=== PATIENT | male | born 1935 | race Caucasian/White ===

== ENCOUNTER 2016-08-15 12:46 | Emergency (ER) | payer OTHER ==
[~2016-08-15] VITALS: Ht 182.9 cm; Wt 85.0 kg
[~2016-08-15 12:46] MED LIST: ASCA500 PO; ASPI-435 PO; ATEN25TA PO; CHOL100010 PO; CLOP1TAB54 PO; DIGO0.2518 PO; DIGO0.2576 PO; DILT240C56 PO; FENO134C2 PO; FERR1TAB62 PO; FINA5TAB PO; GLC/500 PO; LEVO75TA PO; MAGN400T5 PO; MCRK20 PO; MULT-506 PO; OMEGCAP2 PO; OMEP40CA PO; ONDA4TAB65 PO; SIMV20TA5 PO; ZINC1TAB PO
[2016-08-15 12:52] VITALS: Ht 182.9 cm; Wt 85.0 kg
[2016-08-15] MEDS ORDERED: SODIUM CHLORIDE 0.9% 1000ML 1,000 ML IV STA (13:05)
[2016-08-15] MEDS ORDERED: ONDANSETRON INJ 2 MG/ML 2 ML VIAL IV STA (13:05)
--- NOTE | 2016-08-15 13:07 | EMERGENCY ROOM VISIT NOTE ---
History Report prepared by Marcelo: Julisa Brooks Under the Supervision of: Dr. Sabina Lopez M.D. First contact with patient: 12:54 Chief Complaint: OTHER COMPLAINT Stated Complaint: DISCHARGING FROM RECTUM (HAS COLOSTOMY BAG) History of Present Illness The patient is a 80 year old male who presents to the Emergency Room with complaints of constant discharge from rectum beginning last night. Per the patient and his , the discharge is a watery brown color. The patient for the past 2 years has had a colostomy bag. He denies every having this discharge from his rectum before. The patient has also been experiencing a pressure sensation before he has a bowel movement which results in the discharge from his rectum. The patient denies urinary symptoms. He has a history of a stroke. Source of History: patient, spouse/significant other Onset: last night Position: other (rectum) Quality: other (discharge) Timing: constant Associated Symptoms: No urinary symptoms Note: The patient describes his discharge as watery brown color. He experiences a pressure sensation before bowel movement. Review of Systems See HPI for pertinent positives & negatives. A total of 10 systems reviewed and were otherwise negative. Past Medical & Surgical Medical Problems: (1) EBONY inhibitor intolerance (2) BPH (benign prostatic hyperplasia) (3) CAD (coronary artery disease) (4) Carotid stenosis, bilateral (5) CKD (chronic kidney disease), stage III (6) DM type 2 (diabetes mellitus, type 2) (7) Dyslipidemia (8) Elevated PSA (9) GERD (gastroesophageal reflux disease) (10) History of atrial fibrillation (11) History of CVA (cerebrovascular accident) (12) History of lower GI bleeding (13) History of renal calculi (14) Hx of hematuria (15) Hypertension (16) Hypothyroidism (17) Iron deficiency anemia (18) Osteoarthritis (19) SBO (small bowel obstruction) Surgical Problems: (1) H/O colectomy (2) History of lumbar surgery (3) History of prostate surgery (4) S/P CABG x 5 (5) S/P cataract surgery (6) S/P coronary artery stent placement (7) S/P exploratory laparotomy (8) S/P hernia repair Family History Diabetes mellitus FH: cancer FH: heart disease Social History Smoking Status: Never Smoker Smokeless Tobacco Use: No Alcohol Use: none Drug Use: none Marital Status: Housing Status: lives with family Occupation Status: retired Current/Historical Medications Scheduled Ascorbic Acid (Vitamin C), 500 MG PO DAILY Aspirin (Aspirin 81), 81 MG PO BID Atenolol (Tenormin), 25 MG PO DAILY Clopidogrel Bisulfate (Plavix), 75 MG PO DAILY Diltiazem Hcl Coated Beads (Diltiazem Cd), 240 MG PO DAILY Fenofibrate (Tricor ), 134 MG PO DAILY Ferrous Sulfate (Ferrous Sulfate), 1 TAB PO DAILY Finasteride (Proscar), 5 MG PO DAILY Levothyroxine Sodium (Synthroid), 75 MCG PO DAILY Magnesium Oxide (Mag-Ox), 400 MG PO DAILY Metformin Hcl (Glucophage), 500 MG PO BID Multivitamin (Multivitamin), 1 TAB PO DAILY [place]-3 Fatty Acids (Fish Oil), 1 CAP PO DAILY Potassium Chloride (Klor-Con M20), 1 TAB PO DAILY Simvastatin (Zocor), 20 MG PO QPM Zinc Gluconate (Zinc), 1 TAB PO DAILY Scheduled PRN Ondansetron Hcl (Zofran), 1 TAB PO Q6H PRN for Nausea Allergies Coded Allergies: Codeine (Verified Allergy, Intermediate, ITCHING, 08/15/16) Hydrocodone (Verified Allergy, Intermediate, NAUSEA, 08/15/16) Tramadol (Verified Allergy, Intermediate, ITCHING, 08/15/16) Acetaminophen (Unverified Allergy, Unknown, NAUSEA, 08/15/16) Physical Exam Vital Signs Date Time Temp Pulse Resp B/P Pulse Ox O2 Delivery O2 Flow Rate FiO2 08/15/16 18:31 61 16 136/74 97 Room Air 08/15/16 18:31 36.5 61 16 136/74 97 08/15/16 17:11 61 16 132/71 97 Room Air 08/15/16 15:14 64 16 136/71 97 Room Air 08/15/16 14:24 59 16 158/83 97 Room Air 08/15/16 12:52 36.5 60 18 128/63 97 Room Air Physical Exam Vital signs reviewed. General: Well-appearing elderly male, in no significant distress. HEENT: No scleral icterus, PERRLA, neck supple. Atraumatic. Cardiovascular: Regular rate and rhythm, no extra sounds. Pulmonary: Clear to auscultation bilaterally, normal work of breathing. Abdomen: Colostomy to mid abdomen location with liquid dark green stool. Soft, nontender, nondistended. Musculoskeletal: Atraumatic, no peripheral edema. Neurologic: Patient awake alert and oriented x 3 Skin: Warm, dry, no rash Medical Decision & Procedures ER Provider Diagnostic Interpretation: CT results as stated below per my review and radiologist interpretation: CT SCAN OF THE ABDOMEN AND PELVIS WITHOUT CONTRAST CLINICAL HISTORY: Rectal discharge. History of colostomy. Possible fistula. COMPARISON STUDY: 05/26/2015 TECHNIQUE: CT scan of the abdomen and pelvis was performed from the lung bases to the proximal femurs. Images are reviewed in the axial, sagittal, and coronal planes. IV contrast was not administered for this examination. CT DOSE: 708.65 mGycm FINDINGS: Lower chest: There are coronary artery calcifications. There are minimal dependent atelectatic changes. Liver: There is a stable 8 mm anteriorly the junction of the left lobe medial lateral segments. There is no ductal dilatation. Gallbladder: Unremarkable. Spleen: Normal in size and attenuation. Pancreas: Unremarkable. Adrenal glands: There is a 15 mm right adrenal nodule with attenuation value of 30 Hounsfield units. Kidneys: No renal, ureteral, or bladder calculi are visualized. Bowel: The patient appears to be status post a subtotal colectomy. There is a right lower quadrant ostomy. There is a Martina pouch. There are no transition zones to indicate bowel obstruction. There is gas present within the rectosigmoid. Peritoneum: There is no intraperitoneal free air or abdominal ascites. There is a tiny fat-containing umbilical hernia. Vasculature: The abdominal aorta is normal in course and caliber. Adenopathy: None. Pelvic viscera: The prostate is enlarged measuring 5.9 cm. Skeletal structures: There are advanced degenerative changes. There are postsurgical changes are prior lumbar laminectomy. IMPRESSION: 1. Postsurgical changes of a subtotal colectomy. Right lower quadrant ileostomy. 2. No evidence of bowel obstruction. No evidence of free air. 3. Enlarged prostate 4. No evidence of pathologic adenopathy 5. Stable 2 cm right adrenal nodule 6. No acute inflammatory changes identified Electronically signed by: Darrel Ewing M.D. 08/15/2016 4:12 PM Dictated Date/Time: 08/15/2016 4:05 PM Laboratory Results 08/15/16 13:10 Red Blood Count 3.75, Mean Corpuscular Volume 87.5, Mean Corpuscular Hemoglobin 28.5, Mean Corpuscular Hemoglobin Concent 32.6, Mean Platelet Volume 10.2, Neutrophils (%) (Auto) 79.9, Lymphocytes (%) (Auto) 10.3, Monocytes (%) (Auto) 8.3, Eosinophils (%) (Auto) 1.1, Basophils (%) (Auto) 0.2, Neutrophils # (Auto) 8.81, Lymphocytes # (Auto) 1.13, Monocytes # (Auto) 0.92, Eosinophils # (Auto) 0.12, Basophils # (Auto) 0.02 08/15/16 13:10 Test 08/15/16 13:10 White Blood Count 11.02 K/uL (4.8-10.8) Red Blood Count 3.75 M/uL (4.7-6.1) Hemoglobin 10.7 g/dL (14.0-18.0) Hematocrit 32.8 % (42-52) Mean Corpuscular Volume 87.5 fL (80-100) Mean Corpuscular Hemoglobin 28.5 pg (25-34) Mean Corpuscular Hemoglobin Concent 32.6 g/dl (32-36) Platelet Count 319 K/uL (130-400) Mean Platelet Volume 10.2 fL (7.4-10.4) Neutrophils (%) (Auto) 79.9 % Lymphocytes (%) (Auto) 10.3 % Monocytes (%) (Auto) 8.3 % Eosinophils (%) (Auto) 1.1 % Basophils (%) (Auto) 0.2 % Neutrophils # (Auto) 8.81 K/uL (1.4-6.5) Lymphocytes # (Auto) 1.13 K/uL (1.2-3.4) Monocytes # (Auto) 0.92 K/uL (0.11-0.59) Eosinophils # (Auto) 0.12 K/uL (0-0.5) Basophils # (Auto) 0.02 K/uL (0-0.2) RDW Standard Deviation 49.4 fL (36.4-46.3) RDW Coefficient of Variation 15.2 % (11.5-14.5) Immature Granulocyte % (Auto) 0.2 % Immature Granulocyte # (Auto) 0.02 K/uL (0.00-0.02) Prothrombin Time 12.9 SECONDS (9.0-12.0) Prothromb Time International Ratio 1.2 (0.9-1.1) Activated Partial Thromboplast Time 30.3 SECONDS (21.0-31.0) Partial Thromboplastin Ratio 1.2 Anion Gap 7.0 mmol/L (3-11) Est Creatinine Clear Calc Drug Dose 32.9 ml/min Estimated GFR () 35.7 Estimated GFR (Non- 30.8 BUN/Creatinine Ratio 15.4 (10-20) Calcium Level 9.0 mg/dl (8.5-10.1) Magnesium Level 2.0 mg/dl (1.8-2.4) Total Bilirubin 0.8 mg/dl (0.2-1) Direct Bilirubin 0.3 mg/dl (0-0.2) Aspartate Amino Transf (AST/SGOT) 10 U/L (15-37) Alanine Aminotransferase (ALT/SGPT) 17 U/L (12-78) Alkaline Phosphatase 44 U/L (45-117) Total Protein 7.3 gm/dl (6.4-8.2) Albumin 3.8 gm/dl (3.4-5.0) Lipase 127 U/L (73-393) Laboratory results per my review. Medications Administered Medications (Trade) Dose Ordered Sig/Shonda Route Start Time Stop Time Status Last Admin Dose Admin Sodium Chloride (Nss 1000ml) 1,000 ml @ 125 mls/hr Q8H STAT IV 08/15/16 13:05 08/15/16 21:04 08/15/16 13:37 125 MLS/HR Ondansetron HCl (Zofran Inj) 4 mg NOW STAT IV 08/15/16 13:05 08/15/16 13:08 DC 08/15/16 13:37 4 MG ED Course 1301: Past medical records reviewed. The patient was evaluated in room B9. A complete history and physical examination was performed. 1305: Zofran Inj 4 mg IV, Sodium Chloride 1,000 ml @ 125 mls/hr IV. 1748: I reevaluated the patient. 1754: I spoke with Dr. Vitaliy BENJAMIN about the possible etiologies due to the sudden onset of the patient's symptoms. 1810: I discussed the plan with the patient and his for discharge. 1814: Upon reevaluation, the patient appeared to have improvement of his symptoms. I discussed findings with him. He verbalized agreement of the treatment plan. He was discharged home. Medical Decision The patient is a 80 year old male who presents to the ED with complaints of rectal discharge. Differentials include intra abdominal fistula, C Diff, colitis, diverticulitis, proctitis, rectal mucus production. This patient was evaluated and appeared to be in no significant distress. Rectal exam was performed and reveals a rectal stricture, a liquid brown stools like substance was appreciated. Patient's abdomen is nontender and nondistended. CT scan of the abdomen and pelvis was performed to rule out the possibility of an enteric fistula. This study is negative. I discussed the case with gastroenterology, Dr. Burks who agrees that the patient can be managed on an outpatient basis. The patient and his were reassured. The rest follow-up with her primary care physician as well as nephrology this week. The patient will return to the ER for worsening of symptoms or any medical concerns. Consults Time Called: 1751 Consulting Physician: Dr. Vitaliy BENJAMIN Returned Call: [address] Vitaliy BENJAMIN about the possible etiologies due to the sudden onset of the patient's symptoms. Impression Primary Impression: Acute on chronic renal insufficiency Additional Impressions: H/O colectomy Rectal discharge Scribe Attestation The scribe's documentation has been prepared under my direction and personally reviewed by me in its entirety. I confirm that the note above accurately reflects all work, treatment, procedures, and medical decision making performed by me. Departure Information Dispostion Home / Self-Care Referrals Everett Marrufo M.D. (PCP) Forms HOME CARE DOCUMENTATION FORM, IMPORTANT VISIT INFORMATION, WORK / SCHOOL INSTRUCTIONS Patient Instructions My [facility] [place] [employer] Additional Instructions Diagnosis: Rectal discharge, history of colectomy, acute on chronic renal insufficiency. Please contact of nephrology tomorrow for recommendations regarding your creatinine of 2.0, worsening from previous of 1.4. Please contact your primary care physician's office tomorrow for referral to gastroenterology. Drink plenty of clear fluids. Return to the emergency department for worsening of symptoms or any medical concerns. Problem Qualifiers
[2016-08-15 13:48] LABS: BASO % 0.2 %; BASO ABS # 0.02 K/uL (0-0.2); COMPLETE YES; EOS % 1.1 %; HEMATOCRIT 32.8 % (42-52); IG% 0.2 %; LYMPH % 10.3 %; LYMPH ABS # 1.13 K/uL (1.2-3.4); MEAN CELL VOLUME 87.5 fL (80-100); MEAN CORPUSCULAR HEMOGLOBIN 28.5 pg (25-34); MEAN CORPUSCULAR HGB CONC 32.6 g/dl (32-36); MEAN PLATELET VOLUME 10.2 fL (7.4-10.4); MONO % 8.3 %; NEUT % 79.9 %; PLATELET COUNT 319 K/uL (130-400); RED BLOOD COUNT 3.75 M/uL (4.7-6.1); WHITE BLOOD COUNT 11.02 K/uL (4.8-10.8)
[2016-08-15 13:55] LABS: INR 1.2 (0.9-1.1); PARTIAL THROMBOPLASTIN RATIO 1.2; PROTHROMBIN TIME (PATIENT) 12.9 SECONDS (9.0-12.0)
[2016-08-15 14:10] LABS: BUN/CREATININE RATIO 15.4 (10-20); POTASSIUM 4.4 mmol/L (3.5-5.1)
--- NOTE | 2016-08-15 16:13 | DIAGNOSTIC IMAGING REPORT ---
CT SCAN OF THE ABDOMEN AND PELVIS WITHOUT CONTRAST CLINICAL HISTORY: Rectal discharge. History of colostomy. Possible fistula. COMPARISON STUDY: 05/26/2015 TECHNIQUE: CT scan of the abdomen and pelvis was performed from the lung bases to the proximal femurs. Images are reviewed in the axial, sagittal, and coronal planes. IV contrast was not administered for this examination. CT DOSE: 708.65 mGycm FINDINGS: Lower chest: There are coronary artery calcifications. There are minimal dependent atelectatic changes. Liver: There is a stable 8 mm anteriorly the junction of the left lobe medial lateral segments. There is no ductal dilatation. Gallbladder: Unremarkable. Spleen: Normal in size and attenuation. Pancreas: Unremarkable. Adrenal glands: There is a 15 mm right adrenal nodule with attenuation value of 30 Hounsfield units. Kidneys: No renal, ureteral, or bladder calculi are visualized. Bowel: The patient appears to be status post a subtotal colectomy. There is a right lower quadrant ostomy. There is a Martina pouch. There are no transition zones to indicate bowel obstruction. There is gas present within the rectosigmoid. Peritoneum: There is no intraperitoneal free air or abdominal ascites. There is a tiny fat-containing umbilical hernia. Vasculature: The abdominal aorta is normal in course and caliber. Adenopathy: None. Pelvic viscera: The prostate is enlarged measuring 5.9 cm. Skeletal structures: There are advanced degenerative changes. There are postsurgical changes are prior lumbar laminectomy. IMPRESSION: 1. Postsurgical changes of a subtotal colectomy. Right lower quadrant ileostomy. 2. No evidence of bowel obstruction. No evidence of free air. 3. Enlarged prostate 4. No evidence of pathologic adenopathy 5. Stable 2 cm right adrenal nodule 6. No acute inflammatory changes identified Electronically signed by: Darrel Ewing M.D. 08/15/2016 4:12 PM Dictated Date/Time: 08/15/2016 4:05 PM
[2016-08-15 18:31] VITALS: BP 136/74; PULSE 61; TEMP 36.5; O2SAT 97
[2016-09-08] MEDS ORDERED: FLX10 PO (18:34)
[2016-09-08] MEDS ORDERED: AMX500 PO (18:34)
[2016-09-08] MEDS ORDERED: CRD200 PO (18:34)
== END 2016-08-15 18:32 | disposition home or self-care (01) ==
LOC: C.EDB 12:48
DX: K62.89 Other specified diseases of anus and rectum (principal); Z93.3 Colostomy status; Z90.49 Acquired absence of other specified parts of digestive tract; N18.3 Chronic kidney disease, stage 3 (moderate); I12.9 Hypertensive chronic kidney disease with stage 1 through stage 4 chronic kidney disease, or unspecified chronic kidney disease; Z86.73 Personal history of transient ischemic attack (TIA), and cerebral infarction without residual deficits; N40.0 Benign prostatic hyperplasia without lower urinary tract symptoms; I25.10 Atherosclerotic heart disease of native coronary artery without angina pectoris; E78.5 Hyperlipidemia, unspecified; K21.9 Gastro-esophageal reflux disease without esophagitis; I48.91 Unspecified atrial fibrillation; E03.9 Hypothyroidism, unspecified; M19.90 Unspecified osteoarthritis, unspecified site; Z95.1 Presence of aortocoronary bypass graft; Z98.49 Cataract extraction status, unspecified eye; Z95.5 Presence of coronary angioplasty implant and graft; Z83.3 Family history of diabetes mellitus; Z80.9 Family history of malignant neoplasm, unspecified; Z79.82 Long term (current) use of aspirin; Z79.899 Other long term (current) drug therapy

== ENCOUNTER 2016-09-03 10:59 | Inpatient (IN) | payer OTHER ==
[~2016-09-03] VITALS: Ht 182.9 cm; Wt 84.5 kg
[~2016-09-03 10:59] MED LIST changes: -CHOL100010 PO; -DIGO0.2518 PO; -DIGO0.2576 PO; -OMEP40CA PO
--- NOTE | 2016-09-03 11:24 | EMERGENCY ROOM VISIT NOTE ---
History Report prepared by Tonyibailyn: Rogelio Mclaughlin Under the Supervision of: Dr. Denice Wang D.O. First contact with patient: 11:06 Chief Complaint: DIZZY Stated Complaint: NECK PAIN,DIZZINESS History of Present Illness The patient is a 80 year old male who presents to the Emergency Room with recurrent dizziness for the past three days. The patient's notes that they heard a crash, and found the patient fallen into a flower bed. The patient cannot remember the fall but he does remember feeling dizzy prior to the fall. states pt had +LOC. The patient has been experiencing neck pain that is described as a burning sensation. The neck pain is worse on the right side. The patient's blood pressure was 107/51 around the time of the fall, and his family notes that he normally runs in the 120s systolically. The patient saw his doctor two days ago and had blood work. The patient has had a colostomy bag for two years. The patient has a history of stroke and carotid stenosis. His right side is weak at baseline secondary to past stroke. The patient was just taken off of Digoxin, Atenolol, and Metformin. The patient denies chest pain, shortness of breath, palpitations, nausea, abdominal pain, or urinary symptoms. Son states pt has had prior episodes of prince/neck pain and syncope and no cause was ever found. Source of History: patient, family Onset: three days ago Position: other (global) Quality: other (dizziness) Timing: other (recurrent) Associated Symptoms: + neck pain, No chest pain, No SOB, No nausea, No abdominal pain, No urinary symptoms Review of Systems See HPI for pertinent positives & negatives. A total of 10 systems reviewed and were otherwise negative. Past Medical & Surgical Medical Problems: (1) EBONY inhibitor intolerance (2) BPH (benign prostatic hyperplasia) (3) CAD (coronary artery disease) (4) Carotid stenosis, bilateral (5) CKD (chronic kidney disease), stage III (6) DM type 2 (diabetes mellitus, type 2) (7) Dyslipidemia (8) Elevated PSA (9) GERD (gastroesophageal reflux disease) (10) History of atrial fibrillation (11) History of CVA (cerebrovascular accident) (12) History of lower GI bleeding (13) History of renal calculi (14) Hx of hematuria (15) Hypertension (16) Hypothyroidism (17) Iron deficiency anemia (18) Osteoarthritis (19) SBO (small bowel obstruction) Surgical Problems: (1) H/O colectomy (2) History of lumbar surgery (3) History of prostate surgery (4) S/P CABG x 5 (5) S/P cataract surgery (6) S/P coronary artery stent placement (7) S/P exploratory laparotomy (8) S/P hernia repair Family History Diabetes mellitus FH: cancer FH: heart disease Social History Smoking Status: Never Smoker Alcohol Use: none Drug Use: none Marital Status: Housing Status: lives with family Occupation Status: retired Current/Historical Medications Scheduled Aspirin (Aspirin 81), 81 MG PO BID Cholecalciferol (Vitamin D3), 1,000 UNITS PO HS Clopidogrel Bisulfate (Plavix), 75 MG PO DAILY Diltiazem Hcl Coated Beads (Diltiazem Cd), 240 MG PO DAILY Fenofibrate (Tricor ), 134 MG PO DAILY Finasteride (Proscar), 5 MG PO DAILY Levothyroxine Sodium (Synthroid), 75 MCG PO DAILY Magnesium Oxide (Mag-Ox), 400 MG PO DAILY Multivitamin (Multivitamin), 1 TAB PO DAILY Omeprazole (Prilosec), 40 MG PO BID Simvastatin (Zocor), 20 MG PO QPM Allergies Coded Allergies: Codeine (Verified Allergy, Intermediate, ITCHING, 09/03/16) Tramadol (Verified Allergy, Intermediate, ITCHING, 09/03/16) Hydrocodone (Verified Adverse Reaction, Intermediate, NAUSEA, 09/06/16) Physical Exam Vital Signs Date Time Temp Pulse Resp B/P (MAP) Pulse Ox O2 Delivery O2 Flow Rate FiO2 09/03/16 15:12 67 09/03/16 15:11 80 18 124/70 97 Room Air 09/03/16 15:10 71 126/71 67 142/76 80 124/70 09/03/16 12:50 67 18 127/71 97 Room Air 09/03/16 11:03 36.4 91 18 142/77 98 Room Air Physical Exam GENERAL: alert, well appearing, well nourished, no distress, non-toxic EYE EXAM: normal conjunctiva, PERRL and EOM's grossly intact OROPHARYNX: no exudate, no erythema, lips, buccal mucosa, and tongue normal and mucous membranes are moist NECK: Right paraspinal cervical spine tenderness, no midline tenderness or stepoff. LUNGS: Clear to auscultation. Normal chest wall mechanics HEART: no murmurs, S1 normal and S2 normal ABDOMEN: abdomen soft, non-tender, normo-active bowel sounds, no masses, no rebound or guarding. BACK: Back is symmetrical on inspection and there is no deformity, no midline tenderness, no CVA tenderness. SKIN: no rashes and no bruising UPPER EXTREMITIES: Weakness and mild atrophy of the right upper extremity with decreased range of motion, secondary to prior stroke. LOWER EXTREMITIES: Right lower extremity in a brace, weak compared to left side due to prior stroke, sensation remains intact. NEURO EXAM: Normal sensorium, cranial nerves II-XII grossly intact, normal speech, no gross weakness of arms, no gross weakness of legs. Gross sensation intact. No facial droop, no speech slur. Medical Decision & Procedures ER Provider Diagnostic Interpretation: Radiology results have been interpreted by the radiologist and reviewed by me. SINGLE VIEW CHEST CLINICAL HISTORY: Fall. FINDINGS: An AP, portable, upright chest radiograph is compared to study dated 05/25/2015. The patient is status post midline sternotomy. The heart is enlarged and there is atherosclerotic calcification of the thoracic aorta. The pulmonary vasculature is noncongested. Chronic residual thickening is similar to previous. No airspace consolidation, large pleural effusion, or pneumothorax is seen. The skeletal structures are osteopenic. The bony thorax is grossly intact. IMPRESSION: Cardiomegaly with no acute cardiopulmonary abnormality. Electronically signed by: Lexx Sun M.D. 09/03/2016 11:58 AM Dictated Date/Time: 09/03/2016 11:[address] SCAN OF THE CERVICAL SPINE CLINICAL HISTORY: Fall. Neck pain. COMPARISON STUDY: CT scan of cervical spine dated 08/19/2014. TECHNIQUE: CT scan of the cervical spine is performed from the skull base to the upper thoracic spine. Images are reviewed in the axial, sagittal, and coronal planes. IV contrast was not administered for this examination. CT DOSE: Reported separately under the concurrently performed CT scan of the brain. FINDINGS: Skeletal structures: The skeletal structures are osteopenic. There is no evidence of fracture or subluxation involving the cervical spine. Vertebral body height is maintained. There is minimal anterolisthesis at C4-C5. Alignment is otherwise preserved. There is straightening of cervical lordosis. Anterior osteophytes are seen from C4 through T1. The odontoid process and lateral masses are intact. The atlantoaxial articulation is preserved noting productive degenerative change. The spinous processes appear intact. There is moderate to advanced multilevel cervical spondylosis. Uncovertebral and facet arthropathy contribute to neural foraminal narrowing at most levels. Intervertebral discs: There is moderate to advanced degenerative disc space narrowing seen at C5-C6, C6-C7, and C7-T1. Central canal: Posterior disc osteophyte complexes at C5-C6, C6-C7, and C7-T1 likely contribute to acquired compromise of the central canal. Soft tissues: The prevertebral and paraspinous soft tissues are within normal limits. There is atherosclerotic calcification of the carotid bulbs. Small calcified tonsilliths are incidentally noted. Calvarium: The visualized calvarium at the skull base appears intact. Brain parenchyma: Partially visualized brain parenchyma the skull base is within normal limits noting age-related involutional change. Sinuses and mastoids: The visualized paranasal sinuses are clear. The mastoid air cells are well pneumatized. Lung apices: Clear as visualized. IMPRESSION: 1. There is no evidence of fracture or subluxation involving the cervical spine. 2. Osteopenia and spondylotic change as above. Electronically signed by: Lexx Sun M.D. 09/03/2016 12:49 PM Dictated Date/Time: 09/03/2016 12:[address] SCAN OF THE BRAIN WITHOUT IV CONTRAST CLINICAL HISTORY: Fall. Syncope. Dizziness. COMPARISON STUDY: CT of the brain dated 08/17/2014. TECHNIQUE: Unenhanced axial CT scan of the brain is performed from the vertex to the skull base. CT DOSE: 1060.79 mGy.cm FINDINGS: Brain parenchyma: There are age-related involutional changes noting [id number] patchy subcortical and periventricular microangiopathic change. There is no hemorrhage, mass effect, or evidence of acute territorial ischemia by CT criteria. A chronic lacunar infarct is noted in the right caudate head. Payne-white matter is preserved. No extra-axial fluid collection is seen. Ventricles, sulci, cisterns: Prominent secondary to involutional change. Intracranial vasculature: There is atherosclerotic calcification of the cavernous carotid and vertebral arteries. Calvarium: The skeletal structures are osteopenic. There is no depressed calvarial fracture. Sinuses and mastoids: There is a retention cyst in the left maxillary antrum. The remaining paranasal sinuses are clear. The mastoid air cells are well pneumatized. Orbits: The bony orbits are grossly intact. There are bilateral ocular lens implants. There has been banding of the right ocular globe. IMPRESSION: There is no hemorrhage, mass effect, or evidence of acute territorial ischemia by CT criteria. Electronically signed by: Lexx Sun M.D. 09/03/2016 12:45 PM Dictated Date/Time: 09/03/2016 12:41 PM Laboratory Results Test 09/03/16 11:40 09/03/16 11:44 09/03/16 13:40 Prothrombin Time 12.1 SECONDS (9.0-12.0) Prothromb Time International Ratio 1.1 (0.9-1.1) Immature Granulocyte % (Auto) 0.3 % White Blood Count 7.09 K/uL (4.8-10.8) Red Blood Count 4.06 M/uL (4.7-6.1) Hemoglobin 11.2 g/dL (14.0-18.0) Hematocrit 35.2 % (42-52) Mean Corpuscular Volume 86.7 fL (80-100) Mean Corpuscular Hemoglobin 27.6 pg (25-34) Mean Corpuscular Hemoglobin Concent 31.8 g/dl (32-36) Platelet Count 291 K/uL (130-400) Mean Platelet Volume 9.6 fL (7.4-10.4) Neutrophils (%) (Auto) 74.4 % Lymphocytes (%) (Auto) 13.4 % Monocytes (%) (Auto) 9.6 % Eosinophils (%) (Auto) 2.0 % Basophils (%) (Auto) 0.3 % Neutrophils # (Auto) 5.28 K/uL (1.4-6.5) Lymphocytes # (Auto) 0.95 K/uL (1.2-3.4) Monocytes # (Auto) 0.68 K/uL (0.11-0.59) Eosinophils # (Auto) 0.14 K/uL (0-0.5) Basophils # (Auto) 0.02 K/uL (0-0.2) Immature Granulocyte # (Auto) 0.02 K/uL (0.00-0.02) Lactic Acid Level 1.2 mmol/L (0.4-2.0) Globulin 3.6 gm/dl (2.5-4.0) Albumin/Globulin Ratio 1.0 (0.9-2) Thyroid Stimulating Hormone (TSH) 1.850 uIu/ml (0.300-4.500) Urine Color YELLOW Urine Appearance CLEAR (CLEAR) Urine pH 5.0 (4.5-7.5) Urine Specific [place] 1.015 (1.000-1.030) Urine Protein NEG (NEG) Urine Glucose (UA) NEG (NEG) Urine Ketones NEG (NEG) Urine Occult Blood NEG (NEG) Urine Nitrite NEG (NEG) Urine Bilirubin NEG (NEG) Urine Urobilinogen NEG (NEG) Urine Leukocyte Esterase NEG (NEG) Laboratory results per my review. Medications Administered Medications (Trade) Dose Ordered Sig/Shonda Route Start Time Stop Time Status Last Admin Dose Admin Sodium Chloride 1,000 ml @ 125 mls/hr Q8H IV 09/03/16 11:45 09/03/16 19:59 DC 09/03/16 19:57 125 MLS/HR ECG Indication: other (dizzy) Rate (beats per minute): 84 Rhythm: normal sinus Findings: RBBB, no acute ischemic change, no ectopy ED Course 1108: The patient was evaluated in room C4. A complete history and physical exam was performed. 1145: NSS 1000 ml @ 125 mls/hr. 1442: Reassessed the patient. 1610: [facility] the [facility] The patient will be evaluated. 1615: Updated the patient and his family. Medical Decision Differential diagnosis: Etiologies such as benign positional vertigo, dehydration, hypovolemia, anemia, tumor, infection, hypoglycemia, electrolyte abnormalities, cardiac sources, intracerebral event, toxicologic, neurologic, as well as others were entertained. Blood pressure screening: Patient was found to have an elevated blood pressure and was referred to their primary doctor for recheck and further treatment. Medication Reconciliation: I attest that I have personally reviewed the patient' s current medication list. Pt with concerning story and risk factors. Pt with preceding symptoms leading to syncope, and worsening sx since fall. Pt unsteady with current cane. CKD at baseline. No evidence of dysrhythmia, acs, doubt new cva, no evidence of bacteremia/sepsis. Unclear etiology of events, no evidence of trauma. Pt admitted for additional evaluation/monitoring. Consults Time Called: 1600 Consulting Physician: Cecilia Johnson Hospitalist. Returned Call: 1610 The patient will be evaluated. Impression Primary Impression: Syncope Additional Impressions: Dizziness Closed head injury CKD (chronic kidney disease) Scribe Attestation The scribe's documentation has been prepared under my direction and personally reviewed by me in its entirety. I confirm that the note above accurately reflects all work, treatment, procedures, and medical decision making performed by me. Departure Information Dispostion Being Evaluated By Hospitalist Referrals Everett Marrufo M.D. (PCP) Patient Instructions [facility] Problem Qualifiers Primary Impression: Syncope Syncope type: unspecified Qualified Codes: R55 - Syncope and collapse Additional Impressions: Closed head injury Encounter type: initial encounter Qualified Codes: S09.90XA - Unspecified injury of head, initial encounter CKD (chronic kidney disease) Chronic kidney disease stage: unspecified stage Qualified Codes: N18.9 - Chronic kidney disease, unspecified
[2016-09-03] MEDS ORDERED: CHOL1CAP57 PO (11:41)
[2016-09-03] MEDS ORDERED: OMEP40CA41 PO (11:41)
[2016-09-03] MEDS: SODIUM CHLORIDE 0.9% 1000ML 1,000 ML IV SCH ×2 (11:45→19:57)
[2016-09-03 11:55] LABS: BASO % 0.3 %; BASO ABS # 0.02 K/uL (0-0.2); COMPLETE YES; HEMATOCRIT 35.2 % (42-52); IG% 0.3 %; LYMPH % 13.4 %; LYMPH ABS # 0.95 K/uL (1.2-3.4); MEAN CELL VOLUME 86.7 fL (80-100); MEAN CORPUSCULAR HEMOGLOBIN 27.6 pg (25-34); MEAN CORPUSCULAR HGB CONC 31.8 g/dl (32-36); MEAN PLATELET VOLUME 9.6 fL (7.4-10.4); MONO % 9.6 %; NEUT % 74.4 %; PLATELET COUNT 291 K/uL (130-400); RED BLOOD COUNT 4.06 M/uL (4.7-6.1); WHITE BLOOD COUNT 7.09 K/uL (4.8-10.8)
--- NOTE | 2016-09-03 12:00 | DIAGNOSTIC IMAGING REPORT ---
SINGLE VIEW CHEST CLINICAL HISTORY: Fall. FINDINGS: An AP, portable, upright chest radiograph is compared to study dated 05/25/2015. The patient is status post midline sternotomy. The heart is enlarged and there is atherosclerotic calcification of the thoracic aorta. The pulmonary vasculature is noncongested. Chronic residual thickening is similar to previous. No airspace consolidation, large pleural effusion, or pneumothorax is seen. The skeletal structures are osteopenic. The bony thorax is grossly intact. IMPRESSION: Cardiomegaly with no acute cardiopulmonary abnormality. Electronically signed by: Lexx Sun M.D. 09/03/2016 11:58 AM Dictated Date/Time: 09/03/2016 11:57 AM
[2016-09-03 12:16] LABS: ALT/SGPT 18 U/L (12-78); AST/SGOT 13 U/L (15-37); BLOOD UREA NITROGEN 31 mg/dl (7-18); BUN/CREATININE RATIO 14.9 (10-20); CALCIUM 8.8 mg/dl (8.5-10.1); CARBON DIOXIDE 22 mmol/L (21-32); CHLORIDE 109 mmol/L (98-107); GLUCOSE 109 mg/dl (70-99); POTASSIUM 4.4 mmol/L (3.5-5.1); SODIUM 140 mmol/L (136-145)
[2016-09-03 12:20] LABS: ALKALINE PHOSPHATASE 48 U/L (45-117)
--- NOTE | 2016-09-03 12:47 | DIAGNOSTIC IMAGING REPORT ---
CT SCAN OF THE BRAIN WITHOUT IV CONTRAST CLINICAL HISTORY: Fall. Syncope. Dizziness. COMPARISON STUDY: CT of the brain dated 08/17/2014. TECHNIQUE: Unenhanced axial CT scan of the brain is performed from the vertex to the skull base. CT DOSE: 1060.79 mGy.cm FINDINGS: Brain parenchyma: There are age-related involutional changes noting [id number] patchy subcortical and periventricular microangiopathic change. There is no hemorrhage, mass effect, or evidence of acute territorial ischemia by CT criteria. A chronic lacunar infarct is noted in the right caudate head. Payne-white matter is preserved. No extra-axial fluid collection is seen. Ventricles, sulci, cisterns: Prominent secondary to involutional change. Intracranial vasculature: There is atherosclerotic calcification of the cavernous carotid and vertebral arteries. Calvarium: The skeletal structures are osteopenic. There is no depressed calvarial fracture. Sinuses and mastoids: There is a retention cyst in the left maxillary antrum. The remaining paranasal sinuses are clear. The mastoid air cells are well pneumatized. Orbits: The bony orbits are grossly intact. There are bilateral ocular lens implants. There has been banding of the right ocular globe. IMPRESSION: There is no hemorrhage, mass effect, or evidence of acute territorial ischemia by CT criteria. Electronically signed by: Lexx Sun M.D. 09/03/2016 12:45 PM Dictated Date/Time: 09/03/2016 12:41 PM
--- NOTE | 2016-09-03 12:50 | DIAGNOSTIC IMAGING REPORT ---
CT SCAN OF THE CERVICAL SPINE CLINICAL HISTORY: Fall. Neck pain. COMPARISON STUDY: CT scan of cervical spine dated 08/19/2014. TECHNIQUE: CT scan of the cervical spine is performed from the skull base to the upper thoracic spine. Images are reviewed in the axial, sagittal, and coronal planes. IV contrast was not administered for this examination. CT DOSE: Reported separately under the concurrently performed CT scan of the brain. FINDINGS: Skeletal structures: The skeletal structures are osteopenic. There is no evidence of fracture or subluxation involving the cervical spine. Vertebral body height is maintained. There is minimal anterolisthesis at C4-C5. Alignment is otherwise preserved. There is straightening of cervical lordosis. Anterior osteophytes are seen from C4 through T1. The odontoid process and lateral masses are intact. The atlantoaxial articulation is preserved noting productive degenerative change. The spinous processes appear intact. There is moderate to advanced multilevel cervical spondylosis. Uncovertebral and facet arthropathy contribute to neural foraminal narrowing at most levels. Intervertebral discs: There is moderate to advanced degenerative disc space narrowing seen at C5-C6, C6-C7, and C7-T1. Central canal: Posterior disc osteophyte complexes at C5-C6, C6-C7, and C7-T1 likely contribute to acquired compromise of the central canal. Soft tissues: The prevertebral and paraspinous soft tissues are within normal limits. There is atherosclerotic calcification of the carotid bulbs. Small calcified tonsilliths are incidentally noted. Calvarium: The visualized calvarium at the skull base appears intact. Brain parenchyma: Partially visualized brain parenchyma the skull base is within normal limits noting age-related involutional change. Sinuses and mastoids: The visualized paranasal sinuses are clear. The mastoid air cells are well pneumatized. Lung apices: Clear as visualized. IMPRESSION: 1. There is no evidence of fracture or subluxation involving the cervical spine. 2. Osteopenia and spondylotic change as above. Electronically signed by: Lexx Sun M.D. 09/03/2016 12:49 PM Dictated Date/Time: 09/03/2016 12:40 PM
[2016-09-03 13:50] LABS: URINE APPEARANCE CLEAR (CLEAR); URINE BILIRUBIN NEG (NEG); URINE COLOR YELLOW; URINE NITRITE NEG (NEG); URINE SPECIFIC GRAVITY 1.015 (1.000-1.030); UROBILINOGEN NEG (NEG); ZZUR CULT IF INDIC CLEAN CATCH NO
[2016-09-03 13:53] LABS: MANUAL MICROSCOPIC REQUIRED? NO; REVIEW REQ? NO
[2016-09-03 17:40] VITALS: BP 124/70; PULSE 71; TEMP 36.4; O2SAT 97; Ht 182.9 cm; Wt 84.5 kg
[2016-09-03] MEDS ORDERED: GLUCOSE 10 TABS/TUBE PO PRN (18:00)
[2016-09-03] MEDS ORDERED: DEXTROSE 50% 50 ML SYR IV PRN (18:00)
[2016-09-03] MEDS ORDERED: GLUCOSE 40% GEL 15 GM TUBE PO PRN (18:00)
[2016-09-03] MEDS ORDERED: GLUCAGON FOR INJ 1 MG VIAL SQ PRN (18:00)
[2016-09-03] MEDS ORDERED: POLYETHYLENE (MIRALAX) 17 GM PACK PO PRN (18:00)
[2016-09-03 18:26] LABS: INR 1.1 (0.9-1.1); PROTHROMBIN TIME (PATIENT) 12.1 SECONDS (9.0-12.0)
--- NOTE | 2016-09-03 18:29 | History and Physical ---
History & Physical Date & Time of Service: Sep 03, 2016 at 18:18 Chief Complaint: Neck Pain,Dizziness Primary Care Physician: Everett Marrufo M.D. History of Present Illness Source: patient, family, clinic records, hospital records 80 yo M with h/o CABG and stroke in the past presents to the ER with 2-3 days of persistent dizziness. He has had symptoms of dizziness in the past but states he started feeling hot on his neck this morning while eating his cereal and, in conjunction with some new neck discomfort, this was concerning. He reports being dizzy only when he moves around-even gets dizzy when sitting and moving his head. He denies any symptoms of garbled speech, trouble swallowing ( he ate a full meal here in the ER without issue), difficulty moving his arms or legs from his baseline, loss of bladder control, loss of consciousness. He reports a posterior headache and some blurry vision only when he is dizzy. He reports a h/o glaucoma and some eye pain a few weeks ago for which he was evaluated by the eye doctor as an outpatient and since the dizziness began he denies any eye pain. He has some R arm weakness and numbness and R leg weakness with R foot drop and plantar numbness at baseline as a residual from his prior stroke several years ago. He denies any worsening of that at this time. He denies any urinary burning or incontinence. He has a colostomy in place and reports that his stools are always liquid with no blood or other concerning changes recently. He denies any URI symptoms, fevers, chills, cough , sore throat, ear pain or ear fullness. He said that when his neck got hot, he felt a little confused this morning but this only lasted a few seconds and then he called his son who brought him into the ER. He takes ASA 162mg daily and Plavix for h/o stroke in setting of afib. He states he has never taken coumadin and follows regularly with a Immigration Specialist. 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 Status: Chronic (2) BPH (benign prostatic hyperplasia) Status: Chronic (3) CAD (coronary artery disease) Permanent Comment: s/p CABG x5 and stent x 1 Status: Chronic (4) Carotid stenosis, bilateral Permanent Comment: 60-69% bilateral Status: Chronic (5) CKD (chronic kidney disease), stage III Status: Chronic (6) DM type 2 (diabetes mellitus, type 2) Status: Chronic (7) Dyslipidemia Status: Chronic (8) Elevated PSA Status: Chronic (9) GERD (gastroesophageal reflux disease) Status: Chronic (10) History of atrial fibrillation Permanent Comment: Status: Chronic (11) History of CVA (cerebrovascular accident) Permanent Comment: 03/11/13-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 Status: Chronic (12) History of lower GI bleeding Status: Resolved (13) History of renal calculi Status: Chronic (14) Hx of hematuria Status: Chronic (15) Hypertension Status: Chronic (16) Hypothyroidism Status: Chronic (17) Iron deficiency anemia Status: Chronic (18) Osteoarthritis Status: Chronic Surgical Problems: (1) H/O colectomy Permanent Comment: 08/12/13-total abdominal prostatectomy ileoanal anastamosis creation, ileal reservoir including loop ileostomy Status: Resolved (2) History of lumbar surgery Status: Resolved (3) History of prostate surgery Status: Resolved (4) S/P CABG x 5 Permanent Comment: 1997 Status: Resolved (5) S/P cataract surgery Status: Resolved (6) S/P coronary artery stent placement Permanent Comment: 2008 Status: Resolved (7) S/P exploratory laparotomy Permanent Comment: 08/12/[address] Amie Thompson Status: Resolved (8) S/P hernia repair Status: Resolved Family History Diabetes mellitus FH: cancer FH: heart disease Social History Smoking Status: Former Smoker Smokeless Tobacco Use: No Alcohol Use: none Drug Use: none Marital Status: Housing status: lives with significant other Occupational Status: retired Immunizations History of Influenza Vaccine: No History of Tetanus Vaccine?: No History of Pneumococcal: Yes Pneumococcal Date: Jun 09, 2014 History of Hepatitis B Vaccine: No Multi-Drug Resistant Organisms History of MDRO: No Allergies Coded Allergies: Codeine (Verified Allergy, Intermediate, ITCHING, 09/03/16) Hydrocodone (Verified Allergy, Intermediate, NAUSEA, 09/03/16) Tramadol (Verified Allergy, Intermediate, ITCHING, 09/03/16) Acetaminophen (Unverified Allergy, Unknown, NAUSEA, 09/03/16) Home Medications Scheduled Aspirin (Aspirin 81), 81 MG PO BID Cholecalciferol (Vitamin D3), 1,000 UNITS PO HS Clopidogrel Bisulfate (Plavix), 75 MG PO DAILY Diltiazem Hcl Coated Beads (Diltiazem Cd), 240 MG PO DAILY Fenofibrate (Tricor ), 134 MG PO DAILY Finasteride (Proscar), 5 MG PO DAILY Levothyroxine Sodium (Synthroid), 75 MCG PO DAILY Magnesium Oxide (Mag-Ox), 400 MG PO DAILY Multivitamin (Multivitamin), 1 TAB PO DAILY Omeprazole (Prilosec), 40 MG PO BID Simvastatin (Zocor), 20 MG PO QPM Review of Systems Ten systems were reviewed and negative except as indicated in HPI. Physical Exam Vital Signs Date Time Temp Pulse Resp B/P (MAP) Pulse Ox O2 Delivery O2 Flow Rate FiO2 09/03/16 17:59 68 22 134/71 98 Room Air 09/03/16 17:40 36.4 71 18 124/70 97 Room Air 09/03/16 15:12 67 09/03/16 15:11 80 18 124/70 97 Room Air 09/03/16 15:10 71 126/71 67 142/76 80 124/70 09/03/16 12:50 67 18 127/71 97 Room Air 09/03/16 11:03 36.4 91 18 142/77 98 Room Air GEN: WNWD, in no acute distress, alert and appropriate HEENT: NC/AT, PERRL, normal sclerae/conjunctivae, MMM, pharynx non-acute, TM with effusion in R ear, cannot evaluate on the L because of cerumen. No LAD, EOMI CARDIO: reg rate, S1/2 heard without m/g/r LUNGS: CTA bilaterally, no crackles, rales or wheezes, good diaphragmatic excursion ABD: soft, non-tender, non-distended, no rebound or guarding, +BS, colostomy in place EXTREMITY: RP and DP palpable 2+ bilat, no LE swelling or edema, extremities are warm and well-perfused NEURO: CN 2-12 grossly intact, sensation intact throughout except in R arm and bottom of right foot, coordination intact knee reflex 2+ bilat, gait was not assessed 2/2 fall risk MUSC: 5/5 strength throughout, no focal deficits SKIN: warm and dry Diagnostics Laboratory Results Results Past 24 Hours Test 09/03/16 11:44 09/03/16 13:40 09/03/16 18:12 6/4/17 18:15 Range/Units White Blood Count 7.09 4.8-10.8 K/uL Red Blood Count 4.06 4.7-6.1 M/uL Hemoglobin 11.2 14.0-18.0 g/dL Hematocrit 35.2 42-52 % Mean Corpuscular Volume 86.7 80-100 fL Mean Corpuscular Hemoglobin 27.6 25-34 pg Mean Corpuscular Hemoglobin Concent 31.8 32-36 g/dl Platelet Count 291 130-400 K/uL Mean Platelet Volume 9.6 7.4-10.4 fL Neutrophils (%) (Auto) 74.4 % Lymphocytes (%) (Auto) 13.4 % Monocytes (%) (Auto) 9.6 % Eosinophils (%) (Auto) 2.0 % Basophils (%) (Auto) 0.3 % Neutrophils # (Auto) 5.28 1.4-6.5 K/uL Lymphocytes # (Auto) 0.95 1.2-3.4 K/uL Monocytes # (Auto) 0.68 0.11-0.59 K/uL Eosinophils # (Auto) 0.14 0-0.5 K/uL Basophils # (Auto) 0.02 0-0.2 K/uL RDW Standard Deviation 46.5 36.4-46.3 fL RDW Coefficient of Variation 14.8 11.5-14.5 % Immature Granulocyte % (Auto) 0.3 % Immature Granulocyte # (Auto) 0.02 0.00-0.02 K/uL Sodium Level 140 136-145 mmol/L Potassium Level 4.4 3.5-5.1 mmol/L Chloride Level 109 98-107 mmol/L Carbon Dioxide Level 22 21-32 mmol/L Anion Gap 9.0 3-11 mmol/L Blood Urea Nitrogen 31 7-18 mg/dl Creatinine 2.10 0.60-1.40 mg/dl Est Creatinine Clear Calc Drug Dose 31.3 ml/min Estimated GFR () 33.7 Estimated GFR (Non- 29.1 BUN/Creatinine Ratio 14.9 10-20 Random Glucose 109 70-99 mg/dl Lactic Acid Level 1.2 0.4-2.0 mmol/L Calcium Level 8.8 8.5-10.1 mg/dl Total Bilirubin 0.4 0.2-1 mg/dl Aspartate Amino Transf (AST/SGOT) 13 15-37 U/L Alanine Aminotransferase (ALT/SGPT) 18 12-78 U/L Alkaline Phosphatase 48 45-117 U/L Troponin I < 0.015 0-0.045 ng/ml Total Protein 7.2 6.4-8.2 gm/dl Albumin 3.6 3.4-5.0 gm/dl Globulin 3.6 2.5-4.0 gm/dl Albumin/Globulin Ratio 1.0 0.9-2 Urine Color YELLOW Urine Appearance CLEAR CLEAR Urine pH 5.0 4.5-7.5 Urine Specific [place] 1.015 1.000-1.030 Urine Protein NEG NEG Urine Glucose (UA) NEG NEG Urine Ketones NEG NEG Urine Occult Blood NEG NEG Urine Nitrite NEG NEG Urine Bilirubin NEG NEG Urine Urobilinogen NEG NEG Urine Leukocyte Esterase NEG NEG Diagnostic Radiology CT SCAN OF THE CERVICAL SPINE CLINICAL HISTORY: Fall. Neck pain. COMPARISON STUDY: CT scan of cervical spine dated 08/19/2014. TECHNIQUE: CT scan of the cervical spine is performed from the skull base to the upper thoracic spine. Images are reviewed in the axial, sagittal, and coronal planes. IV contrast was not administered for this examination. CT DOSE: Reported separately under the concurrently performed CT scan of the brain. FINDINGS: Skeletal structures: The skeletal structures are osteopenic. There is no evidence of fracture or subluxation involving the cervical spine. Vertebral body height is maintained. There is minimal anterolisthesis at C4-C5. Alignment is otherwise preserved. There is straightening of cervical lordosis. Anterior osteophytes are seen from C4 through T1. The odontoid process and lateral masses are intact. The atlantoaxial articulation is preserved noting productive degenerative change. The spinous processes appear intact. There is moderate to advanced multilevel cervical spondylosis. Uncovertebral and facet arthropathy contribute to neural foraminal narrowing at most levels. Intervertebral discs: There is moderate to advanced degenerative disc space narrowing seen at C5-C6, C6-C7, and C7-T1. Central canal: Posterior disc osteophyte complexes at C5-C6, C6-C7, and C7-T1 likely contribute to acquired compromise of the central canal. Soft tissues: The prevertebral and paraspinous soft tissues are within normal limits. There is atherosclerotic calcification of the carotid bulbs. Small calcified tonsilliths are incidentally noted. Calvarium: The visualized calvarium at the skull base appears intact. Brain parenchyma: Partially visualized brain parenchyma the skull base is within normal limits noting age-related involutional change. Sinuses and mastoids: The visualized paranasal sinuses are clear. The mastoid air cells are well pneumatized. Lung apices: Clear as visualized. IMPRESSION: 1. There is no evidence of fracture or subluxation involving the cervical spine. 2. Osteopenia and spondylotic change as above. -- SINGLE VIEW CHEST CLINICAL HISTORY: Fall. FINDINGS: An AP, portable, upright chest radiograph is compared to study dated 05/25/2015. The patient is status post midline sternotomy. The heart is enlarged and there is atherosclerotic calcification of the thoracic aorta. The pulmonary vasculature is noncongested. Chronic residual thickening is similar to previous. No airspace consolidation, large pleural effusion, or pneumothorax is seen. The skeletal structures are osteopenic. The bony thorax is grossly intact. IMPRESSION: Cardiomegaly with no acute cardiopulmonary abnormality. CT SCAN OF THE BRAIN WITHOUT IV CONTRAST CLINICAL HISTORY: Fall. Syncope. Dizziness. COMPARISON STUDY: CT of the brain dated 08/17/2014. TECHNIQUE: Unenhanced axial CT scan of the brain is performed from the vertex to the skull base. CT DOSE: 1060.79 mGy.cm FINDINGS: Brain parenchyma: There are age-related involutional changes noting [id number] patchy subcortical and periventricular microangiopathic change. There is no hemorrhage, mass effect, or evidence of acute territorial ischemia by CT criteria. A chronic lacunar infarct is noted in the right caudate head. Payne-white matter is preserved. No extra-axial fluid collection is seen. Ventricles, sulci, cisterns: Prominent secondary to involutional change. Intracranial vasculature: There is atherosclerotic calcification of the cavernous carotid and vertebral arteries. Calvarium: The skeletal structures are osteopenic. There is no depressed calvarial fracture. Sinuses and mastoids: There is a retention cyst in the left maxillary antrum. The remaining paranasal sinuses are clear. The mastoid air cells are well pneumatized. Orbits: The bony orbits are grossly intact. There are bilateral ocular lens implants. There has been banding of the right ocular globe. IMPRESSION: There is no hemorrhage, mass effect, or evidence of acute territorial ischemia by CT criteria. EKG SR 84, RBBB, lateral ST depressions that are unchanged from 2016 EKG Impression Assessment and Plan 80 yoM with dizziness 1. Dizziness-etiologies include but not limited to acute otitis media, vitamin D deficiency, hypovolemia causing orthostasis, or age-related autonomic neuropathy. Starting Amox treatment for middle ear effusion. Considered sudafed, however, I don't want to drive up the BP and pulse in setting of afib. If not improved may consider Neuro consult or further workup. Started vit D replacement in am. IVF overnight. Of note, TTE WNL July 2015. 2. Acute otitis media-Amoxicillin 3. Vit D deficiency-Ergocalciferol 4. Ambulatory dysfunction 2/2 #1 above. PT/OT consult. 5. CAD-stable, asymptomatic, cont medical management with ASA, Plavix, Zocor. 6. Paroxysmal atrial fibrillation-not on anticoagulation, rate control with Diltiazem 7. Hypothyroidism-TSH within normal limits, cont Synthroid at current dose 8. BPH-cont Proscar 9. Acute on chronic CKD-IVF and repeat PRP in am. 10. Anemia-around baseline. Minimize phlebotomy. DVT proph: Heparin SQ FULL CODE Dispo[facility] Telemetry Advanced Directives Existing Living Will: No Existing Power of Religion Teacher: No Resuscitation Status FULL RESUSCITATION VTE Prophylaxis VTE Risk Assessment Done? Y/N: Yes Risk Level: Moderate Given or contraindicated: Unfractionated heparin SQ
[2016-09-03 19:03] VITALS: BP 132/64; PULSE 69; TEMP 36.3; O2SAT 97
[2016-09-03] MEDS ORDERED: ENOXAPARIN 40 MG/0.4 ML SYR SQ SCH (20:00)
[2016-09-03] MEDS: LIDODERM (LIDOCAINE) PATCH 5% TD SCH (20:46)
[2016-09-03] MEDS: ASPIRIN 81 MG ECTAB PO SCH (20:48)
[2016-09-03] MEDS: AMOXICILLIN 500 MG CAP PO SCH (20:48)
[2016-09-03] MEDS: PANTOprazole SOD 40 MG TAB PO SCH (20:49)
[2016-09-03] MEDS: SIMVASTATIN 20 MG TAB PO SCH (20:50)
[2016-09-04] VITALS (7 sets, daily range): BP systolic 118–151; BP diastolic 64–82; PULSE 67–98; TEMP 36.3–37; O2SAT 84–98
[2016-09-04 00:30] LABS: CKMB/CK RATIO 1.8 (0-3.0)
[2016-09-04 05:40] LABS: HEMATOCRIT 32.4 % (42-52); MEAN CELL VOLUME 88.3 fL (80-100); MEAN CORPUSCULAR HEMOGLOBIN 28.1 pg (25-34); MEAN CORPUSCULAR HGB CONC 31.8 g/dl (32-36); MEAN PLATELET VOLUME 9.9 fL (7.4-10.4); PLATELET COUNT 270 K/uL (130-400); RED BLOOD COUNT 3.67 M/uL (4.7-6.1); WHITE BLOOD COUNT 6.33 K/uL (4.8-10.8)
[2016-09-04] MEDS ORDERED: HEPARIN SOD 5000 UNIT/0.5 ML CARP SQ SCH (06:00)
[2016-09-04] MEDS: LEVOTHYROXINE 75 MCG TAB PO SCH (06:12)
[2016-09-04] MEDS: AMOXICILLIN 500 MG CAP PO SCH ×2 (06:12→17:37)
[2016-09-04 06:13] LABS: BUN/CREATININE RATIO 14.5 (10-20); CALCIUM 8.3 mg/dl (8.5-10.1); CREATININE 1.9 mg/dl (0.60-1.40); MAGNESIUM 2.1 mg/dl (1.8-2.4); POTASSIUM 4.5 mmol/L (3.5-5.1)
[2016-09-04 07:06] LABS: ESTIMATED AVERAGE GLUCOSE 126 mg/dl; HA1C FLAG Normal (Normal)
[2016-09-04] MEDS ORDERED: MAGNESIUM OXIDE 400 MG TAB PO SCH (09:00)
[2016-09-04] MEDS ORDERED: FINASTERIDE 5 MG TAB PO SCH (09:00)
[2016-09-04] MEDS ORDERED: FENOFIBRATE 134 MG PO SCH (09:00)
[2016-09-04] MEDS ORDERED: CHOLECALCIFEROL 1000 INTER.UNIT TAB PO SCH (09:00)
[2016-09-04] MEDS ORDERED: ERGOCALCIFEROL 50,000 INTER.UNIT CAP PO SCH (09:00)
[2016-09-04] MEDS: DILTIAZEM HCL 240 MG CAPCR PO SCH (09:48)
[2016-09-04] MEDS: CLOPIDOGREL BISULFATE 75 MG TAB PO SCH (09:49)
[2016-09-04] MEDS: MULTIVITAMIN TAB PO SCH (09:49)
[2016-09-04] MEDS: PANTOprazole SOD 40 MG TAB PO SCH ×2 (09:50→20:39)
[2016-09-04] MEDS: LIDODERM (LIDOCAINE) PATCH 5% TD SCH (09:50)
[2016-09-04] MEDS: ASPIRIN 81 MG ECTAB PO SCH ×2 (09:51→20:39)
[2016-09-04] MEDS ORDERED: NURSING VERBAL MED ORDER ONE ×2 (10:00→18:00)
[2016-09-04] MEDS ORDERED: SODIUM CHLORIDE 0.9% 1000ML 1,000 ML IV SCH ×2 (14:30)
[2016-09-04] MEDS ORDERED: LORAZEPAM 0.5 MG TAB PO PRN (14:45)
--- NOTE | 2016-09-04 15:22 | Neurology Consultation ---
Neurology Consultation Date of Consultation: Sep 04, 2016. Attending Physician: Janeth Gomez M.D. Primary Care Physician: Everett Marrufo M.D. Reason for Consultation: dizziness in setting of prior stroke History of Present Illness Source: patient Omero is a 80 year old male who has a PMH CABG and stroke 4 years ago with residual right sided weakness, colostomy 2 years ago, HTN, DL, CAD, syncope, hypothyroid, BPH, DM2. He presents with 10 days persistent dizziness with neck feeling like he had something on his neck. He describes it as wooziness which he took a "dizzy pill" this am but he is unable to tell me what the pills was. He has had episodes like this in the past. He states when he fell he thinks the room was spinning. He reports a posterior headache and some blurry vision only when he is dizzy. He reports a h/o glaucoma and some eye pain a few weeks ago for which he was evaluated by the eye doctor as an outpatient and since the dizziness began he denies any eye pain or double vision. H states he is confused this am after taking the dizzy pill. He states the last time he had the wooziness and was in the ED they said his sodium was low. He takes ASA 162mg daily and Plavix for h/o stroke in setting of afib. denies CP, SOB, abdominal pain, weakness, numbness tingling, increased weakness in limbs, N, V, fever chills night sweats, bladder issues. He was at the doctors on Sunday and some of his medications were stopped but he doesn't know which ones. Past Medical/Surgical History Medical Problems: (1) Abdominal pain Status: Acute (2) Acute on chronic renal insufficiency Status: Acute (3) Chest pain Status: Acute (4) CKD (chronic kidney disease) Status: Acute (5) Closed head injury Status: Acute (6) Dehydration Status: Acute (7) Dizziness Status: Acute (8) Gastroesophageal reflux Status: Acute (9) Hypomagnesemia Status: Acute (10) Hyponatremia Status: Acute (11) Nausea Status: Acute (12) Nausea and vomiting Status: Acute (13) Rectal discharge Status: Acute (14) Small bowel obstruction Status: Acute (15) Syncope Status: Acute Family History Grandmother: gastrointestinal disorder Social History Smokeless Tobacco Use: No Alcohol Use: none Drug Use: none Marital Status: Housing Status: lives with family Occupation Status: retired Allergies Coded Allergies: Codeine (Verified Allergy, Intermediate, ITCHING, 09/03/16) Hydrocodone (Verified Allergy, Intermediate, NAUSEA, 09/03/16) Tramadol (Verified Allergy, Intermediate, ITCHING, 09/03/16) Acetaminophen (Unverified Allergy, Unknown, NAUSEA, 09/03/16) Current Inpatient Medications Current Inpatient Medications Medications (Trade) Dose Ordered Sig/Shonda Route Start Time Stop Time Status Last Admin Dose Admin Polyethylene (Miralax Powder Packet) 17 gm DAILY PRN PO 09/03/16 18:00 10/03/16 17:59 Glucose (Glucose 40% Gel) 15-30 GRAMS 15 GRAMS... UD PRN PO 09/03/16 18:00 10/03/16 17:59 Glucose (Glucose Chew Tab) 4-8 Tablets 4 Tabl... UD PRN PO 09/03/16 18:00 10/03/16 17:59 Dextrose (Dextrose 50% 50ML Syringe) 25-50ML OF 50% DW IV FOR... UD PRN IV 09/03/16 18:00 10/03/16 17:59 Glucagon (Glucagon Inj) 1 mg UD PRN SQ 09/03/16 18:00 10/03/16 17:59 Amoxicillin (Amoxil Cap) 500 mg Q12H PO 09/03/16 18:15 09/13/16 18:14 09/04/16 06:12 500 MG Lidocaine (Lidoderm Patch 5%) 1 patch QAM TD 09/03/16 18:15 10/03/16 18:14 09/04/16 09:50 1 PATCH Miscellaneous (Remove Lidoderm Patch) 1 ea DAILY@21 N/A 09/03/16 21:00 10/03/16 20:59 Aspirin (Ecotrin Tab) 81 mg BID PO 09/03/16 21:00 10/03/16 20:59 09/04/16 09:51 81 MG Clopidogrel Bisulfate (plAVix TAB) 75 mg DAILY PO 09/04/16 09:00 10/04/16 08:59 09/04/16 09:49 75 MG Diltiazem HCl (Cardizem Cd Cap) 240 mg DAILY PO 09/04/16 09:00 10/04/16 08:59 09/04/16 09:48 240 MG Levothyroxine Sodium (Synthroid Tab) 75 mcg DAILYBB PO 09/04/16 06:00 10/04/16 05:59 09/04/16 06:12 75 MCG Multivitamins (Multivitamin Tab) 1 tab DAILY PO 09/04/16 09:00 10/04/16 08:59 09/04/16 09:49 1 TAB Simvastatin (Zocor Tab) 20 mg QPM PO 09/03/16 21:00 10/03/16 20:59 09/03/16 20:50 20 MG Pantoprazole Sodium (Protonix Tab) 40 mg BID PO 09/03/16 21:00 10/03/16 20:59 09/04/16 09:50 40 MG Miscellaneous Information (Order Awaiting Action) 1 ea QS N/A 09/04/16 00:00 10/04/16 00:00 Finasteride (Proscar Tab) 5 mg DAILY@1700 PO 09/04/16 17:00 10/04/16 16:59 Magnesium Oxide (Mag-Ox Tab) 400 mg DAILY@1700 PO 09/04/16 17:00 10/04/16 16:59 Cholecalciferol (Vitamin D Tab) 1,000 inter.unit DAILY@1700 PO 09/04/16 17:00 10/04/16 16:59 Ergocalciferol (Vitamin D Cap) 50,000 interunit Q4D@1700 PO 09/04/16 17:00 10/04/16 16:59 Sodium Chloride 1,000 ml @ 80 mls/hr [id number] IV 09/04/16 14:30 09/05/16 02:59 Lorazepam (Ativan Tab) 0.5 mg Q4 PRN PO 09/04/16 14:45 10/04/16 14:44 Cyclobenzaprine HCl (Flexeril Tab) 10 mg TID PRN PO 09/04/16 14:45 10/04/16 14:44 Physical Exam Vital Signs (Past 24 Hrs): Date Time Temp Pulse Resp B/P (MAP) Pulse Ox O2 Delivery O2 Flow Rate FiO2 09/04/16 12:00 Room Air 09/04/16 10:50 37.0 86 20 122/72 (89) 98 09/04/16 10:30 98 84 09/04/16 07:30 Room Air 09/04/16 07:22 36.4 77 20 140/73 (95) 96 Room Air 09/04/16 04:14 36.5 70 17 118/71 (87) 97 Room Air 09/04/16 04:03 Room Air 09/04/16 00:10 Room Air 09/04/16 00:04 36.3 67 17 119/64 (82) 94 Room Air 09/03/16 20:21 Room Air 09/03/16 19:03 36.3 69 18 132/64 (86) 97 Room Air 09/03/16 18:37 68 22 128/70 97 09/03/16 17:59 68 22 134/71 98 Room Air 09/03/16 17:40 36.4 71 18 124/70 97 Room Air 09/03/16 15:12 67 09/03/16 15:11 80 18 124/70 97 Room Air 09/03/16 15:10 71 126/71 67 142/76 80 124/70 Physical Exam: Constitutional: appearance nourished, healthy and normal Ears, Nose, Mouth and Throat: mucous membranes moist, no injection and skin normal, eyes normal Cardiovascular: normal S-1 and S-2 and regular rate and rhythm Respiratory: clear to auscultation (CTA) and no rales, rhonchi or wheeze Musculoskeletal: no peripheral edema and good distal pulses Skin: no stigmata of neurocutaneous disease noted and normal and intact Eyes: extraocular muscles intact (EOMI) and pupils equal, round and reactive to light (PERRL) NEUROLOGIC EXAMINATION: Mental status: Alert and interactive Oriented to president, [facility], able to repeat no ifs ands or butts, able to close eyes, stick out tongue and point to the ceiling with his right hand Oriented to person Speech fluent with no evidence of aphasia Cranial Nerves smile eye brow raise symmetric, Reflexes: Deep tendon reflexes were symmetrical and graded 2/5. Plantar responses were flexor. Sensory: decreased sensation to vibration bilaterally, GT proprioception intact bi laterally right sided Shahriar maneuver with dizziness with sitting up, no nystagmus Coordination: finger to nose without bi pass Gait/Stance: lying in bed Motor: Negative for pronator drift of out stretched arms with eyes closed. Strength: biceps triceps hand building specialist right 4/5, LLE hip flex against gravity but no resistance, left biceps triceps hand building specialist 5/5, LE hip flex against gravity and resistance. Laboratory Results Past 24 Hours: 09/04/16 05:19 09/04/16 05:19 Test 09/03/16 19:28 09/03/16 23:59 09/04/16 05:19 09/04/16 11:30 25-Hydroxy Vitamin D Total 17.3 ng/ml (30-100) Total Creatine Kinase 28 U/L (39-308) Creatine Kinase MB 0.5 ng/ml (0.5-3.6) Creatine Kinase MB Ratio 1.8 (0-3.0) Troponin I < 0.015 ng/ml (0-0.045) Red Blood Count 3.67 M/uL (4.7-6.1) Mean Corpuscular Volume 88.3 fL (80-100) Mean Corpuscular Hemoglobin 28.1 pg (25-34) Mean Corpuscular Hemoglobin Concent 31.8 g/dl (32-36) RDW Standard Deviation 48.3 fL (36.4-46.3) RDW Coefficient of Variation 14.9 % (11.5-14.5) Mean Platelet Volume 9.9 fL (7.4-10.4) Anion Gap 8.0 mmol/L (3-11) Est Creatinine Clear Calc Drug Dose 34.6 ml/min Estimated GFR () 38.0 Estimated GFR (Non- 32.8 BUN/Creatinine Ratio 14.5 (10-20) Estimated Average Glucose 126 mg/dl Hemoglobin A1c 6.0 % (4.5-5.6) Calcium Level 8.3 mg/dl (8.5-10.1) Magnesium Level 2.1 mg/dl (1.8-2.4) Vitamin B12 Level 329 pg/mL (211-911) Folate > 24.00 ng/mL (>5.38) Bedside Glucose 100 mg/dl (70-99) Imaging CT head- : There is no hemorrhage, mass effect, or evidence of acute territorial ischemia by CT criteria. CT neck- There is no evidence of fracture or subluxation involving the cervical spine. Osteopenia and spondylotic change as above. Impression 80 year old male s/p fall with dizziness hx stroke 2 years ago on plavix and aspirin for afib Plan 1. physical therapy for Shahriar maneuver 2. evaluate home meds and what was stopped 3. orthostatic blood pressure checked not significant drop 4. PT/OT for discharge needs may need to switch to walker for stability 5. question what he is taking as "dizzy pills" input from would be helpful 6. MRI brain with and without contrast, MRA neck and head I have seen and discussed above patient with Dr Una De Oliveira, neurology Pt seen and examined. Hx is vague, using interchangeably head pressure and dizziness. Some of his symptoms are positional and suspicious for a peripheral labrynthopathy. Exam is nonlocalizing/Need MRI brain to help determine and then dictate further work-up A flutter, consider cardiology consult and their input re anticoagulation if this is proven not to be a TIA or stroke. ANDREA De Oliveira MD
[2016-09-04] MEDS: CYCLOBENZAPRINE HCL 10 MG TAB PO PRN (15:32)
--- NOTE | 2016-09-04 17:06 | Cardiology Consultation ---
Cardiology Consultation Date of Consultation: Sep 04, 2016 History of Present Illness Omero Tomlin is a 80 year old male seen in cardiology consultation per the request of Dr. Gomez for the evaluation of suspected atrial fibrillation. The patient's primary compliance testing analyst is Dr. Tavera of our practice with last outpatient visit on 07/12/16. Patient presented to to the emergency room yesterday 09/03/16 with complaints of dizziness. He notes that he has had dizziness for several weeks, but had a significant episode yesterday which was Sunday. He noted dizziness when he is sitting in his chair eating his breakfast meal. Later he went to his mother-in- law's house and was trying to walk with a walker but felt dizzy with the room spinning subsequently fell and injured his right flank there is a mild degree of ecchymosis below his right breast. At present he is without dizziness while sitting in 204. Cardiology was asked see the patient because today 09/04/16 at 1315 hrs. there was a 17 beat judy of narrow complex tachycardia with rate as high as 150 bpm. There is then spontaneous onset back to sinus rhythm with right bundle branch block. History Past Medical History: 1. Chronic coronary heart disease with past CABG 5 and percutaneous coronary intervention with Taxus drug-eluting stent implantation to a saphenous vein graft 2. Stage III chronic kidney disease 4. Stroke March 2013 with resultant residual right-sided weakness, left basal ganglia infarct 5. Dyslipidemia 6. Hypertension 7. Ileostomy in place as noted and surgical history below 8. Dyslipidemia 9. Gait instability 10. Bilateral moderate carotid disease per past duplex December 2014 with bilateral internal carotid stenosis in the range of 50-69%. 11. Most recent echocardiogram July 2015 revealing normal left ventricular chamber size and mild left ventricular hypertrophy, concentric. Normal LVEF 60-65%. Grade 1 diastolic dysfunction. Mild aortic valve sclerosis without stenosis. Moderate left atrial enlargement 12. Chart history of paroxysmal atrial fibrillation Past Surgical History: 1. Emergency intra-abdominal surgery performed at [facility] July 2014 with total abdominal proctectomy, ileoanal anastomosis, creation of ileal reservoir including loop ileostomy Social History: Family History: Review Of Systems See above for pertinent positives & negatives. A total of 10 systems reviewed and were otherwise negative. Allergies Coded Allergies: Codeine (Verified Allergy, Intermediate, ITCHING, 09/03/16) Hydrocodone (Verified Allergy, Intermediate, NAUSEA, 09/03/16) Tramadol (Verified Allergy, Intermediate, ITCHING, 09/03/16) Acetaminophen (Unverified Allergy, Unknown, NAUSEA, 09/03/16) Medications Reported Home Medications Medications Dose Route/Sig Max Daily Dose Days Date Category Vitamin D3 (Cholecalciferol) 1,000 Unit Cap 1,000 Units PO HS 09/03/16 Reported Prilosec (Omeprazole) 40 Mg Cap 40 Mg PO BID 09/03/16 Reported Tricor (Fenofibrate) 134 Mg Cap 134 Mg PO DAILY 05/25/15 Reported Proscar (Finasteride) 5 Mg Tab 5 Mg PO DAILY 09/30/14 Reported Synthroid (Levothyroxine Sodium) 75 Mcg Tab 75 Mcg PO DAILY 08/17/14 Reported Mag-Ox (Magnesium Oxide) 400 Mg Tab 400 Mg PO DAILY 08/17/14 Reported Zocor (Simvastatin) 20 Mg Tab 20 Mg PO QPM 08/17/14 Reported Aspirin 81 (Aspirin) 81 Mg Tab 81 Mg PO BID 08/17/14 Reported Plavix (Clopidogrel Bisulfate) 75 Mg Tab 75 Mg PO DAILY 08/17/14 Reported Diltiazem Cd (Diltiazem Hcl Coated Beads) 240 Mg Cap 240 Mg PO DAILY 08/17/14 Reported Multivitamin (Multivitamins) Tab 1 Tab PO DAILY 08/17/14 Reported Physical Exam Vital Signs (Last 8hrs): Last 8 Hrs Date Time Temp Pulse Resp B/P (MAP) Pulse Ox O2 Delivery O2 Flow Rate FiO2 09/04/16 15:30 Room Air 09/04/16 15:20 36.7 81 20 151/82 (105) 96 Room Air 09/04/16 12:00 Room Air 09/04/16 10:50 37.0 86 20 122/72 (89) 98 09/04/16 10:30 98 84 General Appearance: Alert and Oriented x3. NAD. Head: Normocephalic Atraumatic. Eyes: PERRLA, EOMI, conjunctiva and sclera clear Neck: Supple. No carotid bruits noted. No JVD. No HJD. Respiratory: Breath sounds clear to auscultation bilaterally. No w/r/r. Cardiovascular: Reg rate and rhythm. S1 and S2 noted. No murmurs, rubs, gallops. PMI non displace. Abdomen: Normal bowel sounds, soft nontender. no abdominal bruits. Extremities: No edema, no clubbing or cyanosis. distal pulses 2/4 bilaterally. Neuro: No focal deficits. Psychiatric: Normal affect. Data Last 24 Hours Test 09/03/16 19:28 09/03/16 23:59 09/04/16 05:19 09/04/16 07:06 25-Hydroxy Vitamin D Total 17.3 ng/ml Total Creatine Kinase 28 U/L Creatine Kinase MB 0.5 ng/ml Creatine Kinase MB Ratio 1.8 Troponin I < 0.015 ng/ml White Blood Count 6.33 K/uL Red Blood Count 3.67 M/uL Hemoglobin 10.3 g/dL Hematocrit 32.4 % Mean Corpuscular Volume 88.3 fL Mean Corpuscular Hemoglobin 28.1 pg Mean Corpuscular Hemoglobin Concent 31.8 g/dl RDW Standard Deviation 48.3 fL RDW Coefficient of Variation 14.9 % Platelet Count 270 K/uL Mean Platelet Volume 9.9 fL Sodium Level 144 mmol/L Potassium Level 4.5 mmol/L Chloride Level 113 mmol/L Carbon Dioxide Level 23 mmol/L Anion Gap 8.0 mmol/L Blood Urea Nitrogen 28 mg/dl Creatinine 1.90 mg/dl Est Creatinine Clear Calc Drug Dose 34.6 ml/min Estimated GFR () 38.0 Estimated GFR (Non- 32.8 BUN/Creatinine Ratio 14.5 Random Glucose 80 mg/dl Estimated Average Glucose 126 mg/dl Hemoglobin A1c 6.0 % Calcium Level 8.3 mg/dl Magnesium Level 2.1 mg/dl Vitamin B12 Level 329 pg/mL Folate > 24.00 ng/mL Bedside Glucose 114 mg/dl Test 09/04/16 11:30 Bedside Glucose 100 mg/dl EKG performed this hospital stay normal sinus rhythm at 84 bpm, with first degree AV block, right bundle branch block, age undetermined inferior infarction pattern Assessment & Plan Impression: 80-year-old male 1. Dizziness 2. 17 beat run of narrow complex tachycardia. Rate of 150 bpm 3. Atherosclerotic vascular disease including CABG, moderate carotid disease, history of stroke with residual right-sided weakness and gait instability Recommendations: I would suspect that part of the reason the patient is not on anticoagulation to begin with this because he sounds as though he had a life-threatening gastrointestinal bleeding problem that led to emergency surgery at [facility] in 2013 as outlined above and he still has an ileostomy from this. He is therefore been maintained on aspirin and clopidogrel due to risk of gastrointestinal bleeding as well as fall risk which is documented thoroughly in his chart. He had a fall this admission fortunately with no significant injury. He has mild ecchymosis over his right flank no serious injury. At present, I think the brief episode of tachycardia appears to be atrial flutter versus supraventricular tachycardia. The patient did not feel his heart racing during this particular episode has observed by his nurse. I'm going to continue his outpatient dose of diltiazem 240 mg daily and monitor for further arrhythmia. Agree with MRI as planned for the neurology service. I'm not convinced that his dizziness is due to arrhythmia at this point, I think it is reasonable to continue to monitor him on telemetry to see if we are able to capture an episode of dizziness and therefore we can correlate his heart rhythm with his symptoms. Agree with ongoing neurology/inner ear workup.
[2016-09-04] MEDS: FINASTERIDE 5 MG TAB PO SCH (17:34)
[2016-09-04] MEDS: ERGOCALCIFEROL 50,000 INTER.UNIT CAP PO SCH (17:34)
[2016-09-04] MEDS: MAGNESIUM OXIDE 400 MG TAB PO SCH (17:34)
[2016-09-04] MEDS: CHOLECALCIFEROL 1000 INTER.UNIT TAB PO SCH (17:35)
--- NOTE | 2016-09-04 18:35 | Progress Note ---
Internal Med Progress Note Date of Service: Sep 04, 2016. Provider Documentation: SUBJECTIVE: continued to have neck pain , mostly on his right side while turning head feels dizzy and lightheaded while sitting up no complain of chest pain or SOB /palpitation no fever or chills OBJECTIVE: Vital Signs-as noted below Exam: General-no sign of distress Eyes-sclera non icteric , Pupils bilat reactive to light, no nystagmus or diplopia noted on lateral gaze ENT-nad NECK : tenderness on palpation of back of neck , bruise noted, no neck rigidity Lungs-CTA Heart-regular S1/S2 Abdomen-soft, non tender ; colostomy present Extremities-ecchymosis /hematoma on rt upper quadrant -related to recent fall on Neuro--chronic rt sided weakness form prior CVA ,no other focal neurological deficit noted , no facial droop Lab data as noted below. ASSESSMENT & PLAN: DIZZY SPELL /HX OF PRIOR LEFT SIDED CVA : lead to fall last still having continued dizzy spell worse with sitting /standing up /turning of head CT head -no acute intracranial hge or CVA chronic Lacunar infarct in Rt Caudate head ordered for MRI/MRA of brain , MRA of cervical spine ( High risk for recurrent CVA given paroxysmal Afib, not on full anticoagulation ) appreciate input form Neurology possible BPPV -will benefit with Shahriar started on Amoxicillin for possible otitis media of rt ( CT finding of rt maxillary sinusitis ) ordered for Orthostatic vitals check observe fall precaution CHRONIC NECK PAIN : per pt has been chronic for past few weeks , mainly localized to post lower occipital region symptom worse after the fall on CT of cervical spine -no evidence of fracture or subluxation Moderate to advanced Degenerative disc space narrowing seen in C5-C6/C6-C7 and C7 -T1 XRAY OF Cervical spine at [facility] : extensive DJD of neck , more pronounced at C5-C7 level possible cervical spinal radiculopathy, pt is a very poor candidate for cervical spine surgery Pain management consulted cont symptomatic management with K -pad muscle relaxant PAROXYSMAL AFIB admission EKG shows sinus with chronic RBBB on Diltiazem not on Chronic anticoagulation with Coumadin for hx of life threatening GI bleeding requiring colectomy on Aspirin /Plavix had brief episode of tachyarrhythmia , pt remains asymptomatic Cardiology eval appreciated no change in medication indicated ECHO eval requested monitor in tele CAD : Chronic ischemic heart disease with prior coronary artery bypass grafting x 5 and percutaneous intervention with a taxus drug eluting stent implantation to saphenous vein graft. Followed up with repeat balloon angioplasty in 2005 without repeat stenting. - stable , No complain of angina or MATTHEW -pt is continued with Aspirin , Plavix , Statin , follows with Cardiology Dr Zelaya -last office visit on 07/12/16 Resting 2D echo report 07/2015: Normal LV chamber size with mild concentric LVH. Normal LV systolic function without regional wall motion abnormality, EF 60-65% . Grade I diastolic dysfunction. Mild aortic valve sclerosis without stenosis. Mild mitral annular calcifications. Moderate left atrial enlargement -repeat echo ordered -no evidence of ACS on presentation -Cardiology eval requested FALL WITH AMBULATORY DYSFUNCTION due to prior CVA /rt sided hemiparesis uses a cane at baseline with recent episodes for Dizzy spell , leading him to fall PT/OT eval requested script given for rolling walker CAROTID ARTERY DISEASE : carotid Doppler on 07/19/16 : Impression: Right carotid artery duplex examination indicates evidence of 50-69% stenosis of the internal carotid artery. Left carotid artery duplex examination indicates evidence of 50-69% stenosis of the internal carotid artery. Compared to a prior study of 01/13/2016 there has been no change in the right internal carotid artery and there has been a decrease in the systolic velocities in the left internal carotid artery Cont Aspirin , Plavix , stain Fasting lipid panel ordered in AM labs TYPE 2 DM : well controlled as per recent Hb A1c 6 ( on 08/01/16 ) insulin SSI monitor BSG AC and HS MIAH ON CKD STAGE 3 : due to dehydration Cr improved to approx baseline with IV cont to monitor PRP DVT PROPHYLAXIS moderate risk will hold Sub q heparin for abdominal hematoma SCD and teds will be utilized ambulate as tolerated DISPOSITION expected to return to home when medically stable PT /OT eval prior to return home script for Rolling walker -for chronic ambulatory dysfunction Medicine follow up with Dr Marrufo Cardiology follow up with Dr Juan Zelaya Nephrology follow up with Dr Perez Vital Signs: Date Time Temp Pulse Resp B/P (MAP) Pulse Ox O2 Delivery O2 Flow Rate FiO2 09/04/16 15:30 Room Air 09/04/16 15:20 36.7 81 20 151/82 (105) 96 Room Air 09/04/16 12:00 Room Air 09/04/16 10:50 37.0 86 20 122/72 (89) 98 09/04/16 10:30 98 84 09/04/16 07:30 Room Air 09/04/16 07:22 36.4 77 20 140/73 (95) 96 Room Air 09/04/16 04:14 36.5 70 17 118/71 (87) 97 Room Air 09/04/16 04:03 Room Air 09/04/16 00:10 Room Air 09/04/16 00:04 36.3 67 17 119/64 (82) 94 Room Air 09/03/16 20:21 Room Air Lab Results: Results Past 24 Hours Test 09/03/16 23:59 09/04/16 05:19 09/04/16 07:06 09/04/16 11:30 Range/Units Total Creatine Kinase 28 39-308 U/L Creatine Kinase MB 0.5 0.5-3.6 ng/ml Creatine Kinase MB Ratio 1.8 0-3.0 Troponin I < 0.015 0-0.045 ng/ml White Blood Count 6.33 4.8-10.8 K/uL Red Blood Count 3.67 4.7-6.1 M/uL Hemoglobin 10.3 14.0-18.0 g/dL Hematocrit 32.4 42-52 % Mean Corpuscular Volume 88.3 80-100 fL Mean Corpuscular Hemoglobin 28.1 25-34 pg Mean Corpuscular Hemoglobin Concent 31.8 32-36 g/dl RDW Standard Deviation 48.3 36.4-46.3 fL RDW Coefficient of Variation 14.9 11.5-14.5 % Platelet Count 270 130-400 K/uL Mean Platelet Volume 9.9 7.4-10.4 fL Sodium Level 144 136-145 mmol/L Potassium Level 4.5 3.5-5.1 mmol/L Chloride Level 113 98-107 mmol/L Carbon Dioxide Level 23 21-32 mmol/L Anion Gap 8.0 3-11 mmol/L Blood Urea Nitrogen 28 7-18 mg/dl Creatinine 1.90 0.60-1.40 mg/dl Est Creatinine Clear Calc Drug Dose 34.6 ml/min Estimated GFR () 38.0 Estimated GFR (Non- 32.8 BUN/Creatinine Ratio 14.5 10-20 Random Glucose 80 70-99 mg/dl Estimated Average Glucose 126 mg/dl Hemoglobin A1c 6.0 4.5-5.6 % Calcium Level 8.3 8.5-10.1 mg/dl Magnesium Level 2.1 1.8-2.4 mg/dl Vitamin B12 Level 329 211-911 pg/mL Folate > 24.00 >5.38 ng/mL Bedside Glucose 114 100 70-99 mg/dl Test 09/04/16 16:13 Range/Units Bedside Glucose 91 70-99 mg/dl
[2016-09-04] MEDS: FENOFIBRATE 134 MG TAB PO SCH (20:39)
[2016-09-04] MEDS: SIMVASTATIN 20 MG TAB PO SCH (20:40)
--- NOTE | 2016-09-04 21:43 | DIAGNOSTIC IMAGING REPORT ---
ORBIT RADIOGRAPHS 3 VIEWS HISTORY: Pre-MRI pre-MRI screening. COMPARISON: None. FINDINGS: There are no radiopaque foreign bodies identified within the orbits. IMPRESSION: No radiopaque foreign bodies identified within the orbits. Electronically signed by: Earnest Nolan M.D. 09/04/2016 9:42 PM Dictated Date/Time: 09/04/2016 9:41 PM
--- NOTE | 2016-09-04 22:20 | DIAGNOSTIC IMAGING REPORT ---
Brain MRA HISTORY: Mental status change dizziness hx stroke TECHNIQUE: 3-D [id number] MRA of the brain was performed without contrast. COMPARISON STUDY: None. FINDINGS: Visualized intracranial internal carotid arteries, distal vertebral arteries, and basilar artery are widely patent. There is no significant stenosis, occlusion, or aneurysm seen within the bilateral ACAs, MCAs, or forest ranger technician. The anterior cerebrals are. Exclusively via the right carotid system. This can be an anatomic variation. IMPRESSION: No significant stenosis, occlusion, or aneurysm within the [place]. Electronically signed by: Earnest Nolan M.D. 09/04/2016 10:19 PM Dictated Date/Time: 09/04/2016 10:17 PM
[2016-09-04] MEDS ORDERED: GADAVIST IV PRN (22:45)
--- NOTE | 2016-09-04 23:00 | DIAGNOSTIC IMAGING REPORT ---
MRI OF THE BRAIN WITHOUT AND WITH IV CONTRAST CLINICAL HISTORY: dizziness hx stroke mental status change COMPARISON STUDY: No previous studies for comparison. TECHNIQUE: Utilizing a 1.5 Julia magnet and dedicated coil, multiplanar, multiecho imaging of the brain was performed pre and postcontrast administration. IV administration of 8.5 mL of Gadavist contrast was uneventful. FINDINGS: Diffusion-weighted images show no evidence for an acute ischemic process. No findings of generalized cerebellar as well as cerebral atrophy. Considerable components of chronic small vessel change are noted throughout both cerebral hemispheres. Postcontrast images are considered negative for an enhancing lesion. IMPRESSION: 1. No evidence for an acute ischemic insult. 2. Atrophy. 3. Considerable chronic small vessel change. Electronically signed by: Earnest Nolan M.D. 09/04/2016 10:59 PM Dictated Date/Time: 09/04/2016 10:57 PM
--- NOTE | 2016-09-04 23:06 | DIAGNOSTIC IMAGING REPORT ---
NECK MRA HISTORY: Mental status change dizziness hx stroke TECHNIQUE: [id number] and gadolinium-enhanced MRA of the neck was performed both before and after the intravenous administration of contrast. All measurements were calculated based on NASCET criteria. COMPARISON STUDY: None. FINDINGS: The aortic arch and proximal great vessels are widely patent. Moderate 50 present narrowing the distal left vertebral artery. Vertebral basilar system otherwise is unremarkable. 60-70% narrowing origin right internal carotid artery. 60-70% narrowing distal left common carotid artery at the bifurcation IMPRESSION: 1. 60-70% narrowing distal left common carotid artery at the bifurcation. 2. 60-70% narrowing origin right internal carotid artery. 3. 50% stenosis distal left vertebral artery. Electronically signed by: Earnest Nolan M.D. 09/04/2016 11:04 PM Dictated Date/Time: 09/04/2016 10:59 PM
[2016-09-05] VITALS (9 sets, daily range): BP systolic 121–164; BP diastolic 63–81; PULSE 73–100; TEMP 36.3–36.8; O2SAT 95–99
[2016-09-05] MEDS: AMOXICILLIN 500 MG CAP PO SCH ×2 (06:07→17:20)
[2016-09-05] MEDS: LEVOTHYROXINE 75 MCG TAB PO SCH (06:08)
[2016-09-05 07:14] LABS: MAGNESIUM 2.1 mg/dl (1.8-2.4)
[2016-09-05] MEDS: CLOPIDOGREL BISULFATE 75 MG TAB PO SCH (07:23)
[2016-09-05] MEDS: LIDODERM (LIDOCAINE) PATCH 5% TD SCH (07:23)
[2016-09-05] MEDS: CYCLOBENZAPRINE HCL 10 MG TAB PO PRN (07:23)
[2016-09-05] MEDS: PANTOprazole SOD 40 MG TAB PO SCH ×2 (07:23→20:55)
[2016-09-05] MEDS: ASPIRIN 81 MG ECTAB PO SCH ×2 (07:24→20:55)
[2016-09-05] MEDS: MULTIVITAMIN TAB PO SCH (07:24)
[2016-09-05] MEDS: DILTIAZEM HCL 240 MG CAPCR PO SCH (07:24)
--- NOTE | 2016-09-05 09:59 | Cardiology Follow-Up ---
Subjective General Date of Service: Sep 05, 2016. Pt evaluation today including: conversation w/ patient, physical exam, chart review, lab review, review of studies, review of inpatient medication list History of Present Illness The patient is a 80 year old male seen in follow-up. Orthostatic dizziness noted this morning. Blood pressure 142/90 standing. Heart rate increased to approximately 100 bpm. Remains in sinus rhythm overnight. Denies chest pain or unusual shortness of breath. Reports a fall approximately one week ago with right flank ecchymosis. Continues to be unsteady with use of a cane. Denies syncope. No correlation of paroxysmal supraventricular tachycardia with symptoms. Allergies Coded Allergies: Codeine (Verified Allergy, Intermediate, ITCHING, 09/03/16) Hydrocodone (Verified Allergy, Intermediate, NAUSEA, 09/03/16) Tramadol (Verified Allergy, Intermediate, ITCHING, 09/03/16) Acetaminophen (Unverified Allergy, Unknown, NAUSEA, 09/03/16) Social History Smoking Status: Former Smoker Hx Tobacco Use In Past Year?: No Hx Alcohol Use - Type And Amou: No Hx Substance Use - Type And Am: No Problem List Medical Problems: (1) Abdominal pain Status: Acute (2) Acute on chronic renal insufficiency Status: Acute (3) Chest pain Status: Acute (4) CKD (chronic kidney disease) Status: Acute (5) Closed head injury Status: Acute (6) Dehydration Status: Acute (7) Dizziness Status: Acute (8) Gastroesophageal reflux Status: Acute (9) Hypomagnesemia Status: Acute (10) Hyponatremia Status: Acute (11) Nausea Status: Acute (12) Nausea and vomiting Status: Acute (13) Rectal discharge Status: Acute (14) Small bowel obstruction Status: Acute (15) Syncope Status: Acute Review of Systems Respiratory: No cough, No sputum, No wheezing, No shortness of breath, No dyspnea at rest, No hemoptysis Cardiac: No chest pain, No orthopnea, No PND, No edema, No palpitations Physical Exam Vital Signs Last Vital Signs Documentation Date Time Temp Pulse Resp B/P (MAP) Pulse Ox O2 Delivery O2 Flow Rate FiO2 09/05/16 08:18 36.4 96 20 151/81 (104) 99 Room Air Physical Exam Constitutional: General Apperance: well-nourished Level of Distress: NAD Ambulation: ambulating normally Head: normocephalic ENMT: normal ENT inspection, hearing grossly normal Neck: supple, trachea midline Lungs: Auscultation: breath sounds normal, no wheezing, no rales/crackles, no rhonchi Cardiovascular: Heart Auscultation: RRR, normal S1, normal S2, no murmurs, no rubs Peripheral Pulses: Radial Pulse: normal on the left, normal on the right Abdomen: Inspection & Palpation: soft, non-distended, no tenderness, guarding & rebound, no masses Liver: non-tender Musculoskeletal: normal, normal strength (5/5 throughout) Extremities: no cyanosis, no edema, no clubbing, no ulcers Neurologic: Gait & Station: pertinent finding (no focal motor deficit.) Cranial Nerves: grossly intact Assessment and Plan Assessment and Plan Imp: 1. 80-year-old male admitted with dizziness and episode of vertigo. No evidence of cerebrovascular accident per MRI. Neurology input appreciated. Brief episode of paroxysmal supraventricular tachycardia versus paroxysmal atrial flutter recorded without associated symptoms. Orthostatic dizziness noted this a.m. with mild orthostatic blood pressure changes. 2. Relative contraindications to chronic anticoagulation secondary to gait instability with significant fall risk, recent fall with right flank injury, as well as history of gastrointestinal bleeding. 3. 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 Followed up with repeat balloon angioplasty in 2005 without repeat stenting. - stable without angina. 3. History of cerebral vascular accident with moderate B/L carotid vascular disease - stable per MRA 4. Chart history of paroxysmal atrial fibrillation -no recurrence on telemetry 5. Hypertension - controlled. 6. Acute kidney injury superimposed on chronic kidney disease 7. H/o GI hemorrhage and hematuria - H/H stable. Plan/recommendations: Agree with continued gentle IV hydration given mild orthostatic blood pressure changes. Further treatment/evaluation of vertigo as per neurology/IM. As noted above, patient is not a long-term anticoagulation candidate. His hemoglobin remains stable. I would recommend continuing dual antiplatelet therapy at this time. Continue to monitor telemetry. No correlation of paroxysmal tachydysrhythmia with symptoms thus far. May consider restarting low -dose digoxin during hospitalization. (Digoxin discontinued in July due to renal dysfunction). Otherwise, continue current cardiovascular medications as listed above. I will continue to follow patient during hospitalization. Laboratory Results Last 24 Hours Test 09/04/16 11:30 09/04/16 16:13 09/04/16 20:10 09/05/16 05:30 Bedside Glucose 100 mg/dl 91 mg/dl 118 mg/dl Magnesium Level 2.1 mg/dl Total Bilirubin 0.3 mg/dl Direct Bilirubin 0.2 mg/dl Aspartate Amino Transf (AST/SGOT) 10 U/L Alanine Aminotransferase (ALT/SGPT) 16 U/L Alkaline Phosphatase 44 U/L Total Protein 6.5 gm/dl Albumin 3.3 gm/dl Test 09/05/16 06:35 Bedside Glucose 95 mg/dl
--- NOTE | 2016-09-05 11:06 | ECHOCARDIOGRAM REPORT ---
*NOTICE TO RECEIVING CONSTITUTION PARTY AGENCY This information is strictly Confidential and protected under [place] law. [place] law prohibits you from making any further disclosure of this information unless further disclosure is expressly permitted by the written consent of the person to whom it pertains or is authorized by law. A general authorization for the release of medical or other information is not sufficient for this purpose. Hospital accepts no responsibility if the information is made available to any other person, INCLUDING THE PATIENT. Interpretation Summary * Name: LEE LIND Study Date: 09/05/2016 06:42 AM BP: 140/79 mmHg * Patient Location: C.2E\S\E204\S\1 HR: 83 * : 1935 (M/d/yyyy) Gender: Male Height: 72 in * Age: 80 yrs Ethnicity: [place] Weight: 187 lb * Ordering Physician: Janeth Gomez * Referring Physician: MARLA * Performed By: Elvira Gilmore RDCS * * Reason For Study: SYNCOPE * BSA: 2.1 m2 * The study was technically adequate. * Compared to prior study, changes are noted. * -- Conclusions -- * Ejection Fraction = 60-65%. * There is mild concentric left ventricular hypertrophy. * Grade I diastolic dysfunction, (abnormal relaxation pattern). * The left atrium is moderately dilated. * The aortic valve is trileaflet. * The aortic valve is moderately calcified. * Aortic valve sclerosis moderate, without significant aortic valvular stenosis. * There is mild tricuspid regurgitation. * Doppler findings do not suggest pulmonary hypertension. Procedure Details * A contrast injection of Definity was performed to improve assessment of LV function. * Contrast was injected into an intravenous site in the right arm. * One vial of Definity ultrasound contrast was diluted in normal saline to a total volume of 10 ml. A total of '2' ml of solution was administered during imaging. * Lot # [id number] of Definity utilized for procedure. * Expiration date SEP 17. * The attending nurse who injected the contrast agent was SAMSON STEPHENS RN. * A complete two-dimensional transthoracic echocardiogram was performed (2D, M-mode, Doppler and color flow Doppler). Left Ventricle * The left ventricle is normal in size. * There is mild concentric left ventricular hypertrophy. * Ejection Fraction = 60-65%. * Left ventricular systolic function is normal. * The left ventricular wall motion is normal. Right Ventricle * The right ventricle is normal in size and function. Atria * The left atrium is moderately dilated. * The right atrium is mildly dilated. * No ASD detected; PFO is not assessed. Mitral Valve * The mitral valve is normal. * There is no mitral valve stenosis. * There is trace mitral regurgitation. Tricuspid Valve * The tricuspid valve is normal. * There is no tricuspid stenosis. * There is mild tricuspid regurgitation. * Doppler findings do not suggest pulmonary hypertension. Aortic Valve * The aortic valve is moderately calcified. * The aortic valve is trileaflet. * Aortic valve sclerosis moderate, without significant aortic valvular stenosis. * No hemodynamically significant valvular aortic stenosis. * No aortic regurgitation is present. Pulmonic Valve * The pulmonic valve is not well visualized. Great Vessels * Mild aortic root dilatation. * The aortic root is normal size. Pericardium/Pleural * There is no pericardial effusion. Great Vessels * Normal inferior vena cava diameter and respiratory variation suggests normal central venous pressure. Left Ventricular Diastolic Function * Grade I diastolic dysfunction, (abnormal relaxation pattern). MMode 2D Measurements and Calculations IVSd 1.1 cm IVSs 1.7 cm LVIDd 4.3 cm LVIDs 2.9 cm LVPWd 1.5 cm LVPWs 1.8 cm IVS/LVPW 0.78 FS 32.5 % EDV(Teich) 82.6 ml ESV(Teich) 32.1 ml EF(Teich) 61.2 % EDV(cubed) 78.9 ml ESV(cubed) 24.3 ml EF(cubed) 69.3 % % IVS thick 50.9 % % LVPW thick 25.0 % LV mass(C)d 209.3 grams LV mass(C)dI 101.1 grams/m\S\2 LV mass(C)s 205.4 grams LV mass(C)sI 99.2 grams/m\S\2 SV(Teich) 50.5 ml SI(Teich) 24.4 ml/m\S\2 SV(cubed) 54.7 ml SI(cubed) 26.4 ml/m\S\2 Ao root diam 4.3 cm Ao root area 14.3 cm\S\2 LA dimension 4.4 cm LA/Ao 1.0 LVAd ap4 36.2 cm\S\2 LVLd ap4 9.4 cm EDV(MOD-sp4) 115.0 ml LVAs ap4 19.5 cm\S\2 LVLs ap4 7.4 cm ESV(MOD-sp4) 42.2 ml EF(MOD-sp4) 63.3 % LVAd ap2 34.3 cm\S\2 LVLd ap2 9.4 cm EDV(MOD-sp2) 109.0 ml LVAs ap2 17.7 cm\S\2 LVLs ap2 8.4 cm ESV(MOD-sp2) 33.2 ml EF(MOD-sp2) 69.5 % SV(MOD-sp4) 72.8 ml SI(MOD-sp4) 35.2 ml/m\S\2 SV(MOD-sp2) 75.8 ml SI(MOD-sp2) 36.6 ml/m\S\2 Doppler Measurements and Calculations MV E max madalyn 66.9 cm/sec MV A max madalyn 96.0 cm/sec MV E/A 0.70 MV dec time 0.29 sec Ao V2 max 117.4 cm/sec Ao max PG 5.5 mmHg Ao max PG (full) 2.2 mmHg LV V1 max PG 3.4 mmHg LV V1 max 91.7 cm/sec TR max madalyn 195.5 cm/sec
--- NOTE | 2016-09-05 11:33 | Pain Management Consultation ---
Pain Management Consultation Date of Consultation Sep 05, 2016. Reason for Consultation neck pain History Mr. Tomlin is a 80 year old white male that has been admitted to the [facility] for dizziness and falls. He does have a previous history of a CVA. He does experience dizziness episodes frequently. He does complain of upper neck pain that has been ongoing for several months. He describes a deep aching pain with intermittent clicking. The pain is mildly aggravated with twisting. Sitting does decrease the pain. Patient currently has a Lidocaine patch and Flexeril 10mg TID ordered which is providing mild relief. Patient has not sought any previous treatment regarding this pain before. Pain is rated 1/10 currently. Patient denies any headaches, radicular symptoms into the arms, dropping of objects. Case discussed with Dr. 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 (16) History of atrial fibrillation (17) S/P CABG x 5 (18) S/P cataract surgery (19) History of prostate surgery (20) History of lumbar surgery (21) S/P coronary artery stent placement (22) S/P exploratory laparotomy (23) H/O colectomy (24) S/P hernia repair Family History Diabetes mellitus FH: cancer FH: heart disease Social / Work History Smokeless Tobacco Use: No Alcohol Use: none Marital Status: Housing Status: lives with significant other Occupation: retired Allergies Coded Allergies: Codeine (Verified Allergy, Intermediate, ITCHING, 09/03/16) Hydrocodone (Verified Allergy, Intermediate, NAUSEA, 09/03/16) Tramadol (Verified Allergy, Intermediate, ITCHING, 09/03/16) Acetaminophen (Unverified Allergy, Unknown, NAUSEA, 09/03/16) Medications Current Inpatient Medications Medications (Trade) Dose Ordered Sig/Shonda Route Start Time Stop Time Status Last Admin Dose Admin Polyethylene (Miralax Powder Packet) 17 gm DAILY PRN PO 09/03/16 18:00 10/03/16 17:59 Glucose (Glucose 40% Gel) 15-30 GRAMS 15 GRAMS... UD PRN PO 09/03/16 18:00 10/03/16 17:59 Glucose (Glucose Chew Tab) 4-8 Tablets 4 Tabl... UD PRN PO 09/03/16 18:00 10/03/16 17:59 Dextrose (Dextrose 50% 50ML Syringe) 25-50ML OF 50% DW IV FOR... UD PRN IV 09/03/16 18:00 10/03/16 17:59 Glucagon (Glucagon Inj) 1 mg UD PRN SQ 09/03/16 18:00 10/03/16 17:59 Amoxicillin (Amoxil Cap) 500 mg Q12H PO 09/03/16 18:15 09/13/16 18:14 09/05/16 06:07 500 MG Lidocaine (Lidoderm Patch 5%) 1 patch QAM TD 09/03/16 18:15 10/03/16 18:14 09/05/16 07:23 1 PATCH Miscellaneous (Remove Lidoderm Patch) 1 ea DAILY@21 N/A 09/03/16 21:00 10/03/16 20:59 09/04/16 20:39 1 EA Aspirin (Ecotrin Tab) 81 mg BID PO 09/03/16 21:00 10/03/16 20:59 09/05/16 07:24 81 MG Clopidogrel Bisulfate (plAVix TAB) 75 mg DAILY PO 09/04/16 09:00 10/04/16 08:59 09/05/16 07:23 75 MG Diltiazem HCl (Cardizem Cd Cap) 240 mg DAILY PO 09/04/16 09:00 10/04/16 08:59 09/05/16 07:24 240 MG Levothyroxine Sodium (Synthroid Tab) 75 mcg DAILYBB PO 09/04/16 06:00 10/04/16 05:59 09/05/16 06:08 75 MCG Multivitamins (Multivitamin Tab) 1 tab DAILY PO 09/04/16 09:00 10/04/16 08:59 09/05/16 07:24 1 TAB Simvastatin (Zocor Tab) 20 mg QPM PO 09/03/16 21:00 10/03/16 20:59 09/04/16 20:40 20 MG Pantoprazole Sodium (Protonix Tab) 40 mg BID PO 09/03/16 21:00 10/03/16 20:59 09/05/16 07:23 40 MG Finasteride (Proscar Tab) 5 mg DAILY@1700 PO 09/04/16 17:00 10/04/16 16:59 09/04/16 17:34 5 MG Magnesium Oxide (Mag-Ox Tab) 400 mg DAILY@1700 PO 09/04/16 17:00 10/04/16 16:59 09/04/16 17:34 400 MG Cholecalciferol (Vitamin D Tab) 1,000 inter.unit DAILY@1700 PO 09/04/16 17:00 10/04/16 16:59 Ergocalciferol (Vitamin D Cap) 50,000 interunit Q4D@1700 PO 09/04/16 17:00 10/04/16 16:59 09/04/16 17:34 50,000 INTERUNIT Lorazepam (Ativan Tab) 0.5 mg Q4 PRN PO 09/04/16 14:45 10/04/16 14:44 Cyclobenzaprine HCl (Flexeril Tab) 10 mg TID PRN PO 09/04/16 14:45 10/04/16 14:44 09/05/16 07:23 10 MG Fenofibrate (Tricor Tab) 134 mg DAILY@1700 PO 09/04/16 17:00 10/04/16 16:59 09/04/16 20:39 134 MG Gadobutrol (Gadavist) 8 mmol UD PRN IV 09/04/16 22:45 09/08/16 22:44 Review of Systems Denies any constitutional, cardiac, pulmonary, neurological, GI, , extremity, endocrine, neuro, ENT, dermatological, or musculoskeletal complaints other than stated in HPI + right rib bruising from previous fall Physical Exam Height & Weight: Height 6 feet, 0.00 inches. Weight 84.500 (Kilograms) 186 (Pounds) Last Vital Signs Documentation Date Time Temp Pulse Resp B/P (MAP) Pulse Ox O2 Delivery O2 Flow Rate FiO2 09/05/16 08:18 36.4 96 20 151/81 (104) 99 Room Air Exam: GENERAL: Mr. Tomlin is a 80 y/o white male that appears his stated age. Speech and cognition is intact. Mood and affect is appropriate. He is sitting quietly in the exam room, in no acute distress. HEAD: Normocephalic; atraumatic. No tenderness of the bilateral greater occipital, lesser occipital, auriculotemporal, supraorbital, or supratrochlear nerves. EYES: Pupils are round, equal, and reactive to light; EOM intact. ENT: No external ear discharge or lesions. No rhinorrhea or epistaxis. No mucosal lesions. NECK: There is 30 degrees of lateral rotation to both sides. There is no midline tenderness. There is focal tenderness along the bilateral C2-C5 facet joints. No paracervical or trapezius muscle spasm. No myoneural trigger points noted. CHEST: Regular chest respiration and excursion. EXTREMITIES: There is 4/5 strength of the right upper extremity; 5/5 strength of the left. NEURO: AAO x 3 SKIN: No lesions, erythema, or rashes noted. Laboratory Laboratory Results (Last CBC): 09/04/16 05:[address] Findings Cervical 09/03/16 Skeletal structures: The skeletal structures are osteopenic. There is no evidence of fracture or subluxation involving the cervical spine. Vertebral body height is maintained. There is minimal anterolisthesis at C4-C5. Alignment is otherwise preserved. There is straightening of cervical lordosis. Anterior osteophytes are seen from C4 through T1. The odontoid process and lateral masses are intact. The atlantoaxial articulation is preserved noting productive degenerative change. The spinous processes appear intact. There is moderate to advanced multilevel cervical spondylosis. Uncovertebral and facet arthropathy contribute to neural foraminal narrowing at most levels. Assessment 1. Multilevel cervical spondylosis 2. Cervical facet syndome 3. Dizziness secondary to prior CVA 4. Frequent falls d/t dizziness 5. CAD with X4 CABG 6. Chronically anticoagulated on Plavix and Aspirin Recommendations 1. Continue Flexeril and Lidocaine patch 2. I would not recommend narcotic medication as it may worsen the patient's dizziness and make him more prone to falls. Patient is in agreement. 3. I would recommend physical therapy aimed towards cervicalgia. 4. Patient is not a candidate for cervical medial branches as Plavix and aspirin would need to be held and with the patient's significant history of CABG and CVA he is high risk for complications. [employer] Voice Recognition This chart was completed in part utilizing [employer] Voice Recognition Software. Random word insertions, pronoun errors, and incomplete sentences are an occasional consequence of this system due to software limitations and ambient noise. Any questions or concerns about the content, text or information contained within the body of this dictation should be directly addressed to the provider for clarification.
--- NOTE | 2016-09-05 15:25 | Neurology Progress Notes ---
Neurology Progress Note Date of Service Sep 05, 2016. Jessica Jamil is a 80 year old male who has a PMH CABG and stroke 4 years ago with residual right sided weakness, colostomy 2 years ago, HTN, DL, CAD, syncope, hypothyroid, BPH, DM2. He presents with 10 days persistent dizziness with neck feeling like he had something on his neck. He describes it as wooziness which he took a "dizzy pill" this am but he is unable to tell me what the pills was. He has had episodes like this in the past. He states when he fell he thinks the room was spinning. He reports a posterior headache and some blurry vision only when he is dizzy. He reports a h/o glaucoma and some eye pain a few weeks ago for which he was evaluated by the eye doctor as an outpatient and since the dizziness began he denies any eye pain or double vision. H states he is confused this am after taking the dizzy pill. He states the last time he had the wooziness and was in the ED they said his sodium was low. He takes ASA 162mg daily and Plavix for h/o stroke in setting of afib. denies CP, SOB, abdominal pain, weakness, numbness tingling, increased weakness in limbs, N, V, fever chills night sweats, bladder issues. He was at the doctors on Sunday and some of his medications were stopped but he doesn't know which ones. Today he states the pain in his neck is still bothering him. He states he was up walking the PT. At first he was off balance but once he sat for a few minutes he was better. denies CP, SOB, abdominal pain, additional weakness, numbness, tingling, N, V, headache. Objective Date Time Temp Pulse Resp B/P (MAP) Pulse Ox O2 Delivery O2 Flow Rate FiO2 09/05/16 12:15 36.3 76 20 128/63 (84) 97 Room Air 09/05/16 12:00 Room Air 09/05/16 09:23 85 96 09/05/16 08:18 36.4 96 20 151/81 (104) 99 Room Air 09/05/16 08:00 Room Air 09/05/16 04:15 Room Air 09/05/16 03:54 36.8 100 18 140/79 (99) 98 Room Air 09/05/16 00:10 36.6 81 18 137/72 (93) 96 Room Air 09/05/16 00:00 Room Air 09/04/16 20:27 Room Air 09/04/16 19:05 36.4 75 20 145/67 (93) 97 Nasal Cannula 09/04/16 15:30 Room Air 09/04/16 15:20 36.7 81 20 151/82 (105) 96 Room Air Last 24 Hours Test 09/04/16 16:13 09/04/16 20:10 09/05/16 05:30 09/05/16 06:35 Bedside Glucose 91 mg/dl 118 mg/dl 95 mg/dl Magnesium Level 2.1 mg/dl Total Bilirubin 0.3 mg/dl Direct Bilirubin 0.2 mg/dl Aspartate Amino Transf (AST/SGOT) 10 U/L Alanine Aminotransferase (ALT/SGPT) 16 U/L Alkaline Phosphatase 44 U/L Total Protein 6.5 gm/dl Albumin 3.3 gm/dl Test 09/05/16 11:29 Bedside Glucose 101 mg/dl Imaging: MRI brain with and without- No evidence for an acute ischemic insult. Atrophy. Considerable chronic small vessel change. MRA brain - No significant stenosis, occlusion, or aneurysm within the [place]. MRA neck- 60-70% narrowing distal left common carotid artery at the bifurcation. 60-70% narrowing origin right internal carotid artery. 50% stenosis distal left vertebral artery. Exam: Physical Exam: Constitutional: appearance nourished, normal Ears, Nose, Mouth and Throat: mucous membranes moist, no injection and skin normal, eyes normal Cardiovascular: normal S-1 and S-2 and regular rate and rhythm Respiratory: clear to auscultation (CTA) and no rales, rhonchi or wheeze Musculoskeletal: no peripheral edema and good distal pulses Skin: no stigmata of neurocutaneous disease noted and normal and intact Eyes: extraocular muscles intact (EOMI) and pupils equal, round and reactive to light (PERRL), miotic NEUROLOGIC EXAMINATION: Mental status: Alert and interactive Oriented to full date and location Oriented to person Speech fluent with no evidence of aphasia Cranial Nerves smile slight nasolabial fold flattening on the right Reflexes: Deep tendon reflexes were symmetrical and graded 2/5. Sensory: vibration absent on right from alicea down, GT proprioception absent Coordination: finger to nose without bi pass Gait/Stance: Posture sitting up in bed Motor: Negative for pronator drift of out stretched arms with eyes closed. 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 UD PRN PO 09/03/16 18:00 10/03/16 17:59 Glucose (Glucose Chew Tab) 4-8 Tablets 4 Tabl... UD PRN PO 09/03/16 18:00 10/03/16 17:59 Dextrose (Dextrose 50% 50ML Syringe) 25-50ML OF 50% DW IV FOR... UD PRN IV 09/03/16 18:00 10/03/16 17:59 Glucagon (Glucagon Inj) 1 mg UD PRN SQ 09/03/16 18:00 10/03/16 17:59 Amoxicillin (Amoxil Cap) 500 mg Q12H PO 09/03/16 18:15 09/13/16 18:14 09/05/16 06:07 500 MG Lidocaine (Lidoderm Patch 5%) 1 patch QAM TD 09/03/16 18:15 10/03/16 18:14 09/05/16 07:23 1 PATCH Miscellaneous (Remove Lidoderm Patch) 1 ea DAILY@21 N/A 09/03/16 21:00 10/03/16 20:59 09/04/16 20:39 1 EA Aspirin (Ecotrin Tab) 81 mg BID PO 09/03/16 21:00 10/03/16 20:59 09/05/16 07:24 81 MG Clopidogrel Bisulfate (plAVix TAB) 75 mg DAILY PO 09/04/16 09:00 10/04/16 08:59 09/05/16 07:23 75 MG Diltiazem HCl (Cardizem Cd Cap) 240 mg DAILY PO 09/04/16 09:00 10/04/16 08:59 09/05/16 07:24 240 MG Levothyroxine Sodium (Synthroid Tab) 75 mcg DAILYBB PO 09/04/16 06:00 10/04/16 05:59 09/05/16 06:08 75 MCG Multivitamins (Multivitamin Tab) 1 tab DAILY PO 09/04/16 09:00 10/04/16 08:59 09/05/16 07:24 1 TAB Simvastatin (Zocor Tab) 20 mg QPM PO 09/03/16 21:00 10/03/16 20:59 09/04/16 20:40 20 MG Pantoprazole Sodium (Protonix Tab) 40 mg BID PO 09/03/16 21:00 10/03/16 20:59 09/05/16 07:23 40 MG Finasteride (Proscar Tab) 5 mg DAILY@1700 PO 09/04/16 17:00 10/04/16 16:59 09/04/16 17:34 5 MG Magnesium Oxide (Mag-Ox Tab) 400 mg DAILY@1700 PO 09/04/16 17:00 10/04/16 16:59 09/04/16 17:34 400 MG Cholecalciferol (Vitamin D Tab) 1,000 inter.unit DAILY@1700 PO 09/04/16 17:00 10/04/16 16:59 Ergocalciferol (Vitamin D Cap) 50,000 interunit Q4D@1700 PO 09/04/16 17:00 10/04/16 16:59 09/04/16 17:34 50,000 INTERUNIT Lorazepam (Ativan Tab) 0.5 mg Q4 PRN PO 09/04/16 14:45 10/04/16 14:44 Cyclobenzaprine HCl (Flexeril Tab) 10 mg TID PRN PO 09/04/16 14:45 10/04/16 14:44 09/05/16 07:23 10 MG Fenofibrate (Tricor Tab) 134 mg DAILY@1700 PO 09/04/16 17:00 10/04/16 16:59 09/04/16 20:39 134 MG Gadobutrol (Gadavist) 8 mmol UD PRN IV 09/04/16 22:45 09/08/16 22:44 Impression 80 year old male s/p fall with dizziness hx stroke 2 years ago on plavix and aspirin Plan 1. agree may need physical therapy 2. evaluate home meds and what was stopped 3. orthostatic blood pressure checked not significant drop 4. PT/OT for discharge needs may need to switch to walker for stability agree may need in patient rehab 5. question what he is taking as "dizzy pills" input from would be helpful 6. MRI brain with and without no acute findings 7. MRA neck with carotid stenosis- further evaluate with carotid doppler (not source of balance issues but will need to be followed) 8. if patient in afib consideration for anticoagulation. past GI bleed would need to be considered. 9. optimize DM cholestrol HTN 10. sed rate ordered for completeness 11. it is not clear if he has a headache with the off balance if he does have a headache could use gabapentin at a low dose which may help his neck pain. I have seen and discussed above patient with Dr Una De Oliveira, neurology Pt seen and examined. I do not think pt dizziness is central in nature. Because history is vague difficult to say if labrinthine or orthostasis. It is not clear that there is headache.Imaging shows no etiology for such. If pt continues to complain of headache and esr is unremarkable consider gabapentin for prophylaxis. MRA shows moderate bl ICA stenosis. REc carotid US to establish percent stenosis and give baseline to follow. It would be reasonable to repeat carotid US in 1 year. Have discussed a fib/flutter with Dr Pérez. He has spoken to Dr Tavera who knows pt well and has not thought him to be a AC candidate because of fall risk. Will sign off. ANDREA De Oliveira MD
[2016-09-05] MEDS: FENOFIBRATE 134 MG TAB PO SCH (17:18)
[2016-09-05] MEDS: CHOLECALCIFEROL 1000 INTER.UNIT TAB PO SCH (17:18)
[2016-09-05] MEDS: MAGNESIUM OXIDE 400 MG TAB PO SCH (17:19)
[2016-09-05] MEDS: FINASTERIDE 5 MG TAB PO SCH (17:19)
[2016-09-05] MEDS: SIMVASTATIN 20 MG TAB PO SCH (20:55)
--- NOTE | 2016-09-05 21:57 | Progress Note ---
Internal Med Progress Note Date of Service: Sep 05, 2016. Provider Documentation: SUBJECTIVE: still have dizzy spell on minimum activity orthostatic hypotension noted OBJECTIVE: Vital Signs-as noted below Exam: General-no sign of distress Eyes-sclera non icteric , Pupils bilat reactive to light, no nystagmus or diplopia noted on lateral gaze ENT-nad NECK : tenderness on palpation of back of neck , bruise noted, no neck rigidity Lungs-CTA Heart-regular S1/S2 Abdomen-soft, non tender ; colostomy present Extremities-ecchymosis /hematoma on rt upper quadrant -related to recent fall on Neuro--chronic rt sided weakness form prior CVA ,no other focal neurological deficit noted , no facial droop Lab data as noted below. ASSESSMENT & PLAN: DIZZY SPELL /HX OF PRIOR LEFT SIDED CVA : still having continued dizzy spell worse with sitting /standing up /turning of head CT head -no acute intracranial hge or CVA chronic Lacunar infarct in Rt Caudate head MRI/MRA of brain -no evidence of acute CVA appreciate input form Neurology possible BPPV -will benefit with Shahriar started on Amoxicillin for possible otitis media of rt ( CT finding of rt maxillary sinusitis ) IVF ordered for Orthostatic drop of BP while standing observe fall precaution CHRONIC NECK PAIN : per pt has been chronic for past few weeks , mainly localized to post lower occipital region symptom worse after the fall on CT of cervical spine -no evidence of fracture or subluxation Moderate to advanced Degenerative disc space narrowing seen in C5-C6/C6-C7 and C7 -T1 XRAY OF Cervical spine at [facility] : extensive DJD of neck , more pronounced at C5-C7 level possible cervical spinal radiculopathy, pt is a very poor candidate for cervical spine surgery Pain management consulted -appreciate input recommend continue symptom control not a candidate for Cervical spinal steroid injection as will required to continue to take aspirin /Plavix cont symptomatic management with K -pad ordered PRN muscle relaxant PAROXYSMAL AFIB admission EKG shows sinus with chronic RBBB on Diltiazem not on Chronic anticoagulation with Coumadin for hx of life threatening GI bleeding requiring colectomy on Aspirin /Plavix had brief episode of tachyarrhythmia , pt remains asymptomatic Cardiology eval appreciated no change in medication indicated ECHO : Compared to prior study, changes are noted. * -- Conclusions -- * Ejection Fraction = 60-65%. * There is mild concentric left ventricular hypertrophy. * Grade I diastolic dysfunction, (abnormal relaxation pattern). * The left atrium is moderately dilated. * The aortic valve is trileaflet. * The aortic valve is moderately calcified. * Aortic valve sclerosis moderate, without significant aortic valvular stenosis. * There is mild tricuspid regurgitation. * Doppler findings do not suggest pulmonary hypertension. monitor in tele CAD : Chronic ischemic heart disease with prior coronary artery bypass grafting x 5 and percutaneous intervention with a taxus drug eluting stent implantation to saphenous vein graft. Followed up with repeat balloon angioplasty in 2005 without repeat stenting. - stable , No complain of angina or MATTHEW -pt is continued with Aspirin , Plavix , Statin , follows with Cardiology Dr Zelaya -last office visit on 07/12/16 -repeat echo as above -no evidence of ACS on presentation -Cardiology eval requested FALL WITH AMBULATORY DYSFUNCTION due to prior CVA /rt sided hemiparesis uses a cane at baseline with recent episodes for Dizzy spell , leading him to fall PT/OT eval appreciate input pt still very dizzy with sitting and change of position requires 1 person assist script given for rolling walker CAROTID ARTERY DISEASE : carotid Doppler 1. There is evidence of 50-69% stenosis at the origin of the right internal carotid artery by velocity criteria. 2. There is evidence of 50-69% stenosis within the proximal to midportion of the left internal carotid artery by velocity criteria. 3. Antegrade flow is shown in the vertebral arteries. Cont Aspirin , Plavix , stain Fasting lipid panel ordered in AM labs TYPE 2 DM : well controlled as per recent Hb A1c 6 ( on 08/01/16 ) insulin SSI monitor BSG AC and HS MIAH ON CKD STAGE 3 : due to dehydration Cr improved to approx baseline with IV cont to monitor PRP DVT PROPHYLAXIS moderate risk will hold Sub q heparin for abdominal hematoma SCD and teds will be utilized ambulate as tolerated DISPOSITION PT /OT eval -recommends rehab D/w and pt -wants to return home with home PT /Home health script for Rolling walker -for chronic ambulatory dysfunction Medicine follow up with Dr Marrufo Cardiology follow up with Dr Juan Zelaya Nephrology follow up with Dr Perez Vital Signs: Date Time Temp Pulse Resp B/P (MAP) Pulse Ox O2 Delivery O2 Flow Rate FiO2 09/05/16 20:00 Room Air 09/05/16 19:05 36.5 97 22 121/79 (93) 97 Room Air 09/05/16 15:44 36.4 73 20 133/64 (87) 95 Room Air 09/05/16 15:30 Room Air 09/05/16 12:15 36.3 76 20 128/63 (84) 97 Room Air 09/05/16 12:00 Room Air 09/05/16 09:23 85 96 09/05/16 08:18 36.4 96 20 151/81 (104) 99 Room Air 09/05/16 08:00 Room Air 09/05/16 04:15 Room Air 09/05/16 03:54 36.8 100 18 140/79 (99) 98 Room Air 09/05/16 00:10 36.6 81 18 137/72 (93) 96 Room Air 09/05/16 00:00 Room Air Lab Results: Results Past 24 Hours Test 09/05/16 05:30 09/05/16 06:35 09/05/16 11:29 09/05/16 16:02 Range/Units Magnesium Level 2.1 1.8-2.4 mg/dl Total Bilirubin 0.3 0.2-1 mg/dl Direct Bilirubin 0.2 0-0.2 mg/dl Aspartate Amino Transf (AST/SGOT) 10 15-37 U/L Alanine Aminotransferase (ALT/SGPT) 16 12-78 U/L Alkaline Phosphatase 44 45-117 U/L Total Protein 6.5 6.4-8.2 gm/dl Albumin 3.3 3.4-5.0 gm/dl Bedside Glucose 95 101 89 70-99 mg/dl Test 09/05/16 17:00 09/05/16 20:12 Range/Units Erythrocyte Sedimentation Rate 12 0-14 mm/hr Bedside Glucose 136 70-99 mg/dl
[2016-09-05] MEDS ORDERED: SODIUM CHLORIDE 0.9% 1000ML 1,000 ML IV SCH (22:00)
--- NOTE | 2016-09-05 22:12 | DIAGNOSTIC IMAGING REPORT ---
ULTRASOUND OF THE CAROTID ARTERIES CLINICAL HISTORY: Carotid stenosis. COMPARISON STUDY: MR angiogram of the neck dated 09/04/2016. TECHNIQUE: Real-time, grayscale, and color Doppler sonography of the carotid arteries is performed. Images are reviewed in the transverse and longitudinal planes. FINDINGS: Blood pressures were not assessed due to the presence of IV catheters. The carotid arteries are patent bilaterally and demonstrate antegrade flow. There is moderate echogenic shadowing atherosclerotic plaque seen in the carotid bulbs bilaterally. Normal doppler arterial waveforms are seen throughout. Velocity measurements are listed below. Common carotid peak systolic velocity (cm/sec): RIGHT: 53 LEFT: 62 ICA proximal peak systolic velocity (cm/sec): RIGHT: 158 LEFT: 129 ICA mid peak systolic velocity (cm/sec): RIGHT: 116 LEFT: 184 ICA distal peak systolic velocity (cm/sec): RIGHT: 70 LEFT: 79 ICA/CC peak systolic ratio: RIGHT: 3.0 LEFT: 3.0 Antegrade flow was shown in the vertebral arteries. The external carotid arteries are patent. Elevated velocities within the left external carotid artery measure up to 225 cm/s suggest some degree of stenosis. IMPRESSION: 1. There is evidence of 50-69% stenosis at the origin of the right internal carotid artery by velocity criteria. 2. There is evidence of 50-69% stenosis within the proximal to midportion of the left internal carotid artery by velocity criteria. 3. Antegrade flow is shown in the vertebral arteries. Electronically signed by: Lexx Sun M.D. 09/05/2016 10:11 PM Dictated Date/Time: 09/05/2016 10:07 PM
[2016-09-06] VITALS (8 sets, daily range): BP systolic 89–151; BP diastolic 48–83; PULSE 76–143; TEMP 36.2–37; O2SAT 94–97
[2016-09-06] MEDS: LEVOTHYROXINE 75 MCG TAB PO SCH (05:48)
[2016-09-06] MEDS: AMOXICILLIN 500 MG CAP PO SCH ×2 (05:49→19:20)
[2016-09-06 06:58] LABS: BUN/CREATININE RATIO 9.4 (10-20); CALCIUM 8.1 mg/dl (8.5-10.1); CREATININE 2.1 mg/dl (0.60-1.40); POTASSIUM 4.1 mmol/L (3.5-5.1)
[2016-09-06 07:01] LABS: CHOLESTEROL/HDL RATIO 2.4
[2016-09-06] MEDS: ASPIRIN 81 MG ECTAB PO SCH ×2 (07:38→20:32)
[2016-09-06] MEDS: LIDODERM (LIDOCAINE) PATCH 5% TD SCH (07:38)
[2016-09-06] MEDS: CLOPIDOGREL BISULFATE 75 MG TAB PO SCH (07:38)
[2016-09-06] MEDS: PANTOprazole SOD 40 MG TAB PO SCH ×2 (07:39→20:32)
[2016-09-06] MEDS: MULTIVITAMIN TAB PO SCH (07:39)
[2016-09-06] MEDS: DILTIAZEM HCL 240 MG CAPCR PO SCH (07:39)
[2016-09-06] MEDS: CYCLOBENZAPRINE HCL 10 MG TAB PO PRN ×2 (07:40→15:44)
[2016-09-06] MEDS ORDERED: DIGOXIN 0.25 MG TAB PO ONE (11:30)
--- NOTE | 2016-09-06 11:42 | Cardiology Follow-Up ---
Subjective General Date of Service: Sep 06, 2016. Pt evaluation today including: conversation w/ patient, physical exam, chart review, lab review, review of studies, review of inpatient medication list History of Present Illness The patient is a 80 year old male seen in follow-up. Orthostatic dizziness unchanged. Brief judy of PAT on telemetry. Reports intermittent palpitations. Allergies Coded Allergies: Codeine (Verified Allergy, Intermediate, ITCHING, 09/03/16) Hydrocodone (Verified Allergy, Intermediate, NAUSEA, 09/03/16) Tramadol (Verified Allergy, Intermediate, ITCHING, 09/03/16) Acetaminophen (Unverified Allergy, Unknown, NAUSEA, 09/03/16) Social History Smoking Status: Former Smoker Hx Tobacco Use In Past Year?: No Hx Alcohol Use - Type And Amou: No Hx Substance Use - Type And Am: No Problem List Medical Problems: (1) Abdominal pain Status: Acute (2) Acute on chronic renal insufficiency Status: Acute (3) Chest pain Status: Acute (4) CKD (chronic kidney disease) Status: Acute (5) Closed head injury Status: Acute (6) Dehydration Status: Acute (7) Dizziness Status: Acute (8) Gastroesophageal reflux Status: Acute (9) Hypomagnesemia Status: Acute (10) Hyponatremia Status: Acute (11) Nausea Status: Acute (12) Nausea and vomiting Status: Acute (13) Rectal discharge Status: Acute (14) Small bowel obstruction Status: Acute (15) Syncope Status: Acute Review of Systems Respiratory: No cough, No sputum, No wheezing, No shortness of breath, No dyspnea on exertion, No dyspnea at rest Cardiac: + palpitations, No chest pain, No orthopnea, No PND, No edema, No claudication Physical Exam Vital Signs Last Vital Signs Documentation Date Time Temp Pulse Resp B/P (MAP) Pulse Ox O2 Delivery O2 Flow Rate FiO2 09/06/16 07:04 36.5 86 20 151/83 (105) 96 Room Air Physical Exam Constitutional: General Apperance: well-nourished Level of Distress: NAD Ambulation: ambulating normally Head: normocephalic ENMT: normal ENT inspection, hearing grossly normal Neck: supple, trachea midline Lungs: Auscultation: breath sounds normal, no wheezing, no rales/crackles, no rhonchi Cardiovascular: Heart Auscultation: RRR, normal S1, normal S2, no murmurs, no rubs Peripheral Pulses: Radial Pulse: normal on the left, normal on the right Abdomen: Inspection & Palpation: soft, non-distended, no tenderness, guarding & rebound, no masses Liver: non-tender Musculoskeletal: normal, normal strength (5/5 throughout) Extremities: no cyanosis, no edema, no clubbing, no ulcers Neurologic: Gait & Station: pertinent finding (no focal motor deficit.) Cranial Nerves: grossly intact Assessment and Plan Assessment and Plan Imp: 1. 80-year-old male admitted with dizziness, orthostatic hypotension, and episode of vertigo. No evidence of cerebrovascular accident per MRI. Neurology input appreciated. 2. Paroxysmal supraventricular tachycardia versus paroxysmal atrial flutter with palpitations. 3. Relative contraindications to chronic anticoagulation secondary to gait instability with significant fall risk, recent fall with right flank injury, as well as history of gastrointestinal bleeding. 4. 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 Followed up with repeat balloon angioplasty in 2005 without repeat stenting. - stable without angina. 4. History of cerebral vascular accident with moderate B/L carotid vascular disease - stable per MRA 5. Chart history of paroxysmal atrial fibrillation -no recurrence on telemetry 6. Hypertension - controlled. 7. Acute kidney injury superimposed on chronic kidney disease 8. H/o GI hemorrhage and hematuria - H/H stable. Plan/recommendations: Add low dose digoxin. This medication was previously effective for controlling palpitations, however, discontinued secondary to renal dysfunction. Recommend 125mcg digoxin on Sunday and sunday. Continue gentle IV hydration. Further treatment/evaluation of vertigo as per neurology/IM. As noted above, patient is not a long-term anticoagulation candidate. His hemoglobin remains stable. Recommend continuing dual antiplatelet therapy at this time. Continue to monitor telemetry. I will continue to follow patient during hospitalization. Laboratory Results Last 24 Hours Test 09/05/16 16:02 09/05/16 17:00 09/05/16 20:12 09/06/16 05:40 Bedside Glucose 89 mg/dl 136 mg/dl Erythrocyte Sedimentation Rate 12 mm/hr Sodium Level 143 mmol/L Potassium Level 4.1 mmol/L Chloride Level 114 mmol/L Carbon Dioxide Level 21 mmol/L Anion Gap 8.0 mmol/L Blood Urea Nitrogen 20 mg/dl Creatinine 2.10 mg/dl Est Creatinine Clear Calc Drug Dose 31.3 ml/min Estimated GFR () 33.7 Estimated GFR (Non- 29.1 BUN/Creatinine Ratio 9.4 Random Glucose 89 mg/dl Calcium Level 8.1 mg/dl Triglycerides Level 121 mg/dl Cholesterol Level 96 mg/dl HDL Cholesterol 40 mg/dl LDL Cholesterol, Calculated 32 mg/dl VLDL Cholesterol, Calculated 24 mg/dl Cholesterol/HDL Ratio 2.4 Test 09/06/16 06:45 Bedside Glucose 90 mg/dl
--- NOTE | 2016-09-06 16:11 | Progress Note ---
Medicine Progress Note Date & Time of Visit: Sep 06, 2016 at 16:02. 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 denies chest pain, dyspnea, weakness, palpitations no other symptoms Objective Last 8 Hrs Date Time Temp Pulse Resp B/P (MAP) Pulse Ox O2 Delivery O2 Flow Rate FiO2 09/06/16 15:40 36.2 76 22 135/65 (88) 97 Room Air 09/06/16 12:00 Room Air 09/06/16 12:00 85 09/06/16 11:20 36.6 83 20 124/68 (86) 96 Physical Exam: General- oriented x 3, not in distress, speaks in sentences with no effort Head- atraumatic Eyes- EOMI, anicteric ENT- oropharynx clear Neck- supple, no JVD, no adenopathy Lungs- clear to auscultation b/l Heart- normal rate, regular rhythm; no murmurs Abdomen- normal bowel sounds, soft, nontender Extremities- no pretibial edema, no calf tenderness; peripheral pulses intact Neuro- alert, oriented x 3; no gross focal deficits Skin- warm & dry Laboratory Results: Last 24 Hours Test 09/05/16 17:00 09/05/16 20:12 09/06/16 05:40 09/06/16 06:45 Erythrocyte Sedimentation Rate 12 mm/hr Bedside Glucose 136 mg/dl 90 mg/dl Sodium Level 143 mmol/L Potassium Level 4.1 mmol/L Chloride Level 114 mmol/L Carbon Dioxide Level 21 mmol/L Anion Gap 8.0 mmol/L Blood Urea Nitrogen 20 mg/dl Creatinine 2.10 mg/dl Est Creatinine Clear Calc Drug Dose 31.3 ml/min Estimated GFR () 33.7 Estimated GFR (Non- 29.1 BUN/Creatinine Ratio 9.4 Random Glucose 89 mg/dl Calcium Level 8.1 mg/dl Triglycerides Level 121 mg/dl Cholesterol Level 96 mg/dl HDL Cholesterol 40 mg/dl LDL Cholesterol, Calculated 32 mg/dl VLDL Cholesterol, Calculated 24 mg/dl Cholesterol/HDL Ratio 2.4 Test 09/06/16 11:36 Bedside Glucose 112 mg/dl Assessment & Plan 80 year old male with history of CAD/CABG, A FIB, HISTORY OF CVA, CKD, other problems noted below presenting with "dizzy spell". DIZZY SPELL - HX OF PRIOR LEFT SIDED CVA : CT head -no acute intracranial hge or CVA chronic Lacunar infarct in Rt Caudate head MRI/MRA of brain -no evidence of acute CVA - from Orthostasis continue gentle IV fluids monitor Ortho VS - possible BPPV evaluated by Neurology possible BPPV -will benefit with Shahriar - possible Labyrinthitis started on Amoxicillin for possible otitis media of rt ( CT finding of rt maxillary sinusitis ) FALL WITH AMBULATORY DYSFUNCTION due to prior CVA /rt sided hemiparesis uses a cane at baseline with recent episodes for Dizzy spell , leading him to fall -- continue PT/OT CHRONIC NECK PAIN per pt has been chronic for past few weeks , mainly localized to post lower occipital region symptom worse after the fall on CT of cervical spine -no evidence of fracture or subluxation Moderate to advanced Degenerative disc space narrowing seen in C5-C6/C6-C7 and C7 -T1 XRAY OF Cervical spine at [facility] : extensive DJD of neck , more pronounced at C5-C7 level -- possible cervical spinal radiculopathy, pt is a very poor candidate for cervical spine surgery Pain management consulted recommend continue symptom control not a candidate for Cervical spinal steroid injection as will required to continue to take aspirin /Plavix -- cont PRN K pad, Flexeril PAROXYSMAL AFIB admission EKG shows sinus with chronic RBBB not on Chronic anticoagulation with Coumadin for hx of life threatening GI bleeding requiring colectomy on Aspirin /Plavix had brief episode of tachyarrhythmia ECHO : Compared to prior study, changes are noted. * -- Conclusions -- * Ejection Fraction = 60-65%. * There is mild concentric left ventricular hypertrophy. * Grade I diastolic dysfunction, (abnormal relaxation pattern). * The left atrium is moderately dilated. * The aortic valve is trileaflet. * The aortic valve is moderately calcified. * Aortic valve sclerosis moderate, without significant aortic valvular stenosis. * There is mild tricuspid regurgitation. * Doppler findings do not suggest pulmonary hypertension. monitor in [facility] - Digoxin started [facility] monitor response - on Diltiazem, Aspirin and Plavix CAD : Chronic ischemic heart disease with prior coronary artery bypass grafting x 5 and percutaneous intervention with a taxus drug eluting stent implantation to saphenous vein graft. Followed up with repeat balloon angioplasty in 2005 without repeat stenting. - no cardiac symptoms -pt is continued with Aspirin , Plavix , Statin , CAROTID ARTERY DISEASE : carotid Doppler 1. There is evidence of 50-69% stenosis at the origin of the right internal carotid artery by velocity criteria. 2. There is evidence of 50-69% stenosis within the proximal to midportion of the left internal carotid artery by velocity criteria. 3. Antegrade flow is shown in the vertebral arteries. - Cont Aspirin , Plavix , statin repeat US in 1 year TYPE 2 DM : well controlled as per recent Hb A1c 6 ( on 08/01/16 ) insulin SSI monitor BSG AC and HS MIAH ON CKD STAGE 3 : due to dehydration Cr improved to approx baseline with IV cont to monitor PRP DVT PROPHYLAXIS moderate risk will hold Sub q heparin for abdominal hematoma SCD and teds will be utilized ambulate as tolerated DISPOSITION PT /OT eval -recommends rehab D/w and pt -wants to return home with home PT /Home health script for Rolling walker -for chronic ambulatory dysfunction Medicine follow up with Dr Marrufo Cardiology follow up with Dr Juan Zelaya Nephrology follow up with Dr Perez Current Inpatient Medications: Current Inpatient Medications Medications (Trade) Dose Ordered Sig/Shonda Route Start Time Stop Time Status Last Admin Dose Admin Polyethylene (Miralax Powder Packet) 17 gm DAILY PRN PO 09/03/16 18:00 10/03/16 17:59 Glucose (Glucose 40% Gel) 15-30 GRAMS 15 GRAMS... UD PRN PO 09/03/16 18:00 10/03/16 17:59 Glucose (Glucose Chew Tab) 4-8 Tablets 4 Tabl... UD PRN PO 09/03/16 18:00 10/03/16 17:59 Dextrose (Dextrose 50% 50ML Syringe) 25-50ML OF 50% DW IV FOR... UD PRN IV 09/03/16 18:00 10/03/16 17:59 Glucagon (Glucagon Inj) 1 mg UD PRN SQ 09/03/16 18:00 10/03/16 17:59 Amoxicillin (Amoxil Cap) 500 mg Q12H PO 09/03/16 18:15 09/13/16 18:14 09/06/16 05:49 500 MG Lidocaine (Lidoderm Patch 5%) 1 patch QAM TD 09/03/16 18:15 10/03/16 18:14 09/06/16 07:38 1 PATCH Miscellaneous (Remove Lidoderm Patch) 1 ea DAILY@21 N/A 09/03/16 21:00 10/03/16 20:59 09/05/16 20:54 1 EA Aspirin (Ecotrin Tab) 81 mg BID PO 09/03/16 21:00 10/03/16 20:59 09/06/16 07:38 81 MG Clopidogrel Bisulfate (plAVix TAB) 75 mg DAILY PO 09/04/16 09:00 10/04/16 08:59 09/06/16 07:38 75 MG Diltiazem HCl (Cardizem Cd Cap) 240 mg DAILY PO 09/04/16 09:00 10/04/16 08:59 09/06/16 07:39 240 MG Levothyroxine Sodium (Synthroid Tab) 75 mcg DAILYBB PO 09/04/16 06:00 10/04/16 05:59 09/06/16 05:48 75 MCG Multivitamins (Multivitamin Tab) 1 tab DAILY PO 09/04/16 09:00 10/04/16 08:59 09/06/16 07:39 1 TAB Simvastatin (Zocor Tab) 20 mg QPM PO 09/03/16 21:00 10/03/16 20:59 09/05/16 20:55 20 MG Pantoprazole Sodium (Protonix Tab) 40 mg BID PO 09/03/16 21:00 10/03/16 20:59 09/06/16 07:39 40 MG Finasteride (Proscar Tab) 5 mg DAILY@1700 PO 09/04/16 17:00 10/04/16 16:59 09/05/16 17:19 5 MG Magnesium Oxide (Mag-Ox Tab) 400 mg DAILY@1700 PO 09/04/16 17:00 10/04/16 16:59 09/05/16 17:19 400 MG Cholecalciferol (Vitamin D Tab) 1,000 inter.unit DAILY@1700 PO 09/04/16 17:00 10/04/16 16:59 09/05/16 17:18 1,000 INTER.UNIT Ergocalciferol (Vitamin D Cap) 50,000 interunit Q4D@1700 PO 09/04/16 17:00 10/04/16 16:59 09/04/16 17:34 50,000 INTERUNIT Lorazepam (Ativan Tab) 0.5 mg Q4 PRN PO 09/04/16 14:45 10/04/16 14:44 Cyclobenzaprine HCl (Flexeril Tab) 10 mg TID PRN PO 09/04/16 14:45 10/04/16 14:44 09/06/16 15:44 10 MG Fenofibrate (Tricor Tab) 134 mg DAILY@1700 PO 09/04/16 17:00 10/04/16 16:59 09/05/16 17:18 134 MG Gadobutrol (Gadavist) 8 mmol UD PRN IV 09/04/16 22:45 09/08/16 22:44
[2016-09-06] MEDS: MAGNESIUM OXIDE 400 MG TAB PO SCH (16:40)
[2016-09-06] MEDS: SODIUM CHLORIDE 0.9% 1000ML 1,000 ML IV SCH (16:40)
[2016-09-06] MEDS: CHOLECALCIFEROL 1000 INTER.UNIT TAB PO SCH (16:40)
[2016-09-06] MEDS: FINASTERIDE 5 MG TAB PO SCH (16:41)
[2016-09-06] MEDS: FENOFIBRATE 134 MG TAB PO SCH (16:43)
[2016-09-06] MEDS: SIMVASTATIN 20 MG TAB PO SCH (20:32)
[2016-09-06] MEDS ORDERED: METOPROLOL TARTRATE 1 MG/ML VIAL IV STA (23:29)
[2016-09-07] MEDS ORDERED: SODIUM CHLORIDE 0.9% 250ML 250 ML IV SCH
[2016-09-07] MEDS: MAGNESIUM SULFATE 1GM / D5W 1 GM in PREMIXED IN D5W 100 ML IV SCH ×2 (00:20→01:28)
[2016-09-07 04:28] VITALS: BP 144/78; PULSE 98; TEMP 36.7; O2SAT 97
[2016-09-07] MEDS: LEVOTHYROXINE 75 MCG TAB PO SCH (06:00)
[2016-09-07] MEDS: AMOXICILLIN 500 MG CAP PO SCH ×2 (06:15→17:36)
[2016-09-07 07:49] VITALS: BP 108/63; PULSE 93; TEMP 36.6; O2SAT 96
[2016-09-07] MEDS: PANTOprazole SOD 40 MG TAB PO SCH ×2 (08:08→20:30)
[2016-09-07] MEDS: ASPIRIN 81 MG ECTAB PO SCH ×2 (08:09→20:29)
[2016-09-07] MEDS: CLOPIDOGREL BISULFATE 75 MG TAB PO SCH (08:09)
[2016-09-07] MEDS: MULTIVITAMIN TAB PO SCH (08:09)
[2016-09-07] MEDS: CYCLOBENZAPRINE HCL 10 MG TAB PO PRN (08:09)
[2016-09-07] MEDS: DILTIAZEM HCL 240 MG CAPCR PO SCH (08:09)
[2016-09-07] MEDS: LIDODERM (LIDOCAINE) PATCH 5% TD SCH (08:10)
[2016-09-07] MEDS: SODIUM CHLORIDE 0.9% 1000ML 1,000 ML IV SCH (08:10)
[2016-09-07] MEDS ORDERED: DIGOXIN 0.125 MG TAB PO ONE (09:30)
[2016-09-07] MEDS ORDERED: AMIODARONE 200 MG TAB PO ONE (09:35)
--- NOTE | 2016-09-07 09:43 | Cardiology Follow-Up ---
Subjective General Date of Service: Sep 07, 2016. Pt evaluation today including: conversation w/ patient, physical exam, chart review, lab review, review of studies, review of inpatient medication list History of Present Illness The patient is a 80 year old male seen in follow-up. Orthostatic dizziness improved. Atrial fibrillation with RVR overnight lasting 4 hours with a one hour judy of sustained atrial tachycardia vs. Atrial flutter with 2:1 conduction. Reports associated palpitations No CP or SOB. SR this AM Allergies Coded Allergies: Codeine (Verified Allergy, Intermediate, ITCHING, 09/03/16) Tramadol (Verified Allergy, Intermediate, ITCHING, 09/03/16) Hydrocodone (Verified Adverse Reaction, Intermediate, NAUSEA, 09/06/16) Social History Smoking Status: Former Smoker Hx Tobacco Use In Past Year?: No Hx Alcohol Use - Type And Amou: No Hx Substance Use - Type And Am: No Problem List Medical Problems: (1) Abdominal pain Status: Acute (2) Acute on chronic renal insufficiency Status: Acute (3) Chest pain Status: Acute (4) CKD (chronic kidney disease) Status: Acute (5) Closed head injury Status: Acute (6) Dehydration Status: Acute (7) Dizziness Status: Acute (8) Gastroesophageal reflux Status: Acute (9) Hypomagnesemia Status: Acute (10) Hyponatremia Status: Acute (11) Nausea Status: Acute (12) Nausea and vomiting Status: Acute (13) Rectal discharge Status: Acute (14) Small bowel obstruction Status: Acute (15) Syncope Status: Acute Review of Systems Respiratory: No cough, No sputum, No wheezing, No shortness of breath, No dyspnea on exertion, No dyspnea at rest, No hemoptysis Cardiac: No chest pain, No orthopnea, No PND, No edema, No palpitations Physical Exam Vital Signs Last Vital Signs Documentation Date Time Temp Pulse Resp B/P (MAP) Pulse Ox O2 Delivery O2 Flow Rate FiO2 09/07/16 07:49 36.6 93 20 108/63 (78) 96 Room Air Physical Exam Constitutional: General Apperance: well-nourished Level of Distress: NAD Ambulation: ambulating normally Head: normocephalic ENMT: normal ENT inspection, hearing grossly normal Neck: supple, trachea midline Lungs: Auscultation: breath sounds normal, no wheezing, no rales/crackles, no rhonchi Cardiovascular: Heart Auscultation: RRR, normal S1, normal S2, no murmurs, no rubs Peripheral Pulses: Radial Pulse: normal on the left, normal on the right Abdomen: Inspection & Palpation: soft, non-distended, no tenderness, guarding & rebound, no masses Liver: non-tender Musculoskeletal: normal, normal strength (5/5 throughout) Extremities: no cyanosis, no edema, no clubbing, no ulcers Neurologic: Gait & Station: pertinent finding (no focal motor deficit.) Cranial Nerves: grossly intact Assessment and Plan Assessment and Plan Imp: 1. 80-year-old male admitted with dizziness, orthostatic hypotension, and episode of vertigo. No evidence of cerebrovascular accident per MRI. Neurology input appreciated. 2. Paroxysmal atrial fibrillation with RVR as well as PAT vs. PA flutter. 3. Relative contraindications to chronic anticoagulation secondary to gait instability with significant fall risk, recent fall with right flank injury, as well as history of gastrointestinal bleeding. 4. 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 Followed up with repeat balloon angioplasty in 2005 without repeat stenting. - stable without angina. 4. History of cerebral vascular accident with moderate B/L carotid vascular disease - stable per MRA 5. Hypertension - controlled. 6. Acute kidney injury superimposed on chronic kidney disease 7. H/o GI hemorrhage and hematuria - H/H stable. Plan/recommendations: Will transition to rhythm control strategy with evidence of recurrent atrial fibrillation and relative contraindications to anticoagulation. Discontinue digoxin. Add amiodarone 400mg BID. Further treatment/evaluation of vertigo as per neurology/IM. Recommend continuing dual antiplatelet therapy at this time. Continue to monitor telemetry. I will continue to follow patient during hospitalization. Laboratory Results Last 24 Hours Test 09/06/16 11:36 09/06/16 16:15 09/06/16 20:16 09/07/16 07:12 Bedside Glucose 112 mg/dl 81 mg/dl 158 mg/dl 90 mg/dl
[2016-09-07 11:04] VITALS: BP 127/65; PULSE 84; TEMP 36.7; O2SAT 94
[2016-09-07 15:21] VITALS: BP 122/54; PULSE 71; TEMP 36.3; O2SAT 100
[2016-09-07 16:00] VITALS: O2SAT 98
--- NOTE | 2016-09-07 16:22 | Progress Note ---
Medicine Progress Note Date & Time of Visit: Sep 07, 2016 at 16:14. Subjective patient seen resting in bed, appears comfortable states dizziness, headache now resolved ambulates with no problems today denies chest pain, dyspnea, dizziness, palpitations started on Amiodarone this morning noticing increased swelling on the ostomy site no pain around the bag, no bleeding noted denies other symptoms Objective Last 8 Hrs Date Time Temp Pulse Resp B/P (MAP) Pulse Ox O2 Delivery O2 Flow Rate FiO2 09/07/16 15:21 36.3 71 18 122/54 (76) 100 Room Air 09/07/16 12:00 Room Air 09/07/16 11:04 36.7 84 20 127/65 (85) 94 Room Air Physical Exam: General- oriented x 3, not in distress, speaks in sentences with no effort Eyes- anicteric Neck- no JVD Lungs- clear breath sounds bilaterally, no rales/wheezes Heart- normal rate, regular rhythm; no murmurs Abdomen- normal bowel sounds, soft, nontender (+) colostomy bag in place with brown, liquid stools no blood noted, no tenderness on the stoma Extremities- no pretibial edema, no calf tenderness Neuro- alert, oriented x 3; no gross focal deficits Skin- warm & dry Laboratory Results: Last 24 Hours Test 09/06/16 16:15 09/06/16 20:16 09/07/16 07:12 09/07/16 11:03 Bedside Glucose 81 mg/dl 158 mg/dl 90 mg/dl 105 mg/dl Assessment & Plan 80 year old male with history of CAD/CABG, A FIB, HISTORY OF CVA, CKD, other problems noted below presenting with "dizzy spell". DIZZINESS, RESOLVING - HX OF PRIOR LEFT SIDED CVA : CT head -no acute intracranial hge or CVA chronic Lacunar infarct in Rt Caudate head MRI/MRA of brain -no evidence of acute CVA - from Orthostasis given gentle IV fluids resolved - possible Labyrinthitis started on Amoxicillin for possible otitis media of rt ( CT finding of rt maxillary sinusitis ) day 5 no ear symptoms - possible BPPV evaluated by Neurology possible BPPV -Kunal Hallpike done: negative FALL WITH AMBULATORY DYSFUNCTION due to prior CVA /rt sided hemiparesis uses a cane at baseline with recent episodes for Dizzy spell , leading him to fall -- continue PT/OT CHRONIC NECK PAIN per pt has been chronic for past few weeks , mainly localized to post lower occipital region symptom worse after the fall on CT of cervical spine -no evidence of fracture or subluxation Moderate to advanced Degenerative disc space narrowing seen in C5-C6/C6-C7 and C7 -T1 XRAY OF Cervical spine at [facility] : extensive DJD of neck , more pronounced at C5-C7 level -- possible cervical spinal radiculopathy, pt is a very poor candidate for cervical spine surgery Pain management consulted recommend continue symptom control not a candidate for Cervical spinal steroid injection as will required to continue to take aspirin /Plavix -- cont PRN K pad, Flexeril PAROXYSMAL AFIB admission EKG shows sinus with chronic RBBB not on Chronic anticoagulation with Coumadin for hx of life threatening GI bleeding requiring colectomy on Aspirin /Plavix had brief episode of tachyarrhythmia ECHO : Compared to prior study, changes are noted. * -- Conclusions -- * Ejection Fraction = 60-65%. * There is mild concentric left ventricular hypertrophy. * Grade I diastolic dysfunction, (abnormal relaxation pattern). * The left atrium is moderately dilated. * The aortic valve is trileaflet. * The aortic valve is moderately calcified. * Aortic valve sclerosis moderate, without significant aortic valvular stenosis. * There is mild tricuspid regurgitation. * Doppler findings do not suggest pulmonary hypertension. monitor in tele - Digoxin started MWF, (+) atrial flutter with RVR started on Amiodarone BID monitor response - on Diltiazem, Aspirin and Plavix CAD : Chronic ischemic heart disease with prior coronary artery bypass grafting x 5 and percutaneous intervention with a taxus drug eluting stent implantation to saphenous vein graft. Followed up with repeat balloon angioplasty in 2005 without repeat stenting. - no cardiac symptoms - pt is continued with Aspirin , Plavix , Statin , BILATERAL ICA STENOSIS 1. There is evidence of 50-69% stenosis at the origin of the right internal carotid artery by velocity criteria. 2. There is evidence of 50-69% stenosis within the proximal to midportion of the left internal carotid artery by velocity criteria. 3. Antegrade flow is shown in the vertebral arteries. - Cont Aspirin , Plavix , statin repeat US in 1 year TYPE 2 DM well controlled as per recent Hb A1c 6 ( on 08/01/16 ) monitor BSG AC and HS MIAH ON CKD STAGE 3 : due to dehydration baseline 1.8-1.9 crea now 2.1 cont to monitor PRP DVT PROPHYLAXIS moderate risk will hold Sub q heparin for abdominal hematoma SCD and teds will be utilized ambulate as tolerated DISPOSITION PT /OT eval -recommends rehab D/w and pt -wants to return home with home PT /Home health script for Rolling walker -for chronic ambulatory dysfunction Medicine follow up with Dr Marrufo Cardiology follow up with Dr Juan Zelaya Nephrology follow up with Dr Perez Current Inpatient Medications: Current Inpatient Medications Medications (Trade) Dose Ordered Sig/Shonda Route Start Time Stop Time Status Last Admin Dose Admin Polyethylene (Miralax Powder Packet) 17 gm DAILY PRN PO 09/03/16 18:00 10/03/16 17:59 Glucose (Glucose 40% Gel) 15-30 GRAMS 15 GRAMS... UD PRN PO 09/03/16 18:00 10/03/16 17:59 Glucose (Glucose Chew Tab) 4-8 Tablets 4 Tabl... UD PRN PO 09/03/16 18:00 10/03/16 17:59 Dextrose (Dextrose 50% 50ML Syringe) 25-50ML OF 50% DW IV FOR... UD PRN IV 09/03/16 18:00 10/03/16 17:59 Glucagon (Glucagon Inj) 1 mg UD PRN SQ 09/03/16 18:00 10/03/16 17:59 Amoxicillin (Amoxil Cap) 500 mg Q12H PO 09/03/16 18:15 09/13/16 18:14 09/07/16 06:15 500 MG Lidocaine (Lidoderm Patch 5%) 1 patch QAM TD 09/03/16 18:15 10/03/16 18:14 09/07/16 08:10 1 PATCH Miscellaneous (Remove Lidoderm Patch) 1 ea DAILY@21 N/A 09/03/16 21:00 10/03/16 20:59 09/06/16 20:31 1 EA Aspirin (Ecotrin Tab) 81 mg BID PO 09/03/16 21:00 10/03/16 20:59 09/07/16 08:09 81 MG Clopidogrel Bisulfate (plAVix TAB) 75 mg DAILY PO 09/04/16 09:00 10/04/16 08:59 09/07/16 08:09 75 MG Diltiazem HCl (Cardizem Cd Cap) 240 mg DAILY PO 09/04/16 09:00 10/04/16 08:59 09/07/16 08:09 240 MG Levothyroxine Sodium (Synthroid Tab) 75 mcg DAILYBB PO 09/04/16 06:00 10/04/16 05:59 09/07/16 06:00 75 MCG Multivitamins (Multivitamin Tab) 1 tab DAILY PO 09/04/16 09:00 10/04/16 08:59 09/07/16 08:09 1 TAB Simvastatin (Zocor Tab) 20 mg QPM PO 09/03/16 21:00 10/03/16 20:59 09/06/16 20:32 20 MG Pantoprazole Sodium (Protonix Tab) 40 mg BID PO 09/03/16 21:00 10/03/16 20:59 09/07/16 08:08 40 MG Finasteride (Proscar Tab) 5 mg DAILY@1700 PO 09/04/16 17:00 10/04/16 16:59 09/06/16 16:41 5 MG Magnesium Oxide (Mag-Ox Tab) 400 mg DAILY@1700 PO 09/04/16 17:00 10/04/16 16:59 09/06/16 16:40 400 MG Cholecalciferol (Vitamin D Tab) 1,000 inter.unit DAILY@1700 PO 09/04/16 17:00 10/04/16 16:59 09/06/16 16:40 1,000 INTER.UNIT Ergocalciferol (Vitamin D Cap) 50,000 interunit Q4D@1700 PO 09/04/16 17:00 10/04/16 16:59 09/04/16 17:34 50,000 INTERUNIT Lorazepam (Ativan Tab) 0.5 mg Q4 PRN PO 09/04/16 14:45 10/04/16 14:44 Cyclobenzaprine HCl (Flexeril Tab) 10 mg TID PRN PO 09/04/16 14:45 10/04/16 14:44 09/07/16 08:09 10 MG Fenofibrate (Tricor Tab) 134 mg DAILY@1700 PO 09/04/16 17:00 10/04/16 16:59 09/06/16 16:43 134 MG Gadobutrol (Gadavist) 8 mmol UD PRN IV 09/04/16 22:45 09/08/16 22:44 Sodium Chloride 1,000 ml @ 60 mls/hr [id number] IV 09/06/16 16:15 10/06/16 16:14 09/07/16 08:10 60 MLS/HR Amiodarone HCl (Cordarone Tab) 400 mg BID PO 09/07/16 21:00 10/07/16 20:59
[2016-09-07] MEDS: MAGNESIUM OXIDE 400 MG TAB PO SCH (16:34)
[2016-09-07] MEDS: CHOLECALCIFEROL 1000 INTER.UNIT TAB PO SCH (16:34)
[2016-09-07] MEDS: FINASTERIDE 5 MG TAB PO SCH (16:34)
[2016-09-07] MEDS: FENOFIBRATE 134 MG TAB PO SCH (16:35)
[2016-09-07 18:51] VITALS: BP 137/70; PULSE 78; TEMP 37; O2SAT 98
[2016-09-07] MEDS: AMIODARONE 200 MG TAB PO SCH (20:29)
[2016-09-07] MEDS: SIMVASTATIN 20 MG TAB PO SCH (20:30)
[2016-09-08] VITALS (10 sets, daily range): BP systolic 128–144; BP diastolic 69–84; PULSE 68–91; TEMP 36.3–36.5; O2SAT 96–98
[2016-09-08 06:02] LABS: BASO % 0.4 %; BASO ABS # 0.02 K/uL (0-0.2); COMPLETE YES; EOS % 4.5 %; HEMATOCRIT 31.1 % (42-52); IG% 0.2 %; LYMPH % 23.1 %; LYMPH ABS # 1.22 K/uL (1.2-3.4); MEAN CELL VOLUME 86.6 fL (80-100); MEAN CORPUSCULAR HEMOGLOBIN 27.6 pg (25-34); MEAN CORPUSCULAR HGB CONC 31.8 g/dl (32-36); MEAN PLATELET VOLUME 9.7 fL (7.4-10.4); MONO % 12.7 %; NEUT % 59.1 %; PLATELET COUNT 287 K/uL (130-400); RED BLOOD COUNT 3.59 M/uL (4.7-6.1); WHITE BLOOD COUNT 5.29 K/uL (4.8-10.8)
[2016-09-08] MEDS: LEVOTHYROXINE 75 MCG TAB PO SCH (06:20)
[2016-09-08] MEDS: AMOXICILLIN 500 MG CAP PO SCH ×2 (06:21→17:24)
[2016-09-08 06:41] LABS: BUN/CREATININE RATIO 8.2 (10-20); MAGNESIUM 2.2 mg/dl (1.8-2.4); POTASSIUM 4.1 mmol/L (3.5-5.1)
[2016-09-08] MEDS: DILTIAZEM HCL 240 MG CAPCR PO SCH (09:13)
[2016-09-08] MEDS: AMIODARONE 200 MG TAB PO SCH (09:13)
[2016-09-08] MEDS: PANTOprazole SOD 40 MG TAB PO SCH (09:13)
[2016-09-08] MEDS: MULTIVITAMIN TAB PO SCH (09:13)
[2016-09-08] MEDS: ASPIRIN 81 MG ECTAB PO SCH (09:13)
[2016-09-08] MEDS: CLOPIDOGREL BISULFATE 75 MG TAB PO SCH (09:14)
[2016-09-08] MEDS: CYCLOBENZAPRINE HCL 10 MG TAB PO PRN (09:14)
[2016-09-08] MEDS: LIDODERM (LIDOCAINE) PATCH 5% TD SCH (09:14)
--- NOTE | 2016-09-08 09:17 | Cardiology Follow-Up ---
Subjective General Date of Service: Sep 08, 2016. Pt evaluation today including: conversation w/ patient, physical exam, chart review, lab review, review of studies, review of inpatient medication list History of Present Illness The patient is a 80 year old male seen in follow-up. Orthostatic dizziness improved. IVF discontinued. No recurrent AF or PAT overnight. Tolerating amiodarone. No CP or SOB. SR this AM Allergies Coded Allergies: Codeine (Verified Allergy, Intermediate, ITCHING, 09/03/16) Tramadol (Verified Allergy, Intermediate, ITCHING, 09/03/16) Hydrocodone (Verified Adverse Reaction, Intermediate, NAUSEA, 09/06/16) Social History Smoking Status: Former Smoker Hx Tobacco Use In Past Year?: No Hx Alcohol Use - Type And Amou: No Hx Substance Use - Type And Am: No Problem List Medical Problems: (1) Abdominal pain Status: Acute (2) Acute on chronic renal insufficiency Status: Acute (3) Chest pain Status: Acute (4) CKD (chronic kidney disease) Status: Acute (5) Closed head injury Status: Acute (6) Dehydration Status: Acute (7) Dizziness Status: Acute (8) Gastroesophageal reflux Status: Acute (9) Hypomagnesemia Status: Acute (10) Hyponatremia Status: Acute (11) Nausea Status: Acute (12) Nausea and vomiting Status: Acute (13) Rectal discharge Status: Acute (14) Small bowel obstruction Status: Acute (15) Syncope Status: Acute Review of Systems Respiratory: No cough, No sputum, No wheezing, No shortness of breath, No dyspnea on exertion, No dyspnea at rest, No hemoptysis Cardiac: No chest pain, No orthopnea, No PND, No edema, No claudication, No palpitations Physical Exam Vital Signs Last Vital Signs Documentation Date Time Temp Pulse Resp B/P (MAP) Pulse Ox O2 Delivery O2 Flow Rate FiO2 09/08/16 07:25 90 20 144/84 (104) 98 Room Air 09/08/16 07:21 36.4 Physical Exam Constitutional: General Apperance: well-nourished Level of Distress: NAD Ambulation: ambulating normally Head: normocephalic ENMT: normal ENT inspection, hearing grossly normal Neck: supple, trachea midline Lungs: Auscultation: breath sounds normal, no wheezing, no rales/crackles, no rhonchi Cardiovascular: Heart Auscultation: RRR, normal S1, normal S2, no murmurs, no rubs Peripheral Pulses: Radial Pulse: normal on the left, normal on the right Abdomen: Inspection & Palpation: soft, non-distended, no tenderness, guarding & rebound, no masses Liver: non-tender Musculoskeletal: normal, normal strength (5/5 throughout) Extremities: no cyanosis, no edema, no clubbing, no ulcers Neurologic: Gait & Station: pertinent finding (no focal motor deficit.) Cranial Nerves: grossly intact Assessment and Plan Assessment and Plan Imp: 1. 80-year-old male admitted with dizziness, orthostatic hypotension, and episode of vertigo. No evidence of cerebrovascular accident per MRI. Neurology input appreciated. 2. Paroxysmal atrial fibrillation with RVR as well as PAT vs. PA flutter. - no recurrence over night - Amiodarone added 09/07/2016. 3. Relative contraindications to chronic anticoagulation secondary to gait instability with significant fall risk, recent fall with right flank injury, as well as history of gastrointestinal bleeding. 4. 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 Followed up with repeat balloon angioplasty in 2005 without repeat stenting. - stable without angina. 4. History of cerebral vascular accident with moderate B/L carotid vascular disease - stable per MRA 5. Hypertension - controlled. 6. Acute kidney injury superimposed on chronic kidney disease 7. H/o GI hemorrhage and hematuria - H/H stable. Plan/recommendations: Reduce amiodarone to 200mg BID. Continue dual antiplatelet therapy and other cardiovascular medications as previously ordered. Continue to monitor telemetry as inpatient. I will schedule outpatient cardiology follow up in 1-2 weeks. Will sign off. Please call with questions. Laboratory Results Last 24 Hours Test 09/07/16 11:03 09/07/16 16:36 09/08/16 05:18 09/08/16 06:39 Bedside Glucose 105 mg/dl 104 mg/dl 94 mg/dl White Blood Count 5.29 K/uL Red Blood Count 3.59 M/uL Hemoglobin 9.9 g/dL Hematocrit 31.1 % Mean Corpuscular Volume 86.6 fL Mean Corpuscular Hemoglobin 27.6 pg Mean Corpuscular Hemoglobin Concent 31.8 g/dl Platelet Count 287 K/uL Mean Platelet Volume 9.7 fL Neutrophils (%) (Auto) 59.1 % Lymphocytes (%) (Auto) 23.1 % Monocytes (%) (Auto) 12.7 % Eosinophils (%) (Auto) 4.5 % Basophils (%) (Auto) 0.4 % Neutrophils # (Auto) 3.13 K/uL Lymphocytes # (Auto) 1.22 K/uL Monocytes # (Auto) 0.67 K/uL Eosinophils # (Auto) 0.24 K/uL Basophils # (Auto) 0.02 K/uL RDW Standard Deviation 47.7 fL RDW Coefficient of Variation 14.8 % Immature Granulocyte % (Auto) 0.2 % Immature Granulocyte # (Auto) 0.01 K/uL Sodium Level 141 mmol/L Potassium Level 4.1 mmol/L Chloride Level 111 mmol/L Carbon Dioxide Level 20 mmol/L Anion Gap 10.0 mmol/L Blood Urea Nitrogen 16 mg/dl Creatinine 2.00 mg/dl Est Creatinine Clear Calc Drug Dose 32.9 ml/min Estimated GFR () 35.7 Estimated GFR (Non- 30.8 BUN/Creatinine Ratio 8.2 Random Glucose 90 mg/dl Calcium Level 8.0 mg/dl Magnesium Level 2.2 mg/dl
[2016-09-08] MEDS: FINASTERIDE 5 MG TAB PO SCH (17:23)
[2016-09-08] MEDS: FENOFIBRATE 134 MG TAB PO SCH (17:23)
[2016-09-08] MEDS: CHOLECALCIFEROL 1000 INTER.UNIT TAB PO SCH (17:24)
[2016-09-08] MEDS: ERGOCALCIFEROL 50,000 INTER.UNIT CAP PO SCH (17:24)
[2016-09-08] MEDS: MAGNESIUM OXIDE 400 MG TAB PO SCH (17:24)
[2016-09-08] MEDS ORDERED: FLX10 PO (18:34)
[2016-09-08] MEDS ORDERED: CRD200 PO (18:34)
[2016-09-08] MEDS ORDERED: AMX500 PO (18:34)
--- NOTE | 2016-09-08 18:39 | Discharge Instructions ---
Discharge Instructions Date of Service Sep 08, 2016. Admission Reason for Admission: Dizziness Discharge Discharge Diagnosis / Problem: DIZZINESS Discharge Goals Goal(s): Diagnostic testing, Therapeutic intervention Activity Recommendations Activity Limitations: as noted below (NO HEAVY EXERTION UNTIL FOLLOW UP WITH PRIMARY CARE PHYSICIAN) Lifting Limitations: until after follow-up appointment Exercise/Sports Limitations: until after follow-up appointment Driving or Machine Use: NO DRIVING UNTIL RE-EVALUATED BY PRIMARY CARE PHYSICIAN . Instructions / Follow-Up Instructions / Follow-Up PLEASE REVIEW YOUR NEW MEDICATION LIST AND FOLLOW INSTRUCTIONS CAREFULLY. CALL PRIMARY CARE PHYSICIAN OR RETURN TO ER IMMEDIATELY IF WITH RECURRENCE OF SYMPTOMS, PALPITATIONS, SHORTNESS OF BREATH, CHEST PAIN. ENSURE ADEQUATE DAILY FLUID INTAKE. NO DRIVING WHILE TAKING PERCOCET. FOLLOW UP WITH PRIMARY CARE PHYSICIAN NEXT WEEK. FOLLOW UP WITH BULK MAIL TECHNICIAN DR. CANNON IN 1-2 WEEKS. CLINIC WILL CALL YOU FOR THE APPOINTMENT. Current Hospital Diet Patient's current hospital diet: AHA Diet (Heart Healthy) Discharge Diet Recommended Diet: AHA Diet (Heart Healthy) Pending Studies Studies pending at discharge: no Laboratory Results Hemoglobin A1c Test 09/04/16 05:19 Range/Units Estimated Average Glucose 126 mg/dl Hemoglobin A1c 6.0 H 4.5-5.6 % Lipid Panel Test 09/06/16 05:40 Range/Units Triglycerides Level 121 0-150 mg/dl Cholesterol Level 96 0-200 mg/dl HDL Cholesterol 40 mg/dl Cholesterol/HDL Ratio 2.4 LDL Cholesterol, Calculated 32 mg/dl Medical Emergencies . Who to Call and When: Medical Emergencies: If at any time you feel your situation is an emergency, please call 911 immediately. . Non-Emergent Contact Non-Emergency issues call your: Primary Care Provider Call Non-Emergent contact if: you have a fever, your pain is not controlled, your pain is worsening, you have any medication questions . Past History Medical & Surgical History: (1) SBO (small bowel obstruction) (2) Syncope (3) Closed head injury (4) CKD (chronic kidney disease) (5) Dizziness (6) Hypothyroidism (7) Hypertension (8) Dyslipidemia (9) Osteoarthritis (10) CAD (coronary artery disease) (11) BPH (benign prostatic hyperplasia) (12) Hx of hematuria (13) History of CVA (cerebrovascular accident) (14) Elevated PSA (15) Carotid stenosis, bilateral (16) CKD (chronic kidney disease), stage III (17) Iron deficiency anemia (18) History of lower GI bleeding (19) GERD (gastroesophageal reflux disease) (20) DM type 2 (diabetes mellitus, type 2) (21) History of renal calculi (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 "Provider Documentation" section prepared by Seamus Wilson. . VTE Core Measure Inpt VTE Proph given/why not?: Unfractionated heparin SQ
[2016-09-08] MEDS ORDERED: AMIODARONE 200 MG TAB PO SCH ×2 (18:45→21:00)
--- NOTE | 2016-09-08 18:52 | Progress Note ---
Medicine Progress Note Date & Time of Visit: Sep 08, 2016 at 18:42. Subjective patient seen with at bedside states he is very mad as he has been waiting since 9am for discharge as he was told by Student Loan Counselor he can go today I apologized to the patient and his for the delay, I was not informed that he can be discharged as early as this morning patient states he feels fine overall no recurrence of tachyarrhythmia denies dizziness, ambulates with no problems denies any problems with his colostomy no chest pain, dyspnea, palpitations states he is ready and would like to be discharged today Objective Last 8 Hrs Date Time Temp Pulse Resp B/P (MAP) Pulse Ox O2 Delivery O2 Flow Rate FiO2 09/08/16 16:00 Room Air 09/08/16 15:14 36.5 68 16 128/69 (88) 96 Room Air 09/08/16 12:00 Room Air 09/08/16 11:16 36.5 72 18 129/79 (96) 97 Room Air Physical Exam: General- oriented x 3, not in distress, speaks in sentences with no effort Eyes- anicteric Neck- no JVD Lungs- clear breath sounds bilaterally Heart- normal rate, regular rhythm; no murmurs Abdomen- normal bowel sounds, soft, nontender patient declined exam of the colostomy bag Extremities- no pretibial edema, no calf tenderness Neuro- alert, oriented x 3; no gross focal deficits Skin- warm & dry Laboratory Results: Last 24 Hours Test 09/08/16 05:18 09/08/16 06:39 09/08/16 11:06 09/08/16 16:44 White Blood Count 5.29 K/uL Red Blood Count 3.59 M/uL Hemoglobin 9.9 g/dL Hematocrit 31.1 % Mean Corpuscular Volume 86.6 fL Mean Corpuscular Hemoglobin 27.6 pg Mean Corpuscular Hemoglobin Concent 31.8 g/dl Platelet Count 287 K/uL Mean Platelet Volume 9.7 fL Neutrophils (%) (Auto) 59.1 % Lymphocytes (%) (Auto) 23.1 % Monocytes (%) (Auto) 12.7 % Eosinophils (%) (Auto) 4.5 % Basophils (%) (Auto) 0.4 % Neutrophils # (Auto) 3.13 K/uL Lymphocytes # (Auto) 1.22 K/uL Monocytes # (Auto) 0.67 K/uL Eosinophils # (Auto) 0.24 K/uL Basophils # (Auto) 0.02 K/uL RDW Standard Deviation 47.7 fL RDW Coefficient of Variation 14.8 % Immature Granulocyte % (Auto) 0.2 % Immature Granulocyte # (Auto) 0.01 K/uL Sodium Level 141 mmol/L Potassium Level 4.1 mmol/L Chloride Level 111 mmol/L Carbon Dioxide Level 20 mmol/L Anion Gap 10.0 mmol/L Blood Urea Nitrogen 16 mg/dl Creatinine 2.00 mg/dl Est Creatinine Clear Calc Drug Dose 32.9 ml/min Estimated GFR () 35.7 Estimated GFR (Non- 30.8 BUN/Creatinine Ratio 8.2 Random Glucose 90 mg/dl Calcium Level 8.0 mg/dl Magnesium Level 2.2 mg/dl Bedside Glucose 94 mg/dl 113 mg/dl 88 mg/dl Assessment & Plan 80 year old male with history of CAD/CABG, A FIB, HISTORY OF CVA, CKD, other problems noted below presenting with "dizzy spell". DIZZINESS, RESOLVED - likely from Orthostasis given gentle IV fluids BP improved - possible Labyrinthitis given 6 days of Amoxicillin for possible otitis media of rt ( CT finding of rt maxillary sinusitis ) finish 1 more day to complete 7 days of Amoxicillin - Acute CVA ruled out History of CVA CT head -no acute intracranial hge or CVA chronic Lacunar infarct in Rt Caudate head MRI/MRA of brain -no evidence of acute CVA - possible BPPV evaluated by Neurology Kunal York done by PT: negative -- dizziness has resolved patient ambulating with no problems now FALL WITH AMBULATORY DYSFUNCTION due to prior CVA /rt sided hemiparesis uses a cane at baseline with recent episodes for Dizzy spell , leading him to fall -- patient ambulating with no problems now CHRONIC NECK PAIN per pt has been chronic for past few weeks , mainly localized to post lower occipital region symptom worse after the fall on CT of cervical spine -no evidence of fracture or subluxation Moderate to advanced Degenerative disc space narrowing seen in C5-C6/C6-C7 and C7 -T1 XRAY OF Cervical spine at [facility] : extensive DJD of neck , more pronounced at C5-C7 level -- possible cervical spinal radiculopathy, pt is a very poor candidate for cervical spine surgery Pain management consulted recommend continue symptom control not a candidate for Cervical spinal steroid injection as will required to continue to take aspirin /Plavix -- cont PRN K pad, Flexeril improved PAROXYSMAL AFIB admission EKG shows sinus with chronic RBBB not on Chronic anticoagulation with Coumadin for hx of life threatening GI bleeding requiring colectomy on Aspirin /Plavix noted to have brief episodes of Atrial Flutter/Fibrillation in RVR ECHO : Compared to prior study, changes are noted. * -- Conclusions -- * Ejection Fraction = 60-65%. * There is mild concentric left ventricular hypertrophy. * Grade I diastolic dysfunction, (abnormal relaxation pattern). * The left atrium is moderately dilated. * The aortic valve is trileaflet. * The aortic valve is moderately calcified. * Aortic valve sclerosis moderate, without significant aortic valvular stenosis. * There is mild tricuspid regurgitation. * Doppler findings do not suggest pulmonary hypertension. monitor in tele - evaluated by Student Loan Counselor Dr. Tavera - Digoxin started MWF, but patient still had episodes of atrial flutter with RVR started on Amiodarone BID, titrated to 200mg BID - cleared for discharge per Cardiology - on Diltiazem, Aspirin and Plavix - ff up with Dr. Tavera in 1-2 weeks CAD : Chronic ischemic heart disease with prior coronary artery bypass grafting x 5 and percutaneous intervention with a taxus drug eluting stent implantation to saphenous vein graft. Followed up with repeat balloon angioplasty in 2005 without repeat stenting. - no cardiac symptoms - continue Aspirin , Plavix , Statin , BILATERAL ICA STENOSIS 1. There is evidence of 50-69% stenosis at the origin of the right internal carotid artery by velocity criteria. 2. There is evidence of 50-69% stenosis within the proximal to midportion of the left internal carotid artery by velocity criteria. 3. Antegrade flow is shown in the vertebral arteries. - Cont Aspirin , Plavix , statin repeat US in 1 year TYPE 2 DM well controlled as per recent Hb A1c 6 ( on 08/01/16 ) monitor BSG AC and HS MIAH ON CKD STAGE 3 : due to dehydration baseline 1.8-1.9 crea now 2.0 cont to monitor PRP DVT PROPHYLAXIS moderate risk SCD and teds DISPOSITION -- patient and would like patient to go home with home health Medicine follow up with PCP in 1 week Cardiology follow up with Dr Juan Tavera in 1-2 weeks Nephrology follow up with Dr Perez discussed case and plan of care with patient and his , they are agreeable and comfortable with the plan of care I apologized again to them for the delay in discharge today Current Inpatient Medications: Current Inpatient Medications Medications (Trade) Dose Ordered Sig/Shonda Route Start Time Stop Time Status Last Admin Dose Admin Polyethylene (Miralax Powder Packet) 17 gm DAILY PRN PO 09/03/16 18:00 10/03/16 17:59 Glucose (Glucose 40% Gel) 15-30 GRAMS 15 GRAMS... UD PRN PO 09/03/16 18:00 10/03/16 17:59 Glucose (Glucose Chew Tab) 4-8 Tablets 4 Tabl... UD PRN PO 09/03/16 18:00 10/03/16 17:59 Dextrose (Dextrose 50% 50ML Syringe) 25-50ML OF 50% DW IV FOR... UD PRN IV 09/03/16 18:00 10/03/16 17:59 Glucagon (Glucagon Inj) 1 mg UD PRN SQ 09/03/16 18:00 10/03/16 17:59 Amoxicillin (Amoxil Cap) 500 mg Q12H PO 09/03/16 18:15 09/13/16 18:14 09/08/16 17:24 500 MG Lidocaine (Lidoderm Patch 5%) 1 patch QAM TD 09/03/16 18:15 10/03/16 18:14 09/08/16 09:14 1 PATCH Miscellaneous (Remove Lidoderm Patch) 1 ea DAILY@21 N/A 09/03/16 21:00 10/03/16 20:59 09/07/16 20:30 1 EA Aspirin (Ecotrin Tab) 81 mg BID PO 09/03/16 21:00 10/03/16 20:59 09/08/16 09:13 81 MG Clopidogrel Bisulfate (plAVix TAB) 75 mg DAILY PO 09/04/16 09:00 10/04/16 08:59 09/08/16 09:14 75 MG Diltiazem HCl (Cardizem Cd Cap) 240 mg DAILY PO 09/04/16 09:00 10/04/16 08:59 09/08/16 09:13 240 MG Levothyroxine Sodium (Synthroid Tab) 75 mcg DAILYBB PO 09/04/16 06:00 10/04/16 05:59 09/08/16 06:20 75 MCG Multivitamins (Multivitamin Tab) 1 tab DAILY PO 09/04/16 09:00 10/04/16 08:59 09/08/16 09:13 1 TAB Simvastatin (Zocor Tab) 20 mg QPM PO 09/03/16 21:00 10/03/16 20:59 09/07/16 20:30 20 MG Pantoprazole Sodium (Protonix Tab) 40 mg BID PO 09/03/16 21:00 10/03/16 20:59 09/08/16 09:13 40 MG Finasteride (Proscar Tab) 5 mg DAILY@1700 PO 09/04/16 17:00 10/04/16 16:59 09/08/16 17:23 5 MG Magnesium Oxide (Mag-Ox Tab) 400 mg DAILY@1700 PO 09/04/16 17:00 10/04/16 16:59 09/08/16 17:24 400 MG Cholecalciferol (Vitamin D Tab) 1,000 inter.unit DAILY@1700 PO 09/04/16 17:00 10/04/16 16:59 09/08/16 17:24 1,000 INTER.UNIT Ergocalciferol (Vitamin D Cap) 50,000 interunit Q4D@1700 PO 09/04/16 17:00 10/04/16 16:59 09/08/16 17:24 50,000 INTERUNIT Lorazepam (Ativan Tab) 0.5 mg Q4 PRN PO 09/04/16 14:45 10/04/16 14:44 Cyclobenzaprine HCl (Flexeril Tab) 10 mg TID PRN PO 09/04/16 14:45 10/04/16 14:44 09/08/16 09:14 10 MG Fenofibrate (Tricor Tab) 134 mg DAILY@1700 PO 09/04/16 17:00 10/04/16 16:59 09/08/16 17:23 134 MG Gadobutrol (Gadavist) 8 mmol UD PRN IV 09/04/16 22:45 09/08/16 22:44 Amiodarone HCl (Cordarone Tab) 200 mg BID PO 09/08/16 21:00 10/07/16 20:59 Amiodarone HCl (Cordarone Tab) 200 mg BID PO 09/08/16 18:45 09/09/16 18:45 No refill
--- NOTE | 2016-09-08 19:01 | Discharge Summary ---
Discharge Summary Date of Service Sep 08, 2016. Discharge Summary Admission Date: Sep 03, 2016 at 17:09 Discharge Date: Sep 08, 2016 Discharge Disposition: Home with services Principal Diagnosis: DIZZINESS, RESOLVED - likely from Orthostasis - possible Labyrinthitis Secondary Diagnoses/Problems: ATRIAL FIBRILLATION IN RAPID VENTRICULAR RESPONSE ; PLEASE REFER TO HOSPITAL COURSE BELOW FOR FURTHER DETAILS. Procedures: CAROTID ARTERY ULTRASOUND: IMPRESSION: 1. There is evidence of 50-69% stenosis at the origin of the right internal carotid artery by velocity criteria. 2. There is evidence of 50-69% stenosis within the proximal to midportion of the left internal carotid artery by velocity criteria. 3. Antegrade flow is shown in the vertebral arteries. MRI OF THE BRAIN WITHOUT AND WITH IV CONTRAST CLINICAL HISTORY: dizziness hx stroke mental status change COMPARISON STUDY: No previous studies for comparison. TECHNIQUE: Utilizing a 1.5 Julia magnet and dedicated coil, multiplanar, multiecho imaging of the brain was performed pre and postcontrast administration. IV administration of 8.5 mL of Gadavist contrast was uneventful. FINDINGS: Diffusion-weighted images show no evidence for an acute ischemic process. No findings of generalized cerebellar as well as cerebral atrophy. Considerable components of chronic small vessel change are noted throughout both cerebral hemispheres. Postcontrast images are considered negative for an enhancing lesion. IMPRESSION: 1. No evidence for an acute ischemic insult. 2. Atrophy. 3. Considerable chronic small vessel change. ECHO: * -- Conclusions -- * Ejection Fraction = 60-65%. * There is mild concentric left ventricular hypertrophy. * Grade I diastolic dysfunction, (abnormal relaxation pattern). * The left atrium is moderately dilated. * The aortic valve is trileaflet. * The aortic valve is moderately calcified. * Aortic valve sclerosis moderate, without significant aortic valvular stenosis. * There is mild tricuspid regurgitation. * Doppler findings do not suggest pulmonary hypertension. Consultations: YARD HOSTLER DR. CANNON, NEUROLOGY DR. HENDRIX, PAIN MANAGEMENT Pending Studies/Follow-Up: PLEASE REFER TO HOSPITAL COURSE BELOW. Medication Reconciliation New Medications: Amiodarone HCl (Amiodarone HCl) 200 Mg Tab 200 MG PO BID for 30 Days, #60 TAB 2 Refills Amoxicillin (Amoxicillin) 500 Mg Cap 500 MG PO Q12H for 1 Day, #2 CAP 0 Refills Cyclobenzaprine HCl (Cyclobenzaprine HCl) 10 Mg Tab 10 MG PO TID PRN for neck pain for 7 Days, #21 TAB 0 Refills Continued Medications: Aspirin (Aspirin 81) 81 Mg Tab 81 MG PO BID Cholecalciferol (Vitamin D3) 1,000 Unit Cap 1000 UNITS PO HS Clopidogrel Bisulfate (Plavix) 75 Mg Tab 75 MG PO DAILY, TAB Diltiazem Hcl Coated Beads (Diltiazem Cd) 240 Mg Cap 240 MG PO DAILY Fenofibrate (Tricor ) 134 Mg Cap 134 MG PO DAILY, CAP Finasteride (Proscar) 5 Mg Tab 5 MG PO DAILY, TAB Levothyroxine Sodium (Synthroid) 75 Mcg Tab 75 MCG PO DAILY, TAB Magnesium Oxide (Mag-Ox) 400 Mg Tab 400 MG PO DAILY, TAB Multivitamin (Multivitamin) Tab 1 TAB PO DAILY, TAB Omeprazole (Prilosec) 40 Mg Cap 40 MG PO BID, CAP Simvastatin (Zocor) 20 Mg Tab 20 MG PO QPM, TAB Admission Information HPI (per Admitting provider): 80 yo M with h/o CABG and stroke in the past presents to the ER with 2-3 days of persistent dizziness. He has had symptoms of dizziness in the past but states he started feeling hot on his neck this morning while eating his cereal and, in conjunction with some new neck discomfort, this was concerning. He reports being dizzy only when he moves around-even gets dizzy when sitting and moving his head. He denies any symptoms of garbled speech, trouble swallowing ( he ate a full meal here in the ER without issue), difficulty moving his arms or legs from his baseline, loss of bladder control, loss of consciousness. He reports a posterior headache and some blurry vision only when he is dizzy. He reports a h/o glaucoma and some eye pain a few weeks ago for which he was evaluated by the eye doctor as an outpatient and since the dizziness began he denies any eye pain. He has some R arm weakness and numbness and R leg weakness with R foot drop and plantar numbness at baseline as a residual from his prior stroke several years ago. He denies any worsening of that at this time. He denies any urinary burning or incontinence. He has a colostomy in place and reports that his stools are always liquid with no blood or other concerning changes recently. He denies any URI symptoms, fevers, chills, cough , sore throat, ear pain or ear fullness. He said that when his neck got hot, he felt a little confused this morning but this only lasted a few seconds and then he called his son who brought him into the ER. He takes ASA 162mg daily and Plavix for h/o stroke in setting of afib. He states he has never taken coumadin and follows regularly with a Straw Hat Machine Operator. Physical Exam (per Admitting): GEN: WNWD, in no acute distress, alert and appropriate HEENT: NC/AT, PERRL, normal sclerae/conjunctivae, MMM, pharynx non-acute, TM with effusion in R ear, cannot evaluate on the L because of cerumen. No LAD, EOMI CARDIO: reg rate, S1/2 heard without m/g/r LUNGS: CTA bilaterally, no crackles, rales or wheezes, good diaphragmatic excursion ABD: soft, non-tender, non-distended, no rebound or guarding, +BS, colostomy in place EXTREMITY: RP and DP palpable 2+ bilat, no LE swelling or edema, extremities are warm and well-perfused NEURO: CN 2-12 grossly intact, sensation intact throughout except in R arm and bottom of right foot, coordination intact knee reflex 2+ bilat, gait was not assessed 2/2 fall risk MUSC: 5/5 strength throughout, no focal deficits SKIN: warm and dry Hospital Course 80 year old male with history of CAD/CABG, A FIB, HISTORY OF CVA, CKD, other problems noted below presenting with "dizzy spell". DIZZINESS, RESOLVED - likely from Orthostasis given gentle IV fluids BP improved - possible Labyrinthitis given 6 days of Amoxicillin for possible otitis media of rt ( CT finding of rt maxillary sinusitis ) finish 1 more day to complete 7 days of Amoxicillin - Acute CVA ruled out History of CVA CT head -no acute intracranial hge or CVA chronic Lacunar infarct in Rt Caudate head MRI/MRA of brain -no evidence of acute CVA - possible BPPV evaluated by Neurology Kunal York done by PT: negative -- dizziness has resolved patient ambulating with no problems now FALL WITH AMBULATORY DYSFUNCTION due to prior CVA /rt sided hemiparesis uses a cane at baseline with recent episodes for Dizzy spell , leading him to fall -- patient ambulating with no problems now CHRONIC NECK PAIN per pt has been chronic for past few weeks , mainly localized to post lower occipital region symptom worse after the fall on CT of cervical spine -no evidence of fracture or subluxation Moderate to advanced Degenerative disc space narrowing seen in C5-C6/C6-C7 and C7 -T1 XRAY OF Cervical spine at [facility] : extensive DJD of neck , more pronounced at C5-C7 level -- possible cervical spinal radiculopathy, pt is a very poor candidate for cervical spine surgery Pain management consulted recommend continue symptom control not a candidate for Cervical spinal steroid injection as will required to continue to take aspirin /Plavix -- cont PRN K pad, Flexeril improved PAROXYSMAL ATRIAL FIBRILLATION admission EKG shows sinus with chronic RBBB not on Chronic anticoagulation with Coumadin for hx of life threatening GI bleeding requiring colectomy on Aspirin /Plavix noted to have brief episodes of Atrial Flutter/Fibrillation in RVR ECHO : Compared to prior study, changes are noted. * -- Conclusions -- * Ejection Fraction = 60-65%. * There is mild concentric left ventricular hypertrophy. * Grade I diastolic dysfunction, (abnormal relaxation pattern). * The left atrium is moderately dilated. * The aortic valve is trileaflet. * The aortic valve is moderately calcified. * Aortic valve sclerosis moderate, without significant aortic valvular stenosis. * There is mild tricuspid regurgitation. * Doppler findings do not suggest pulmonary hypertension. monitor in tele - evaluated by Straw Hat Machine Operator Dr. Cannon - Digoxin started MWF, but patient still had episodes of atrial flutter with RVR started on Amiodarone BID, titrated to 200mg BID - cleared for discharge per Cardiology - on Diltiazem, Aspirin and Plavix - ff up with Dr. Cannon in 1-2 weeks CAD : Chronic ischemic heart disease with prior coronary artery bypass grafting x 5 and percutaneous intervention with a taxus drug eluting stent implantation to saphenous vein graft. Followed up with repeat balloon angioplasty in 2005 without repeat stenting. - no cardiac symptoms - continue Aspirin , Plavix , Statin , BILATERAL ICA STENOSIS 1. There is evidence of 50-69% stenosis at the origin of the right internal carotid artery by velocity criteria. 2. There is evidence of 50-69% stenosis within the proximal to midportion of the left internal carotid artery by velocity criteria. 3. Antegrade flow is shown in the vertebral arteries. - Cont Aspirin , Plavix , statin repeat US in 1 year TYPE 2 DM well controlled as per recent Hb A1c 6 ( on 08/01/16 ) monitor BSG AC and HS ACUTE RENAL FAILURE ON CKD STAGE 3 : due to dehydration baseline 1.8-1.9 crea now 2.0 cont to monitor PRP DVT PROPHYLAXIS moderate risk SCD and teds DISPOSITION -- patient and would like patient to go home with home health Medicine follow up with PCP in 1 week Cardiology follow up with Dr Juan Cannon in 1-2 weeks Nephrology follow up with Dr Perez Total time spent on discharge = 35 MINUTES This includes examination of the patient, discharge planning, medication reconciliation, and communication with other providers. Discharge Instructions Discharge Instructions Date of Service Sep 08, 2016. Admission Reason for Admission: Dizziness Discharge Discharge Diagnosis / Problem: DIZZINESS Discharge Goals Goal(s): Diagnostic testing, Therapeutic intervention Activity Recommendations Activity Limitations: as noted below (NO HEAVY EXERTION UNTIL FOLLOW UP WITH PRIMARY CARE PHYSICIAN) Lifting Limitations: until after follow-up appointment Exercise/Sports Limitations: until after follow-up appointment Driving or Machine Use: NO DRIVING UNTIL RE-EVALUATED BY PRIMARY CARE PHYSICIAN . Instructions / Follow-Up Instructions / Follow-Up PLEASE REVIEW YOUR NEW MEDICATION LIST AND FOLLOW INSTRUCTIONS CAREFULLY. CALL PRIMARY CARE PHYSICIAN OR RETURN TO ER IMMEDIATELY IF WITH RECURRENCE OF SYMPTOMS, PALPITATIONS, SHORTNESS OF BREATH, CHEST PAIN. ENSURE ADEQUATE DAILY FLUID INTAKE. NO DRIVING WHILE TAKING PERCOCET. FOLLOW UP WITH PRIMARY CARE PHYSICIAN NEXT WEEK. FOLLOW UP WITH YARD HOSTLER DR. CANNON IN 1-2 WEEKS. CLINIC WILL CALL YOU FOR THE APPOINTMENT. Current Hospital Diet Patient's current hospital diet: AHA Diet (Heart Healthy) Discharge Diet Recommended Diet: AHA Diet (Heart Healthy) Pending Studies Studies pending at discharge: no Laboratory Results Hemoglobin A1c Test 09/04/16 05:19 Range/Units Estimated Average Glucose 126 mg/dl Hemoglobin A1c 6.0 H 4.5-5.6 % Lipid Panel Test 09/06/16 05:40 Range/Units Triglycerides Level 121 0-150 mg/dl Cholesterol Level 96 0-200 mg/dl HDL Cholesterol 40 mg/dl Cholesterol/HDL Ratio 2.4 LDL Cholesterol, Calculated 32 mg/dl Medical Emergencies . Who to Call and When: Medical Emergencies: If at any time you feel your situation is an emergency, please call 911 immediately. . Non-Emergent Contact Non-Emergency issues call your: Primary Care Provider Call Non-Emergent contact if: you have a fever, your pain is not controlled, your pain is worsening, you have any medication questions . Past History Medical & Surgical History: (1) SBO (small bowel obstruction) (2) Syncope (3) Closed head injury (4) CKD (chronic kidney disease) (5) Dizziness (6) Hypothyroidism (7) Hypertension (8) Dyslipidemia (9) Osteoarthritis (10) CAD (coronary artery disease) (11) BPH (benign prostatic hyperplasia) (12) Hx of hematuria (13) History of CVA (cerebrovascular accident) (14) Elevated PSA (15) Carotid stenosis, bilateral (16) CKD (chronic kidney disease), stage III (17) Iron deficiency anemia (18) History of lower GI bleeding (19) GERD (gastroesophageal reflux disease) (20) DM type 2 (diabetes mellitus, type 2) (21) History of renal calculi (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 "Provider Documentation" section prepared by Seamus Wilson. . VTE Core Measure Inpt VTE Proph given/why not?: Unfractionated heparin SQ
--- NOTE | 2016-09-14 08:50 | EDITING REQUIRED CODING QUERY ---
SUPPORTING DIAGNOSIS NEEDED A supporting diagnosis is required for the test/procedure performed on this patient in order for us to be reimbursed by the patient's insurance. Please provide a supporting diagnosis for the following test/procedure listed below next to the test name along with your signature. *If there is no additional diagnosis for this patient that would support the following test/procedure please document that below next to the test/procedure. Test(s)/Procedure(s) that require a supporting diagnosis: * VITAMIN B-12 DIAGNOSIS: Multisensory Dizziness (R42) * FOLIC ACID DIAGNOSIS: Multisensory Dizziness (R42) Provider Signature: ____Katina Snow DO Date: __09/18/2016 Thank you Jeannette Nava [employer] Information Management Once completed, please kindly fax back to [phone] For questions please call [phone]
== END 2016-09-08 19:08 | disposition home health service (06) | DRG 312 ==
LOC: C.EDB 11:00 → C.2E 17:09 → ENRESERV 17:34
PROVIDERS: ADMIT Hospitalist; ATTEND Internal Medicine
DX: I95.1 Orthostatic hypotension (principal); N17.9 Acute kidney failure, unspecified; H83.09 Labyrinthitis, unspecified ear; N40.0 Benign prostatic hyperplasia without lower urinary tract symptoms; I25.10 Atherosclerotic heart disease of native coronary artery without angina pectoris; I65.23 Occlusion and stenosis of bilateral carotid arteries; N18.3 Chronic kidney disease, stage 3 (moderate); E11.21 Type 2 diabetes mellitus with diabetic nephropathy; E78.5 Hyperlipidemia, unspecified; E86.0 Dehydration; K21.9 Gastro-esophageal reflux disease without esophagitis; I12.9 Hypertensive chronic kidney disease with stage 1 through stage 4 chronic kidney disease, or unspecified chronic kidney disease; E03.9 Hypothyroidism, unspecified; M54.2 Cervicalgia; G89.29 Other chronic pain; I48.0 Paroxysmal atrial fibrillation; Z95.818 Presence of other cardiac implants and grafts; Z95.1 Presence of aortocoronary bypass graft; Z86.73 Personal history of transient ischemic attack (TIA), and cerebral infarction without residual deficits

== ENCOUNTER 2016-11-06 12:18 | Emergency (ER) | payer OTHER ==
[~2016-11-06] VITALS: Ht 182.9 cm; Wt 89.7 kg
[~2016-11-06 12:18] MED LIST changes: +AMX500 PO; -ASCA500 PO; -ATEN25TA PO; +CHOL1CAP57 PO; +CRD200 PO; +DILT-203 PO; -DILT240C56 PO; -FERR1TAB62 PO; +FLX10 PO; -GLC/500 PO; -MCRK20 PO; -OMEGCAP2 PO; +OMEP40CA41 PO; -ONDA4TAB65 PO; -ZINC1TAB PO
[2016-11-06 12:29] VITALS: TEMP 36.4
[2016-11-06] MEDS ORDERED: ZINC1TAB PO (13:01)
[2016-11-06] MEDS ORDERED: TNR25X PO (13:01)
[2016-11-06] MEDS ORDERED: CRD200 PO (13:01)
--- NOTE | 2016-11-06 13:11 | EMERGENCY ROOM VISIT NOTE ---
History Report prepared by Marcelo: Dejon Beebe Under the Supervision of: Dr. Larry Jauregui M.D. First contact with patient: 13:04 Chief Complaint: LEG PAIN,LEG INJURY Stated Complaint: BLOOD CLOT IN RIGHT LEG History of Present Illness The patient is an 81 year old male who presents to the Emergency Room with complaints of a worsening right leg blood clot that was detected earlier today. The patient says that he had the blood clot found a week ago, and came back today to see Earnest Dobbins PA-C of [facility] cardiovascular surgery, and had a Doppler ultrasound done, which revealed that the patient's blood clot moved from the [place]icea area to the knee and lower thigh area. The patient was then sent here for evaluation. The patient is noted to be on Plavix and Aspirin, but no other blood thinners. Per the patient's , the patient had open heart surgery with 5 bypasses 14 years ago. Currently, the patient denies any right leg pain. Source of History: patient, spouse/significant other Onset: Detected earlier today Position: leg (right) Quality: other (moving blood clot) Timing: worsening Note: Associated symptoms: Denies right leg pain. Review of Systems See HPI for pertinent positives & negatives. A total of 10 systems reviewed and were otherwise negative. Past Medical & Surgical Medical Problems: (1) EBONY inhibitor intolerance (2) BPH (benign prostatic hyperplasia) (3) CAD (coronary artery disease) (4) Carotid stenosis, bilateral (5) CKD (chronic kidney disease), stage III (6) DM type 2 (diabetes mellitus, type 2) (7) Dyslipidemia (8) Elevated PSA (9) GERD (gastroesophageal reflux disease) (10) History of atrial fibrillation (11) History of CVA (cerebrovascular accident) (12) History of lower GI bleeding (13) History of renal calculi (14) Hx of hematuria (15) Hypertension (16) Hypothyroidism (17) Iron deficiency anemia (18) Osteoarthritis (19) SBO (small bowel obstruction) Surgical Problems: (1) H/O colectomy (2) History of heart bypass surgery (3) History of lumbar surgery (4) History of prostate surgery (5) S/P CABG x 5 (6) S/P cataract surgery (7) S/P coronary artery stent placement (8) S/P exploratory laparotomy (9) S/P hernia repair Family History Diabetes mellitus FH: cancer FH: heart disease Social History Smoking Status: Former Smoker Alcohol Use: none Drug Use: none Marital Status: Housing Status: lives with family Occupation Status: retired Current/Historical Medications Scheduled Amiodarone HCl (Amiodarone HCl), 200 MG PO DAILY Aspirin (Aspirin 81), 81 MG PO BID Atenolol (Atenolol), 12.5 MG PO DAILY Cholecalciferol (Vitamin D3), 1,000 UNITS PO HS Clopidogrel Bisulfate (Plavix), 75 MG PO DAILY Diltiazem Hcl Coated Beads (Diltiazem Cd), 240 MG PO DAILY Enoxaparin (Lovenox), 90 MG SQ DAILY Fenofibrate (Tricor ), 134 MG PO DAILY Finasteride (Proscar), 5 MG PO DAILY Levothyroxine Sodium (Synthroid), 75 MCG PO DAILY Magnesium Oxide (Mag-Ox), 400 MG PO DAILY Multivitamin (Multivitamin), 1 TAB PO DAILY Omeprazole (Prilosec), 40 MG PO BID Simvastatin (Zocor), 20 MG PO QPM Warfarin Sodium (Coumadin), 5 MG PO DAILY Zinc Gluconate (Zinc), 1 TAB PO DAILY Allergies Coded Allergies: Codeine (Verified Allergy, Intermediate, ITCHING, 09/03/16) Tramadol (Verified Allergy, Intermediate, ITCHING, 09/03/16) Hydrocodone (Verified Adverse Reaction, Intermediate, NAUSEA, 09/06/16) Physical Exam Vital Signs Date Time Temp Pulse Resp B/P (MAP) Pulse Ox O2 Delivery O2 Flow Rate FiO2 11/06/16 15:19 49 16 136/63 96 11/06/16 14:59 49 16 136/63 96 Room Air 11/06/16 14:28 50 16 133/61 93 Room Air 11/06/16 13:34 50 11/06/16 13:24 95 Room Air 11/06/16 13:24 52 19 130/60 95 Room Air 11/06/16 12:29 36.4 54 18 130/62 95 Room Air Physical Exam GENERAL: Patient is a healthy-appearing well-nourished 81 year old male HEAD: Normocephalic atraumatic EYES: Ocular movements intact pupils equal and react to light OROPHARYNX mucous membranes are moist no exudates present no erythema or edema present NECK: Supple no nuchal rigidity CHEST: Good equal expansion LUNGS: Clear and equal to auscultation CARDIAC: Normal S1 and S2 ABDOMEN: Soft nontender no guarding BACK: No CVA tenderness EXTREMITIES: No pain upon palpation normal muscle strength in all groups no clubbing cyanosis or edema NEURO: Patient is following commands and answering questions appropriately. Alert and oriented x3 Cranial Nerves 2-12 grossly intact Medical Decision & Procedures Laboratory Results 11/06/16 13:16 Red Blood Count 4.13, Mean Corpuscular Volume 87.2, Mean Corpuscular Hemoglobin 27.1, Mean Corpuscular Hemoglobin Concent 31.1, Mean Platelet Volume 10.1, Neutrophils (%) (Auto) 73.8, Lymphocytes (%) (Auto) 14.5, Monocytes (%) (Auto) 9.2, Eosinophils (%) (Auto) 1.8, Basophils (%) (Auto) 0.4, Neutrophils # (Auto) 4.95, Lymphocytes # (Auto) 0.97, Monocytes # (Auto) 0.62, Eosinophils # (Auto) 0.12, Basophils # (Auto) 0.03 11/06/16 13:16 Test 11/06/16 13:16 11/06/16 14:04 White Blood Count 6.71 K/uL (4.8-10.8) Red Blood Count 4.13 M/uL (4.7-6.1) Hemoglobin 11.2 g/dL (14.0-18.0) Hematocrit 36.0 % (42-52) Mean Corpuscular Volume 87.2 fL (80-100) Mean Corpuscular Hemoglobin 27.1 pg (25-34) Mean Corpuscular Hemoglobin Concent 31.1 g/dl (32-36) Platelet Count 279 K/uL (130-400) Mean Platelet Volume 10.1 fL (7.4-10.4) Neutrophils (%) (Auto) 73.8 % Lymphocytes (%) (Auto) 14.5 % Monocytes (%) (Auto) 9.2 % Eosinophils (%) (Auto) 1.8 % Basophils (%) (Auto) 0.4 % Neutrophils # (Auto) 4.95 K/uL (1.4-6.5) Lymphocytes # (Auto) 0.97 K/uL (1.2-3.4) Monocytes # (Auto) 0.62 K/uL (0.11-0.59) Eosinophils # (Auto) 0.12 K/uL (0-0.5) Basophils # (Auto) 0.03 K/uL (0-0.2) RDW Standard Deviation 49.4 fL (36.4-46.3) RDW Coefficient of Variation 15.3 % (11.5-14.5) Immature Granulocyte % (Auto) 0.3 % Immature Granulocyte # (Auto) 0.02 K/uL (0.00-0.02) Anion Gap 9.0 mmol/L (3-11) Est Creatinine Clear Calc Drug Dose 27.0 ml/min Estimated GFR () 28.5 Estimated GFR (Non- 24.6 BUN/Creatinine Ratio 15.3 (10-20) Calcium Level 8.9 mg/dl (8.5-10.1) Total Bilirubin 0.3 mg/dl (0.2-1) Aspartate Amino Transf (AST/SGOT) 14 U/L (15-37) Alanine Aminotransferase (ALT/SGPT) 17 U/L (12-78) Alkaline Phosphatase 49 U/L (45-117) Total Protein 6.9 gm/dl (6.4-8.2) Albumin 3.4 gm/dl (3.4-5.0) Globulin 3.5 gm/dl (2.5-4.0) Albumin/Globulin Ratio 1.0 (0.9-2) Prothrombin Time 12.3 SECONDS (9.0-12.0) Prothromb Time International Ratio 1.1 (0.9-1.1) Activated Partial Thromboplast Time 26.3 SECONDS (21.0-31.0) Partial Thromboplastin Ratio 1.0 Labs reviewed by ED physician. Medications Administered Medications (Trade) Dose Ordered Sig/Shonda Route Start Time Stop Time Status Last Admin Dose Admin Warfarin Sodium (Coumadin Tab) 10 mg NOW STAT PO 11/06/16 13:46 11/06/16 13:48 DC 11/06/16 14:35 10 MG Sodium Chloride 500 ml @ 999 mls/hr Q31M STAT IV 11/06/16 13:53 11/06/16 14:23 DC 11/06/16 14:28 999 MLS/HR Enoxaparin Sodium (Lovenox Inj) 90 mg NOW ONCE SQ 11/06/16 14:00 11/06/16 14:01 DC 11/06/16 14:37 90 MG ED Course 1304: Past medical records reviewed. The patient was evaluated in room C1B. A complete history and physical examination was performed. 1333: I talked to pharmacy about the patient. They recommended that I call Dr. Goetz - [place] vascular surgery, or Dr. Garner - pathology, but both are unavailable. I will page Dr. Van of [facility] cardiology. 1338: I discussed the patient with Dr. Van - [facility] cardiology. 1346: Ordered Coumadin Tab 10 mg PO, Lovenox 1 Mg/Kg 1 ea SQ. 1353: Ordered NSS 500 ml @ 999 mls/hr IV. 1400: Ordered Lovenox Inj 90 mg SQ. 1412: Upon reexamination the patient is resting comfortably. I discussed results and treatment plan with the patient. he verbalizes agreement and understanding. The patient is ready for discharge. Medical Decision Differential diagnosis: Etiologies such as DVT, musculoskeletal, infection, joint effusion, trauma, lymphedema, idiopathic, CHF, as well as others were entertained. This is an 81-year-old male who presents emergency department complaining of a superficial thrombosis that apparently has migrated to a DVT over the past week. The patient was sent in by his [facility] office. I accessed the patient's medical records via [employer]. There is concern today from the patient's ultrasound that the thrombus is propagating up and is now on the popliteal and mid distal femoral. Unfortunately Dr. Goetz is unavailable to consult today with Dr. Garner who is also unavailable to consult today. I did discuss the patient's laboratory work with the pharmacy as well as cardiology. They both felt that the patient could be placed on Coumadin however the Plavix would need to be stopped. I also note that the patient is not a candidate for Xarelto due to his creatinine clearance. It was felt that the patient only needed one dose of Lovenox again due to creatinine clearance daily and that the patient should be placed on Coumadin. The patient was also given a normal saline bolus and a hypercoagulability workup was initiated. I do believe that the patient as well as to be discharged home for follow-up with the patient's primary care physician. I gave my customary talk on the risks of starting anticoagulation and using shared medical decision making both the patient and his felt that Coumadin was the best option for the patient. They are going to follow-up with Dr. Goetz's office. Patient and are in agreement with the treatment plan. Medication Reconcilliation Current Medication List: was personally reviewed by me Blood Pressure Screening Patient's blood pressure: Elevated blood pressure Blood pressure disposition: Elevated BP felt to be situational Consults Time Called: 1333 Consulting Physician: Dr. Rehan Brooks cardiology Returned Call: 1338 I discussed the patient with Dr. Rehan Brooks cardiology. Additional Consults: Time Called: 1330 Consulted Physician: Pharmacy Returned Call: [phone] Additional Comments: I talked to pharmacy about the patient. They recommended that I call Dr. Goetz - [place] vascular surgery, or Dr. Garner - pathology, but both are unavailable. I will page Dr. Van of [facility] cardiology. Impression Primary Impression: Deep vein thrombosis Scribe Attestation The scribe's documentation has been prepared under my direction and personally reviewed by me in its entirety. I confirm that the note above accurately reflects all work, treatment, procedures, and medical decision making performed by me. Departure Information Dispostion Home / Self-Care Prescriptions Warfarin Sodium (COUMADIN) 5 Mg Tab 5 MG PO DAILY for 10 Days, #10 TAB Prov: Larry Jauregui MD 11/06/16 Enoxaparin (LOVENOX) 100 Mg/Ml Inj 90 MG SQ DAILY for 5 Days, #5 SYR Prov: Larry Jauregui MD 11/06/16 Referrals Everett Marrufo M.D. (PCP) Neil Goetz M.D. Forms HOME CARE DOCUMENTATION FORM, IMPORTANT VISIT INFORMATION, School Instructions, Work Instructions Patient Instructions Coumadin, DVT Complications, Enoxaparin injection, My [facility] Additional Instructions Need follow up with Dr Marrufo's office within 1 week STOP taking Plavix Follow up with Dr Goetz's office to see if candidate for a filter You were found to have an elevated blood pressure today (>120 sytolic or >90 diastolic). Per medicare guidelines, you need to follow up with this blood pressure screening with your Primary Care Physician (PCP). For a new PCP call [phone]. You have been examined and treated today on an emergency basis only. This is not a substitute for, or an effort to provide, complete comprehensive medical care. It is impossible to recognize and treat all injuries or illnesses in a single emergency department visit. It is therefore important that you follow up closely with [facility]. Call as soon as possible for an appointment. Thank you for your time and consideration. I look forward to speaking with you again soon. Please don't hesitate to call us if you have any questions. Problem Qualifiers Primary Impression: Deep vein thrombosis DVT location: lower extremity Affected thrombotic vein of extremity: unspecified vein of extremity Chronicity: acute Laterality: right Qualified Codes: I82.401 - Acute embolism and thrombosis of unspecified deep veins of right lower extremity
[2016-11-06 13:24] VITALS: O2SAT 95; Ht 182.9 cm; Wt 89.7 kg
[2016-11-06 13:36] LABS: BASO % 0.4 %; BASO ABS # 0.03 K/uL (0-0.2); COMPLETE YES; EOS % 1.8 %; IG% 0.3 %; LYMPH % 14.5 %; LYMPH ABS # 0.97 K/uL (1.2-3.4); MEAN CELL VOLUME 87.2 fL (80-100); MEAN CORPUSCULAR HEMOGLOBIN 27.1 pg (25-34); MEAN CORPUSCULAR HGB CONC 31.1 g/dl (32-36); MEAN PLATELET VOLUME 10.1 fL (7.4-10.4); MONO % 9.2 %; NEUT % 73.8 %; PLATELET COUNT 279 K/uL (130-400); RED BLOOD COUNT 4.13 M/uL (4.7-6.1); WHITE BLOOD COUNT 6.71 K/uL (4.8-10.8)
[2016-11-06] MEDS ORDERED: WARFARIN SOD 5 MG TAB PO STA (13:46)
[2016-11-06] MEDS ORDERED: ENOXAPARIN 1 MG/KG SQ STA (13:46)
[2016-11-06 13:47] LABS: BUN/CREATININE RATIO 15.3 (10-20); CALCIUM 8.9 mg/dl (8.5-10.1); CREATININE 2.4 mg/dl (0.60-1.40); POTASSIUM 4.2 mmol/L (3.5-5.1)
[2016-11-06] MEDS ORDERED: SODIUM CHLORIDE 0.9% 500ML 500 ML IV STA (13:53)
[2016-11-06] MEDS ORDERED: ENOXAPARIN 100 MG/1ML SYR SQ ONE (14:00)
[2016-11-06] MEDS ORDERED: ENOX100I SQ (14:05)
[2016-11-06] MEDS ORDERED: WARF5TAB90 PO (14:05)
[2016-11-06] MEDS ORDERED: LOVENOX TEACHING KIT SCH (14:30)
[2016-11-06] MEDS ORDERED: NURSING VERBAL MED ORDER ONE (14:30)
[2016-11-06 14:43] LABS: INR 1.1 (0.9-1.1); PROTHROMBIN TIME (PATIENT) 12.3 SECONDS (9.0-12.0)
[2016-11-06 15:19] VITALS: BP 136/63; PULSE 49; O2SAT 96
[2016-11-17 12:57] LABS: ANTITHROMBINIII ACTIVITY** 87 % activity (80-120); B2 GLYCOPROTEIN IGA <9 SAU (<=20); B2 GLYCOPROTEIN IGG <9 SGU (<=20); B2 GLYCOPROTEIN IGM <9 SMU (<=20); LUPUS ANTICOAGULANT** TC36573X Negative (Negative); PROTEIN C ACTIVITY** TC 1777X >200 % (70-180)
== END 2016-11-06 15:19 | disposition home or self-care (01) ==
LOC: C.EDB 12:19 → C.EDC 15:19
DX: I82.401 Acute embolism and thrombosis of unspecified deep veins of right lower extremity (principal); Z79.01 Long term (current) use of anticoagulants; Z79.82 Long term (current) use of aspirin; Z95.1 Presence of aortocoronary bypass graft; N40.0 Benign prostatic hyperplasia without lower urinary tract symptoms; I25.10 Atherosclerotic heart disease of native coronary artery without angina pectoris; N18.3 Chronic kidney disease, stage 3 (moderate); E11.9 Type 2 diabetes mellitus without complications; E78.5 Hyperlipidemia, unspecified; K21.9 Gastro-esophageal reflux disease without esophagitis; I48.91 Unspecified atrial fibrillation; Z86.73 Personal history of transient ischemic attack (TIA), and cerebral infarction without residual deficits; Z87.442 Personal history of urinary calculi; I12.9 Hypertensive chronic kidney disease with stage 1 through stage 4 chronic kidney disease, or unspecified chronic kidney disease; E03.9 Hypothyroidism, unspecified; M19.90 Unspecified osteoarthritis, unspecified site; Z90.49 Acquired absence of other specified parts of digestive tract; Z95.5 Presence of coronary angioplasty implant and graft; Z83.3 Family history of diabetes mellitus; Z80.9 Family history of malignant neoplasm, unspecified; Z87.891 Personal history of nicotine dependence; I65.23 Occlusion and stenosis of bilateral carotid arteries

== ENCOUNTER 2017-01-03 11:16 | Emergency (ER) | payer OTHER ==
[~2017-01-03 11:16] MED LIST changes: -AMX500 PO; +ENOX100I SQ; -FLX10 PO; +TNR25X PO; +ZINC1TAB PO
[2017-01-03 11:20] VITALS: TEMP 36.4; Ht 182.9 cm
[2017-01-03] MEDS ORDERED: SODIUM CHLORIDE 0.9% 1000ML 1,000 ML IV STA (12:18)
[2017-01-03] MEDS ORDERED: SODIUM CHLORIDE 0.9% 1000ML 1,000 ML IV ONE (12:18)
[2017-01-03] MEDS ORDERED: WARF1TAB6 PO (12:36)
[2017-01-03] MEDS ORDERED: WARF2TAB8 PO (12:36)
[2017-01-03 13:14] LABS: MANUAL MICROSCOPIC REQUIRED? YES; REVIEW REQ? NO; URINE COLOR RED
[2017-01-03 13:15] LABS: SULFASALICYLIC ACID POS (NEG); URINE APPEARANCE CLOUDY (CLEAR); URINE SPECIFIC GRAVITY 1.008 (1.000-1.030)
[2017-01-03 13:30] LABS: URINE RBC >30 /hpf (0-4)
[2017-01-03 13:33] LABS: URINE BACTERIA 1+ (NEG)
[2017-01-03 13:33] LABS: BASO % 0.5 %; BASO ABS # 0.04 K/uL (0-0.2); COMPLETE YES; EOS % 1.5 %; HEMATOCRIT 34.5 % (42-52); IG% 0.4 %; LYMPH % 16.3 %; LYMPH ABS # 1.21 K/uL (1.2-3.4); MEAN CELL VOLUME 84.1 fL (80-100); MEAN CORPUSCULAR HEMOGLOBIN 28.5 pg (25-34); MEAN CORPUSCULAR HGB CONC 33.9 g/dl (32-36); MEAN PLATELET VOLUME 10.1 fL (7.4-10.4); MONO % 9.4 %; NEUT % 71.9 %; PLATELET COUNT 251 K/uL (130-400); WHITE BLOOD COUNT 7.42 K/uL (4.8-10.8)
[2017-01-03 13:41] LABS: INR 2.1 (0.9-1.1); PARTIAL THROMBOPLASTIN RATIO 1.3; PROTHROMBIN TIME (PATIENT) 23.3 SECONDS (9.0-12.0)
[2017-01-03 13:56] LABS: ALT/SGPT 24 U/L (12-78); BLOOD UREA NITROGEN 27 mg/dl (7-18); BUN/CREATININE RATIO 14.4 (10-20); CALCIUM 8.5 mg/dl (8.5-10.1); CARBON DIOXIDE 20 mmol/L (21-32); CHLORIDE 105 mmol/L (98-107); GLUCOSE 86 mg/dl (70-99); POTASSIUM 4.3 mmol/L (3.5-5.1); SODIUM 135 mmol/L (136-145)
[2017-01-03 13:59] LABS: ALKALINE PHOSPHATASE 37 U/L (45-117); AST/SGOT 18 U/L (15-37)
[2017-01-03 15:59] VITALS: BP 165/96; PULSE 59; O2SAT 95
--- NOTE | 2017-01-03 16:02 | Urology Consultation ---
History General Date of Service: Jan 03, 2017. Chief Complaint: gross hematuria Primary Care Physician: Everett Marrufo M.D. Pt seen a urologist before?: Yes If yes, why?: gross hematuria History of Present Illness patient presents with 2nd day of gross hematuria. he is passing large clots as well. He has had hematuria before but now he is on coumadin newly for a blood clot in his leg. He did not take his dose last night. He is not fevering. He is not in retention. He had hematuria problems many years ago with a turp and greenlight laser with Dr Smith. he went into clot retention and had to go back to OR 2-3 times for fulguration. He bled again summer 2014 but was found to have bladder stones. Treatment of bladder stones and initiation of finasteride has controlled the bleeding since. Laboratory Results Past 24 Hours Test 01/03/17 11:58 01/03/17 13:12 Range/Units Urine Color RED Urine Appearance CLOUDY CLEAR Urine pH 4.5-7.5 Urine Specific [place] 1.008 1.000-1.030 Urine Protein POS NEG Urine Glucose (UA) NEG Urine Ketones NEG Urine Occult Blood NEG Urine Nitrite NEG Urine Bilirubin NEG Urine Urobilinogen NEG Urine Leukocyte Esterase NEG Urine RBC >30 0-4 /hpf Urine WBC 10-30 0-5 /hpf Urine Epithelial Cells 10-20 0-5 /lpf Urine Bacteria 1+ NEG White Blood Count 7.42 4.8-10.8 K/uL Red Blood Count 4.10 4.7-6.1 M/uL Hemoglobin 11.7 14.0-18.0 g/dL Hematocrit 34.5 42-52 % Mean Corpuscular Volume 84.1 80-100 fL Mean Corpuscular Hemoglobin 28.5 25-34 pg Mean Corpuscular Hemoglobin Concent 33.9 32-36 g/dl Platelet Count 251 130-400 K/uL Mean Platelet Volume 10.1 7.4-10.4 fL Neutrophils (%) (Auto) 71.9 % Lymphocytes (%) (Auto) 16.3 % Monocytes (%) (Auto) 9.4 % Eosinophils (%) (Auto) 1.5 % Basophils (%) (Auto) 0.5 % Neutrophils # (Auto) 5.33 1.4-6.5 K/uL Lymphocytes # (Auto) 1.21 1.2-3.4 K/uL Monocytes # (Auto) 0.70 0.11-0.59 K/uL Eosinophils # (Auto) 0.11 0-0.5 K/uL Basophils # (Auto) 0.04 0-0.2 K/uL RDW Standard Deviation 45.8 36.4-46.3 fL RDW Coefficient of Variation 14.9 11.5-14.5 % Immature Granulocyte % (Auto) 0.4 % Immature Granulocyte # (Auto) 0.03 0.00-0.02 K/uL Prothrombin Time 23.3 9.0-12.0 SECONDS Prothromb Time International Ratio 2.1 0.9-1.1 Activated Partial Thromboplast Time 34.4 21.0-31.0 SECONDS Partial Thromboplastin Ratio 1.3 Sodium Level 135 136-145 mmol/L Potassium Level 4.3 3.5-5.1 mmol/L Chloride Level 105 98-107 mmol/L Carbon Dioxide Level 20 21-32 mmol/L Anion Gap 10.0 3-11 mmol/L Blood Urea Nitrogen 27 7-18 mg/dl Creatinine 1.90 0.60-1.40 mg/dl Estimated GFR () 37.7 Estimated GFR (Non- 32.6 BUN/Creatinine Ratio 14.4 10-20 Random Glucose 86 70-99 mg/dl Calcium Level 8.5 8.5-10.1 mg/dl Total Bilirubin 0.7 0.2-1 mg/dl Direct Bilirubin 0.3 0-0.2 mg/dl Aspartate Amino Transf (AST/SGOT) 18 15-37 U/L Alanine Aminotransferase (ALT/SGPT) 24 12-78 U/L Alkaline Phosphatase 37 45-117 U/L Total Protein 6.9 6.4-8.2 gm/dl Albumin 3.5 3.4-5.0 gm/dl Lipase 124 73-393 U/L Microbiology Results 01/03/17 Urine Culture, Received Pending Labs were reviewed and are within normal limits unless listed below. Labs are available in the chart and at [facility] Problem List Medical Problems: (1) Abdominal pain Status: Acute (2) Acute on chronic renal insufficiency Status: Acute (3) Chest pain Status: Acute (4) CKD (chronic kidney disease) Status: Acute (5) Closed head injury Status: Acute (6) Deep vein thrombosis Status: Acute (7) Dehydration Status: Acute (8) Dizziness Status: Acute (9) Gastroesophageal reflux Status: Acute (10) Hypomagnesemia Status: Acute (11) Hyponatremia Status: Acute (12) Nausea Status: Acute (13) Nausea and vomiting Status: Acute (14) Rectal discharge Status: Acute (15) Small bowel obstruction Status: Acute (16) Syncope Status: Acute Past History cancer - colon (has colostomy), gout, vascular disease, other (bladder stones ) Past Surgical History: angioplasty with stent, coronary bypass surgery Family History Diabetes mellitus FH: cancer FH: heart disease Social History Hx Tobacco Use In Past Year?: No Smoking: quit greater than 1 year Alcohol: never Marital status: Housing status: lives with family, lives with significant other Occupation status: retired Immunizations History of Influenza Vaccine: No History of Tetanus Vaccine?: No History of Pneumococcal: Yes Pneumococcal Date: Jun 09, 2014 History of Hepatitis B Vaccine: No History of MDRO No Allergies Coded Allergies: Codeine (Verified Allergy, Intermediate, ITCHING, 01/03/17) Tramadol (Verified Allergy, Intermediate, ITCHING, 01/03/17) Hydrocodone (Verified Adverse Reaction, Intermediate, NAUSEA, 01/03/17) Medications Home Medications: Home Meds and Scripts Medications Dose Route/Sig Max Daily Dose Days Date Category Dose Instructions Jantoven (Warfarin Sodium) 2 Mg Tab 2 Mg PO DIRECTED 01/03/17 Reported Take 2mg on Sunday, Sunday, , and Sunday Jantoven (Warfarin Sodium) 1 Mg Tab 1 Mg PO DIRECTED 01/03/17 Reported Take 1mg on Sunday, Sunday, and Sunday Zinc (Zinc Gluconate) Unknown Strength Tab 1 Tab PO DAILY 11/06/16 Reported Atenolol 25 Mg Tab 12.5 Mg PO DAILY 11/06/16 Reported HALF OF A 25 MG TABLET. Amiodarone HCl 200 Mg Tab 200 Mg PO DAILY 11/06/16 Reported Vitamin D3 (Cholecalciferol) 1,000 Unit Cap 1,000 Units PO HS 09/03/16 Reported Prilosec (Omeprazole) 40 Mg Cap 40 Mg PO BID 09/03/16 Reported Tricor (Fenofibrate) 134 Mg Cap 134 Mg PO DAILY 05/25/15 Reported Proscar (Finasteride) 5 Mg Tab 5 Mg PO DAILY 09/30/14 Reported Synthroid (Levothyroxine Sodium) 75 Mcg Tab 75 Mcg PO DAILY 08/17/14 Reported Mag-Ox (Magnesium Oxide) 400 Mg Tab 400 Mg PO DAILY 08/17/14 Reported Zocor (Simvastatin) 20 Mg Tab 20 Mg PO QPM 08/17/14 Reported Aspirin 81 (Aspirin) 81 Mg Tab 81 Mg PO BID 08/17/14 Reported Diltiazem Cd (Diltiazem Hcl Coated Beads) 240 Mg Cap 240 Mg PO DAILY 08/17/14 Reported Multivitamin (Multivitamins) Tab 1 Tab PO DAILY 08/17/14 Reported Inpatient Medications: Current Inpatient Medications Medications (Trade) Dose Ordered Sig/Shonda Route Start Time Stop Time Status Last Admin Dose Admin Sodium Chloride 1,000 ml @ 150 mls/hr [id number] ONCE IV 01/03/17 12:18 01/03/17 18:57 Review of Systems Review of Systems Constitutional: No fever, No chills Endocrine: + tired/sluggish, No excessive thirst, No too hot Gastrointestinal: No abdominal pain, No indigestion, No nausea Respiratory: No shortness of breath, No chronic cough Male : + frequent urination, + blood in urine Physical Exam Vital Signs: Vital Signs Past 12 Hours Date Time Temp Pulse Resp B/P (MAP) Pulse Ox O2 Delivery O2 Flow Rate FiO2 01/03/17 15:15 59 165/79 96 Room Air 01/03/17 13:48 54 18 126/68 96 Room Air 01/03/17 11:20 36.4 57 18 140/64 97 Room Air Physical Exam: General Appearance: WD/WN, no apparent distress Eyes: bilateral eyes normal inspection ENT: hearing grossly normal Neck: no JVD, trachea midline Respiratory/Chest: no respiratory distress, no accessory muscle use Neurologic/Psychiatric: alert, normal mood/affect, oriented x 3 Skin: normal color, warm/dry, no rash Assessment & Plan Assessment & Plan ann marie hematuria hemoglobin stable compared to October 2016 (HGB 11.6). I suggest he observe for now. drink extra fluids. stay on coumadin as right now I worry more about the blood clot than the hematuria. Catheters will be used only if he goes into clot retention. Fulguration is a last resort. return for clot retention.
--- NOTE | 2017-01-03 16:47 | EMERGENCY ROOM VISIT NOTE ---
History Report prepared by Marcelo: Volodymyr Arrieta Under the Supervision of: Dr. Chris Lange M.D. First contact with patient: 12:10 Chief Complaint: HEMATURIA Stated Complaint: URINATING BLOOD Nursing Triage Summary: Pt has been urinating blood since last night. Pt held his Coumadin last night. Today, awoke and is now urinating blood clots. Currently has a blood clot in his right leg. History of Present Illness The patient is a 81 year old male who presents to the Emergency Room with complaints of persistent hematuria beginning yesterday. 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 He has not taken his Coumadin since last night. The patient notes that he has been passing clots in his urine. He also complains of burning with urination. He denies any lightheadedness, chest pain, or SOB. The patient denies any recent falls or trauma. He has not had his INR checked recently. He has a history of hematuria and has had to have multiple bladder veins cauterized in the past. The patient's notes that the patient had rectal bleeding last week, and received blood transfusions and surgical intervention. Source of History: patient Onset: Yesterday Quality: other (hematuria) Timing: other (persistent) Associated Symptoms: + urinary symptoms (burning with urination), No chest pain, No SOB Note: The patient denies any lightheadedness. Review of Systems See HPI for pertinent positives & negatives. A total of 10 systems reviewed and were otherwise negative. Past Medical & Surgical Medical Problems: (1) EBONY inhibitor intolerance (2) BPH (benign prostatic hyperplasia) (3) CAD (coronary artery disease) (4) Carotid stenosis, bilateral (5) CKD (chronic kidney disease), stage III (6) DM type 2 (diabetes mellitus, type 2) (7) Dyslipidemia (8) Elevated PSA (9) GERD (gastroesophageal reflux disease) (10) History of atrial fibrillation (11) History of CVA (cerebrovascular accident) (12) History of lower GI bleeding (13) History of renal calculi (14) Hx of hematuria (15) Hypertension (16) Hypothyroidism (17) Iron deficiency anemia (18) Osteoarthritis (19) SBO (small bowel obstruction) Surgical Problems: (1) H/O colectomy (2) History of heart bypass surgery (3) History of lumbar surgery (4) History of prostate surgery (5) S/P CABG x 5 (6) S/P cataract surgery (7) S/P coronary artery stent placement (8) S/P exploratory laparotomy (9) S/P hernia repair Old medical records were reviewed. Nurse's notes were reviewed and I agree with. Family History Diabetes mellitus FH: cancer FH: heart disease Social History Smoking Status: Former Smoker Alcohol Use: none Drug Use: none Marital Status: Housing Status: lives with family Occupation Status: retired Current/Historical Medications Scheduled Amiodarone HCl (Amiodarone HCl), 200 MG PO DAILY Aspirin (Aspirin 81), 81 MG PO BID Atenolol (Atenolol), 12.5 MG PO DAILY Cholecalciferol (Vitamin D3), 1,000 UNITS PO HS Diltiazem Hcl Coated Beads (Diltiazem Cd), 240 MG PO DAILY Fenofibrate (Tricor ), 134 MG PO DAILY Finasteride (Proscar), 5 MG PO DAILY Levothyroxine Sodium (Synthroid), 75 MCG PO DAILY Magnesium Oxide (Mag-Ox), 400 MG PO DAILY Multivitamin (Multivitamin), 1 TAB PO DAILY Omeprazole (Prilosec), 40 MG PO BID Simvastatin (Zocor), 20 MG PO QPM Warfarin Sod (Jantoven), 1 MG PO DIRECTED Warfarin Sod (Jantoven), 2 MG PO DIRECTED Zinc Gluconate (Zinc), 1 TAB PO DAILY Allergies Coded Allergies: Codeine (Verified Allergy, Intermediate, ITCHING, 01/03/17) Tramadol (Verified Allergy, Intermediate, ITCHING, 01/03/17) Hydrocodone (Verified Adverse Reaction, Intermediate, NAUSEA, 01/03/17) Physical Exam Vital Signs Date Time Temp Pulse Resp B/P (MAP) Pulse Ox O2 Delivery O2 Flow Rate FiO2 01/03/17 15:59 59 165/96 95 01/03/17 15:15 59 165/79 96 Room Air 01/03/17 13:48 54 18 126/68 96 Room Air 01/03/17 11:20 36.4 57 18 140/64 97 Room Air Physical Exam General: Well developed well nourished in no acute distress, breathing comfortably on room air. Normal speech HEENT: Normal cephalic atraumatic. Pupils are equal round and reactive to light. Extraocular movements are intact. Oropharynx is pink with moist mucous membranes. No swelling of the mouth lips or tongue. Neck: Supple with a midline trachea. No meningeal signs or stiffness, no JVD or bruits. No Stridor. Chest: Clear to auscultation bilaterally. No wheezes or rhonchi. No increased work of breathing. Heart: regular rate and rhythm. Abdomen: Soft nontender, nondistended without rebound guarding or rigidity. Extremities: No cyanosis clubbing or edema. No calf tenderness or assymetry Spine/Back. Non tender to palpation. No CVA tenderness Skin: Good turgor without rashes. Neurologic exam: Cranial nerves two through 12 are intact. Motor and sensation are intact and symmetrical throughout. Medical Decision & Procedures Laboratory Results 01/03/17 13:12 Red Blood Count 4.10, Mean Corpuscular Volume 84.1, Mean Corpuscular Hemoglobin 28.5, Mean Corpuscular Hemoglobin Concent 33.9, Mean Platelet Volume 10.1, Neutrophils (%) (Auto) 71.9, Lymphocytes (%) (Auto) 16.3, Monocytes (%) (Auto) 9.4, Eosinophils (%) (Auto) 1.5, Basophils (%) (Auto) 0.5, Neutrophils # (Auto) 5.33, Lymphocytes # (Auto) 1.21, Monocytes # (Auto) 0.70, Eosinophils # (Auto) 0.11, Basophils # (Auto) 0.04 01/03/17 13:12 Test 01/03/17 11:58 01/03/17 13:12 Urine Color RED Urine Appearance CLOUDY (CLEAR) Urine pH (4.5-7.5) Urine Specific [place] 1.008 (1.000-1.030) Urine Protein POS (NEG) Urine Glucose (UA) (NEG) Urine Ketones (NEG) Urine Occult Blood (NEG) Urine Nitrite (NEG) Urine Bilirubin (NEG) Urine Urobilinogen (NEG) Urine Leukocyte Esterase (NEG) Urine RBC >30 /hpf (0-4) Urine WBC 10-30 /hpf (0-5) Urine Epithelial Cells 10-20 /lpf (0-5) Urine Bacteria 1+ (NEG) White Blood Count 7.42 K/uL (4.8-10.8) Red Blood Count 4.10 M/uL (4.7-6.1) Hemoglobin 11.7 g/dL (14.0-18.0) Hematocrit 34.5 % (42-52) Mean Corpuscular Volume 84.1 fL (80-100) Mean Corpuscular Hemoglobin 28.5 pg (25-34) Mean Corpuscular Hemoglobin Concent 33.9 g/dl (32-36) Platelet Count 251 K/uL (130-400) Mean Platelet Volume 10.1 fL (7.4-10.4) Neutrophils (%) (Auto) 71.9 % Lymphocytes (%) (Auto) 16.3 % Monocytes (%) (Auto) 9.4 % Eosinophils (%) (Auto) 1.5 % Basophils (%) (Auto) 0.5 % Neutrophils # (Auto) 5.33 K/uL (1.4-6.5) Lymphocytes # (Auto) 1.21 K/uL (1.2-3.4) Monocytes # (Auto) 0.70 K/uL (0.11-0.59) Eosinophils # (Auto) 0.11 K/uL (0-0.5) Basophils # (Auto) 0.04 K/uL (0-0.2) RDW Standard Deviation 45.8 fL (36.4-46.3) RDW Coefficient of Variation 14.9 % (11.5-14.5) Immature Granulocyte % (Auto) 0.4 % Immature Granulocyte # (Auto) 0.03 K/uL (0.00-0.02) Prothrombin Time 23.3 SECONDS (9.0-12.0) Prothromb Time International Ratio 2.1 (0.9-1.1) Activated Partial Thromboplast Time 34.4 SECONDS (21.0-31.0) Partial Thromboplastin Ratio 1.3 Anion Gap 10.0 mmol/L (3-11) Estimated GFR () 37.7 Estimated GFR (Non- 32.6 BUN/Creatinine Ratio 14.4 (10-20) Calcium Level 8.5 mg/dl (8.5-10.1) Total Bilirubin 0.7 mg/dl (0.2-1) Direct Bilirubin 0.3 mg/dl (0-0.2) Aspartate Amino Transf (AST/SGOT) 18 U/L (15-37) Alanine Aminotransferase (ALT/SGPT) 24 U/L (12-78) Alkaline Phosphatase 37 U/L (45-117) Total Protein 6.9 gm/dl (6.4-8.2) Albumin 3.5 gm/dl (3.4-5.0) Lipase 124 U/L (73-393) Laboratory studies as stated above per my review. ED Course 1215: Past medical records reviewed. The patient was evaluated in room B6, and a complete history and physical examination were performed. 1218: Ordered Sodium Chloride 1000 ml @ 150 mls/hr IV, Sodium Chloride 1000 ml @ 999 mls/hr IV. 1530: Upon reevaluation, the patient is resting comfortably. I discussed the results and treatment plan with him. He verbalized agreement of the treatment plan. The patient was discharged home. Medical Decision Differentials include, but are not limited to; hematuria, supratherapeutic INR, infection, and electrolyte or metabolic abnormality. This patient comes in as described above. He has gross hematuria. He has passed some clots. He is otherwise asymptomatic. He is on Coumadin for DVT as right lower extremities had no chest pain or shortness of breath. He looks well. Had no fever or chills. His INR was 2.1. His hemoglobin is stable at 11.7. He looks well. His abdomen is benign and has no flank tenderness. I did discuss the case with his urologist Dr. Whitney. She came and saw the patient in the emergency department. she feels it is important for him to be on anticoagulation is and does not feel that he needs any further treatment provided that he is urinating okay and intravenous bladder which appears to be. She feels he can go home. I recommended the patient follow-up with his regular doctor next couple days for recheck or call Dr. Whitney is a any problems. The patient and his were happy the plan he was discharged home. Medication Reconcilliation Current Medication List: was personally reviewed by me Blood Pressure Screening Patient's blood pressure: Elevated blood pressure Blood pressure disposition: Elevated BP felt to be situational Consults Time Called: [phone] Consulting Physician: Dr. Gomez -Urology Returned Call: [phone] Discussed the patient's case. Dr. Gomez will evaluate the patient, but believes the patient is likely safe for discharge. Impression Primary Impression: Hematuria Additional Impression: Anticoagulated Scribe Attestation The scribe's documentation has been prepared under my direction and personally reviewed by me in its entirety. I confirm that the note above accurately reflects all work, treatment, procedures, and medical decision making performed by me. Departure Information Dispostion Home / Self-Care Referrals Everett Marrufo M.D. (PCP) Patient Instructions My [facility] Additional Instructions Rest. Return if difficulty urinating, fever, increasing bleeding or problems, any new problems concerns Follow-up with in 1-2 days for recheck. Problem Qualifiers
== END 2017-01-03 16:01 | disposition home or self-care (01) ==
LOC: C.EDB 11:19
DX: R31.9 Hematuria, unspecified (principal); Z79.01 Long term (current) use of anticoagulants; I12.9 Hypertensive chronic kidney disease with stage 1 through stage 4 chronic kidney disease, or unspecified chronic kidney disease; N18.3 Chronic kidney disease, stage 3 (moderate); E11.22 Type 2 diabetes mellitus with diabetic chronic kidney disease; I82.401 Acute embolism and thrombosis of unspecified deep veins of right lower extremity; Z95.1 Presence of aortocoronary bypass graft; N40.0 Benign prostatic hyperplasia without lower urinary tract symptoms; Z86.73 Personal history of transient ischemic attack (TIA), and cerebral infarction without residual deficits; E03.9 Hypothyroidism, unspecified; Z79.899 Other long term (current) drug therapy

== ENCOUNTER 2017-04-29 11:56 | Emergency (ER) | payer OTHER ==
[~2017-04-29] VITALS: Ht 182.9 cm; Wt 95.5 kg
[~2017-04-29 11:56] MED LIST changes: -CLOP1TAB54 PO; -ENOX100I SQ; +WARF1TAB6 PO; +WARF2TAB8 PO
[2017-04-29 11:59] VITALS: TEMP 36.4; Ht 182.9 cm; Wt 95.5 kg
[2017-04-29] MEDS ORDERED: SODIUM CHLORIDE 0.9% 250ML 250 ML IV STA (12:29)
[2017-04-29] MEDS ORDERED: ALBUT/IPRATROP 3MG/0.5MG NEB 3 ML VIAL INH STA (12:29)
[2017-04-29] MEDS ORDERED: ACETAMINOPHEN 325 MG TAB PO STA (12:29)
[2017-04-29] MEDS ORDERED: SODIUM CHLORIDE 0.9% 1000ML 1,000 ML IV STA (12:29)
--- NOTE | 2017-04-29 13:09 | EMERGENCY ROOM VISIT NOTE ---
History Report prepared by Marcelo: Kristin Ko Under the Supervision of: Dr. Sabina Lopez M.D. First contact with patient: 12:07 Chief Complaint: DIZZY Stated Complaint: LIGHTHEADED,DIZZY Nursing Triage Summary: Pt with . reports +flu 04/24. Last dose Tamiflu this am. Pt now having dizziness. per pt has been drinking lots of water. Pt has hx of low Na. pt c/o headache, dizziness, nausea, cough History of Present Illness The patient is an 81 year old male who presents to the Emergency Room with complaints of worsening dizziness starting this morning. The patient states that he was diagnosed with the flu last week and took his last dose of Tamiflu this morning. He reports that he has a headache with his dizziness that "feels like his head is going to blow up." He notes that the dizziness and pain are worse with movement. The patient states that he took Tylenol for relief and last took it last night. The patient complains of a cough and shortness of breath while coughing. The patient denies any confusion. He notes that he has a history of diabetes and a colostomy bag. He notes that he has been having normal outputs. The patient notes that he did have the pneumonia shot this year. He states that he has been drinking a lot of water. Source of History: patient Onset: this morning Position: other (global) Quality: other (Dizziness) Timing: worsening Modifying Factors (Worsening): movement Modifying Factors (Relieving): tylenol Associated Symptoms: + headache, + cough, + SOB Note: The patient denies any confusion. Review of Systems See HPI for pertinent positives & negatives. A total of 10 systems reviewed and were otherwise negative. Past Medical & Surgical Medical Problems: (1) EBONY inhibitor intolerance (2) BPH (benign prostatic hyperplasia) (3) CAD (coronary artery disease) (4) Carotid stenosis, bilateral (5) CKD (chronic kidney disease), stage III (6) Diabetes (7) DM type 2 (diabetes mellitus, type 2) (8) Dyslipidemia (9) Elevated PSA (10) GERD (gastroesophageal reflux disease) (11) History of atrial fibrillation (12) History of CVA (cerebrovascular accident) (13) History of lower GI bleeding (14) History of renal calculi (15) Hx of hematuria (16) Hypertension (17) Hypothyroidism (18) Iron deficiency anemia (19) Osteoarthritis (20) SBO (small bowel obstruction) Surgical Problems: (1) H/O colectomy (2) History of heart bypass surgery (3) History of lumbar surgery (4) History of prostate surgery (5) S/P CABG x 5 (6) S/P cataract surgery (7) S/P coronary artery stent placement (8) S/P exploratory laparotomy (9) S/P hernia repair Family History Diabetes mellitus FH: cancer FH: heart disease Social History Smoking Status: Former Smoker Alcohol Use: none Drug Use: none Marital Status: Housing Status: lives with family Occupation Status: retired Current/Historical Medications Scheduled Aspirin (Aspirin 81), 81 MG PO BID Atenolol (Atenolol), 25 MG PO DAILY Cholecalciferol (Vitamin D3), 1,000 UNITS PO HS Diltiazem Hcl Coated Beads (Diltiazem Cd), 240 MG PO DAILY Fenofibrate (Tricor ), 134 MG PO DAILY Finasteride (Proscar), 5 MG PO DAILY Levothyroxine Sodium (Synthroid), 75 MCG PO DAILY Magnesium Oxide (Mag-Ox), 400 MG PO DAILY Multivitamin (Multivitamin), 1 TAB PO DAILY Omeprazole (Prilosec), 40 MG PO BID Simvastatin (Zocor), 20 MG PO QPM Warfarin Sod (Jantoven), 1 MG PO DIRECTED Warfarin Sod (Jantoven), 2 MG PO DIRECTED Allergies Coded Allergies: Codeine (Verified Allergy, Intermediate, ITCHING, 01/03/17) Tramadol (Verified Allergy, Intermediate, ITCHING, 01/03/17) Hydrocodone (Verified Adverse Reaction, Intermediate, NAUSEA, 01/03/17) Physical Exam Vital Signs Date Time Temp Pulse Resp B/P (MAP) Pulse Ox O2 Delivery O2 Flow Rate FiO2 04/29/17 14:15 52 24 117/54 93 Room Air 04/29/17 13:30 51 20 133/70 94 Room Air 04/29/17 12:58 54 04/29/17 12:50 54 24 162/77 97 Room Air 04/29/17 11:59 36.4 57 20 151/75 96 Room Air Physical Exam Vital signs reviewed. Vital signs are stable. General: Somewhat ill-appearing elderly, in no significant distress. HEENT: No scleral icterus, PERRLA, neck supple. Atraumatic. Cardiovascular: Regular rate and rhythm, no extra sounds. Pulmonary: Wheezing bilaterally, normal work of breathing. Dry cough. Abdomen: Soft, nontender, nondistended, positive bowel sounds. Colostomy bag to the right lower quadrant. Musculoskeletal: Atraumatic, no peripheral edema. Neurologic: Patient awake alert and oriented x 3, full strength in all 4 extremities. Cranial nerves 2 through 12 grossly intact. Skin: Warm, dry, no rash Medical Decision & Procedures ER Provider Diagnostic Interpretation: Radiology results as stated below per my review and radiologist interpretation: CHEST ONE VIEW PORTABLE CLINICAL HISTORY: Cough. Flu. COMPARISON STUDY: Chest radiograph September 03, 2016. FINDINGS: Lung volumes are slightly diminished. There is no pneumothorax or pleural effusion. There is no evidence for pulmonary edema. Cardiomegaly is noted. Minimal left basilar opacity likely reflects atelectasis or normal vessels. IMPRESSION: 1. No acute cardiopulmonary findings. 2. Low lung volumes with linear left basilar opacity which likely reflects atelectasis or vessels. Electronically signed by: Sky Root M.D. 04/29/2017 1:19 PM Dictated Date/Time: 04/29/2017 1:18 PM Laboratory Results 04/29/17 12:45 Red Blood Count 4.42, Mean Corpuscular Volume 85.7, Mean Corpuscular Hemoglobin 28.3, Mean Corpuscular Hemoglobin Concent 33.0, Mean Platelet Volume 10.6, Neutrophils (%) (Auto) 72.7, Lymphocytes (%) (Auto) 16.5, Monocytes (%) (Auto) 10.2, Eosinophils (%) (Auto) 0.0, Basophils (%) (Auto) 0.3, Neutrophils # (Auto ) 5.57, Lymphocytes # (Auto) 1.26, Monocytes # (Auto) 0.78, Eosinophils # (Auto ) 0.00, Basophils # (Auto) 0.02 04/29/17 12:45 Test 04/29/17 12:45 04/29/17 12:48 04/29/17 13:00 04/29/17 14:00 White Blood Count 7.65 K/uL (4.8-10.8) Red Blood Count 4.42 M/uL (4.7-6.1) Hemoglobin 12.5 g/dL (14.0-18.0) Hematocrit 37.9 % (42-52) Mean Corpuscular Volume 85.7 fL (80-100) Mean Corpuscular Hemoglobin 28.3 pg (25-34) Mean Corpuscular Hemoglobin Concent 33.0 g/dl (32-36) Platelet Count 213 K/uL (130-400) Mean Platelet Volume 10.6 fL (7.4-10.4) Neutrophils (%) (Auto) 72.7 % Lymphocytes (%) (Auto) 16.5 % Monocytes (%) (Auto) 10.2 % Eosinophils (%) (Auto) 0.0 % Basophils (%) (Auto) 0.3 % Neutrophils # (Auto) 5.57 K/uL (1.4-6.5) Lymphocytes # (Auto) 1.26 K/uL (1.2-3.4) Monocytes # (Auto) 0.78 K/uL (0.11-0.59) Eosinophils # (Auto) 0.00 K/uL (0-0.5) Basophils # (Auto) 0.02 K/uL (0-0.2) RDW Standard Deviation 47.8 fL (36.4-46.3) RDW Coefficient of Variation 15.1 % (11.5-14.5) Immature Granulocyte % (Auto) 0.3 % Immature Granulocyte # (Auto) 0.02 K/uL (0.00-0.02) Anion Gap 11.0 mmol/L (3-11) Est Creatinine Clear Calc Drug Dose 32.3 ml/min Estimated GFR () 31.8 Estimated GFR (Non- 27.4 BUN/Creatinine Ratio 13.7 (10-20) Calcium Level 8.7 mg/dl (8.5-10.1) Magnesium Level 1.9 mg/dl (1.8-2.4) Total Bilirubin 0.7 mg/dl (0.2-1) Direct Bilirubin 0.3 mg/dl (0-0.2) Aspartate Amino Transf (AST/SGOT) 31 U/L (15-37) Alanine Aminotransferase (ALT/SGPT) 38 U/L (12-78) Alkaline Phosphatase 46 U/L (45-117) Total Creatine Kinase 95 U/L (39-308) Creatine Kinase MB 1.1 ng/ml (0.5-3.6) Creatine Kinase MB Ratio 1.2 (0-3.0) Total Protein 7.3 gm/dl (6.4-8.2) Albumin 3.3 gm/dl (3.4-5.0) Bedside Lactic Acid Venous 0.90 mmol/L (0.90-1.70) Bedside Troponin I < 0.030 ng/ml (0-0.045) Urine Color YELLOW Urine Appearance CLEAR (CLEAR) Urine pH 5.5 (4.5-7.5) Urine Specific [place] 1.016 (1.000-1.030) Urine Protein TRACE (NEG) Urine Glucose (UA) NEG (NEG) Urine Ketones NEG (NEG) Urine Occult Blood NEG (NEG) Urine Nitrite NEG (NEG) Urine Bilirubin NEG (NEG) Urine Urobilinogen NEG (NEG) Urine Leukocyte Esterase NEG (NEG) Urine WBC (Auto) 1-5 /hpf (0-5) Urine RBC (Auto) 0-4 /hpf (0-4) Urine Hyaline Casts (Auto) 1-5 /lpf (0-5) Urine Epithelial Cells (Auto) 5-10 /lpf (0-5) Urine Bacteria (Auto) NEG (NEG) Laboratory results per my review. Medications Administered Medications (Trade) Dose Ordered Sig/Shonda Route Start Time Stop Time Status Last Admin Dose Admin Albuterol/ Ipratropium (Duoneb) 3 ml NOW STAT INH 04/29/17 12:29 04/29/17 12:35 DC 04/29/17 12:51 3 ML Sodium Chloride 250 ml @ 999 mls/hr Q16M STAT IV 04/29/17 12:29 04/29/17 12:44 DC 04/29/17 12:51 999 MLS/HR Sodium Chloride 1,000 ml @ 125 mls/hr Q8H STAT IV 04/29/17 12:29 04/29/17 16:06 DC 04/29/17 12:52 125 MLS/HR Acetaminophen (Tylenol Tab) 650 mg NOW STAT PO 04/29/17 12:29 04/29/17 12:35 DC 04/29/17 12:51 650 MG Albuterol (Ventolin Hfa Inhaler) 2 puffs NOW ONCE INH 04/29/17 15:15 04/29/17 15:16 DC 04/29/17 15:29 2 PUFFS ECG Indication: SOB/dyspnea Rate (beats per minute): 53 Rhythm: sinus bradycardia Findings: 1st degree AV block, RBBB Comparison ECG Date: September 07, 2016 Change: no significant change Change: I interpreted the patient's EKG. ED Course 1224: Past medical records reviewed. The patient was evaluated in room B11B. A complete history and physical examination was performed. 1229: Ordered Tylenol Tab 650 mg PO, NSS 1000 ml @ 125 mls/hr IV, NSS 250 ml @ 999 mls/hr IV, Duoneb 3 ml INH. 1458: Upon reevaluation, the patient appeared to have improvement of his symptoms. I discussed findings with him. He verbalized agreement of the treatment plan. The patient was discharged home. 1515: Ordered Albuterol 2 puffs INH. Medical Decision Differential Diagnoses: Influenza, other viral illness, pneumonia, urinary tract infection, metabolic abnormality, medication effect, cellulitis, meningitis, intra-abdominal source. This patient was evaluated and appeared to be in no significant distress. IV access was obtained and laboratory work was drawn. Patient was placed on the site monitor. Patient was hydrated with normal saline solution. Patient was recently treated for influenza and stopped his Tamiflu today. Chest x-ray was obtained and reveals no focal infiltrate. Urinalysis is clear. Laboratory work is fairly unrevealing. Patient was feeling improved after IV hydration, albuterol nebulizer and Tylenol. Patient was discharged with albuterol inhaler. He will continue conservative management. He was advised to follow- up with his PCP this week and to return to the ER for worsening of symptoms or any medical concerns. Medication Reconcilliation Current Medication List: was personally reviewed by me Blood Pressure Screening Patient's blood pressure: Elevated blood pressure Blood pressure disposition: Elevated BP felt to be situational Impression Primary Impression: Influenza Scribe Attestation The scribe's documentation has been prepared under my direction and personally reviewed by me in its entirety. I confirm that the note above accurately reflects all work, treatment, procedures, and medical decision making performed by me. Departure Information Dispostion Home / Self-Care Referrals Everett Marrufo M.D. (PCP) Forms HOME CARE DOCUMENTATION FORM, IMPORTANT VISIT INFORMATION Patient Instructions My [facility] Additional Instructions Diagnosis: Influenza Continue Tylenol 650 mg every 6 hours as needed for pain or fever. Drink plenty of clear fluids. Albuterol 2 puffs every 4 hours as needed for wheezing or cough. Follow-up with your physician for reevaluation this week. Return to the ER for worsening of symptoms or any medical concerns.
--- NOTE | 2017-04-29 13:20 | DIAGNOSTIC IMAGING REPORT ---
CHEST ONE VIEW PORTABLE CLINICAL HISTORY: Cough. Flu. COMPARISON STUDY: Chest radiograph September 03, 2016. FINDINGS: Lung volumes are slightly diminished. There is no pneumothorax or pleural effusion. There is no evidence for pulmonary edema. Cardiomegaly is noted. Minimal left basilar opacity likely reflects atelectasis or normal vessels. IMPRESSION: 1. No acute cardiopulmonary findings. 2. Low lung volumes with linear left basilar opacity which likely reflects atelectasis or vessels. Electronically signed by: Sky Root M.D. 04/29/2017 1:19 PM Dictated Date/Time: 04/29/2017 1:18 PM
[2017-04-29 13:25] LABS: BASO % 0.3 %; BASO ABS # 0.02 K/uL (0-0.2); HEMATOCRIT 37.9 % (42-52); HEMOGLOBIN 12.5 g/dL (14.0-18.0); IG# 0.02 K/uL (0.00-0.02); LYMPH % 16.5 %; LYMPH ABS # 1.26 K/uL (1.2-3.4); MEAN CELL VOLUME 85.7 fL (80-100); MEAN CORPUSCULAR HEMOGLOBIN 28.3 pg (25-34); MEAN PLATELET VOLUME 10.6 fL (7.4-10.4); MONO % 10.2 %; MONO ABS # 0.78 K/uL (0.11-0.59); NEUT % 72.7 %; NEUT ABS # 5.57 K/uL (1.4-6.5); PLATELET COUNT 213 K/uL (130-400); RED CELL DISTRIBUTION WIDTH CV 15.1 % (11.5-14.5); RED CELL DISTRIBUTION WIDTH SD 47.8 fL (36.4-46.3); WHITE BLOOD COUNT 7.65 K/uL (4.8-10.8)
[2017-04-29 13:44] LABS: ALBUMIN 3.3 gm/dl (3.4-5.0); CALCIUM 8.7 mg/dl (8.5-10.1); CREATININE 2.19 mg/dl (0.60-1.40); POTASSIUM 4.3 mmol/L (3.5-5.1)
[2017-04-29 13:49] LABS: CKMB 1.1 ng/ml (0.5-3.6); TOTAL PROTEIN 7.3 gm/dl (6.4-8.2)
[2017-04-29 14:15] VITALS: BP 117/54; PULSE 52; O2SAT 93
[2017-04-29] MEDS ORDERED: ALBUTEROL HFA 8 GM INHALER INH ONE (15:15)
== END 2017-04-29 15:38 | disposition home or self-care (01) ==
LOC: C.EDB 11:57
DX: J11.1 Influenza due to unidentified influenza virus with other respiratory manifestations (principal); E11.9 Type 2 diabetes mellitus without complications; Z93.3 Colostomy status; N40.0 Benign prostatic hyperplasia without lower urinary tract symptoms; I25.10 Atherosclerotic heart disease of native coronary artery without angina pectoris; N18.3 Chronic kidney disease, stage 3 (moderate); E78.5 Hyperlipidemia, unspecified; K21.9 Gastro-esophageal reflux disease without esophagitis; I48.91 Unspecified atrial fibrillation; Z86.73 Personal history of transient ischemic attack (TIA), and cerebral infarction without residual deficits; Z87.442 Personal history of urinary calculi; I12.9 Hypertensive chronic kidney disease with stage 1 through stage 4 chronic kidney disease, or unspecified chronic kidney disease; E03.9 Hypothyroidism, unspecified; M19.90 Unspecified osteoarthritis, unspecified site; Z90.49 Acquired absence of other specified parts of digestive tract; Z95.1 Presence of aortocoronary bypass graft; Z98.49 Cataract extraction status, unspecified eye; Z95.5 Presence of coronary angioplasty implant and graft; Z83.3 Family history of diabetes mellitus; Z87.891 Personal history of nicotine dependence; Z79.82 Long term (current) use of aspirin; Z79.01 Long term (current) use of anticoagulants; Z79.899 Other long term (current) drug therapy

== ENCOUNTER → 2017-07-17 | Outpatient (CLI) | payer OTHER ==
[~2017-07-17] MED LIST changes: -CRD200 PO; -ZINC1TAB PO
--- NOTE | 2017-07-17 14:11 | DIAGNOSTIC IMAGING REPORT ---
VIDEO SWALLOW CLINICAL HISTORY: 81 years-old Male with DYSPNEA ON EXERTION. Acute dyspnea TECHNIQUE: Video fluoroscopic evaluation of swallowing was performed in the AP and lateral projections by the speech pathology staff. The patient is fed nectar-thick and thin liquid barium, a barium coated wafer, and barium pudding. FLUOROSCOPY TIME: 2.4 minutes. 970 images were submitted.. COMPARISON STUDY: Chest radiograph 04/29/2017, CT 08/15/2016 FINDINGS: Mild esophageal dysmotility with nectar thick and pudding consistencies demonstrating mild reflux. Decreased hyoid excursion noted. Mild residue collection within the vallecula. Tertiary contractions of the distal esophagus. No significant penetration or aspiration identified. Sternotomy wires incidentally noted. IMPRESSION: 1. No aspiration identified. 2. Please see the speech pathologist report for detailed findings and recommendations. Electronically signed by: Curly Rodríguez M.D. 07/17/2017 2:09 PM Dictated Date/Time: 07/17/2017 2:06 PM
--- NOTE | 2017-07-17 14:27 | SWALLOWING EVALUATION ---
HISTORY: This 81 year old man was referred for a video swallow study at [facility] in order to rule out aspiration and identify the safest consistencies for optimal oral intake. Patient reports he has episodes where he regurgitates liquids and feels food getting stuck in his throat and esophagus. He will take a drink which helps to clear the food that feels stuck but then reports that the liquid will "come back up". PMH is significant for: CVA with right sided weakness in 2013, CAD with CABG x5 and stent x1, bilateral carotid stenosis, DM II, BPH, GERD, hypothyroidism, HTN, and OA. Current diet is regular. PROCEDURE: The patient was seen in the Radiology Department of [facility] for the VFSS. Cursory examination of the oral cavity revealed the patient to have upper and lower dentures, with the lower denture being loose fitting. He reports he is getting a new lower denture within a week. Movement of the articulators was generally wnl. The patient was seated upright in a wheelchair and was viewed in both the Anterior-Posterior (A-P) and Lateral planes. Volitional phonation exercises completed in the A-P plane revealed bilateral vocal fold movement. Vocal intensity was wnl. In the lateral plane, the patient was given the following boluses: 1 tsp. thin liquid barium x 2, single swallow thin liquid barium self-presented from a cup, sequential swallows of thin liquid barium self-presented from a cup and straw, 1 tsp. nectar-thick liquid barium, single swallow nectar-thick liquid barium self-presented from a cup, 1 tsp. barium pudding, and 1 club cracker coated in barium pudding. The patient was then repositioned into the A-P plane and given the following boluses: 1 tsp. nectar thick barium and 1 tsp. barium pudding. RESULTS: Oral Stage: Lip closure was adequate. The patient was able to maintain a cohesive liquid bolus in the oral cavity during the liquid bolus hold task. Mastication was mildly slow. Lingual motion for bolus transport was also noted to be slow. There was retention lining the tongue and palate after the initial swallow. The initiation of the pharyngeal swallow was delayed occurred when the bolus head reached the pyriforms. Of note the patient presented with a high hard palate and piecemeal like deglutition. Pharyngeal Stage: Soft palate elevation was mildly reduced with a narrow column od contrast being located between the soft palate and pharyngeal wall. Laryngeal elevation revealed partial superior movement of the thyroid cartilage and partial approximation of the arytenoids to the epiglottic base. Anterior hyoid excursion was partially reduced. Epiglottic deflection was complete. Laryngeal vestibular closure was incomplete as evidenced by a narrow column of contrast located in the vestibule during the height of the swallow. The pharyngeal stripping wave was present and complete. Pharyngeal contraction was complete. There was partial distention and duration of the opening to the pharyngoesophageal segment (PES). Tongue base retraction was partially reduced with a narrow column of contrast located between the tongue base and pharyngeal wall during the swallow. There was retention located in the valleculae and pyriforms after the swallow. There was no evidence of aspiration for this study. With consecutive swallows of thin liquid via straw, there was noted laryngeal penetration that appeared to redirect. Mild pharyngeal retention cleared with a second swallow. Esophageal stage: There was evidence of distal esophageal retention with retrograde flow below the PES. A liquid wash assisted to clear the retention. This is suggestive of esophageal dysmotility and reflux. SUMMARY/RECOMMENDATIONS: This patient presents with mild amber-pharyngeal dysphagia. He also has evidence of esophageal dysfunction. The following is recommended: 1. Regular soft and "slippery" diet, thin liquids. Avoid foods that are dry, thick, pasty, and doughy. Add condiments to foods to assist in keeping them moist. 2. Aspiration and GERD precautions. Straws OK in single swallows. Fully upright for meals and for 30 minutes after meals. Do not lay flat, elevate head of the bed to at least 30 degrees at all time, to include while sleeping. 3. Safe swallow strategies: Alternate solids and liquids. Small frequent meals. Rest breaks during meals. 4. Consider follow up with a GI specialist for management of esophageal dysfunction. A summary of the results and recommendations was discussed with the patient and his spouse (with patient permission) with verbal understanding. Both verbal and written education was provided on a "slippery" esophageal diet with verbal understanding as well. Thank you for referral of this patient. Please contact me at if any additional information is needed.
== END | disposition home or self-care (01) ==
LOC: C.RAD 13:21
PROVIDERS: ATTEND Physician Assistant Medical
DX: K21.9 Gastro-esophageal reflux disease without esophagitis (principal)

== ENCOUNTER → 2017-07-25 | Outpatient (CLI) | payer OTHER ==
[~2017-07-25] MED LIST changes: +ALPOPSD OPB; +FENO134C PO; +FURO20TA PO; +NRN100 PO; +OMEP20TA PO; +TCMD1 PO; +TMPOPS15 OPB
--- NOTE | 2017-07-25 09:17 | DIAGNOSTIC IMAGING REPORT ---
DOUBLE CONTRAST BARIUM ESOPHAGRAM CLINICAL HISTORY: Gastroesophageal reflux. Globus sensation. COMPARISON STUDY: Video swallow study dated 07/17/2017.. TECHNIQUE: A standard air contrast barium esophagram is performed. Multiple spot images of the esophagus are acquired both upright and prone. FINDINGS: The patient swallowed barium and the barium pill without difficulty. The mucosal pattern is normal. There is severe esophageal dysmotility. There is no evidence of intrinsic or extrinsic mass lesion. No aspiration was seen. The gastroesophageal junction distended normally. There is pooling of contrast in the distal esophagus. No gastroesophageal reflux could be elicited by having the patient perform the Valsalva maneuver. Midline sternotomy wires are noted. Fluoroscopy time: 1.3 minutes. Fluoroscopic images: 21 IMPRESSION: 1. Severe esophageal dysmotility. 2. There was pooling of contrast within the distal esophagus. No gastroesophageal reflux was observed during the examination. Electronically signed by: Lexx Sun M.D. 07/25/2017 9:16 AM Dictated Date/Time: 07/25/2017 9:12 AM
== END | disposition home or self-care (01) ==
LOC: C.RAD 08:32
PROVIDERS: ATTEND Nurse Practitioner Family
DX: K22.4 Dyskinesia of esophagus (principal)

== ENCOUNTER 2017-08-02 19:30 | Inpatient (IN) | payer OTHER ==
[~2017-08-02] VITALS: Ht 182.9 cm; Wt 94.3 kg
[~2017-08-02 19:30] MED LIST changes: -ALPOPSD OPB; -FENO134C PO; -FURO20TA PO; -NRN100 PO; -OMEP20TA PO; -TCMD1 PO; -TMPOPS15 OPB
[2017-08-02] MEDS ORDERED: ONDANSETRON INJ 2 MG/ML 2 ML VIAL IV STA (20:09)
[2017-08-02] MEDS ORDERED: SODIUM CHLORIDE 0.9% 1000ML 1,000 ML IV STA (20:09)
[2017-08-02] MEDS ORDERED: LOPERAMIDE HCL 2 MG CAP PO STA (20:09)
[2017-08-02 20:41] LABS: BASO % 0.1 %; BASO ABS # 0.01 K/uL (0-0.2); HEMATOCRIT 44.3 % (42-52); HEMOGLOBIN 16.3 g/dL (14.0-18.0); IG# 0.14 K/uL (0.00-0.02); LYMPH % 5.9 %; LYMPH ABS # 0.93 K/uL (1.2-3.4); MEAN CELL VOLUME 80.1 fL (80-100); MEAN CORPUSCULAR HEMOGLOBIN 29.5 pg (25-34); MEAN CORPUSCULAR HGB CONC 36.8 g/dl (32-36); MEAN PLATELET VOLUME 10.6 fL (7.4-10.4); MONO % 9.3 %; MONO ABS # 1.46 K/uL (0.11-0.59); NEUT % 83.8 %; NEUT ABS # 13.22 K/uL (1.4-6.5); PLATELET COUNT 247 K/uL (130-400); WHITE BLOOD COUNT 15.76 K/uL (4.8-10.8)
--- NOTE | 2017-08-02 20:56 | DIAGNOSTIC IMAGING REPORT ---
CHEST ONE VIEW PORTABLE CLINICAL HISTORY: 81 years-old Male presenting with ABDOMINAL PAIN/GI. TECHNIQUE: Portable upright AP view of the chest was obtained. COMPARISON: 04/29/2017. FINDINGS: Median sternotomy wires noted. Atherosclerosis of aortic arch. Cardiac silhouette enlarged. Lungs and pleural spaces clear. Degenerative changes of the right glenohumeral joint. Degenerative changes of the spine. Upper abdomen normal. IMPRESSION: 1. Mild cardiomegaly. No other convincing evidence of acute cardiopulmonary disease. Electronically signed by: Chapo Turcios M.D. 08/02/2017 8:55 PM Dictated Date/Time: 08/02/2017 8:54 PM
[2017-08-02 21:03] LABS: PTT PATIENT 44.2 SECONDS (21.0-31.0)
[2017-08-02 21:05] LABS: INR 4.9 (0.9-1.1)
[2017-08-02] MEDS ORDERED: TCMD1 PO (21:17)
[2017-08-02] MEDS ORDERED: FENO134C PO (21:17)
[2017-08-02 21:19] LABS: ALBUMIN 3.7 gm/dl (3.4-5.0); CALCIUM 8.6 mg/dl (8.5-10.1); POTASSIUM 3.9 mmol/L (3.5-5.1); TOTAL PROTEIN 8.1 gm/dl (6.4-8.2)
[2017-08-02 21:22] LABS: CREATININE 5.85 mg/dl (0.60-1.40)
--- NOTE | 2017-08-02 22:48 | EMERGENCY ROOM VISIT NOTE ---
History Report prepared by Marcelo: Divina Mojica Under the Supervision of: Dr. Larry Purvis D.O. First contact with patient: 20:03 Chief Complaint: WEAKNESS Stated Complaint: WEAK, DIARRHEA Nursing Triage Summary: Pt states he has been feeling more weak the past three days. c/o dizziness when he bends over. Per , she has encouraged him to drink a lot of water the past couple days. Colostomy putting out a thinner consistency. Pt states he hasn't been eating well. History of Present Illness The patient is a 81 year old male who presents to the Emergency Room with complaints of persistent weakness that started three days ago. The patient rates his pain a 7.5/10 in severity. The patient reports he has been very weak and dizzy. He is especially dizzy when he puts his head down. He reports he also has a sharp pain down the right side of his neck. He states he is also having nausea, vomiting, and diarrhea. The patient has a colostomy bag in place. He reports he is filling his bad almost every hour. Normally, he fills it 3-4 times per day. He denies recently being around anyone who was sick. The patient is diabetic. Source of History: patient Onset: 3 days ago Position: other (global) Symptom Intensity: 7.5/10 Timing: other (persistent) Associated Symptoms: + nausea, + vomiting, + diarrhea Note: Dizziness. Review of Systems See HPI for pertinent positives & negatives. A total of 10 systems reviewed and were otherwise negative. Past Medical & Surgical Medical Problems: (1) EBONY inhibitor intolerance (2) BPH (benign prostatic hyperplasia) (3) CAD (coronary artery disease) (4) Carotid stenosis, bilateral (5) CKD (chronic kidney disease), stage III (6) Diabetes (7) DM type 2 (diabetes mellitus, type 2) (8) Dyslipidemia (9) Elevated PSA (10) GERD (gastroesophageal reflux disease) (11) History of atrial fibrillation (12) History of CVA (cerebrovascular accident) (13) History of lower GI bleeding (14) History of renal calculi (15) Hx of hematuria (16) Hypertension (17) Hypothyroidism (18) Iron deficiency anemia (19) Osteoarthritis (20) SBO (small bowel obstruction) Surgical Problems: (1) H/O colectomy (2) History of heart bypass surgery (3) History of lumbar surgery (4) History of prostate surgery (5) S/P CABG x 5 (6) S/P cataract surgery (7) S/P coronary artery stent placement (8) S/P exploratory laparotomy (9) S/P hernia repair Family History Diabetes mellitus FH: cancer FH: heart disease Social History Smoking Status: Former Smoker Alcohol Use: none Drug Use: none Marital Status: Housing Status: lives with family Occupation Status: retired Current/Historical Medications Scheduled Aspirin (Aspirin 81), 81 MG PO BID Atenolol (Atenolol), 25 MG PO QAM Cholecalciferol (Vitamin D3), 1,000 UNITS PO QPM Diltiazem Hcl Coated Beads (Diltiazem Cd), 240 MG PO QAM Fenofibrate Micronized (Tricor), 134 MG PO QPM Finasteride (Proscar), 5 MG PO DAILY AT NOON Levothyroxine Sodium (Synthroid), 75 MCG PO QAM Magnesium Oxide (Mag-Ox), 400 MG PO HS Multivitamin (Multivitamin), 1 TAB PO QAM Omeprazole (Prilosec), 40 MG PO BID Simvastatin (Zocor), 20 MG PO HS Warfarin Sod (Jantoven), 1 MG PO [id number] Warfarin Sod (Coumadin), 2 MG PO WK Allergies Coded Allergies: Codeine (Verified Allergy, Intermediate, ITCHING, 08/02/17) Tramadol (Verified Allergy, Intermediate, ITCHING, 08/02/17) Hydrocodone (Verified Adverse Reaction, Intermediate, NAUSEA, 08/02/17) Physical Exam Vital Signs Date Time Temp Pulse Resp B/P (MAP) Pulse Ox O2 Delivery O2 Flow Rate FiO2 08/02/17 21:17 70 18 130/80 95 Room Air 08/02/17 19:42 36.4 80 17 123/77 94 Room Air Physical Exam CONSTITUTIONAL/VITAL SIGNS: Reviewed / noted above. GENERAL: Non-toxic in appearance. INTEGUMENTARY: Warm, dry, and [place]. HEAD: Normocephalic. EYES: without scleral icterus or trauma. ENT/OROPHARYNX: clear and moist. LYMPHADENOPATHY/NECK: Is supple without lymphadenopathy or meningismus. RESPIRATORY: Lungs clear and equal. CARDIOVASCULAR: Regular rate and rhythm. GI/ABDOMEN: Soft and nontender. No organomegaly or pulsatile mass. No rebound or guarding. Normal bowel sounds. Large amount of liquid stool in colostomy bag. EXTREMITIES: Warm and well perfused. BACK: No CVA tenderness. NEUROLOGICAL: Intact without focal deficits. PSYCHIATRIC: normal affect. MUSCULOSKELETAL: Normally developed with good muscle tone. Medical Decision & Procedures ER Provider Diagnostic Interpretation: Radiology results as stated below per my review and radiologist interpretation: CHEST ONE VIEW PORTABLE CLINICAL HISTORY: 81 years-old Male presenting with ABDOMINAL PAIN/GI. TECHNIQUE: Portable upright AP view of the chest was obtained. COMPARISON: 04/29/2017. FINDINGS: Median sternotomy wires noted. Atherosclerosis of aortic arch. Cardiac silhouette enlarged. Lungs and pleural spaces clear. Degenerative changes of the right glenohumeral joint. Degenerative changes of the spine. Upper abdomen normal. IMPRESSION: 1. Mild cardiomegaly. No other convincing evidence of acute cardiopulmonary disease. Electronically signed by: Chapo Turcios M.D. 08/02/2017 8:55 PM Dictated Date/Time: 08/02/2017 8:54 PM Laboratory Results 08/02/17 20:30 Red Blood Count 5.53, Mean Corpuscular Volume 80.1, Mean Corpuscular Hemoglobin 29.5, Mean Corpuscular Hemoglobin Concent 36.8, Mean Platelet Volume 10.6, Neutrophils (%) (Auto) 83.8, Lymphocytes (%) (Auto) 5.9, Monocytes (%) (Auto) 9.3, Eosinophils (%) (Auto) 0.0, Basophils (%) (Auto) 0.1, Neutrophils # (Auto) 13.22, Lymphocytes # (Auto) 0.93, Monocytes # (Auto) 1.46, Eosinophils # (Auto) 0.00, Basophils # (Auto) 0.01 Test 08/02/17 20:30 08/02/17 22:29 White Blood Count 15.76 K/uL (4.8-10.8) Red Blood Count 5.53 M/uL (4.7-6.1) Hemoglobin 16.3 g/dL (14.0-18.0) Hematocrit 44.3 % (42-52) Mean Corpuscular Volume 80.1 fL (80-100) Mean Corpuscular Hemoglobin 29.5 pg (25-34) Mean Corpuscular Hemoglobin Concent 36.8 g/dl (32-36) Platelet Count 247 K/uL (130-400) Mean Platelet Volume 10.6 fL (7.4-10.4) Neutrophils (%) (Auto) 83.8 % Lymphocytes (%) (Auto) 5.9 % Monocytes (%) (Auto) 9.3 % Eosinophils (%) (Auto) 0.0 % Basophils (%) (Auto) 0.1 % Neutrophils # (Auto) 13.22 K/uL (1.4-6.5) Lymphocytes # (Auto) 0.93 K/uL (1.2-3.4) Monocytes # (Auto) 1.46 K/uL (0.11-0.59) Eosinophils # (Auto) 0.00 K/uL (0-0.5) Basophils # (Auto) 0.01 K/uL (0-0.2) RDW Standard Deviation 44.0 fL (36.4-46.3) RDW Coefficient of Variation 15.0 % (11.5-14.5) Immature Granulocyte % (Auto) 0.9 % Immature Granulocyte # (Auto) 0.14 K/uL (0.00-0.02) Prothrombin Time 50.2 SECONDS (9.0-12.0) Prothromb Time International Ratio 4.9 (0.9-1.1) Activated Partial Thromboplast Time 44.2 SECONDS (21.0-31.0) Partial Thromboplastin Ratio 1.7 Urine Color DK YELLOW Urine Appearance CLOUDY (CLEAR) Urine pH 5.0 (4.5-7.5) Urine Specific [place] 1.021 (1.000-1.030) Urine Protein 1+ (NEG) Urine Glucose (UA) NEG (NEG) Urine Ketones TRACE (NEG) Urine Occult Blood NEG (NEG) Urine Nitrite NEG (NEG) Urine Bilirubin NEG (NEG) Urine Urobilinogen NEG (NEG) Urine Leukocyte Esterase TRACE (NEG) Urine WBC (Auto) 1-5 /hpf (0-5) Urine RBC (Auto) 5-10 /hpf (0-4) Urine Hyaline Casts (Auto) 10-30 /lpf (0-5) Urine Epithelial Cells (Auto) 20-30 /lpf (0-5) Urine Bacteria (Auto) NEG (NEG) Urine Pathogenic Casts 0-3 RBC CASTS /lpf (0) Est Creatinine Clear Calc Drug Dose 12.0 ml/min Total Bilirubin 0.9 mg/dl (0.2-1) Direct Bilirubin 0.5 mg/dl (0-0.2) Aspartate Amino Transf (AST/SGOT) 13 U/L (15-37) Alanine Aminotransferase (ALT/SGPT) 27 U/L (12-78) Alkaline Phosphatase 48 U/L (45-117) Total Protein 8.1 gm/dl (6.4-8.2) Albumin 3.7 gm/dl (3.4-5.0) Lipase 461 U/L (73-393) Date/Time Source Procedure Growth Status 08/02/17 20:30 Stool C.difficile Toxin B Gene (PCR) - Final No C. difficile toxin B gene detected Complete Laboratory results as stated above per my review. Medications Administered Medications (Trade) Dose Ordered Sig/Shonda Route Start Time Stop Time Status Last Admin Dose Admin Sodium Chloride 1,000 ml @ 999 mls/hr Q1H1M STAT IV 08/02/17 20:09 08/02/17 21:09 DC 08/02/17 20:32 999 MLS/HR Ondansetron HCl (Zofran Inj) 4 mg NOW STAT IV 08/02/17 20:09 08/02/17 20:11 DC 08/02/17 20:32 4 MG Loperamide HCl (Imodium Cap) 2 mg NOW STAT PO 08/02/17 20:09 08/02/17 20:11 DC 08/02/17 20:32 2 MG ED Course 2002: Previous medical records were reviewed. The patient was evaluated in room A4B. A complete history and physical examination was performed. 2008: Imodium Cap 2 mg PO, Zofran Inj 4 mg IV, Sodium Chloride 1000 ml @ 999 mls /hr IV. 2130: Discussed the patient's case with Cecilia Mckee. The patient will be evaluated for further treatment and disposition. Medical Decision Differential diagnosis: Etiologies such as gastroenteritis, food borne illness, infections, appendicitis , diverticulitis, inflammatory bowel disease, obstruction, GI bleed, biliary pathology, as well as others were entertained. This is an 81-year-old male who presents to the ED with a chief complaint of generalized weakness and dizziness for the past several days. He has had decreased appetite and diarrhea as well as some vomiting. The patient is on chronic Coumadin therapy for A. fib. The patient's exam reveals a full colostomy bag with liquid stool. The stool was tested and was negative for C. difficile. He normally has about 4 full bags a day. He has been feeling a bag every hour. White blood cell count was 15.7. INR is 4.9. The BUN is 74 and the creatinine is 5.85. Baseline creatinine is 2.19. Sodium is 122. Urine reveals RBC casts and hyaline casts. Chest x-ray did not show acute process. The patient was told the results of the test. He will be admitted by the hospitalist service for further inpatient evaluation and care. Medication Reconcilliation Current Medication List: was personally reviewed by me Consults Time Called: [id number] Consulting Physician: Cecilia Mckee Returned Call: [phone] Discussed the patient's case with Cecilia Mckee. The patient will be evaluated for further treatment and disposition. Impression Primary Impression: Acute renal failure Additional Impression: Hyponatremia Scribe Attestation The scribe's documentation has been prepared under my direction and personally reviewed by me in its entirety. I confirm that the note above accurately reflects all work, treatment, procedures, and medical decision making performed by me. Departure Information Dispostion Being Evaluated By Hospitalist Referrals Everett Marrufo M.D. (PCP) Patient Instructions My [facility] Problem Qualifiers
[2017-08-02] MEDS ORDERED: NRN100 PO (23:13)
[2017-08-02] MEDS ORDERED: FURO20TA PO (23:13)
[2017-08-02] MEDS ORDERED: TMPOPS15 OPB (23:13)
[2017-08-02] MEDS ORDERED: ALPOPSD OPB (23:13)
[2017-08-02] MEDS ORDERED: OMEP20TA PO (23:13)
[2017-08-02 23:18] LABS: CALCIUM 8.1 mg/dl (8.5-10.1); CREATININE 5.45 mg/dl (0.60-1.40); POTASSIUM 3.9 mmol/L (3.5-5.1)
--- NOTE | 2017-08-02 23:37 | History and Physical ---
History & Physical Date & Time of Service: August 02, 2017 at 23:14 Chief Complaint: Weak, Diarrhea Primary Care Physician: Everett Marrufo M.D. History of Present Illness Source: patient, spouse, clinic records, hospital records Pt is 81 y/o M with PMH CAD S/P stent 1 and CABG 5, atrial fibrillation on Coumadin, DM II, HTN, HLD, hypothyroidism, CVA, CKD 4, BPH, GERD, history DVT, ileostomy presented to ER with complaint of N/V/D dizziness 3 days. States couple episodes of vomiting past 3 days. Patient states no vomiting since noon today. A piece of pizza for dinner and retained. Having to change ileostomy bag every hour and has watery stool. Usually changes 3-4 times a day. Denies any blood or melena. Denies any abdominal pain. Patient reports lightheadedness and dizziness "things are going around" when he leans forward. Denies syncope. States when he has these dizziness episodes gets a pain to right side of his neck. Denies neck stiffness. Unsure if had fever. Increased weakness the past 3 days. Decreased urination past 3 days. Denies dysuria or hematuria. Treated for sciatica last week with prednisone. Patient states symptoms resolved. Patient with history of esophageal dysmotility. Has been seen by GI for regurgitation and water. 07/27/17 had barium swallow revealing severe esophageal dysmotility. Patient supposed be on slippery diet. Patient reports cough past 3 days is nonproductive. Reports increased exertional shortness of breath and was placed on Lasix 3 days a week. Patient did not take yesterday secondary to symptoms. Uses 2 pillows to sleep. Denies hematochezia, melena, hematochezia, [place], syncope, vision changes, CP, palpitations, moderate assist, sore throat, otalgia, rhinorrhea, increased extremity edema, rashes. 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 Status: Chronic (2) Anticoagulated Status: Chronic (3) BPH (benign prostatic hyperplasia) Status: Chronic (4) CAD (coronary artery disease) Permanent Comment: s/p CABG x5 and stent x 1 Status: Chronic (5) Carotid stenosis, bilateral Permanent Comment: 60-69% bilateral Status: Chronic (6) CKD (chronic kidney disease), stage III Status: Chronic (7) DM type 2 (diabetes mellitus, type 2) Status: Chronic (8) Dyslipidemia Status: Chronic (9) Elevated PSA Status: Chronic (10) GERD (gastroesophageal reflux disease) Status: Chronic (11) Hematuria Status: Resolved (12) History of atrial fibrillation Permanent Comment: Status: Chronic (13) History of CVA (cerebrovascular accident) Permanent Comment: 03/11/13-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 Status: Chronic (14) History of lower GI bleeding Status: Resolved (15) History of renal calculi Status: Chronic (16) Hx of hematuria Status: Chronic (17) Hypertension Status: Chronic (18) Hypothyroidism Status: Chronic (19) Iron deficiency anemia Status: Chronic (20) Osteoarthritis Status: Chronic Surgical Problems: (1) H/O colectomy Permanent Comment: 08/12/13-total abdominal prostatectomy ileoanal anastamosis creation, ileal reservoir including loop ileostomy Status: Resolved (2) History of heart bypass surgery Status: Resolved (3) History of lumbar surgery Status: Resolved (4) History of prostate surgery Status: Resolved (5) S/P CABG x 5 Permanent Comment: 1997 Status: Resolved (6) S/P cataract surgery Status: Resolved (7) S/P coronary artery stent placement Permanent Comment: 2008 Status: Resolved (8) S/P exploratory laparotomy Permanent Comment: 08/12/[address] Amie Thompson Status: Resolved (9) S/P hernia repair Status: Resolved Family History Diabetes mellitus FH: cancer FH: heart disease Social History Smoking Status: Former Smoker Smokeless Tobacco Use: No Alcohol Use: none Drug Use: none Marital Status: Housing status: lives with family, lives with significant other Occupational Status: retired Immunizations History of Influenza Vaccine: No History of Tetanus Vaccine?: No History of Pneumococcal: Yes Pneumococcal Date: Jun 09, 2014 History of Hepatitis B Vaccine: No Allergies Coded Allergies: Codeine (Verified Allergy, Intermediate, ITCHING, 08/02/17) Tramadol (Verified Allergy, Intermediate, ITCHING, 08/02/17) Hydrocodone (Verified Adverse Reaction, Intermediate, NAUSEA, 08/02/17) Home Medications Scheduled Aspirin (Aspirin 81), 81 MG PO BID Atenolol (Atenolol), 25 MG PO QAM Brimonidine Tartrate (Brimonidine Tartrate), 1 DROP OPB BID Cholecalciferol (Vitamin D3), 1,000 UNITS PO QPM Diltiazem Hcl Coated Beads (Diltiazem Cd), 240 MG PO QAM Fenofibrate Micronized (Tricor), 134 MG PO QPM Finasteride (Proscar), 5 MG PO DAILY AT NOON Furosemide (Lasix), 20 MG PO UD Gabapentin (Gabapentin), 1 CAP PO BID Levothyroxine Sodium (Synthroid), 75 MCG PO QAM Magnesium Oxide (Mag-Ox), 400 MG PO HS Multivitamin (Multivitamin), 1 TAB PO QAM Omeprazole (Omeprazole), 1 TAB PO BID Simvastatin (Zocor), 20 MG PO HS Timolol Maleate (Timolol 0.5% Oph Soln 15 Ml), 1 DROP OPB BID Warfarin Sod (Jantoven), 1 MG PO 6XWK Warfarin Sod (Coumadin), 2 MG PO WK Review of Systems See HPI for pertinent positives & negatives. All other systems reviewed and were otherwise negative Physical Exam Vital Signs Date Time Temp Pulse Resp B/P (MAP) Pulse Ox O2 Delivery O2 Flow Rate FiO2 08/02/17 21:17 70 18 130/80 95 Room Air 08/02/17 19:42 36.4 80 17 123/77 94 Room Air General Appearance: WD/WN, no apparent distress Head: normocephalic, atraumatic Eyes: normal inspection, sclerae normal ENT: pharynx normal, + pertinent finding (Heart of hearing. Mucous membranes dry.) Neck: supple, trachea midline, + pertinent finding (Nontender to palpation range of motion intact) Respiratory/Chest: no respiratory distress, no accessory muscle use, + wheezing (Scattered expiratory wheezing, no rales noted) Cardiovascular: regular rate, rhythm Abdomen/GI: non tender, soft, + pertinent finding (+ Ostomy bag filled with watery brown liquid stool) Back: no CVA tenderness, + pertinent finding (Nontender to palpation) Neurologic/Psych: alert, normal mood/affect, oriented x 3 Skin: normal color, warm/dry Diagnostics Laboratory Results Results Past 24 Hours Test 08/02/17 20:30 08/02/17 22:29 Range/Units White Blood Count 15.76 4.8-10.8 K/uL Red Blood Count 5.53 4.7-6.1 M/uL Hemoglobin 16.3 14.0-18.0 g/dL Hematocrit 44.3 42-52 % Mean Corpuscular Volume 80.1 80-100 fL Mean Corpuscular Hemoglobin 29.5 25-34 pg Mean Corpuscular Hemoglobin Concent 36.8 32-36 g/dl Platelet Count 247 130-400 K/uL Mean Platelet Volume 10.6 7.4-10.4 fL Neutrophils (%) (Auto) 83.8 % Lymphocytes (%) (Auto) 5.9 % Monocytes (%) (Auto) 9.3 % Eosinophils (%) (Auto) 0.0 % Basophils (%) (Auto) 0.1 % Neutrophils # (Auto) 13.22 1.4-6.5 K/uL Lymphocytes # (Auto) 0.93 1.2-3.4 K/uL Monocytes # (Auto) 1.46 0.11-0.59 K/uL Eosinophils # (Auto) 0.00 0-0.5 K/uL Basophils # (Auto) 0.01 0-0.2 K/uL RDW Standard Deviation 44.0 36.4-46.3 fL RDW Coefficient of Variation 15.0 11.5-14.5 % Immature Granulocyte % (Auto) 0.9 % Immature Granulocyte # (Auto) 0.14 0.00-0.02 K/uL Prothrombin Time 50.2 9.0-12.0 SECONDS Prothromb Time International Ratio 4.9 0.9-1.1 Activated Partial Thromboplast Time 44.2 21.0-31.0 SECONDS Partial Thromboplastin Ratio 1.7 Urine Color DK YELLOW Urine Appearance CLOUDY CLEAR Urine pH 5.0 4.5-7.5 Urine Specific [place] 1.021 1.000-1.030 Urine Protein 1+ NEG Urine Glucose (UA) NEG NEG Urine Ketones TRACE NEG Urine Occult Blood NEG NEG Urine Nitrite NEG NEG Urine Bilirubin NEG NEG Urine Urobilinogen NEG NEG Urine Leukocyte Esterase TRACE NEG Urine WBC (Auto) 1-5 0-5 /hpf Urine RBC (Auto) 5-10 0-4 /hpf Urine Hyaline Casts (Auto) 10-30 0-5 /lpf Urine Epithelial Cells (Auto) 20-30 0-5 /lpf Urine Bacteria (Auto) NEG NEG Urine Pathogenic Casts 0-3 RBC CASTS 0 /lpf Sodium Level 122 136-145 mmol/L Potassium Level 3.9 3.5-5.1 mmol/L Chloride Level 94 98-107 mmol/L Carbon Dioxide Level 15 21-32 mmol/L Anion Gap 13.0 3-11 mmol/L Blood Urea Nitrogen 74 7-18 mg/dl Creatinine 5.85 0.60-1.40 mg/dl Est Creatinine Clear Calc Drug Dose 12.0 ml/min Estimated GFR () 9.7 Estimated GFR (Non- 8.4 BUN/Creatinine Ratio 12.8 10-20 Random Glucose 161 70-99 mg/dl Calcium Level 8.6 8.5-10.1 mg/dl Total Bilirubin 0.9 0.2-1 mg/dl Direct Bilirubin 0.5 0-0.2 mg/dl Aspartate Amino Transf (AST/SGOT) 13 15-37 U/L Alanine Aminotransferase (ALT/SGPT) 27 12-78 U/L Alkaline Phosphatase 48 45-117 U/L Total Protein 8.1 6.4-8.2 gm/dl Albumin 3.7 3.4-5.0 gm/dl Lipase 461 73-393 U/L Osmolality 285 280-300 mOsm/kg Microbiology Results 08/02/17 C.difficile Toxin B Gene (PCR) - Final, Complete No C. difficile toxin B gene detected Diagnostic Radiology CXR: IMPRESSION: 1. Mild cardiomegaly. No other convincing evidence of acute cardiopulmonary disease. Impression Assessment and Plan Pt is 81 y/o M with PMH CAD S/P stent 1 and CABG 5, atrial fibrillation on Coumadin, DM II, HTN, HLD, hypothyroidism, CVA, CKD 4, BPH, GERD, history DVT, ileostomy presented to ER with complaint of N/V/D dizziness 3 days. NAUSEA, VOMITING, DIARRHEA Patient given Zofran, Imodium, 1 NSS in ER. No further vomiting. WBC: 15, patient afebrile. BP 130/80, P: 80. Negative C. difficile test in ER. Denies abdominal pain -Gentle IVF -May need to consider further stool studies ACUTE KIDNEY INJURY ON CKD 4 Cr: 5.8, baseline~2. Follows with [facility] -Gentle IVF -Monitor renal function -Referred nephrotoxic agents when possible HYPONATREMIA NA: 122. Probable secondary to dehydration from vomiting and diarrhea -Gentle IVF -Electrolytes HISTORY OF PAROXYSMAL ATRIAL FIBRILLATION ON ANTICOAGULATION INR: 4.9. No active bleeding. -Hold Coumadin today -INR in a.m. -On diltiazem SUPRATHERAPEUTIC INR INR: 4.9. No active bleeding. -Hold Coumadin today -INR in a.m. DM II Has been diet-controlled. H A1c: 6.2 on 07/2017. In ER Glucose 161. GERD On PPI HYPOTHYROIDISM TSH pending. On levothyroxine HX CAD S/P stent 1 and CABG 5 No CP. On aspirin, atenolol, statin BPH On Proscar DVT Prophylaxis -On Coumadin Disposition Full code as per discussion with pt Follows with Dr Marrufo for routine care Pt was seen with Dr Valentino. See addendum for further assessment and plan Resuscitation Status VTE Prophylaxis Will order VTE Prophylaxis: Yes Assessment/Plan IM ATTENDING : Patient seen and examined. History obtained from the patient and records. Preceding documentation by Ms. Alix Vick PA-C reviewed. FINAL ASSESSMENT AND PLAN as follows, 1. Acute renal failure on CRI, hyponatremia secondary to viral gastroenteritis. 2. Aspiration pneumonitis, no sepsis 3. Hypertension, stable. 4. Atrial fibrillation on Coumadin. Rate controlled, INR supratherapeutic. 4. DM2, diet controlled, well controlled as of recent outpatient HgA1c of 6.2 from July 2017. 5. Coronary artery disease, status post coronary artery bypass grafting and stenting. 6. History of cerebrovascular accident as per records 7. History of bowel surgery. 8. past tobacco abuse. PCU. Careful correction of sodium. Monitor creatinine response to IV fluids. supportive management for viral enteritis. Nephrology consult RE hyponatremia, ARF on CRI (Patient known to [facility].) Unasyn for aspiration pneumonitis ISS BG goal 140-180. PT/OT eval DVT prophylaxis, Coumadin INR 2-3. Full code.
[2017-08-03] VITALS (9 sets, daily range): BP systolic 110–144; BP diastolic 68–80; PULSE 65–89; TEMP 36.3–36.6; O2SAT 93–95; Ht 182.9 cm; Wt 94.3 kg
[2017-08-03] MEDS ORDERED: AMPICILLIN/SULBACTAM SOD INJ 3,000 MG in SODIUM CHLORIDE 0.9% 100ML 100 ML IV STA (00:19)
[2017-08-03] MEDS ORDERED: PHYTONADIONE 5 MG TAB PO STA ×2 (00:21→09:40)
[2017-08-03] MEDS ORDERED: NITROGLYCERIN 0.4 MG SL PER TAB CHARGE SL PRN (00:30)
[2017-08-03] MEDS ORDERED: DEXTROSE 50% 50 ML SYR IV PRN (00:30)
[2017-08-03] MEDS ORDERED: CARBOHYDRATES FOR HYPOGLYCEMIA PO PRN (00:30)
[2017-08-03] MEDS ORDERED: ACETAMINOPHEN 325 MG TAB PO PRN (00:30)
[2017-08-03] MEDS ORDERED: PROCHLORPERAZINE INJ 5 MG in SYRINGE 4 ML IV PRN (00:30)
[2017-08-03] MEDS ORDERED: GLUCAGON FOR INJ 1 MG VIAL SQ PRN (00:30)
[2017-08-03] MEDS ORDERED: GLUCOSE 40% GEL 15 GM TUBE PO PRN (00:30)
[2017-08-03] MEDS ORDERED: LOPERAMIDE HCL 2 MG CAP PO PRN (00:30)
[2017-08-03] MEDS ORDERED: ALBUT/IPRATROP 3MG/0.5MG NEB 3 ML VIAL INH PRN (00:30)
[2017-08-03] MEDS ORDERED: GLUCOSE 10 TABS/TUBE PO PRN (00:30)
[2017-08-03] MEDS ORDERED: HYDROmorphone INJ 0.5 MG/0.5 ML SYR IV PRN (00:30)
[2017-08-03] MEDS ORDERED: ALBUT/IPRATROP 3MG/0.5MG NEB 3 ML VIAL ONE (00:45)
[2017-08-03] MEDS ORDERED: ALBUT/IPRATROP 3MG/0.5MG NEB 3 ML VIAL INH STA (00:48)
[2017-08-03] MEDS ORDERED: INSULIN ASPART 100 UNITS/ML 3 ML PEN SC STA (00:49)
[2017-08-03] MEDS ORDERED: NSS + 20MEQ KCL 1000ML 1,000 ML IV ONE (05:45)
[2017-08-03] MEDS ORDERED: SODIUM CHLORIDE 0.9% 1000ML 1,000 ML IV ONE (05:45)
[2017-08-03 06:07] LABS: HEMOGLOBIN 15.1 g/dL (14.0-18.0); MEAN CELL VOLUME 80.2 fL (80-100); MEAN CORPUSCULAR HEMOGLOBIN 28.8 pg (25-34); MEAN PLATELET VOLUME 9.8 fL (7.4-10.4); PLATELET COUNT 214 K/uL (130-400); RED CELL DISTRIBUTION WIDTH CV 14.9 % (11.5-14.5); RED CELL DISTRIBUTION WIDTH SD 44.1 fL (36.4-46.3); WHITE BLOOD COUNT 18.74 K/uL (4.8-10.8)
[2017-08-03] MEDS: LEVOTHYROXINE 75 MCG TAB PO SCH (06:07)
[2017-08-03 06:29] LABS: BASO % 0.1 %; BASO ABS # 0.02 K/uL (0-0.2); IG# 0.16 K/uL (0.00-0.02); LYMPH % 10.3 %; LYMPH ABS # 1.93 K/uL (1.2-3.4); MONO % 4.7 %; MONO ABS # 0.89 K/uL (0.11-0.59); NEUT ABS # 15.74 K/uL (1.4-6.5)
[2017-08-03 06:37] LABS: INR 5.2 (0.9-1.1)
[2017-08-03 06:45] LABS: CREATININE 5.47 mg/dl (0.60-1.40); POTASSIUM 3.7 mmol/L (3.5-5.1)
--- NOTE | 2017-08-03 06:48 | DIAGNOSTIC IMAGING REPORT ---
HEAD WITHOUT CONTRAST (CT) CT DOSE: 691.05 mGy.cm HISTORY: Mental status change prince, dizziness TECHNIQUE: Multiaxial CT images of the head were performed without the use of intravenous contrast. A dose lowering technique was utilized adhering to the principles of ALARA. Comparison: 09/03/2016 Findings: The paranasal sinuses and mastoid air cells are clear. The calvarium and skull base are intact. The ventricles and sulci are within normal limits. There is no mass, hematoma, midline shift, or acute infarct. Age-related atrophy and chronic small vessel change Impression: No acute intracranial abnormality. Age-related atrophy and chronic small vessel change. The above report was generated using voice recognition software. It may contain grammatical, syntax or spelling errors. Electronically signed by: Earnest Nolan M.D. 08/03/2017 6:47 AM Dictated Date/Time: 08/03/2017 6:46 AM
--- NOTE | 2017-08-03 07:08 | DIAGNOSTIC IMAGING REPORT ---
CT OF THE ABDOMEN AND PELVIS WITHOUT CONTRAST CLINICAL HISTORY: Abdominal cramps and diarrhea. COMPARISON STUDY: CT of the abdomen and pelvis August 15, 2016. TECHNIQUE: Axial images of the abdomen and pelvis were obtained without IV contrast. Images were reviewed in the axial, sagittal, and coronal planes. A dose lowering technique was utilized adhering to the principles of ALARA. FINDINGS: Evaluation of the abdomen and pelvis is suboptimal on this unenhanced exam. Unenhanced images of the liver, clean and left adrenal gland are unremarkable. The right adrenal nodule is unchanged from earlier exams and is therefore benign. This likely reflects an adenoma. There may be hyperdense material within the gallbladder without evidence for acute cholecystitis. There is no biliary or pancreatic ductal dilatation. There is no hydronephrosis. No renal, ureteral or bladder calculi are present. Prostate is moderately enlarged. There are postoperative findings consistent with a subtotal colectomy with right lower quadrant ileostomy. There is no evidence for a bowel obstruction. No lymphadenopathy is present. There is extensive plaque of the aorta and branch vessels. There are no suspicious osseous lesions. Note is made of dextroscoliosis of the lumbar spine. IMPRESSION: 1. No acute process within the abdomen or pelvis on unenhanced exam. 2. 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 No bowel obstruction. 3. No hydronephrosis. 4. Possible sludge or stones within the gallbladder. No evidence for acute cholecystitis. 5. Moderate enlargement of the prostate. Electronically signed by: Sky Root M.D. 08/03/2017 7:07 AM Dictated Date/Time: 08/03/2017 6:59 AM
--- NOTE | 2017-08-03 07:16 | DIAGNOSTIC IMAGING REPORT ---
SOFT TISSUE NECK WITHOUT CLINICAL HISTORY: neck pain dyspnea TECHNIQUE: Transaxial acquisition with multi axial reformatted evaluation. COMPARISON STUDY: 09/03/2016. Swallow 07/25/2017 FINDINGS: Major salivary glands appear symmetric. The epiglottis is normal. No evidence for airway compromise. No evidence for significant or bulky cervical adenopathy. Significant atherosclerotic change of the carotid vasculature. Considerable degenerative change of the cervical spine similar to the prior exam. Small amount of material within the proximal esophagus which has been described as dysmotility of the patient's prior. Swallow. IMPRESSION: 1. Significant degenerative change cervical spine with no acute process. 2. Moderate abscess chronic change carotid vasculature. 3. No evidence for airway compromise, mass, or significant cervical adenopathy. 4. Material within the esophagus consistent with previous barium swallow findings of dysmotility The above report was generated using voice recognition software. It may contain grammatical, syntax or spelling errors. Electronically signed by: Earnest Nolan M.D. 08/03/2017 7:15 AM Dictated Date/Time: 08/03/2017 7:10 AM
--- NOTE | 2017-08-03 07:30 | HISTORY & PHYSICAL EXAMINATION ---
DATE OF ADMISSION: 08/03/2017 IM ATTENDING : Patient seen and examined. History obtained from the patient and records. Preceding documentation by Ms. Alix Vick PA-C reviewed. FINAL ASSESSMENT AND PLAN as follows, 1. Acute renal failure on CRI, hyponatremia secondary to viral gastroenteritis. 2. Aspiration pneumonitis, no sepsis 3. Hypertension, stable. 4. Atrial fibrillation on Coumadin. Rate controlled, INR supratherapeutic. 4. DM2, diet controlled, well controlled as of recent outpatient HgA1c of 6.2 from July 2017. 5. Coronary artery disease, status post coronary artery bypass grafting and stenting. 6. History of cerebrovascular accident as per records 7. History of bowel surgery. 8. past tobacco abuse. PCU. Careful correction of sodium. Monitor creatinine response to IV fluids. supportive management for viral enteritis. Nephrology consult RE hyponatremia, ARF on CRI (Patient known to [facility].) Unasyn for aspiration pneumonitis ISS BG goal 140-180. PT/OT eval DVT prophylaxis, Coumadin INR 2-3. Full code. MTDD
[2017-08-03] MEDS: TRICOR~ORDER AWAITING ACTION SCH ×2 (08:00→15:13)
[2017-08-03] MEDS: INSULIN ASPART 100 UNITS/ML 3 ML PEN SC SCH ×4 (08:12→21:00)
[2017-08-03] MEDS: ASPIRIN 81 MG ECTAB PO SCH ×2 (08:13→21:06)
[2017-08-03] MEDS: TIMOLOL MALEATE 0.5% OP SOLN 5 ML BTL OPB SCH ×2 (08:13→21:51)
[2017-08-03] MEDS: PANTOprazole SOD 40 MG TAB PO SCH ×2 (08:13→21:05)
[2017-08-03] MEDS: DILTIAZEM HCL 240 MG CAPCR PO SCH (08:14)
[2017-08-03] MEDS: FINASTERIDE 5 MG TAB PO SCH (08:14)
[2017-08-03] MEDS: GABAPENTIN 100 MG CAP PO SCH ×2 (08:15→21:07)
[2017-08-03] MEDS: MULTIVITAMIN TAB PO SCH (08:15)
[2017-08-03] MEDS ORDERED: AMPICILLIN/SULBACTAM CONSULT ACTIVE PRN (09:00)
[2017-08-03] MEDS ORDERED: BRIMONIDINE TART 0.2% OP SOLN PER DROP CHARGE OPB SCH (09:00)
[2017-08-03] MEDS ORDERED: LIDODERM (LIDOCAINE) PATCH 5% TD ONE (10:00)
--- NOTE | 2017-08-03 10:00 | Progress Note ---
Medicine Progress Note Date & Time of Visit: August 03, 2017 at 09:45. Subjective seen resting in bed, alert, comfortable states his ileostomy output seems to be slowing down since last night denies nausea, vomiting denies abdominal pain, chills no chest pain, dyspnea, palpitations, dizziness no other symptoms Objective Last 8 Hrs Date Time Temp Pulse Resp B/P (MAP) Pulse Ox O2 Delivery O2 Flow Rate FiO2 08/03/17 08:00 95 Room Air 08/03/17 07:34 36.5 80 18 144/71 (95) 95 Room Air 08/03/17 04:54 36.4 83 18 113/77 (89) 95 Room Air 08/03/17 04:00 Room Air Physical Exam: General- oriented x 3, not in distress, speaks in sentences Head- atraumatic Eyes- PERRL, EOMI, anicteric ENT- oropharynx clear Neck- supple, no JVD, no adenopathy Lungs- clear to auscultation bilaterally Heart- regular rhythm; no murmur, normal rate Abdomen- normal bowel sounds, soft, nontender, non distended ileostomy site benign: with dark, liquid output Extremities- no pretibial edema, no calf tenderness; peripheral pulses intact Neuro- alert, oriented x 3; no gross focal deficits Skin- warm & dry Laboratory Results: Last 24 Hours Test 08/02/17 20:30 08/02/17 22:29 08/03/17 00:57 08/03/17 01:44 White Blood Count 15.76 K/uL Red Blood Count 5.53 M/uL Hemoglobin 16.3 g/dL Hematocrit 44.3 % Mean Corpuscular Volume 80.1 fL Mean Corpuscular Hemoglobin 29.5 pg Mean Corpuscular Hemoglobin Concent 36.8 g/dl Platelet Count 247 K/uL Mean Platelet Volume 10.6 fL Neutrophils (%) (Auto) 83.8 % Lymphocytes (%) (Auto) 5.9 % Monocytes (%) (Auto) 9.3 % Eosinophils (%) (Auto) 0.0 % Basophils (%) (Auto) 0.1 % Neutrophils # (Auto) 13.22 K/uL Lymphocytes # (Auto) 0.93 K/uL Monocytes # (Auto) 1.46 K/uL Eosinophils # (Auto) 0.00 K/uL Basophils # (Auto) 0.01 K/uL RDW Standard Deviation 44.0 fL RDW Coefficient of Variation 15.0 % Immature Granulocyte % (Auto) 0.9 % Immature Granulocyte # (Auto) 0.14 K/uL Prothrombin Time 50.2 SECONDS Prothromb Time International Ratio 4.9 Activated Partial Thromboplast Time 44.2 SECONDS Partial Thromboplastin Ratio 1.7 Urine Color DK YELLOW Urine Appearance CLOUDY Urine pH 5.0 Urine Specific [place] 1.021 Urine Protein 1+ Urine Glucose (UA) NEG Urine Ketones TRACE Urine Occult Blood NEG Urine Nitrite NEG Urine Bilirubin NEG Urine Urobilinogen NEG Urine Leukocyte Esterase TRACE Urine WBC (Auto) 1-5 /hpf Urine RBC (Auto) 5-10 /hpf Urine Hyaline Casts (Auto) 10-30 /lpf Urine Epithelial Cells (Auto) 20-30 /lpf Urine Bacteria (Auto) NEG Urine Pathogenic Casts 0-3 RBC CASTS /lpf Urine Osmolality 314 mOms/kg Urine Random Sodium 17 mEq/L Sodium Level 122 mmol/L 125 mmol/L 125 mmol/L Potassium Level 3.9 mmol/L 3.9 mmol/L Chloride Level 94 mmol/L 100 mmol/L Carbon Dioxide Level 15 mmol/L 12 mmol/L Anion Gap 13.0 mmol/L 13.0 mmol/L Blood Urea Nitrogen 74 mg/dl 79 mg/dl Creatinine 5.85 mg/dl 5.45 mg/dl Est Creatinine Clear Calc Drug Dose 12.0 ml/min 12.9 ml/min Estimated GFR () 9.7 10.6 Estimated GFR (Non- 8.4 9.1 BUN/Creatinine Ratio 12.8 14.5 Random Glucose 161 mg/dl 159 mg/dl Calcium Level 8.6 mg/dl 8.1 mg/dl Total Bilirubin 0.9 mg/dl Direct Bilirubin 0.5 mg/dl Aspartate Amino Transf (AST/SGOT) 13 U/L Alanine Aminotransferase (ALT/SGPT) 27 U/L Alkaline Phosphatase 48 U/L Total Protein 8.1 gm/dl Albumin 3.7 gm/dl Lipase 461 U/L Osmolality 285 mOsm/kg Magnesium Level 2.1 mg/dl Total Creatine Kinase 54 U/L Thyroid Stimulating Hormone (TSH) 0.507 uIu/ml Bedside Glucose 132 mg/dl Test 08/03/17 05:57 08/03/17 07:41 White Blood Count 18.74 K/uL Red Blood Count 5.24 M/uL Hemoglobin 15.1 g/dL Hematocrit 42.0 % Mean Corpuscular Volume 80.2 fL Mean Corpuscular Hemoglobin 28.8 pg Mean Corpuscular Hemoglobin Concent 36.0 g/dl Platelet Count 214 K/uL Mean Platelet Volume 9.8 fL Neutrophils (%) (Auto) 84.0 % Lymphocytes (%) (Auto) 10.3 % Monocytes (%) (Auto) 4.7 % Eosinophils (%) (Auto) 0.0 % Basophils (%) (Auto) 0.1 % Neutrophils # (Auto) 15.74 K/uL Lymphocytes # (Auto) 1.93 K/uL Monocytes # (Auto) 0.89 K/uL Eosinophils # (Auto) 0.00 K/uL Basophils # (Auto) 0.02 K/uL RDW Standard Deviation 44.1 fL RDW Coefficient of Variation 14.9 % Immature Granulocyte % (Auto) 0.9 % Immature Granulocyte # (Auto) 0.16 K/uL Red Blood Cell Morphology Unremarkable Prothrombin Time 52.8 SECONDS Prothromb Time International Ratio 5.2 Sodium Level 125 mmol/L Potassium Level 3.7 mmol/L Chloride Level 99 mmol/L Carbon Dioxide Level 12 mmol/L Anion Gap 14.0 mmol/L Blood Urea Nitrogen 79 mg/dl Creatinine 5.47 mg/dl Est Creatinine Clear Calc Drug Dose 11.8 ml/min Estimated GFR () 10.5 Estimated GFR (Non- 9.1 BUN/Creatinine Ratio 14.4 Random Glucose 127 mg/dl Calcium Level 8.0 mg/dl Bedside Glucose 116 mg/dl Date/Time Source Procedure Growth Status 08/02/17 20:30 Stool C.difficile Toxin B Gene (PCR) - Final No C. difficile toxin B gene detected Complete 08/03/17 06:29 Urine , Clean Catch Urine Culture Pending Ordered Assessment & Plan Pt is 81 y/o M with PMH CAD S/P stent 1 and CABG 5, atrial fibrillation on Coumadin, DM II, HTN, HLD, hypothyroidism, CVA, CKD 4, BPH, GERD, history DVT, ileostomy presented to ER with complaint of N/V/D dizziness 3 days. NAUSEA, VOMITING, DIARRHEA LIKELY GASTROENTERITIS, VIRAL VS. BACTERIAL INFECTION Patient given Zofran, Imodium, 1 NSS in ER. No further vomiting. WBC: 15, patient afebrile. BP 130/80, P: 80. Negative C. difficile test in ER. Denies abdominal pain -- C diff negative stool cultures ordered -- on Unasyn for possible aspiration PNA, should cover for possible bacterial Gastroenteritis IV fluids as noted below clear liquid diet for now Imodium PRN ACUTE KIDNEY INJURY ON CKD 4 Cr: 5.8, baseline~2. Follows with Dr. Perez -- given NSS Crea 5.8 to 5.4 HCO3 still at 12 -- discussed with Dr. Wood HCO3 drip to be started HYPONATREMIA NA: 122. Probable secondary to dehydration from vomiting and diarrhea -- Na 125 Nephro consulted, appreciate the recommendations HISTORY OF PAROXYSMAL ATRIAL FIBRILLATION ON ANTICOAGULATION SUPRATHERAPEUTIC INR - rate controlled continue metoprolol INR: 4.9--> 5.2 No active bleeding. -Hold Coumadin today give Vit k 2.5mg since INR trending up - INR daily DM II Has been diet-controlled. H A1c: 6.2 on 07/2017. In ER Glucose 161. -- ISS GERD On PPI HYPOTHYROIDISM TSH normal On levothyroxine HX CAD S/P stent 1 and CABG 5 No CP. On aspirin, atenolol, statin BPH On Proscar DVT Prophylaxis HISTORY OF DVT - INR supratherapeutic Disposition Full code as per discussion with pt Follows with Dr Marrufo for routine care Disposition lives at home management of acute renal failure and diarrhea in progress Current Inpatient Medications: Current Inpatient Medications Medications (Trade) Dose Ordered Sig/Shonda Route Start Time Stop Time Status Last Admin Dose Admin Acetaminophen (Tylenol Tab) 650 mg Q4H PRN PO 08/03/17 00:30 09/02/17 00:29 Nitroglycerin (Nitrostat Tab) 0.4 mg UD PRN SL 08/03/17 00:30 09/02/17 00:29 Insulin Aspart (novoLOG ASPART) SLIDING SCALE If C... ACHS SC 08/03/17 06:30 09/02/17 06:59 Glucose (Glucose 40% Gel) 15-30 GRAMS 15 GRAMS... UD PRN PO 08/03/17 00:30 09/02/17 00:29 Glucose (Glucose Chew Tab) 4-8 Tablets 4 Tabl... UD PRN PO 08/03/17 00:30 09/02/17 00:29 Dextrose (Dextrose 50% 50ML Syringe) 25-50ML 25ML FOR ... UD PRN IV 08/03/17 00:30 09/02/17 00:29 Glucagon (Glucagon Inj) 1 mg UD PRN SQ 08/03/17 00:30 09/02/17 00:29 Carbohydrates (Carbohydrates For Hypoglycemia) 15-30 GRAMS 15 grams if BSG 54-69... UD PRN PO 08/03/17 00:30 09/02/17 00:29 Hydromorphone HCl (Dilaudid Inj) 0.5 mg Q3H PRN IV 08/03/17 00:30 08/17/17 00:29 Prochlorperazine Edisylate 5 mg/ Syringe 5 ml @ 5 mls/min Q6H PRN IV 08/03/17 00:30 09/02/17 00:29 Aspirin (Ecotrin Tab) 81 mg BID PO 08/03/17 09:00 09/02/17 08:59 08/03/17 08:13 81 MG Atenolol (Tenormin Tab) 25 mg QAM PO 08/03/17 09:00 09/02/17 08:59 08/03/17 08:14 25 MG Brimonidine Tartrate (Alphagan 0.2% Soln (PER DROP CHARGE)) 1 drop BID OPB 08/03/17 09:00 09/02/17 08:59 Diltiazem HCl (Cardizem Cd Cap) 240 mg QAM PO 08/03/17 09:00 09/02/17 08:59 08/03/17 08:14 240 MG Finasteride (Proscar Tab) 5 mg DAILY PO 08/03/17 09:00 09/02/17 08:59 08/03/17 08:14 5 MG Gabapentin (Neurontin Cap) 100 mg BID PO 08/03/17 09:00 09/02/17 08:59 08/03/17 08:15 100 MG Levothyroxine Sodium (Synthroid Tab) 75 mcg DAILYBB PO 08/03/17 06:30 09/02/17 06:29 08/03/17 06:07 75 MCG Multivitamins (Multivitamin Tab) 1 tab QAM PO 08/03/17 09:00 09/02/17 08:59 5/4/18 08:15 1 TAB Simvastatin (Zocor Tab) 20 mg HS PO 08/03/17 21:00 09/02/17 20:59 Timolol Maleate (Timoptic 0.5% Oph Soln) 1 drops BID OPB 08/03/17 09:00 09/02/17 08:59 08/03/17 08:13 1 DROPS Miscellaneous Information (Order Awaiting Action) 1 ea QS N/A 08/03/17 08:00 09/02/17 07:59 Pantoprazole Sodium (Protonix Tab) 40 mg BID PO 08/03/17 09:00 09/02/17 08:59 08/03/17 08:13 40 MG Oxycodone/ Acetaminophen (Percocet 5-325mg Tab) 1 tab Q6H PRN PO 08/03/17 00:30 08/17/17 00:29 Albuterol/ Ipratropium (Duoneb) 3 ml Q2H PRN INH 08/03/17 00:30 09/02/17 00:29 Loperamide HCl (Imodium Cap) 2 mg UD PRN PO 08/03/17 00:30 09/02/17 00:29 Ampicillin Sodium/ Sulbactam Sodium (Consult) 1 ea DAILY PRN N/A 08/03/17 09:00 09/02/17 08:59 Ampicillin Sodium/ Sulbactam Sodium 3000 mg/Sodium Chloride 108 ml @ 200 mls/hr Q24H IV 08/04/17 00:00 08/09/17 00:33 Potassium Chloride/Sodium Chloride 1,000 ml @ 60 mls/hr [id number] ONCE IV 08/03/17 05:45 08/03/17 22:24 08/03/17 06:07 60 MLS/HR
[2017-08-03] MEDS: SODIUM BICARBONATE 8.4% INJ 150 MEQ, POTASSIUM CHLORIDE INJ 20 MEQ in DEXTROSE 5% 1000M... IV SCH (11:12)
[2017-08-03] MEDS ORDERED: NURSING VERBAL MED ORDER ONE (11:30)
--- NOTE | 2017-08-03 13:04 | Nephrology Consultation ---
Nephrology Consultation Date of Consultation: August 03, 2017. Attending Physician: Dr Wilson Requesting Physician: Dr Solano Reason for Consultation: MIAH on CKD; hyponatremia History of Present Illness 81 year old male w/ CKD 4 baseline creatinine 2, DM, 2012 stroke w/ residual R sided weakness, ileostomy admitted yesterday w/ MIAH on CKD and hyponatremia after presenting w/ 3 days of N/V/increased watery osteomy output. He was changing ostomy bag every hour >> usually changes 3-4 times daily. Also had presyncopal sx, worsening weakness and decreased UOP. Other PMH includes A fib on coumadin, CAD s/p 5V CABG, stent, hypothyroid, DVT, esophageal dysmotility, prostatic hypertrophy. C diff is negative. His presenting creatinine was 5.8 w/ sNa 122; w/ hydration, he has improved to creatinine 5.5 this AM w/ SNa 125. His bicarb was 15 on presentation and has dropped to 12. His serum osm were normal on presentation. Rd urine Na was 17 w/ urine osms low 300s. his baseline creatinine in [facility] records is low 2's. He follows w/ Dr. Perez in CKD clinic. His family is at beside today. he was getting ns w/ K. coughing since admission have improved; prior to admission had decreased UOP and lightheadedness. His R neck is sore today (yesterday was his L neck). 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 anastomosis creation, ileal reservoir including loop ileostomy -hypothyroid -hx stones -hx BL carotid stenosis -HL -s/p lumbar surgery, hernia repair Family History Diabetes mellitus FH: cancer FH: heart disease Social History Smoking Status: Former Smoker Alcohol Use: none Drug Use: none Marital Status: Housing Status: lives with family Occupation Status: retired Allergies Coded Allergies: Codeine (Verified Allergy, Intermediate, ITCHING, 08/02/17) Tramadol (Verified Allergy, Intermediate, ITCHING, 08/02/17) Hydrocodone (Verified Adverse Reaction, Intermediate, NAUSEA, 08/02/17) Medications Current Inpatient Medications Medications (Trade) Dose Ordered Sig/Shonda Route Start Time Stop Time Status Last Admin Dose Admin Acetaminophen (Tylenol Tab) 650 mg Q4H PRN PO 08/03/17 00:30 09/02/17 00:29 Nitroglycerin (Nitrostat Tab) 0.4 mg UD PRN SL 08/03/17 00:30 09/02/17 00:29 Insulin Aspart (novoLOG ASPART) SLIDING SCALE If C... ACHS SC 08/03/17 06:30 09/02/17 06:59 Glucose (Glucose 40% Gel) 15-30 GRAMS 15 GRAMS... UD PRN PO 08/03/17 00:30 09/02/17 00:29 Glucose (Glucose Chew Tab) 4-8 Tablets 4 Tabl... UD PRN PO 08/03/17 00:30 09/02/17 00:29 Dextrose (Dextrose 50% 50ML Syringe) 25-50ML 25ML FOR ... UD PRN IV 08/03/17 00:30 09/02/17 00:29 Glucagon (Glucagon Inj) 1 mg UD PRN SQ 08/03/17 00:30 09/02/17 00:29 Carbohydrates (Carbohydrates For Hypoglycemia) 15-30 GRAMS 15 grams if BSG 54-69... UD PRN PO 08/03/17 00:30 09/02/17 00:29 Hydromorphone HCl (Dilaudid Inj) 0.5 mg Q3H PRN IV 08/03/17 00:30 08/17/17 00:29 Prochlorperazine Edisylate 5 mg/ Syringe 5 ml @ 5 mls/min Q6H PRN IV 08/03/17 00:30 09/02/17 00:29 Aspirin (Ecotrin Tab) 81 mg BID PO 08/03/17 09:00 09/02/17 08:59 08/03/17 08:13 81 MG Atenolol (Tenormin Tab) 25 mg QAM PO 08/03/17 09:00 09/02/17 08:59 08/03/17 08:14 25 MG Brimonidine Tartrate (Alphagan 0.2% Soln (PER DROP CHARGE)) 1 drop BID OPB 08/03/17 09:00 09/02/17 08:59 Diltiazem HCl (Cardizem Cd Cap) 240 mg QAM PO 08/03/17 09:00 09/02/17 08:59 08/03/17 08:14 240 MG Finasteride (Proscar Tab) 5 mg DAILY PO 08/03/17 09:00 09/02/17 08:59 08/03/17 08:14 5 MG Gabapentin (Neurontin Cap) 100 mg BID PO 08/03/17 09:00 09/02/17 08:59 08/03/17 08:15 100 MG Levothyroxine Sodium (Synthroid Tab) 75 mcg DAILYBB PO 08/03/17 06:30 09/02/17 06:29 08/03/17 06:07 75 MCG Multivitamins (Multivitamin Tab) 1 tab QAM PO 08/03/17 09:00 09/02/17 08:59 08/03/17 08:15 1 TAB Simvastatin (Zocor Tab) 20 mg HS PO 08/03/17 21:00 09/02/17 20:59 Timolol Maleate (Timoptic 0.5% Oph Soln) 1 drops BID OPB 08/03/17 09:00 09/02/17 08:59 08/03/17 08:13 1 DROPS Miscellaneous Information (Order Awaiting Action) 1 ea QS N/A 08/03/17 08:00 09/02/17 07:59 Pantoprazole Sodium (Protonix Tab) 40 mg BID PO 08/03/17 09:00 09/02/17 08:59 08/03/17 08:13 40 MG Oxycodone/ Acetaminophen (Percocet 5-325mg Tab) 1 tab Q6H PRN PO 08/03/17 00:30 08/17/17 00:29 Albuterol/ Ipratropium (Duoneb) 3 ml Q2H PRN INH 08/03/17 00:30 09/02/17 00:29 Loperamide HCl (Imodium Cap) 2 mg UD PRN PO 08/03/17 00:30 09/02/17 00:29 Ampicillin Sodium/ Sulbactam Sodium (Consult) 1 ea DAILY PRN N/A 08/03/17 09:00 09/02/17 08:59 Ampicillin Sodium/ Sulbactam Sodium 3000 mg/Sodium Chloride 108 ml @ 200 mls/hr Q24H IV 08/04/17 00:00 08/09/17 00:33 Potassium Chloride/Sodium Chloride 1,000 ml @ 60 mls/hr [id number] ONCE IV 08/03/17 05:45 08/03/17 22:24 08/03/17 06:07 60 MLS/HR Sodium Bicarbonate 150 meq/Potassium Chloride 20 meq/ Dextrose 1,160 ml @ 75 mls/hr [id number] IV 08/03/17 10:45 09/02/17 10:44 Lidocaine (Lidoderm Patch 5%) 1 patch QAM TD 08/04/17 09:00 09/03/17 08:59 Miscellaneous (Remove Lidoderm Patch) 1 ea DAILY@21 N/A 08/03/17 21:00 09/02/17 20:59 Home Meds and Scripts Medications Dose Route/Sig Max Daily Dose Days Date Category Dose Instructions Timolol 0.5% Oph Soln 15 Ml (Timolol Maleate) 15 Ml Soln 1 Drop OPB BID 08/02/17 Reported Omeprazole 20 Mg Tab 1 Tab PO BID 90 08/02/17 Reported Gabapentin 100 Mg Cap 1 Cap PO BID 08/02/17 Reported Lasix (Furosemide) 20 Mg Tab 20 Mg PO UD 08/02/17 Reported sat, sun, sun Brimonidine Tartrate 0.2 % Angeli 1 Drop OPB BID 08/02/17 Reported Coumadin (Warfarin Sod) 1 Mg Tab 2 Mg PO WK 08/02/17 Reported TAKES ON WEDNESDAYS ONLY Tricor (Fenofibrate Micronized) 134 Mg Cap 134 Mg PO QPM 08/02/17 Reported Jantoven (Warfarin Sodium) 1 Mg Tab 1 Mg PO [id number] 01/03/17 Reported TAKES EVERY DAY EXCEPT WEDNESDAYS Atenolol 25 Mg Tab 25 Mg PO QAM 11/06/16 Reported Vitamin D3 (Cholecalciferol) 1,000 Unit Cap 1,000 Units PO QPM 09/03/16 Reported Proscar (Finasteride) 5 Mg Tab 5 Mg PO DAILY AT NOON 09/30/14 Reported Synthroid (Levothyroxine Sodium) 75 Mcg Tab 75 Mcg PO QAM 08/17/14 Reported Mag-Ox (Magnesium Oxide) 400 Mg Tab 400 Mg PO HS 08/17/14 Reported Zocor (Simvastatin) 20 Mg Tab 20 Mg PO HS 08/17/14 Reported Aspirin 81 (Aspirin) 81 Mg Tab 81 Mg PO BID 08/17/14 Reported Diltiazem Cd (Diltiazem Hcl Coated Beads) 240 Mg Cap 240 Mg PO QAM 08/17/14 Reported Multivitamin (Multivitamins) Tab 1 Tab PO QAM 08/17/14 Reported Review of Systems Constitutional: + weakness, + fatigue, No fever Eyes: No worsening of vision ENT: No hearing loss Respiratory: + see HPI, + cough, No shortness of breath, No dyspnea at rest Cardiac: No chest pain, No edema, No palpitations Abdomen: + see HPI, No pain Musculoskeletal: + see HPI, + muscle pain, No joint pain Male : + see HPI, No hematuria Neuro: + weakness, + balance problems, No memory loss Psych: No depression symptoms, No anxiety Heme: No abnormal bleeding/bruising Endo: + fatigue Skin: No rash, No itch Physical Exam Date Time Temp Pulse Resp B/P (MAP) Pulse Ox O2 Delivery O2 Flow Rate FiO2 08/03/17 08:00 95 Room Air 08/03/17 07:34 36.5 80 18 144/71 (95) 95 Room Air 08/03/17 04:54 36.4 83 18 113/77 (89) 95 Room Air 08/03/17 04:00 Room Air 08/03/17 01:35 36.6 77 20 141/80 95 Room Air 08/03/17 00:57 36.4 73 18 135/68 95 08/03/17 00:09 73 18 135/68 95 Room Air 08/02/17 23:00 72 18 127/91 95 Room Air 08/02/17 22:00 76 18 125/76 97 Room Air 08/02/17 21:17 70 18 130/80 95 Room Air 08/02/17 19:42 36.4 80 17 123/77 94 Room Air General Appearance: WD/WN, no apparent distress (on RA, oriented x 3; ? insight ) Eyes: EOMI ENT: hearing grossly normal Neck: supple Respiratory/Chest: + decreased breath sounds, + crackles (BL bases), + rhonchi (BL bases) Cardiovascular: regular rate, rhythm, no edema Abdomen: normal bowel sounds, non tender, soft Extremities: no pedal edema Neurologic/Psych: alert, normal mood/affect, oriented x 3 (?insight) Skin: no jaundice, warm/dry, no rash, + pallor Diagnostics Last 24 Hours Test 08/02/17 20:30 08/02/17 22:29 08/03/17 00:57 08/03/17 01:44 White Blood Count 15.76 K/uL Red Blood Count 5.53 M/uL Hemoglobin 16.3 g/dL Hematocrit 44.3 % Mean Corpuscular Volume 80.1 fL Mean Corpuscular Hemoglobin 29.5 pg Mean Corpuscular Hemoglobin Concent 36.8 g/dl Platelet Count 247 K/uL Mean Platelet Volume 10.6 fL Neutrophils (%) (Auto) 83.8 % Lymphocytes (%) (Auto) 5.9 % Monocytes (%) (Auto) 9.3 % Eosinophils (%) (Auto) 0.0 % Basophils (%) (Auto) 0.1 % Neutrophils # (Auto) 13.22 K/uL Lymphocytes # (Auto) 0.93 K/uL Monocytes # (Auto) 1.46 K/uL Eosinophils # (Auto) 0.00 K/uL Basophils # (Auto) 0.01 K/uL RDW Standard Deviation 44.0 fL RDW Coefficient of Variation 15.0 % Immature Granulocyte % (Auto) 0.9 % Immature Granulocyte # (Auto) 0.14 K/uL Prothrombin Time 50.2 SECONDS Prothromb Time International Ratio 4.9 Activated Partial Thromboplast Time 44.2 SECONDS Partial Thromboplastin Ratio 1.7 Urine Color DK YELLOW Urine Appearance CLOUDY Urine pH 5.0 Urine Specific [place] 1.021 Urine Protein 1+ Urine Glucose (UA) NEG Urine Ketones TRACE Urine Occult Blood NEG Urine Nitrite NEG Urine Bilirubin NEG Urine Urobilinogen NEG Urine Leukocyte Esterase TRACE Urine WBC (Auto) 1-5 /hpf Urine RBC (Auto) 5-10 /hpf Urine Hyaline Casts (Auto) 10-30 /lpf Urine Epithelial Cells (Auto) 20-30 /lpf Urine Bacteria (Auto) NEG Urine Pathogenic Casts 0-3 RBC CASTS /lpf Urine Osmolality 314 mOms/kg Urine Random Sodium 17 mEq/L Sodium Level 122 mmol/L 125 mmol/L 125 mmol/L Potassium Level 3.9 mmol/L 3.9 mmol/L Chloride Level 94 mmol/L 100 mmol/L Carbon Dioxide Level 15 mmol/L 12 mmol/L Anion Gap 13.0 mmol/L 13.0 mmol/L Blood Urea Nitrogen 74 mg/dl 79 mg/dl Creatinine 5.85 mg/dl 5.45 mg/dl Est Creatinine Clear Calc Drug Dose 12.0 ml/min 12.9 ml/min Estimated GFR () 9.7 10.6 Estimated GFR (Non- 8.4 9.1 BUN/Creatinine Ratio 12.8 14.5 Random Glucose 161 mg/dl 159 mg/dl Calcium Level 8.6 mg/dl 8.1 mg/dl Total Bilirubin 0.9 mg/dl Direct Bilirubin 0.5 mg/dl Aspartate Amino Transf (AST/SGOT) 13 U/L Alanine Aminotransferase (ALT/SGPT) 27 U/L Alkaline Phosphatase 48 U/L Total Protein 8.1 gm/dl Albumin 3.7 gm/dl Lipase 461 U/L Osmolality 285 mOsm/kg Magnesium Level 2.1 mg/dl Total Creatine Kinase 54 U/L Thyroid Stimulating Hormone (TSH) 0.507 uIu/ml Bedside Glucose 132 mg/dl Test 08/03/17 05:57 08/03/17 07:41 White Blood Count 18.74 K/uL Red Blood Count 5.24 M/uL Hemoglobin 15.1 g/dL Hematocrit 42.0 % Mean Corpuscular Volume 80.2 fL Mean Corpuscular Hemoglobin 28.8 pg Mean Corpuscular Hemoglobin Concent 36.0 g/dl Platelet Count 214 K/uL Mean Platelet Volume 9.8 fL Neutrophils (%) (Auto) 84.0 % Lymphocytes (%) (Auto) 10.3 % Monocytes (%) (Auto) 4.7 % Eosinophils (%) (Auto) 0.0 % Basophils (%) (Auto) 0.1 % Neutrophils # (Auto) 15.74 K/uL Lymphocytes # (Auto) 1.93 K/uL Monocytes # (Auto) 0.89 K/uL Eosinophils # (Auto) 0.00 K/uL Basophils # (Auto) 0.02 K/uL RDW Standard Deviation 44.1 fL RDW Coefficient of Variation 14.9 % Immature Granulocyte % (Auto) 0.9 % Immature Granulocyte # (Auto) 0.16 K/uL Red Blood Cell Morphology Unremarkable Prothrombin Time 52.8 SECONDS Prothromb Time International Ratio 5.2 Sodium Level 125 mmol/L Potassium Level 3.7 mmol/L Chloride Level 99 mmol/L Carbon Dioxide Level 12 mmol/L Anion Gap 14.0 mmol/L Blood Urea Nitrogen 79 mg/dl Creatinine 5.47 mg/dl Est Creatinine Clear Calc Drug Dose 11.8 ml/min Estimated GFR () 10.5 Estimated GFR (Non- 9.1 BUN/Creatinine Ratio 14.4 Random Glucose 127 mg/dl Calcium Level 8.0 mg/dl Bedside Glucose 116 mg/dl Diagnostic Radiology: CT abdomen/pelvis non con 1. No acute process within the abdomen or pelvis on unenhanced exam. 2. 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 No bowel obstruction. 3. No hydronephrosis. 4. Possible sludge or stones within the gallbladder. No evidence for acute cholecystitis. 5. Moderate enlargement of the prostate. CT neck non con 1. Significant degenerative change cervical spine with no acute process. 2. Moderate abscess chronic change carotid vasculature. 3. No evidence for airway compromise, mass, or significant cervical adenopathy. 4. Material within the esophagus consistent with previous barium swallow findings of dysmotility CXR no acute cardiopulm disease Head CT no acute process Assessment & Plan 81 year old male w/ CKD 4 baseline creatinine low 2's, DM, 2012 stroke w/ residual R sided weakness, ileostomy admitted / w/ MIAH on CKD and hyponatremia after presenting w/ 3 days of N/V/increased watery osteomy output. Presenting creatinine and Na 5.8 and 122 respectively. MIAH on CKD 4 w/ acidosis probably mixed (renal failure AG + high ostomy output) -he had NS w/ K in ER >> changed to D5W w/ 150 mEq sodium bicarbonate at 80 mid morning though this did not start running until about noon -will recheck bmp 1400 (order in) -no acute indication for dialysis at this time; cannot rule out need this admission; I did at least mention this to pt and his family but hope he will respond to hydration; >10 minutes was spent discussing his baseline renal function, concern that he may or may not respond to resuscitation, need to discuss other goals of care if not -low threshold for ABG if he decompensates clinically given acid base status; do not believe one needed now Hyponatremia, presume hypovolemic hyponatremia based on hx, urine studies; serum osms is outlier, may reflect dehydration -follow Na as above -keep K near 4 -goal sNa in am is 131 if possible Appreciate c/s; will follow w/ you. Care coordinated w/ Dr. Wilson
[2017-08-03 14:34] LABS: CALCIUM 8.1 mg/dl (8.5-10.1); CREATININE 5.46 mg/dl (0.60-1.40); POTASSIUM 3.6 mmol/L (3.5-5.1)
[2017-08-03] MEDS: SIMVASTATIN 20 MG TAB PO SCH (21:05)
[2017-08-03 21:51] LABS: CALCIUM 7.7 mg/dl (8.5-10.1); CREATININE 5.35 mg/dl (0.60-1.40); POTASSIUM 3.6 mmol/L (3.5-5.1)
[2017-08-03] MEDS: BRIMONIDINE TARTRATE 0.2% 5ML OPB SCH ×2 (21:51→21:56)
[2017-08-04] MEDS ORDERED: AMPICILLIN/SULBACTAM SOD INJ 3,000 MG in SODIUM CHLORIDE 0.9% 100ML 100 ML IV SCH ×2
[2017-08-04 00:36] LABS: OSMOLALITY,URINE 410 mOms/kg (500-800)
[2017-08-04 00:39] LABS: SODIUM RANDOM URINE 10 mEq/L
[2017-08-04] MEDS: SODIUM BICARBONATE 8.4% INJ 150 MEQ, POTASSIUM CHLORIDE INJ 20 MEQ in DEXTROSE 5% 1000M... IV SCH (02:14)
[2017-08-04 03:21] VITALS: BP 116/66; PULSE 64; TEMP 36.6; O2SAT 95
[2017-08-04] MEDS: LEVOTHYROXINE 75 MCG TAB PO SCH (06:14)
[2017-08-04 07:07] VITALS: BP 144/81; PULSE 69; TEMP 36.4; O2SAT 96
[2017-08-04] MEDS: TRICOR~ORDER AWAITING ACTION SCH ×4 (08:00→23:08)
[2017-08-04 08:03] LABS: BASO % 0.1 %; BASO ABS # 0.01 K/uL (0-0.2); HEMATOCRIT 37.3 % (42-52); HEMOGLOBIN 13.8 g/dL (14.0-18.0); IG# 0.15 K/uL (0.00-0.02); LYMPH % 13.1 %; LYMPH ABS # 1.86 K/uL (1.2-3.4); MEAN CELL VOLUME 79.4 fL (80-100); MEAN CORPUSCULAR HEMOGLOBIN 29.4 pg (25-34); MEAN PLATELET VOLUME 10.5 fL (7.4-10.4); MONO % 6.5 %; MONO ABS # 0.93 K/uL (0.11-0.59); NEUT % 79.2 %; PLATELET COUNT 185 K/uL (130-400); RED CELL DISTRIBUTION WIDTH CV 14.8 % (11.5-14.5); WHITE BLOOD COUNT 14.25 K/uL (4.8-10.8)
[2017-08-04] MEDS: PANTOprazole SOD 40 MG TAB PO SCH ×2 (08:06→20:43)
[2017-08-04] MEDS: ASPIRIN 81 MG ECTAB PO SCH ×2 (08:06→20:42)
[2017-08-04] MEDS: FINASTERIDE 5 MG TAB PO SCH (08:06)
[2017-08-04] MEDS: MULTIVITAMIN TAB PO SCH (08:06)
[2017-08-04] MEDS: DILTIAZEM HCL 240 MG CAPCR PO SCH (08:06)
[2017-08-04] MEDS: GABAPENTIN 100 MG CAP PO SCH ×2 (08:06→20:41)
[2017-08-04] MEDS: TIMOLOL MALEATE 0.5% OP SOLN 5 ML BTL OPB SCH ×2 (08:07→20:40)
[2017-08-04] MEDS: INSULIN ASPART 100 UNITS/ML 3 ML PEN SC SCH ×4 (08:13→20:38)
[2017-08-04] MEDS: LIDODERM (LIDOCAINE) PATCH 5% TD SCH (08:13)
[2017-08-04 08:22] LABS: INR 6.3 (0.9-1.1)
[2017-08-04] MEDS ORDERED: PHYTONADIONE 5 MG TAB PO STA (08:34)
[2017-08-04 08:40] LABS: CALCIUM 7.8 mg/dl (8.5-10.1); CREATININE 5.16 mg/dl (0.60-1.40); POTASSIUM 3.4 mmol/L (3.5-5.1)
[2017-08-04] MEDS ORDERED: CYCLOBENZAPRINE HCL 5 MG TAB PO ONE (09:05)
[2017-08-04] MEDS ORDERED: CYCLOBENZAPRINE HCL 5 MG TAB PO PRN (09:15)
--- NOTE | 2017-08-04 09:23 | Progress Note ---
Medicine Progress Note Date & Time of Visit: August 04, 2017 at 09:16. Subjective seen resting in bed alert, oriented x 3, comfortable states he feels dizzy with standing today still has increased ileostomy output- liquid, denies abdominal pain/cramps, nausea, chills no chest pain, dyspnea, palpitations still has neck pain- worse with movement, denies radiation of pain no other symptoms Objective Last 8 Hrs Date Time Temp Pulse Resp B/P (MAP) Pulse Ox O2 Delivery O2 Flow Rate FiO2 08/04/17 07:07 36.4 69 17 144/81 (102) 96 Room Air 08/04/17 04:03 Room Air 08/04/17 03:21 36.6 64 18 116/66 (83) 95 Room Air Physical Exam: General- oriented x 3, not in distress, speaks in sentences Eyes- anicteric Neck- supple, no JVD Lungs- clear breath sounds bilaterally Heart- regular rhythm; no murmur, normal rate Abdomen- normal bowel sounds, soft, nontender, non distended ileostomy site benign: with pink, liquid output Extremities- no pretibial edema, no calf tenderness; peripheral pulses intact Neuro- alert, oriented x 3; no gross focal deficits Skin- warm & dry Laboratory Results: Last 24 Hours Test 08/03/17 11:37 08/03/17 13:47 08/03/17 16:44 08/03/17 20:24 Bedside Glucose 123 mg/dl 139 mg/dl 134 mg/dl Sodium Level 125 mmol/L Potassium Level 3.6 mmol/L Chloride Level 100 mmol/L Carbon Dioxide Level 11 mmol/L Anion Gap 14.0 mmol/L Blood Urea Nitrogen 80 mg/dl Creatinine 5.46 mg/dl Est Creatinine Clear Calc Drug Dose 11.8 ml/min Estimated GFR () 10.5 Estimated GFR (Non- 9.1 BUN/Creatinine Ratio 14.6 Random Glucose 151 mg/dl Calcium Level 8.1 mg/dl Test 08/03/17 20:42 08/04/17 00:10 08/04/17 07:32 08/04/17 07:41 Sodium Level 123 mmol/L 125 mmol/L Potassium Level 3.6 mmol/L 3.4 mmol/L Chloride Level 96 mmol/L 94 mmol/L Carbon Dioxide Level 15 mmol/L 19 mmol/L Anion Gap 12.0 mmol/L 12.0 mmol/L Blood Urea Nitrogen 83 mg/dl 84 mg/dl Creatinine 5.35 mg/dl 5.16 mg/dl Est Creatinine Clear Calc Drug Dose 12.1 ml/min 13.5 ml/min Estimated GFR () 10.8 11.3 Estimated GFR (Non- 9.3 9.7 BUN/Creatinine Ratio 15.4 16.4 Random Glucose 127 mg/dl 126 mg/dl Calcium Level 7.7 mg/dl 7.8 mg/dl Urine Osmolality 410 mOms/kg Urine Random Sodium 10 mEq/L White Blood Count 14.25 K/uL Red Blood Count 4.70 M/uL Hemoglobin 13.8 g/dL Hematocrit 37.3 % Mean Corpuscular Volume 79.4 fL Mean Corpuscular Hemoglobin 29.4 pg Mean Corpuscular Hemoglobin Concent 37.0 g/dl Platelet Count 185 K/uL Mean Platelet Volume 10.5 fL Neutrophils (%) (Auto) 79.2 % Lymphocytes (%) (Auto) 13.1 % Monocytes (%) (Auto) 6.5 % Eosinophils (%) (Auto) 0.0 % Basophils (%) (Auto) 0.1 % Neutrophils # (Auto) 11.30 K/uL Lymphocytes # (Auto) 1.86 K/uL Monocytes # (Auto) 0.93 K/uL Eosinophils # (Auto) 0.00 K/uL Basophils # (Auto) 0.01 K/uL RDW Standard Deviation 43.0 fL RDW Coefficient of Variation 14.8 % Immature Granulocyte % (Auto) 1.1 % Immature Granulocyte # (Auto) 0.15 K/uL Prothrombin Time 63.9 SECONDS Prothromb Time International Ratio 6.3 Osmolality 285 mOsm/kg Triglycerides Level 296 mg/dl Cholesterol Level 110 mg/dl HDL Cholesterol 30 mg/dl LDL Cholesterol, Calculated 21 mg/dl VLDL Cholesterol, Calculated 59 mg/dl Cholesterol/HDL Ratio 3.7 Bedside Glucose 142 mg/dl Date/Time Source Procedure Growth Status 08/03/17 14:15 Stool Shiga Toxin Test Pending Received 08/03/17 14:15 Stool Stool Culture Pending Received 08/03/17 13:28 Urine , Clean Catch Urine Culture Pending Received Assessment & Plan Pt is 81 y/o M with PMH CAD S/P stent 1 and CABG 5, atrial fibrillation on Coumadin, DM II, HTN, HLD, hypothyroidism, CVA, CKD 4, BPH, GERD, history DVT, ileostomy presented to ER with complaint of N/V/D dizziness 3 days. NAUSEA, VOMITING, DIARRHEA LIKELY GASTROENTERITIS, VIRAL VS. BACTERIAL INFECTION HISTORY OF ILEOSTOMY PLACEMENT -- C diff negative stool cultures pending -- still has increased ileostomy output -- on Unasyn for possible aspiration PNA--> change to Cipro IV fluids as noted below will try to advance diet to soft diet Imodium PRN will consult GI ACUTE KIDNEY INJURY ON CKD 4 Cr: 5.8, baseline~2. Follows with Dr. Perez -- given NSS Crea only slightly improved to 5.1 HCO3 improved to 19 -- on HCO3 drip appreciate Dr. Wood's input HYPONATREMIA, HYPOVOLEMIC NA: 122. Probable secondary to dehydration from vomiting and diarrhea -- Na 125 Nephro consulted, appreciate the recommendations HISTORY OF PAROXYSMAL ATRIAL FIBRILLATION ON ANTICOAGULATION SUPRATHERAPEUTIC INR - rate controlled continue metoprolol INR: 4.9--> 5.2--> 6 No active bleeding. -Hold Coumadin today give another Vit k 2.5mg since INR trending up - INR daily DM II Has been diet-controlled. H A1c: 6.2 on 07/2017. In ER Glucose 161. -- ISS GERD On PPI HYPOTHYROIDISM TSH normal On levothyroxine HX CAD S/P stent 1 and CABG 5 No CP. On aspirin, atenolol, statin BPH On Proscar DVT Prophylaxis HISTORY OF DVT - INR supratherapeutic Disposition Full code as per discussion with pt Follows with Dr Marrufo for routine care Disposition lives at home management of acute renal failure and diarrhea in progress Current Inpatient Medications: Current Inpatient Medications Medications (Trade) Dose Ordered Sig/Shonda Route Start Time Stop Time Status Last Admin Dose Admin Nitroglycerin (Nitrostat Tab) 0.4 mg UD PRN SL 08/03/17 00:30 09/02/17 00:29 Insulin Aspart (novoLOG ASPART) SLIDING SCALE If C... ACHS SC 08/03/17 06:30 09/02/17 06:59 Glucose (Glucose 40% Gel) 15-30 GRAMS 15 GRAMS... UD PRN PO 08/03/17 00:30 09/02/17 00:29 Glucose (Glucose Chew Tab) 4-8 Tablets 4 Tabl... UD PRN PO 08/03/17 00:30 09/02/17 00:29 Dextrose (Dextrose 50% 50ML Syringe) 25-50ML 25ML FOR ... UD PRN IV 08/03/17 00:30 09/02/17 00:29 Glucagon (Glucagon Inj) 1 mg UD PRN SQ 08/03/17 00:30 09/02/17 00:29 Carbohydrates (Carbohydrates For Hypoglycemia) 15-30 GRAMS 15 grams if BSG 54-69... UD PRN PO 08/03/17 00:30 09/02/17 00:29 Hydromorphone HCl (Dilaudid Inj) 0.5 mg Q3H PRN IV 08/03/17 00:30 08/17/17 00:29 Prochlorperazine Edisylate 5 mg/ Syringe 5 ml @ 5 mls/min Q6H PRN IV 08/03/17 00:30 09/02/17 00:29 Aspirin (Ecotrin Tab) 81 mg BID PO 08/03/17 09:00 09/02/17 08:59 08/04/17 08:06 81 MG Atenolol (Tenormin Tab) 25 mg QAM PO 08/03/17 09:00 09/02/17 08:59 08/04/17 08:06 25 MG Diltiazem HCl (Cardizem Cd Cap) 240 mg QAM PO 08/03/17 09:00 09/02/17 08:59 08/04/17 08:06 240 MG Finasteride (Proscar Tab) 5 mg DAILY PO 08/03/17 09:00 09/02/17 08:59 08/04/17 08:06 5 MG Gabapentin (Neurontin Cap) 100 mg BID PO 08/03/17 09:00 09/02/17 08:59 08/04/17 08:06 100 MG Levothyroxine Sodium (Synthroid Tab) 75 mcg DAILYBB PO 08/03/17 06:30 09/02/17 06:29 08/04/17 06:14 75 MCG Multivitamins (Multivitamin Tab) 1 tab QAM PO 08/03/17 09:00 09/02/17 08:59 08/04/17 08:06 1 TAB Simvastatin (Zocor Tab) 20 mg HS PO 08/03/17 21:00 09/02/17 20:59 08/03/17 21:05 20 MG Timolol Maleate (Timoptic 0.5% Oph Soln) 1 drops BID OPB 08/03/17 09:00 09/02/17 08:59 08/04/17 08:07 1 DROPS Miscellaneous Information (Order Awaiting Action) 1 ea QS N/A 08/03/17 08:00 09/02/17 07:59 Pantoprazole Sodium (Protonix Tab) 40 mg BID PO 08/03/17 09:00 09/02/17 08:59 08/04/17 08:06 40 MG Oxycodone/ Acetaminophen (Percocet 5-325mg Tab) 1 tab Q6H PRN PO 08/03/17 00:30 08/17/17 00:29 Albuterol/ Ipratropium (Duoneb) 3 ml Q2H PRN INH 08/03/17 00:30 09/02/17 00:29 Loperamide HCl (Imodium Cap) 2 mg UD PRN PO 08/03/17 00:30 09/02/17 00:29 Sodium Bicarbonate 150 meq/Potassium Chloride 20 meq/ Dextrose 1,160 ml @ 75 mls/hr [id number] IV 08/03/17 10:45 09/02/17 10:44 08/04/17 02:14 75 MLS/HR Lidocaine (Lidoderm Patch 5%) 1 patch QAM TD 08/04/17 09:00 09/03/17 08:59 08/04/17 08:13 1 PATCH Miscellaneous (Remove Lidoderm Patch) 1 ea DAILY@21 N/A 08/03/17 21:00 09/02/17 20:59 08/03/17 21:08 1 EA Brimonidine Tartrate (Alphagan 0.2% Soln) 1 drops BID OPB 08/04/17 09:00 09/03/17 08:59 08/03/17 21:51 1 DROPS Brimonidine Tartrate (Alphagan 0.2% Soln) 1 drops TODAY@2200 OPB 08/03/17 22:00 09/02/17 21:59 08/03/17 21:56 1 DROPS Acetaminophen (Tylenol Tab) 650 mg Q8H PO 08/04/17 09:30 09/02/17 00:29 UNV Cyclobenzaprine HCl (Flexeril Tab) 5 mg BID PRN PO 08/04/17 09:15 09/03/17 09:14 UNV Cyclobenzaprine HCl (Flexeril Tab) 5 mg 0905 ONCE PO 08/04/17 09:05 08/04/17 09:06 UNV Miscellaneous Information (Pharmacy Consult) 1 ea NOW STAT N/A 08/04/17 09:05 08/04/17 09:06 UNV Loperamide HCl (Imodium Cap) 2 mg NOW STAT PO 08/04/17 09:05 08/04/17 09:06 UNV
[2017-08-04] MEDS ORDERED: LOPERAMIDE HCL 2 MG CAP PO ONE (09:30)
[2017-08-04] MEDS ORDERED: CIPROFLOXACIN CONSULT ACTIVE PRN (09:30)
[2017-08-04] MEDS ORDERED: POTASSIUM CHLORIDE PWD 20 MEQ PACK PO ONE (09:52)
[2017-08-04] MEDS: CIPROFLOXACIN 400MG / D5W IV SCH (09:59)
[2017-08-04] MEDS: ACETAMINOPHEN 325 MG TAB PO SCH ×3 (09:59→19:10)
--- NOTE | 2017-08-04 10:00 | Nephrology Progress Note ---
Nephrology Progress Note Date of Service: August 04, 2017. Subjective had some AF w/ controlled HR ON; c/o ongoing neck pain and back pain. no sob; no n/v; no further dizziness; still high ostomy output Objective Date Time Temp Pulse Resp B/P (MAP) Pulse Ox O2 Delivery O2 Flow Rate FiO2 08/04/17 07:07 36.4 69 17 144/81 (102) 96 Room Air 08/04/17 04:03 Room Air 08/04/17 03:21 36.6 64 18 116/66 (83) 95 Room Air 08/04/17 00:37 Room Air 08/03/17 23:38 36.5 67 18 110/70 (83) 94 Room Air 08/03/17 20:00 Room Air 08/03/17 19:46 36.3 70 18 126/75 (92) 94 Nasal Cannula 2.0 08/03/17 16:00 Room Air 08/03/17 15:07 36.5 65 16 125/79 (94) 93 Room Air 08/03/17 12:00 95 Room Air 08/03/17 11:26 36.6 89 18 137/68 (91) 95 Physical Exam: General Appearance: WD/WN, no apparent distress (on RA, oriented x 3; ? insight ) Eyes: EOMI ENT: hearing grossly normal Neck: supple Respiratory/Chest: + decreased breath sounds, + crackles (BL bases), + rhonchi (BL bases) Cardiovascular: regular rate, rhythm, no edema Abdomen: normal bowel sounds, non tender, soft, ostomy bag Extremities: no pedal edema Neurologic/Psych: alert, normal mood/affect, oriented x 3 (?insight) Skin: no jaundice, warm/dry, no rash, + pallor Current Inpatient Medications Medications (Trade) Dose Ordered Sig/Shonda Route Start Time Stop Time Status Last Admin Dose Admin Nitroglycerin (Nitrostat Tab) 0.4 mg UD PRN SL 08/03/17 00:30 09/02/17 00:29 Insulin Aspart (novoLOG ASPART) SLIDING SCALE If C... ACHS SC 08/03/17 06:30 09/02/17 06:59 Glucose (Glucose 40% Gel) 15-30 GRAMS 15 GRAMS... UD PRN PO 08/03/17 00:30 09/02/17 00:29 Glucose (Glucose Chew Tab) 4-8 Tablets 4 Tabl... UD PRN PO 08/03/17 00:30 09/02/17 00:29 Dextrose (Dextrose 50% 50ML Syringe) 25-50ML 25ML FOR ... UD PRN IV 08/03/17 00:30 09/02/17 00:29 Glucagon (Glucagon Inj) 1 mg UD PRN SQ 08/03/17 00:30 09/02/17 00:29 Carbohydrates (Carbohydrates For Hypoglycemia) 15-30 GRAMS 15 grams if BSG 54-69... UD PRN PO 08/03/17 00:30 09/02/17 00:29 Hydromorphone HCl (Dilaudid Inj) 0.5 mg Q3H PRN IV 08/03/17 00:30 08/17/17 00:29 Prochlorperazine Edisylate 5 mg/ Syringe 5 ml @ 5 mls/min Q6H PRN IV 08/03/17 00:30 09/02/17 00:29 Aspirin (Ecotrin Tab) 81 mg BID PO 08/03/17 09:00 09/02/17 08:59 08/04/17 08:06 81 MG Atenolol (Tenormin Tab) 25 mg QAM PO 08/03/17 09:00 09/02/17 08:59 08/04/17 08:06 25 MG Diltiazem HCl (Cardizem Cd Cap) 240 mg QAM PO 08/03/17 09:00 09/02/17 08:59 08/04/17 08:06 240 MG Finasteride (Proscar Tab) 5 mg DAILY PO 08/03/17 09:00 09/02/17 08:59 08/04/17 08:06 5 MG Gabapentin (Neurontin Cap) 100 mg BID PO 08/03/17 09:00 09/02/17 08:59 08/04/17 08:06 100 MG Levothyroxine Sodium (Synthroid Tab) 75 mcg DAILYBB PO 08/03/17 06:30 09/02/17 06:29 08/04/17 06:14 75 MCG Multivitamins (Multivitamin Tab) 1 tab QAM PO 08/03/17 09:00 09/02/17 08:59 08/04/17 08:06 1 TAB Simvastatin (Zocor Tab) 20 mg HS PO 08/03/17 21:00 09/02/17 20:59 08/03/17 21:05 20 MG Timolol Maleate (Timoptic 0.5% Oph Soln) 1 drops BID OPB 08/03/17 09:00 09/02/17 08:59 08/04/17 08:07 1 DROPS Miscellaneous Information (Order Awaiting Action) 1 ea QS N/A 08/03/17 08:00 09/02/17 07:59 Pantoprazole Sodium (Protonix Tab) 40 mg BID PO 08/03/17 09:00 09/02/17 08:59 08/04/17 08:06 40 MG Oxycodone/ Acetaminophen (Percocet 5-325mg Tab) 1 tab Q6H PRN PO 08/03/17 00:30 08/17/17 00:29 Albuterol/ Ipratropium (Duoneb) 3 ml Q2H PRN INH 08/03/17 00:30 09/02/17 00:29 Loperamide HCl (Imodium Cap) 2 mg UD PRN PO 08/03/17 00:30 09/02/17 00:29 Lidocaine (Lidoderm Patch 5%) 1 patch QAM TD 08/04/17 09:00 09/03/17 08:59 08/04/17 08:13 1 PATCH Miscellaneous (Remove Lidoderm Patch) 1 ea DAILY@21 N/A 08/03/17 21:00 09/02/17 20:59 08/03/17 21:08 1 EA Brimonidine Tartrate (Alphagan 0.2% Soln) 1 drops BID OPB 08/04/17 09:00 09/03/17 08:59 08/03/17 21:51 1 DROPS Brimonidine Tartrate (Alphagan 0.2% Soln) 1 drops TODAY@2200 OPB 08/03/17 22:00 09/02/17 21:59 08/03/17 21:56 1 DROPS Acetaminophen (Tylenol Tab) 650 mg Q8H PO 08/04/17 10:00 09/02/17 09:59 Cyclobenzaprine HCl (Flexeril Tab) 5 mg BID PRN PO 08/04/17 09:15 09/03/17 09:14 Ciprofloxacin (Consult) 1 ea UD PRN N/A 08/04/17 09:30 09/03/17 09:29 Ciprofloxacin/ Dextrose 400 mg/ Prmx 200 ml @ 100 mls/hr Q24H IV 08/04/17 10:00 08/14/17 09:59 Sodium Bicarbonate 75 meq/Potassium Chloride 40 meq/ Sodium Chloride 1,095 ml @ 75 mls/hr [id number] IV 08/04/17 10:00 09/03/17 09:59 UNV Last 24 Hours Test 08/03/17 11:37 08/03/17 13:47 08/03/17 16:44 08/03/17 20:24 Bedside Glucose 123 mg/dl 139 mg/dl 134 mg/dl Sodium Level 125 mmol/L Potassium Level 3.6 mmol/L Chloride Level 100 mmol/L Carbon Dioxide Level 11 mmol/L Anion Gap 14.0 mmol/L Blood Urea Nitrogen 80 mg/dl Creatinine 5.46 mg/dl Est Creatinine Clear Calc Drug Dose 11.8 ml/min Estimated GFR () 10.5 Estimated GFR (Non- 9.1 BUN/Creatinine Ratio 14.6 Random Glucose 151 mg/dl Calcium Level 8.1 mg/dl Test 08/03/17 20:42 08/04/17 00:10 08/04/17 07:32 08/04/17 07:41 Sodium Level 123 mmol/L 125 mmol/L Potassium Level 3.6 mmol/L 3.4 mmol/L Chloride Level 96 mmol/L 94 mmol/L Carbon Dioxide Level 15 mmol/L 19 mmol/L Anion Gap 12.0 mmol/L 12.0 mmol/L Blood Urea Nitrogen 83 mg/dl 84 mg/dl Creatinine 5.35 mg/dl 5.16 mg/dl Est Creatinine Clear Calc Drug Dose 12.1 ml/min 13.5 ml/min Estimated GFR () 10.8 11.3 Estimated GFR (Non- 9.3 9.7 BUN/Creatinine Ratio 15.4 16.4 Random Glucose 127 mg/dl 126 mg/dl Calcium Level 7.7 mg/dl 7.8 mg/dl Urine Osmolality 410 mOms/kg Urine Random Sodium 10 mEq/L White Blood Count 14.25 K/uL Red Blood Count 4.70 M/uL Hemoglobin 13.8 g/dL Hematocrit 37.3 % Mean Corpuscular Volume 79.4 fL Mean Corpuscular Hemoglobin 29.4 pg Mean Corpuscular Hemoglobin Concent 37.0 g/dl Platelet Count 185 K/uL Mean Platelet Volume 10.5 fL Neutrophils (%) (Auto) 79.2 % Lymphocytes (%) (Auto) 13.1 % Monocytes (%) (Auto) 6.5 % Eosinophils (%) (Auto) 0.0 % Basophils (%) (Auto) 0.1 % Neutrophils # (Auto) 11.30 K/uL Lymphocytes # (Auto) 1.86 K/uL Monocytes # (Auto) 0.93 K/uL Eosinophils # (Auto) 0.00 K/uL Basophils # (Auto) 0.01 K/uL RDW Standard Deviation 43.0 fL RDW Coefficient of Variation 14.8 % Immature Granulocyte % (Auto) 1.1 % Immature Granulocyte # (Auto) 0.15 K/uL Prothrombin Time 63.9 SECONDS Prothromb Time International Ratio 6.3 Osmolality 285 mOsm/kg Triglycerides Level 296 mg/dl Cholesterol Level 110 mg/dl HDL Cholesterol 30 mg/dl LDL Cholesterol, Calculated 21 mg/dl VLDL Cholesterol, Calculated 59 mg/dl Cholesterol/HDL Ratio 3.7 Bedside Glucose 142 mg/dl Date/Time Source Procedure Growth Status 08/03/17 14:15 Stool Shiga Toxin Test Pending Received 08/03/17 14:15 Stool Stool Culture Pending Received 08/03/17 13:28 Urine , Clean Catch Urine Culture Pending Received Assessment & Plan 81 year old male w/ CKD 4 baseline creatinine low 2's, DM, 2012 stroke w/ residual R sided weakness, ileostomy admitted 08/02 w/ MIAH on CKD and hyponatremia after presenting w/ 3 days of N/V/increased watery osteomy output. Presenting creatinine and Na 5.8 and 122 respectively. Serum osms have been normal MIAH on CKD 4 w/ acidosis probably mixed (renal failure AG + high ostomy output) + hypokalemia >>very small improvement in renal function/creatinine and some improvement in bicarb levels; hard to get ahead of his ostomy output and would not try to hard to do it; ideally need to lower that output to get him to better volume status -changed bicarb gtt w/ K to 1/2 NS w/ 75 mEq bicarb + 30 mEq/L K at 75 ml/hr -started standing 20 mEq po K daily as well -will recheck bmp 1400 and 2000 (orders in) -no acute indication for dialysis at this time; cannot rule out need this admission -ensure mag optimized given a fib -low threshold for ABG if he decompensates clinically given acid base status; do not believe one needed now Isotonic hyponatremia, presume hypovolemic hyponatremia based on hx, urine studies; serum osms is atypical and not easily explained (lipids/glucose wnl; spep in process); suggests sodium may not be as severe as it appears -follow Na as above -keep K near 4 -goal sNa in am is 129 if possible Appreciate c/s; will follow w/ you.
[2017-08-04] MEDS ORDERED: DIPHENOXYLATE/ATROPINE 2.5/0.025MG TAB PO ONE (10:30)
[2017-08-04] MEDS: SODIUM BICARBONATE IV SCH (10:34)
[2017-08-04] MEDS: [UNRECOGNIZED DRUG - OTHER] IV SCH (10:34)
[2017-08-04] MEDS: POTASSIUM CHLORIDE IV SCH (10:34)
[2017-08-04] MEDS ORDERED: NURSING VERBAL MED ORDER ONE (11:00)
[2017-08-04] MEDS: OXYCODONE/ACETAMINOPHEN 5-325 TAB PO PRN (12:14)
[2017-08-04 12:19] VITALS: BP 104/67; PULSE 75; TEMP 36.4; O2SAT 95
--- NOTE | 2017-08-04 13:30 | GASTROINTESTINAL CONSULTATION ---
DATE OF CONSULTATION: 08/04/2017 CHIEF COMPLAINT: High ileostomy output. HISTORY OF PRESENT ILLNESS: The patient is an 81-year-old male who was brought into the hospital several days ago after developing symptoms of nausea and dizziness. The patient also noted that he had developed increased ostomy output over several days. The patient reports that prior to the admission, he had 2-4 times needing to empty the ostomy on a regular basis. Over the last several days, he has had 8-12 needs to empty his ostomy, which is described as a watery-like substance. 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 The patient was previously seen by our office in July after having difficulty with swallowing liquids. The patient does note he is able to swallow solids without any difficulty, but has problems with reflux taking water and thin liquids. The patient's past history is notable for coronary artery disease, atrial fibrillation, hypothyroidism, chronic renal insufficiency, and an ileostomy which was done during a subtotal colectomy several years ago. PAST MEDICAL HISTORY: 1. BPH. 2. Carotid stenosis. 3. Renal insufficiency. 4. Diabetes. 5. Hypercholesterolemia. 6. Reflux. 7. Hematuria. 8. Atrial fibrillation. 9. Cerebrovascular accident. 10. Hypertension. 11. Osteoarthritis. PAST SURGICAL HISTORY: 1. Subtotal colectomy in 2013 for diverticular bleeding. 2. Cardiac bypass. 3. Back surgery. 4. Prostatectomy. 5. Cataract surgery. 6. Cardiac stent. 7. Hernia repair. OUTPATIENT MEDICATIONS: 1. Atenolol 25 mg daily. 2. Vitamin D3. 3. Diltiazem 240 mg daily. 4. Proscar 5 mg daily. 5. Lasix 20 mg daily. 6. Gabapentin 1 capsule twice daily. 7. Synthroid 75 mcg daily. 8. Magnesium oxide 400 mg at bedtime. 9. Multivitamin. 10. Omeprazole 20 mg twice daily. 11. Zocor 20 mg at bedtime. 12. Coumadin. ALLERGIES: CODEINE, ULTRAM, HYDROCODONE. SOCIAL HISTORY: The patient is a prior smoker. Denies alcohol use. The patient is and lives with his in [place]. FAMILY HISTORY: No history of colorectal cancer or stomach cancer. REVIEW OF SYSTEMS: GENERAL: No fevers, no chills. CARDIAC: No chest pain. PULMONARY: No shortness of breath. GASTROINTESTINAL: Please see history of present illness. GENITOURINARY: No dysuria. DERMATOLOGIC: No rashes noted. NEUROLOGIC: The patient with dizziness. PSYCHIATRIC: No depression. ENT: The patient with difficulty swallowing liquids. MUSCULOSKELETAL: The patient with no new joint or muscle pains. PHYSICAL EXAMINATION: VITALS: Temperature is 36.4, pulse is 69, respiratory rate is 17, blood pressure is 144/81, pulse ox is 96%. HEENT: No scleral icterus noted. LUNGS: Poor airway sounds, crackles heard. CARDIAC: Irregular rate and rhythm, systolic murmur heard. ABDOMEN: Soft, nontender. Ostomy examined with liquid in the bag. EXTREMITIES: Peripheral edema noted. No spider nevi noted. NEUROLOGIC: Cranial nerves grossly intact, motor grossly intact. LABORATORIES: White blood cell count is 14.25, hemoglobin is 13.8, hematocrit is 37.3, platelet count is 185. PT is 63. INR is 6.3. Sodium is 125, potassium is 3.4, chloride is 194, BUN 84, creatinine is 5.16, calcium is 7.8. AST 13, ALT 27, alkaline phosphatase 48, bilirubin 0.5. CT dated 08/02/2017, the patient is status post subtotal colectomy with a right lower quadrant ileostomy. No bowel obstruction noted. Possible sludge or stones noted within the gallbladder, enlargement. IMPRESSION: This is an 81-year-old male with numerous problems. GI consulted for evaluation of high ileostomy output. I suspect that this is related to perhaps an underlying viral infection or perhaps one of his medications. PLAN: I would suggest that we discontinue the Imodium and transition the patient to Lomotil twice daily in addition to Questran twice daily. We will also order further serologies to include ova and parasites and Giardia. I will also order a fecal fat. For the patient's difficulty with swallowing, it may be reasonable to have cardiology see the patient to see if he is truly not a candidate for a sedated procedure. If not a candidate for a sedated procedure, I would then suggest a speech pathology evaluation as the patient's symptoms are somewhat reminiscent of transfer dysphagia. Please call with any questions or concerns.
[2017-08-04 14:46] VITALS: BP 119/78; PULSE 69; TEMP 36.5; O2SAT 93
[2017-08-04 15:02] LABS: INR 6.1 (0.9-1.1)
[2017-08-04] MEDS ORDERED: PHYTONADIONE 5 MG TAB PO ONE (15:30)
[2017-08-04 15:33] LABS: CALCIUM 7.6 mg/dl (8.5-10.1); CREATININE 5.17 mg/dl (0.60-1.40)
[2017-08-04 16:18] LABS: POTASSIUM 4.1 mmol/L (3.5-5.1)
[2017-08-04 19:12] VITALS: BP 100/59; PULSE 75; TEMP 36.6; O2SAT 94
[2017-08-04] MEDS: BRIMONIDINE TARTRATE 0.2% 5ML OPB SCH ×2 (20:40→20:44)
[2017-08-04] MEDS: DIPHENOXYLATE/ATROPINE 2.5/0.025MG TAB PO SCH (20:42)
[2017-08-04] MEDS: SIMVASTATIN 20 MG TAB PO SCH (20:43)
[2017-08-04 20:44] LABS: CALCIUM 7.5 mg/dl (8.5-10.1); CREATININE 5.06 mg/dl (0.60-1.40); POTASSIUM 4.2 mmol/L (3.5-5.1)
[2017-08-04] MEDS: CHOLESTYRAMINE LIGHT 4 GM PKT PO SCH (22:11)
[2017-08-05] VITALS (9 sets, daily range): BP systolic 103–121; BP diastolic 58–79; PULSE 54–76; TEMP 36.2–36.5; O2SAT 92–95
[2017-08-05] MEDS: ACETAMINOPHEN 325 MG TAB PO SCH ×3 (02:00→18:00)
[2017-08-05] MEDS: POTASSIUM CHLORIDE IV SCH (03:32)
[2017-08-05] MEDS: [UNRECOGNIZED DRUG - OTHER] IV SCH (03:32)
[2017-08-05] MEDS: SODIUM BICARBONATE IV SCH (03:32)
[2017-08-05 07:02] LABS: INR 3.4 (0.9-1.1)
[2017-08-05] MEDS: LEVOTHYROXINE 75 MCG TAB PO SCH (07:05)
[2017-08-05 07:38] LABS: CALCIUM 7.9 mg/dl (8.5-10.1); CREATININE 4.72 mg/dl (0.60-1.40); POTASSIUM 3.9 mmol/L (3.5-5.1)
[2017-08-05] MEDS: TRICOR~ORDER AWAITING ACTION SCH ×3 (08:00→22:47)
[2017-08-05] MEDS: PANTOprazole SOD 40 MG TAB PO SCH ×2 (08:09→20:56)
[2017-08-05] MEDS: MULTIVITAMIN TAB PO SCH (08:09)
[2017-08-05] MEDS: GABAPENTIN 100 MG CAP PO SCH ×2 (08:09→20:57)
[2017-08-05] MEDS: FINASTERIDE 5 MG TAB PO SCH (08:10)
[2017-08-05] MEDS: ASPIRIN 81 MG ECTAB PO SCH ×2 (08:10→20:56)
[2017-08-05] MEDS: DILTIAZEM HCL 240 MG CAPCR PO SCH (08:10)
[2017-08-05] MEDS: LIDODERM (LIDOCAINE) PATCH 5% TD SCH (08:11)
[2017-08-05] MEDS: INSULIN ASPART 100 UNITS/ML 3 ML PEN SC SCH ×4 (08:17→20:53)
[2017-08-05] MEDS: TIMOLOL MALEATE 0.5% OP SOLN 5 ML BTL OPB SCH ×2 (08:17→20:54)
[2017-08-05] MEDS: BRIMONIDINE TARTRATE 0.2% 5ML OPB SCH ×3 (08:17→21:00)
[2017-08-05] MEDS ORDERED: POTASSIUM CHLORIDE PWD 20 MEQ PACK PO SCH (09:00)
[2017-08-05] MEDS: DIPHENOXYLATE/ATROPINE 2.5/0.025MG TAB PO SCH (09:00)
[2017-08-05] MEDS: OXYCODONE/ACETAMINOPHEN 5-325 TAB PO PRN (09:20)
--- NOTE | 2017-08-05 09:32 | DIAGNOSTIC IMAGING REPORT ---
CHEST ONE VIEW PORTABLE HISTORY: 81 years-old Male recheck follow-up study in a patient with cardiomegaly and acute shortness of breath COMPARISON: Chest radiograph 08/02/2017 TECHNIQUE: Portable AP view of the chest FINDINGS: Cardiac silhouette is moderately enlarged. Prior median sternotomy. Atherosclerosis of the aorta. Prior median sternotomy. Mild pulmonary vascular congestion with interval development of slight interstitial coarsening. No pneumothorax, large pleural effusion or lobar airspace consolidation. Subsegmental left basilar opacities suggest atelectasis. Degenerative changes of the shoulders and spine. IMPRESSION: 1. Cardiomegaly with development of mild pulmonary vascular congestion with interstitial coarsening suggesting developing pulmonary edema. 2. Subsegmental left basilar opacities suggest atelectasis. The above report was generated using voice recognition software. It may contain grammatical, syntax or spelling errors. Electronically signed by: Curly Rodríguez M.D. 08/05/2017 9:30 AM Dictated Date/Time: 08/05/2017 9:28 AM
--- NOTE | 2017-08-05 10:10 | Gastroenterology Progress Note ---
Progress Note Date of Service: August 05, 2017 Subjective Pt evaluation today including: conversation w/ patient, physical exam The patient notes that his stool seems to be solidifying since initiation of Questran yesterday. He does have some right hip discomfort this morning. Review of Systems Constitutional: + weakness, No fever, No sweats Respiratory: No cough, No wheezing, No dyspnea at rest Abdomen: No pain, No vomiting Medications Current Inpatient Medications Medications (Trade) Dose Ordered Sig/Shonda Route Start Time Stop Time Status Last Admin Dose Admin Nitroglycerin (Nitrostat Tab) 0.4 mg UD PRN SL 08/03/17 00:30 09/02/17 00:29 Insulin Aspart (novoLOG ASPART) SLIDING SCALE If C... ACHS SC 08/03/17 06:30 09/02/17 06:59 Glucose (Glucose 40% Gel) 15-30 GRAMS 15 GRAMS... UD PRN PO 08/03/17 00:30 09/02/17 00:29 Glucose (Glucose Chew Tab) 4-8 Tablets 4 Tabl... UD PRN PO 08/03/17 00:30 09/02/17 00:29 Dextrose (Dextrose 50% 50ML Syringe) 25-50ML 25ML FOR ... UD PRN IV 08/03/17 00:30 09/02/17 00:29 Glucagon (Glucagon Inj) 1 mg UD PRN SQ 08/03/17 00:30 09/02/17 00:29 Carbohydrates (Carbohydrates For Hypoglycemia) 15-30 GRAMS 15 grams if BSG 54-69... UD PRN PO 08/03/17 00:30 09/02/17 00:29 Hydromorphone HCl (Dilaudid Inj) 0.5 mg Q3H PRN IV 08/03/17 00:30 08/17/17 00:29 Prochlorperazine Edisylate 5 mg/ Syringe 5 ml @ 5 mls/min Q6H PRN IV 08/03/17 00:30 09/02/17 00:29 Aspirin (Ecotrin Tab) 81 mg BID PO 08/03/17 09:00 09/02/17 08:59 08/05/17 08:10 81 MG Atenolol (Tenormin Tab) 25 mg QAM PO 08/03/17 09:00 09/02/17 08:59 08/05/17 08:10 25 MG Diltiazem HCl (Cardizem Cd Cap) 240 mg QAM PO 08/03/17 09:00 09/02/17 08:59 08/05/17 08:10 240 MG Finasteride (Proscar Tab) 5 mg DAILY PO 08/03/17 09:00 09/02/17 08:59 08/05/17 08:10 5 MG Gabapentin (Neurontin Cap) 100 mg BID PO 08/03/17 09:00 09/02/17 08:59 08/05/17 08:09 100 MG Levothyroxine Sodium (Synthroid Tab) 75 mcg DAILYBB PO 08/03/17 06:30 09/02/17 06:29 08/05/17 07:05 75 MCG Multivitamins (Multivitamin Tab) 1 tab QAM PO 08/03/17 09:00 09/02/17 08:59 08/05/17 08:09 1 TAB Simvastatin (Zocor Tab) 20 mg HS PO 08/03/17 21:00 09/02/17 20:59 08/04/17 20:43 20 MG Timolol Maleate (Timoptic 0.5% Oph Soln) 1 drops BID OPB 08/03/17 09:00 09/02/17 08:59 08/05/17 08:17 1 DROPS Miscellaneous Information (Order Awaiting Action) 1 ea QS N/A 08/03/17 08:00 09/02/17 07:59 Pantoprazole Sodium (Protonix Tab) 40 mg BID PO 08/03/17 09:00 09/02/17 08:59 08/05/17 08:09 40 MG Oxycodone/ Acetaminophen (Percocet 5-325mg Tab) 1 tab Q6H PRN PO 08/03/17 00:30 08/17/17 00:29 08/05/17 09:20 1 TAB Albuterol/ Ipratropium (Duoneb) 3 ml Q2H PRN INH 08/03/17 00:30 09/02/17 00:29 Lidocaine (Lidoderm Patch 5%) 1 patch QAM TD 08/04/17 09:00 09/03/17 08:59 08/05/17 08:11 1 PATCH Miscellaneous (Remove Lidoderm Patch) 1 ea DAILY@21 N/A 08/03/17 21:00 09/02/17 20:59 08/04/17 20:39 1 EA Brimonidine Tartrate (Alphagan 0.2% Soln) 1 drops BID OPB 08/04/17 09:00 09/03/17 08:59 08/05/17 08:17 1 DROPS Brimonidine Tartrate (Alphagan 0.2% Soln) 1 drops TODAY@2200 OPB 08/03/17 22:00 09/02/17 21:59 08/03/17 21:56 1 DROPS Acetaminophen (Tylenol Tab) 650 mg Q8H PO 08/04/17 10:00 09/02/17 09:59 08/04/17 19:10 650 MG Cyclobenzaprine HCl (Flexeril Tab) 5 mg BID PRN PO 08/04/17 09:15 09/03/17 09:14 Ciprofloxacin (Consult) 1 ea UD PRN N/A 08/04/17 09:30 09/03/17 09:29 Ciprofloxacin/ Dextrose 400 mg/ Prmx 200 ml @ 100 mls/hr Q24H IV 08/04/17 10:00 08/14/17 09:59 08/04/17 09:59 100 MLS/HR Sodium Bicarbonate 75 meq/Potassium Chloride 40 meq/ Sodium Chloride 1,095 ml @ 75 mls/hr [id number] IV 08/04/17 10:15 09/03/17 10:14 08/05/17 03:32 75 MLS/HR Potassium Chloride (Klor-Con Pwd) 20 meq QAM PO 08/05/17 09:00 09/04/17 08:59 08/05/17 08:09 20 MEQ Diphenoxylate HCl/ Atropine (Lomotil Tab) 1 tab BID PO 08/04/17 21:00 09/03/17 20:59 08/04/17 20:42 1 TAB Cholestyramine Resin (Questran Powder Light) 4 gm BID@10,22 PO 08/04/17 22:00 09/03/17 21:59 08/04/17 22:11 4 GM Miscellaneous Information (Pending Order) 1 ea TODAY@1230 N/A 08/05/17 12:30 08/05/17 14:00 Objective Vital Signs Date Time Temp Pulse Resp B/P (MAP) Pulse Ox O2 Delivery O2 Flow Rate FiO2 08/05/17 07:27 36.4 66 18 112/69 (83) 94 Room Air 08/05/17 04:42 36.4 70 18 108/66 (80) 94 Room Air 08/05/17 04:00 Room Air 08/05/17 00:26 36.4 70 17 104/65 (78) 94 Room Air 08/05/17 00:00 Room Air 08/04/17 20:00 Room Air 08/04/17 19:12 36.6 75 18 100/59 (73) 94 Room Air 08/04/17 16:30 Room Air 08/04/17 14:46 36.5 69 18 119/78 (92) 93 Room Air 08/04/17 12:19 36.4 75 19 104/67 (79) 95 Room Air 08/04/17 12:00 Room Air Physical Exam General Appearance: no apparent distress Eyes: PERRL Neck: no JVD Respiratory/Chest: + decreased breath sounds Cardiovascular: + systolic murmur Abdomen: soft, + pertinent finding (Ostomy evaluated, stool liquid but seems to be thicker than yesterday) Laboratory Results Last 24 Hours Test 08/04/17 11:54 08/04/17 14:18 08/04/17 15:47 08/04/17 16:42 Bedside Glucose 164 mg/dl 138 mg/dl Prothrombin Time 62.2 SECONDS Prothromb Time International Ratio 6.1 Sodium Level 121 mmol/L Potassium Level mmol/L 4.1 mmol/L Chloride Level 91 mmol/L Carbon Dioxide Level 18 mmol/L Anion Gap 12.0 mmol/L Blood Urea Nitrogen 84 mg/dl Creatinine 5.17 mg/dl Est Creatinine Clear Calc Drug Dose 13.5 ml/min Estimated GFR () 11.3 Estimated GFR (Non- 9.7 BUN/Creatinine Ratio 16.3 Random Glucose 122 mg/dl Calcium Level 7.6 mg/dl Magnesium Level mg/dl 1.9 mg/dl Test 08/04/17 18:30 08/04/17 19:51 08/04/17 20:32 08/05/17 06:16 Sodium Level 121 mmol/L 121 mmol/L Potassium Level 4.2 mmol/L 3.9 mmol/L Chloride Level 91 mmol/L 92 mmol/L Carbon Dioxide Level 18 mmol/L 19 mmol/L Anion Gap 11.0 mmol/L 10.0 mmol/L Blood Urea Nitrogen 83 mg/dl 83 mg/dl Creatinine 5.06 mg/dl 4.72 mg/dl Est Creatinine Clear Calc Drug Dose 13.8 ml/min 15.0 ml/min Estimated GFR () 11.6 12.6 Estimated GFR (Non- 10.0 10.8 BUN/Creatinine Ratio 16.4 17.6 Random Glucose 119 mg/dl 112 mg/dl Calcium Level 7.5 mg/dl 7.9 mg/dl Bedside Glucose 114 mg/dl Prothrombin Time 34.5 SECONDS Prothromb Time International Ratio 3.4 Osmolality 277 mOsm/kg Test 08/05/17 07:43 08/05/17 10:04 Bedside Glucose 125 mg/dl Assessment and Plan Patient with high ileostomy output thought to be causing hyponatremia. Recommendation Lomotil twice daily Questran 4 g twice daily Consider cardiology evaluation to determine if patient candidate for upper endoscopy given dysphasia
[2017-08-05] MEDS: CIPROFLOXACIN 400MG / D5W IV SCH (10:35)
[2017-08-05] MEDS: CHOLESTYRAMINE LIGHT 4 GM PKT PO SCH ×2 (10:41→22:21)
[2017-08-05] MEDS ORDERED: SODIUM CHLORIDE 3% 500 ML BAG IV STA (11:04)
--- NOTE | 2017-08-05 11:10 | Nephrology Progress Note ---
Nephrology Progress Note Date of Service: August 05, 2017. Subjective ostomy ouput markedly slowed >> no bag changes so far (late AM) today; was slowing yesterday as well. no further uncontrolled HR; has new wet cough (per nursing; pt does not report); no sob; no n/v; no further dizziness; c/o L sciatic pain "moreno like hell" Objective Date Time Temp Pulse Resp B/P (MAP) Pulse Ox O2 Delivery O2 Flow Rate FiO2 08/05/17 07:27 36.4 66 18 112/69 (83) 94 Room Air 08/05/17 04:42 36.4 70 18 108/66 (80) 94 Room Air 08/05/17 04:00 Room Air 08/05/17 00:26 36.4 70 17 104/65 (78) 94 Room Air 08/05/17 00:00 Room Air 08/04/17 20:00 Room Air 08/04/17 19:12 36.6 75 18 100/59 (73) 94 Room Air 08/04/17 16:30 Room Air 08/04/17 14:46 36.5 69 18 119/78 (92) 93 Room Air 08/04/17 12:19 36.4 75 19 104/67 (79) 95 Room Air 08/04/17 12:00 Room Air Physical Exam: General Appearance: WD/WN, no apparent distress (on RA, oriented x 3; ? insight ), up in chair, occasional cough w/ deep inspiration Eyes: EOMI ENT: hearing grossly normal Neck: supple Respiratory/Chest: + decreased breath sounds, + crackles (BL bases), + rhonchi (BL bases) Cardiovascular: regular rate, rhythm, no edema Abdomen: normal bowel sounds, non tender, soft, ostomy bag Extremities: no pedal edema Neurologic/Psych: alert, normal mood/affect, oriented x 3 (?insight) Skin: no jaundice, warm/dry, no rash, + pallor Current Inpatient Medications Medications (Trade) Dose Ordered Sig/Shonda Route Start Time Stop Time Status Last Admin Dose Admin Nitroglycerin (Nitrostat Tab) 0.4 mg UD PRN SL 08/03/17 00:30 09/02/17 00:29 Insulin Aspart (novoLOG ASPART) SLIDING SCALE If C... ACHS SC 08/03/17 06:30 09/02/17 06:59 Glucose (Glucose 40% Gel) 15-30 GRAMS 15 GRAMS... UD PRN PO 08/03/17 00:30 09/02/17 00:29 Glucose (Glucose Chew Tab) 4-8 Tablets 4 Tabl... UD PRN PO 08/03/17 00:30 09/02/17 00:29 Dextrose (Dextrose 50% 50ML Syringe) 25-50ML 25ML FOR ... UD PRN IV 08/03/17 00:30 09/02/17 00:29 Glucagon (Glucagon Inj) 1 mg UD PRN SQ 08/03/17 00:30 09/02/17 00:29 Carbohydrates (Carbohydrates For Hypoglycemia) 15-30 GRAMS 15 grams if BSG 54-69... UD PRN PO 08/03/17 00:30 09/02/17 00:29 Hydromorphone HCl (Dilaudid Inj) 0.5 mg Q3H PRN IV 08/03/17 00:30 08/17/17 00:29 Prochlorperazine Edisylate 5 mg/ Syringe 5 ml @ 5 mls/min Q6H PRN IV 08/03/17 00:30 09/02/17 00:29 Aspirin (Ecotrin Tab) 81 mg BID PO 08/03/17 09:00 09/02/17 08:59 08/05/17 08:10 81 MG Atenolol (Tenormin Tab) 25 mg QAM PO 08/03/17 09:00 09/02/17 08:59 08/05/17 08:10 25 MG Diltiazem HCl (Cardizem Cd Cap) 240 mg QAM PO 08/03/17 09:00 09/02/17 08:59 08/05/17 08:10 240 MG Finasteride (Proscar Tab) 5 mg DAILY PO 08/03/17 09:00 09/02/17 08:59 08/05/17 08:10 5 MG Gabapentin (Neurontin Cap) 100 mg BID PO 08/03/17 09:00 09/02/17 08:59 08/05/17 08:09 100 MG Levothyroxine Sodium (Synthroid Tab) 75 mcg DAILYBB PO 08/03/17 06:30 09/02/17 06:29 08/05/17 07:05 75 MCG Multivitamins (Multivitamin Tab) 1 tab QAM PO 08/03/17 09:00 09/02/17 08:59 08/05/17 08:09 1 TAB Simvastatin (Zocor Tab) 20 mg HS PO 08/03/17 21:00 09/02/17 20:59 08/04/17 20:43 20 MG Timolol Maleate (Timoptic 0.5% Oph Soln) 1 drops BID OPB 08/03/17 09:00 09/02/17 08:59 08/05/17 08:17 1 DROPS Miscellaneous Information (Order Awaiting Action) 1 ea QS N/A 08/03/17 08:00 09/02/17 07:59 Pantoprazole Sodium (Protonix Tab) 40 mg BID PO 08/03/17 09:00 09/02/17 08:59 08/05/17 08:09 40 MG Oxycodone/ Acetaminophen (Percocet 5-325mg Tab) 1 tab Q6H PRN PO 08/03/17 00:30 08/17/17 00:29 08/04/17 12:14 1 TAB Albuterol/ Ipratropium (Duoneb) 3 ml Q2H PRN INH 08/03/17 00:30 09/02/17 00:29 Lidocaine (Lidoderm Patch 5%) 1 patch QAM TD 08/04/17 09:00 09/03/17 08:59 08/05/17 08:11 1 PATCH Miscellaneous (Remove Lidoderm Patch) 1 ea DAILY@21 N/A 08/03/17 21:00 09/02/17 20:59 08/04/17 20:39 1 EA Brimonidine Tartrate (Alphagan 0.2% Soln) 1 drops BID OPB 08/04/17 09:00 09/03/17 08:59 08/05/17 08:17 1 DROPS Brimonidine Tartrate (Alphagan 0.2% Soln) 1 drops TODAY@2200 OPB 08/03/17 22:00 09/02/17 21:59 08/03/17 21:56 1 DROPS Acetaminophen (Tylenol Tab) 650 mg Q8H PO 08/04/17 10:00 09/02/17 09:59 5/5/18 19:10 650 MG Cyclobenzaprine HCl (Flexeril Tab) 5 mg BID PRN PO 08/04/17 09:15 09/03/17 09:14 Ciprofloxacin (Consult) 1 ea UD PRN N/A 08/04/17 09:30 09/03/17 09:29 Ciprofloxacin/ Dextrose 400 mg/ Prmx 200 ml @ 100 mls/hr Q24H IV 08/04/17 10:00 08/14/17 09:59 08/04/17 09:59 100 MLS/HR Sodium Bicarbonate 75 meq/Potassium Chloride 40 meq/ Sodium Chloride 1,095 ml @ 75 mls/hr [id number] IV 08/04/17 10:15 09/03/17 10:14 08/05/17 03:32 75 MLS/HR Potassium Chloride (Klor-Con Pwd) 20 meq QAM PO 08/05/17 09:00 09/04/17 08:59 08/05/17 08:09 20 MEQ Diphenoxylate HCl/ Atropine (Lomotil Tab) 1 tab BID PO 08/04/17 21:00 09/03/17 20:59 08/04/17 20:42 1 TAB Cholestyramine Resin (Questran Powder Light) 4 gm BID@10,22 PO 08/04/17 22:00 09/03/17 21:59 08/04/17 22:11 4 GM Last 24 Hours Test 08/04/17 11:54 08/04/17 14:18 08/04/17 15:47 08/04/17 16:42 Bedside Glucose 164 mg/dl 138 mg/dl Prothrombin Time 62.2 SECONDS Prothromb Time International Ratio 6.1 Sodium Level 121 mmol/L Potassium Level mmol/L 4.1 mmol/L Chloride Level 91 mmol/L Carbon Dioxide Level 18 mmol/L Anion Gap 12.0 mmol/L Blood Urea Nitrogen 84 mg/dl Creatinine 5.17 mg/dl Est Creatinine Clear Calc Drug Dose 13.5 ml/min Estimated GFR () 11.3 Estimated GFR (Non- 9.7 BUN/Creatinine Ratio 16.3 Random Glucose 122 mg/dl Calcium Level 7.6 mg/dl Magnesium Level mg/dl 1.9 mg/dl Test 08/04/17 18:30 08/04/17 19:51 5/5/18 20:32 08/05/17 06:16 Sodium Level 121 mmol/L 121 mmol/L Potassium Level 4.2 mmol/L 3.9 mmol/L Chloride Level 91 mmol/L 92 mmol/L Carbon Dioxide Level 18 mmol/L 19 mmol/L Anion Gap 11.0 mmol/L 10.0 mmol/L Blood Urea Nitrogen 83 mg/dl 83 mg/dl Creatinine 5.06 mg/dl 4.72 mg/dl Est Creatinine Clear Calc Drug Dose 13.8 ml/min 15.0 ml/min Estimated GFR () 11.6 12.6 Estimated GFR (Non- 10.0 10.8 BUN/Creatinine Ratio 16.4 17.6 Random Glucose 119 mg/dl 112 mg/dl Calcium Level 7.5 mg/dl 7.9 mg/dl Bedside Glucose 114 mg/dl Prothrombin Time 34.5 SECONDS Prothromb Time International Ratio 3.4 Osmolality 277 mOsm/kg Test 08/05/17 07:43 Bedside Glucose 125 mg/dl Assessment & Plan 81 year old male w/ CKD 4 baseline creatinine low 2's, DM, 2012 stroke w/ residual R sided weakness, ileostomy admitted 08/02 w/ MIAH on CKD and hyponatremia after presenting w/ 3 days of N/V/increased watery ostomy output. Presenting creatinine and Na 5.8 and 122 respectively. Serum osms have been normal until today when they are mildly low (277; 280-300 is wnl). Note no hx of HF; no documented hx of pulmonary disease though he is getting tx for PNA MIAH on CKD 4 w/ improving acidosis probably mixed (renal failure AG + high ostomy output) + medically managed hypokalemia >>nonoliguric prerenal MIAH on CKD4 w/ electrolyte abnormalities from excessive stool losses; however >>steady small improvement in renal function/creatinine and bicarb levels; hard to get ahead of his ostomy output and so far this admission only less than 1/2 L positive; ideally need to lower that output to get him to better volume status >> GI addressing this -on 1/2 NS w/ 75 mEq bicarb + 30 mEq/L K at 75 ml/hr >> will stop >>>>>note that w/ creatinine hovering at about 5 and ostomy output (hopefully) to remain better controlled he is at some risk for rapid changes in K levels, karan to go high >> monitor bmp at least 2X daily on this regimen>> d/c K suppls and K rich IVF -will recheck bmp noon and 1800 (orders in) -no acute indication for dialysis at this time; cannot rule out need this admission -ensure mag optimized given a fib > recheck ordered again for am -low threshold for ABG if he decompensates clinically given acid base status; do not believe one needed now -RBC casts noted on UA at admission >> unusual >> recheck UA, prot/creat ratio Isotonic hyponatremia, presume hypovolemic hyponatremia based on hx, urine studies; serum osms is atypical and not easily explained (lipids/glucose wnl; spep in process); suggests sodium may not be as severe as it appears in general this admission; however today sNa has dropped further to 121 and now mildly hypotonic (not to degree would expect w/ this degree of low sodium). multifactorial >> ? aspiration pneumonia, pain; ? decreased po/dehydration; possible contribution also to date w/ unidentified osmoles elevating serum osm -CXR w/ emerging edema >> stop IVF; will try hypertonic saline 100 mL and recheck labs at 1300 -follow Na as above -keep K near 4 -goal sNa in am is 127 if possible -f/u pending SPEP -low threshold for chest CT if no improvement High ostomy output w/ elevated INR (yesterday 6) w/ reported esophageal dysmotility>> ostomy output slowing -INR better today after vitamin K -GI following Appreciate c/s; will follow w/ you.
[2017-08-05] MEDS ORDERED: SODIUM CHLORIDE 3% INJ 100 ML in EMPTY BAG 0 ML IV ONE ×2 (11:45→15:00)
[2017-08-05 14:03] LABS: CALCIUM 7.6 mg/dl (8.5-10.1); CREATININE 4.8 mg/dl (0.60-1.40); POTASSIUM 4.8 mmol/L (3.5-5.1)
[2017-08-05] MEDS ORDERED: NURSING VERBAL MED ORDER ONE (14:30)
--- NOTE | 2017-08-05 14:36 | DIAGNOSTIC IMAGING REPORT ---
(CHEST) THORAX WITHOUT CT DOSE: 627.42 mGy.cm CLINICAL HISTORY: 81 years-old Male with r/o pneumonia. Acute cough with concern for pneumonia TECHNIQUE: Multiaxial CT images of the chest were performed without contrast. A dose lowering technique was utilized adhering to the principles of ALARA. COMPARISON: Chest radiograph of same day, CT abdomen and pelvis 08/02/2017 FINDINGS: Heterogeneous thyroid without large thyroid nodule identified. Mildly enlarged 1.3 cm subcarinal lymph node is indeterminate and may be physiologic. Moderate multichamber cardiac enlargement. Prior median sternotomy and CABG. With osage coronary arterial calcifications are noted. Thoracic aorta demonstrates moderate atherosclerosis without aneurysm. Main pulmonary artery is mildly dilated, 3.5 cm, suggesting pulmonary arterial hypertension within the appropriate clinical setting. Trace left pleural effusion without pneumothorax. Subsegmental groundglass and consolidative opacities suggest atelectasis. Mild bronchial wall thickening of the lung bases. Calcified granuloma of the apical posterior segment left upper lobe. No suspicious pulmonary nodules or masses are identified. Mild tracheal bronchial mucosal secretions. Indeterminate 1.5 cm soft tissue attenuating nodule of the right adrenal gland. Mild nonspecific stranding about the right kidney. Soft tissues are within normal limits with bilateral gynecomastia. Soft tissues are unremarkable. Multilevel degenerative changes about the spine with mildly demineralized appearance of the bones. Degenerative changes of the shoulders are also noted. There is increased kyphotic curvature of the thoracic spine. IMPRESSION: 1. Subsegmental groundglass and consolidative opacities favor atelectasis. There is mild bilateral bronchial wall thickening, notably within the lung bases suggesting bronchitis with bronchial secretions. 2. Mildly enlarged subcarinal lymph node is likely reactive. 3. Cardiomegaly with prior median sternotomy and CABG. 4. Dilation of the main pulmonary artery may reflect pulmonary arterial hypertension within the appropriate clinical setting. 5. Additional findings as above. Electronically signed by: Curly Rodríguez M.D. 08/05/2017 2:34 PM Dictated Date/Time: 08/05/2017 2:26 PM
--- NOTE | 2017-08-05 16:36 | Progress Note ---
Medicine Progress Note Date & Time of Visit: August 05, 2017 at 16:27. Subjective seen resting in bedside appears more comfortable, brighter ileostomy output slowing down denies abdominal pain ,nausea no dizziness, chest pain, palpitations, dyspnea no other symptoms Objective Last 8 Hrs Date Time Temp Pulse Resp B/P (MAP) Pulse Ox O2 Delivery O2 Flow Rate FiO2 08/05/17 15:37 36.4 56 18 110/68 (82) 95 Room Air 08/05/17 11:58 36.5 54 18 103/58 (73) 93 Room Air Physical Exam: General- oriented x 3, not in distress, speaks in sentences Eyes- anicteric Neck- no JVD Lungs- clear BS bilaterally Heart- regular rhythm; no murmur, normal rate Abdomen- normal bowel sounds, soft, nontender, non distended ileostomy site benign: with brown formed output Extremities- no pretibial edema, no calf tenderness; peripheral pulses intact Neuro- alert, oriented x 3; no gross focal deficits Skin- warm & dry Laboratory Results: Last 24 Hours Test 08/04/17 16:42 08/04/17 18:30 08/04/17 19:51 08/04/17 20:32 Bedside Glucose 138 mg/dl 114 mg/dl Sodium Level 121 mmol/L Potassium Level 4.2 mmol/L Chloride Level 91 mmol/L Carbon Dioxide Level 18 mmol/L Anion Gap 11.0 mmol/L Blood Urea Nitrogen 83 mg/dl Creatinine 5.06 mg/dl Est Creatinine Clear Calc Drug Dose 13.8 ml/min Estimated GFR () 11.6 Estimated GFR (Non- 10.0 BUN/Creatinine Ratio 16.4 Random Glucose 119 mg/dl Calcium Level 7.5 mg/dl Test 08/05/17 06:16 08/05/17 07:43 08/05/17 10:04 08/05/17 11:48 Prothrombin Time 34.5 SECONDS Prothromb Time International Ratio 3.4 Sodium Level 121 mmol/L Potassium Level 3.9 mmol/L Chloride Level 92 mmol/L Carbon Dioxide Level 19 mmol/L Anion Gap 10.0 mmol/L Blood Urea Nitrogen 83 mg/dl Creatinine 4.72 mg/dl Est Creatinine Clear Calc Drug Dose 15.0 ml/min Estimated GFR () 12.6 Estimated GFR (Non- 10.8 BUN/Creatinine Ratio 17.6 Random Glucose 112 mg/dl Osmolality 277 mOsm/kg Calcium Level 7.9 mg/dl Bedside Glucose 125 mg/dl 176 mg/dl Urine Color YELLOW Urine Appearance CLEAR Urine pH 5.0 Urine Specific [place] 1.019 Urine Protein TRACE Urine Glucose (UA) NEG Urine Ketones NEG Urine Occult Blood NEG Urine Nitrite NEG Urine Bilirubin NEG Urine Urobilinogen NEG Urine Leukocyte Esterase NEG Urine WBC (Auto) 1-5 /hpf Urine RBC (Auto) 0-4 /hpf Urine Hyaline Casts (Auto) 1-5 /lpf Urine Epithelial Cells (Auto) 5-10 /lpf Urine Bacteria (Auto) NEG Urine Osmolality 397 mOms/kg Urine Random Creatinine 148.0 mg/dl Urine Random Total Protein 34.7 mg/dl Urine Random Sodium < 5 mEq/L Urine Protein/Creatinine Ratio 0.2 Test 08/05/17 13:13 Sodium Level 120 mmol/L Potassium Level 4.8 mmol/L Chloride Level 92 mmol/L Carbon Dioxide Level 19 mmol/L Anion Gap 9.0 mmol/L Blood Urea Nitrogen 81 mg/dl Creatinine 4.80 mg/dl Est Creatinine Clear Calc Drug Dose 14.7 ml/min Estimated GFR () 12.3 Estimated GFR (Non- 10.6 BUN/Creatinine Ratio 17.1 Random Glucose 162 mg/dl Calcium Level 7.6 mg/dl Assessment & Plan Pt is 81 y/o M with PMH CAD S/P stent 1 and CABG 5, atrial fibrillation on Coumadin, DM II, HTN, HLD, hypothyroidism, CVA, CKD 4, BPH, GERD, history DVT, ileostomy presented to ER with complaint of N/V/D dizziness 3 days. NAUSEA, VOMITING, DIARRHEA LIKELY GASTROENTERITIS, VIRAL VS. BACTERIAL INFECTION HISTORY OF ILEOSTOMY PLACEMENT -- C diff negative stool cultures negative -- still has increased ileostomy output GI consulted Lomotil BID started was on Unasyn for possible aspiration PNA--> change to Cipro IV fluids as noted below -- 5/6 diarrhea slowed down HOLD Lomotil as patient having bradycardia on Unasyn again ACUTE KIDNEY INJURY ON CKD 4 Cr: 5.8, baseline~[address]. [address] Perez -- given NSS Crea only slightly improved to 4.7 HCO3 improved -- on HCO3 drip appreciate Dr. Wood's input HYPONATREMIA, HYPOVOLEMIC NA: 122. Probable secondary to dehydration from vomiting and diarrhea -- Na 120 Nephro consulted, appreciate the recommendations HISTORY OF PAROXYSMAL ATRIAL FIBRILLATION ON ANTICOAGULATION SUPRATHERAPEUTIC INR - 5/6: patient noted to be bradycardic in the 50s, occasionally in the 30s Lomotil HELD usual Cardizem HELD continued on usual Atenolol monitor INR: 4.9--> 5.2--> 6 - given Vit K 5mg po INR 3.4 - hold coumadin monitor INR daily DM II Has been diet-controlled. H A1c: 6.2 on 07/2017. In ER Glucose 161. -- ISS HX CAD S/P stent 1 and CABG 5 No CP. On aspirin, atenolol, statin BPH On Proscar DVT Prophylaxis HISTORY OF DVT - INR supratherapeutic at 3.2 monitor INR DISPOSITION Full code as per discussion with pt Follows with Dr Marrufo for routine care Disposition lives at home management of acute renal failure and diarrhea in progress Current Inpatient Medications: Current Inpatient Medications Medications (Trade) Dose Ordered Sig/Shonda Route Start Time Stop Time Status Last Admin Dose Admin Nitroglycerin (Nitrostat Tab) 0.4 mg UD PRN SL 08/03/17 00:30 09/02/17 00:29 Insulin Aspart (novoLOG ASPART) SLIDING SCALE If C... ACHS SC 08/03/17 06:30 09/02/17 06:59 Glucose (Glucose 40% Gel) 15-30 GRAMS 15 GRAMS... UD PRN PO 08/03/17 00:30 09/02/17 00:29 Glucose (Glucose Chew Tab) 4-8 Tablets 4 Tabl... UD PRN PO 08/03/17 00:30 09/02/17 00:29 Dextrose (Dextrose 50% 50ML Syringe) 25-50ML 25ML FOR ... UD PRN IV 08/03/17 00:30 09/02/17 00:29 Glucagon (Glucagon Inj) 1 mg UD PRN SQ 08/03/17 00:30 09/02/17 00:29 Carbohydrates (Carbohydrates For Hypoglycemia) 15-30 GRAMS 15 grams if BSG 54-69... UD PRN PO 08/03/17 00:30 09/02/17 00:29 Hydromorphone HCl (Dilaudid Inj) 0.5 mg Q3H PRN IV 08/03/17 00:30 08/17/17 00:29 Prochlorperazine Edisylate 5 mg/ Syringe 5 ml @ 5 mls/min Q6H PRN IV 08/03/17 00:30 09/02/17 00:29 Aspirin (Ecotrin Tab) 81 mg BID PO 08/03/17 09:00 09/02/17 08:59 08/05/17 08:10 81 MG Finasteride (Proscar Tab) 5 mg DAILY PO 08/03/17 09:00 09/02/17 08:59 08/05/17 08:10 5 MG Gabapentin (Neurontin Cap) 100 mg BID PO 08/03/17 09:00 09/02/17 08:59 08/05/17 08:09 100 MG Levothyroxine Sodium (Synthroid Tab) 75 mcg DAILYBB PO 08/03/17 06:30 09/02/17 06:29 08/05/17 07:05 75 MCG Multivitamins (Multivitamin Tab) 1 tab QAM PO 08/03/17 09:00 09/02/17 08:59 08/05/17 08:09 1 TAB Simvastatin (Zocor Tab) 20 mg HS PO 08/03/17 21:00 09/02/17 20:59 08/04/17 20:43 20 MG Timolol Maleate (Timoptic 0.5% Oph Soln) 1 drops BID OPB 08/03/17 09:00 09/02/17 08:59 08/05/17 08:17 1 DROPS Miscellaneous Information (Order Awaiting Action) 1 ea QS N/A 08/03/17 08:00 09/02/17 07:59 Pantoprazole Sodium (Protonix Tab) 40 mg BID PO 08/03/17 09:00 09/02/17 08:59 08/05/17 08:09 40 MG Oxycodone/ Acetaminophen (Percocet 5-325mg Tab) 1 tab Q6H PRN PO 08/03/17 00:30 08/17/17 00:29 08/05/17 09:20 1 TAB Albuterol/ Ipratropium (Duoneb) 3 ml Q2H PRN INH 08/03/17 00:30 09/02/17 00:29 Lidocaine (Lidoderm Patch 5%) 1 patch QAM TD 08/04/17 09:00 09/03/17 08:59 08/05/17 08:11 1 PATCH Miscellaneous (Remove Lidoderm Patch) 1 ea DAILY@21 N/A 08/03/17 21:00 09/02/17 20:59 08/04/17 20:39 1 EA Brimonidine Tartrate (Alphagan 0.2% Soln) 1 drops BID OPB 08/04/17 09:00 09/03/17 08:59 08/05/17 08:17 1 DROPS Brimonidine Tartrate (Alphagan 0.2% Soln) 1 drops TODAY@2200 OPB 08/03/17 22:00 09/02/17 21:59 08/03/17 21:56 1 DROPS Acetaminophen (Tylenol Tab) 650 mg Q8H PO 08/04/17 10:00 09/02/17 09:59 08/04/17 19:10 650 MG Cyclobenzaprine HCl (Flexeril Tab) 5 mg BID PRN PO 08/04/17 09:15 09/03/17 09:14 Ciprofloxacin (Consult) 1 ea UD PRN N/A 08/04/17 09:30 09/03/17 09:29 Ciprofloxacin/ Dextrose 400 mg/ Prmx 200 ml @ 100 mls/hr Q24H IV 08/04/17 10:00 08/14/17 09:59 08/05/17 10:35 100 MLS/HR Cholestyramine Resin (Questran Powder Light) 4 gm BID@10,22 PO 08/04/17 22:00 09/03/17 21:59 08/04/17 22:11 4 GM Atenolol (Tenormin Tab) 12.5 mg QAM PO 08/06/17 09:00 09/02/17 08:59
[2017-08-05 17:55] LABS: CALCIUM 7.6 mg/dl (8.5-10.1); CREATININE 4.68 mg/dl (0.60-1.40); POTASSIUM 4.9 mmol/L (3.5-5.1)
[2017-08-05] MEDS ORDERED: AMPICILLIN/SULBACTAM CONSULT ACTIVE PRN (18:00)
[2017-08-05] MEDS: AMPICILLIN/SULBACTAM SOD INJ 3,000 MG in SODIUM CHLORIDE 0.9% 100ML 100 ML IV SCH (18:48)
[2017-08-05] MEDS: SIMVASTATIN 20 MG TAB PO SCH (20:56)
[2017-08-06] VITALS (9 sets, daily range): BP systolic 106–130; BP diastolic 57–76; PULSE 51–70; TEMP 36.3–36.7; O2SAT 92–95
[2017-08-06] MEDS: ACETAMINOPHEN 325 MG TAB PO SCH ×3 (02:00→16:22)
[2017-08-06] MEDS: LEVOTHYROXINE 75 MCG TAB PO SCH (06:02)
[2017-08-06] MEDS: AMPICILLIN/SULBACTAM SOD INJ 3,000 MG in SODIUM CHLORIDE 0.9% 100ML 100 ML IV SCH ×2 (06:02→16:20)
[2017-08-06 06:05] LABS: INR 1.3 (0.9-1.1)
[2017-08-06 06:23] LABS: CALCIUM 7.5 mg/dl (8.5-10.1); CREATININE 4.28 mg/dl (0.60-1.40); POTASSIUM 4.4 mmol/L (3.5-5.1)
--- NOTE | 2017-08-06 06:40 | Nephrology Progress Note ---
Nephrology Progress Note Date of Service: August 06, 2017. Subjective 81 yo male with chronic right sided weakness and esophageal motility issues who presented with hyponatremia, metabolic acidosis, and miah. bicarb has improved and creatinine is slowly improving. sodium levels have been difficult to correct. pt though overall feels much better. Objective Date Time Temp Pulse Resp B/P (MAP) Pulse Ox O2 Delivery O2 Flow Rate FiO2 08/06/17 04:17 36.5 56 18 109/71 (84) 93 Room Air 08/06/17 04:00 Room Air 08/06/17 00:00 Room Air 08/05/17 23:32 36.5 62 20 117/66 (83) 93 Room Air 08/05/17 20:00 95 Room Air 08/05/17 19:12 36.5 57 20 105/61 (76) 95 Room Air 08/05/17 16:00 95 Room Air 08/05/17 15:37 36.4 56 18 110/68 (82) 95 Room Air 08/05/17 11:58 36.5 54 18 103/58 (73) 93 Room Air 08/05/17 08:00 Room Air 08/05/17 07:27 36.4 66 18 112/69 (83) 94 Room Air Physical Exam: General-aaox3 Eyes-no scleral icterus ENT-mmm Neck-supple Lungs-slight upper end expiratory wheeze, clear posteriorly Heart-braeden Abdomen-bs+, +ostomy Extremities-no c/c/e Neuro-chronic right sided weakness Current Inpatient Medications Medications (Trade) Dose Ordered Sig/Shonda Route Start Time Stop Time Status Last Admin Dose Admin Nitroglycerin (Nitrostat Tab) 0.4 mg UD PRN SL 08/03/17 00:30 09/02/17 00:29 Insulin Aspart (novoLOG ASPART) SLIDING SCALE If C... ACHS SC 08/03/17 06:30 09/02/17 06:59 Glucose (Glucose 40% Gel) 15-30 GRAMS 15 GRAMS... UD PRN PO 08/03/17 00:30 09/02/17 00:29 Glucose (Glucose Chew Tab) 4-8 Tablets 4 Tabl... UD PRN PO 08/03/17 00:30 09/02/17 00:29 Dextrose (Dextrose 50% 50ML Syringe) 25-50ML 25ML FOR ... UD PRN IV 08/03/17 00:30 09/02/17 00:29 Glucagon (Glucagon Inj) 1 mg UD PRN SQ 08/03/17 00:30 09/02/17 00:29 Carbohydrates (Carbohydrates For Hypoglycemia) 15-30 GRAMS 15 grams if BSG 54-69... UD PRN PO 08/03/17 00:30 09/02/17 00:29 Hydromorphone HCl (Dilaudid Inj) 0.5 mg Q3H PRN IV 08/03/17 00:30 08/17/17 00:29 Prochlorperazine Edisylate 5 mg/ Syringe 5 ml @ 5 mls/min Q6H PRN IV 08/03/17 00:30 09/02/17 00:29 Aspirin (Ecotrin Tab) 81 mg BID PO 08/03/17 09:00 09/02/17 08:59 08/05/17 20:56 81 MG Finasteride (Proscar Tab) 5 mg DAILY PO 08/03/17 09:00 09/02/17 08:59 08/05/17 08:10 5 MG Gabapentin (Neurontin Cap) 100 mg BID PO 08/03/17 09:00 09/02/17 08:59 08/05/17 20:57 100 MG Levothyroxine Sodium (Synthroid Tab) 75 mcg DAILYBB PO 08/03/17 06:30 09/02/17 06:29 08/06/17 06:02 75 MCG Multivitamins (Multivitamin Tab) 1 tab QAM PO 08/03/17 09:00 09/02/17 08:59 08/05/17 08:09 1 TAB Simvastatin (Zocor Tab) 20 mg HS PO 08/03/17 21:00 09/02/17 20:59 08/05/17 20:56 20 MG Timolol Maleate (Timoptic 0.5% Oph Soln) 1 drops BID OPB 08/03/17 09:00 09/02/17 08:59 08/05/17 20:54 1 DROPS Miscellaneous Information (Order Awaiting Action) 1 ea QS N/A 08/03/17 08:00 09/02/17 07:59 Pantoprazole Sodium (Protonix Tab) 40 mg BID PO 08/03/17 09:00 09/02/17 08:59 08/05/17 20:56 40 MG Oxycodone/ Acetaminophen (Percocet 5-325mg Tab) 1 tab Q6H PRN PO 08/03/17 00:30 08/17/17 00:29 08/05/17 09:20 1 TAB Albuterol/ Ipratropium (Duoneb) 3 ml Q2H PRN INH 08/03/17 00:30 09/02/17 00:29 Lidocaine (Lidoderm Patch 5%) 1 patch QAM TD 08/04/17 09:00 09/03/17 08:59 08/05/17 08:11 1 PATCH Miscellaneous (Remove Lidoderm Patch) 1 ea DAILY@21 N/A 08/03/17 21:00 09/02/17 20:59 08/05/17 21:00 1 EA Brimonidine Tartrate (Alphagan 0.2% Soln) 1 drops BID OPB 08/04/17 09:00 09/03/17 08:59 08/05/17 20:55 1 DROPS Brimonidine Tartrate (Alphagan 0.2% Soln) 1 drops TODAY@2200 OPB 08/03/17 22:00 09/02/17 21:59 08/03/17 21:56 1 DROPS Acetaminophen (Tylenol Tab) 650 mg Q8H PO 08/04/17 10:00 09/02/17 09:59 08/04/17 19:10 650 MG Cyclobenzaprine HCl (Flexeril Tab) 5 mg BID PRN PO 08/04/17 09:15 09/03/17 09:14 Cholestyramine Resin (Questran Powder Light) 4 gm BID@10,22 PO 08/04/17 22:00 09/03/17 21:59 08/05/17 22:21 4 GM Atenolol (Tenormin Tab) 12.5 mg QAM PO 08/06/17 09:00 09/02/17 08:59 Ampicillin Sodium/ Sulbactam Sodium (Consult) 1 ea UD PRN N/A 08/05/17 18:00 09/04/17 17:59 Ampicillin Sodium/ Sulbactam Sodium 3000 mg/Sodium Chloride 108 ml @ 216 mls/hr Q12H IV 08/05/17 18:00 08/12/17 17:59 08/06/17 06:02 216 MLS/HR Last 24 Hours Test 08/05/17 07:43 08/05/17 10:04 08/05/17 11:48 08/05/17 13:13 Bedside Glucose 125 mg/dl 176 mg/dl Urine Color YELLOW Urine Appearance CLEAR Urine pH 5.0 Urine Specific [place] 1.019 Urine Protein TRACE Urine Glucose (UA) NEG Urine Ketones NEG Urine Occult Blood NEG Urine Nitrite NEG Urine Bilirubin NEG Urine Urobilinogen NEG Urine Leukocyte Esterase NEG Urine WBC (Auto) 1-5 /hpf Urine RBC (Auto) 0-4 /hpf Urine Hyaline Casts (Auto) 1-5 /lpf Urine Epithelial Cells (Auto) 5-10 /lpf Urine Bacteria (Auto) NEG Urine Osmolality 397 mOms/kg Urine Random Creatinine 148.0 mg/dl Urine Random Total Protein 34.7 mg/dl Urine Random Sodium < 5 mEq/L Urine Protein/Creatinine Ratio 0.2 Sodium Level 120 mmol/L Potassium Level 4.8 mmol/L Chloride Level 92 mmol/L Carbon Dioxide Level 19 mmol/L Anion Gap 9.0 mmol/L Blood Urea Nitrogen 81 mg/dl Creatinine 4.80 mg/dl Est Creatinine Clear Calc Drug Dose 14.7 ml/min Estimated GFR () 12.3 Estimated GFR (Non- 10.6 BUN/Creatinine Ratio 17.1 Random Glucose 162 mg/dl Calcium Level 7.6 mg/dl Test 08/05/17 16:43 08/05/17 17:00 08/05/17 20:21 08/06/17 05:39 Bedside Glucose 127 mg/dl 107 mg/dl Sodium Level 123 mmol/L 121 mmol/L Potassium Level 4.9 mmol/L 4.4 mmol/L Chloride Level 91 mmol/L 90 mmol/L Carbon Dioxide Level 23 mmol/L 19 mmol/L Anion Gap 9.0 mmol/L 12.0 mmol/L Blood Urea Nitrogen 83 mg/dl 79 mg/dl Creatinine 4.68 mg/dl 4.28 mg/dl Est Creatinine Clear Calc Drug Dose 15.1 ml/min 16.5 ml/min Estimated GFR () 12.7 14.1 Estimated GFR (Non- 11.0 12.2 BUN/Creatinine Ratio 17.8 18.6 Random Glucose 108 mg/dl 99 mg/dl Calcium Level 7.6 mg/dl 7.5 mg/dl Prothrombin Time 13.9 SECONDS Prothromb Time International Ratio 1.3 Magnesium Level 1.6 mg/dl Assessment & Plan hyponatremia-serum osm has been close to normal. spep is pending to be thorough. pt clinically appears dry. will restart fluids as slightly hypertonic with 1/2ns with 100meq of sodium bicarb at 75cc/hr and recheck bmp again at noon. tsh is good. lipid panel only showed mildly high triglycerides. MIAH-appears to be volume depletion significant enough to cause atn. slowly improving. not uremic. may take several months to improve back to baseline and may be at a new baseline after this admission. metabolic acidosis-likely combination of iv fluids, high output from ostomy and renal failure. restarting bicarb drip for goal bicarb of 20 to 24.
[2017-08-06] MEDS ORDERED: SODIUM BICARBONATE 8.4% INJ 100 MEQ in SODIUM CHLORIDE 0.45% 1000ML 1,000 ML IV SCH (06:45)
[2017-08-06] MEDS: PANTOprazole SOD 40 MG TAB PO SCH ×2 (07:16→20:57)
[2017-08-06] MEDS: MULTIVITAMIN TAB PO SCH (07:16)
[2017-08-06] MEDS: OXYCODONE/ACETAMINOPHEN 5-325 TAB PO PRN ×2 (07:16→16:20)
[2017-08-06] MEDS: FINASTERIDE 5 MG TAB PO SCH (07:16)
[2017-08-06] MEDS: GABAPENTIN 100 MG CAP PO SCH ×2 (07:17→20:57)
[2017-08-06] MEDS: ASPIRIN 81 MG ECTAB PO SCH ×2 (07:17→20:57)
[2017-08-06] MEDS: BRIMONIDINE TARTRATE 0.2% 5ML OPB SCH ×3 (07:17→21:08)
[2017-08-06] MEDS: LIDODERM (LIDOCAINE) PATCH 5% TD SCH (07:17)
[2017-08-06] MEDS: TIMOLOL MALEATE 0.5% OP SOLN 5 ML BTL OPB SCH ×2 (07:18→20:59)
[2017-08-06] MEDS: TRICOR~ORDER AWAITING ACTION SCH ×2 (08:00→16:00)
[2017-08-06] MEDS: INSULIN ASPART 100 UNITS/ML 3 ML PEN SC SCH ×4 (08:23→20:56)
--- NOTE | 2017-08-06 10:08 | Gastroenterology Progress Note ---
Progress Note Date of Service: August 06, 2017 Subjective Pt evaluation today including: conversation w/ patient, physical exam, chart review, lab review, review of studies, review of inpatient medication list Mr. Omero Tomlin is an 81 yr old male admitted with 1. Increased ostomy output, admitted with hyponatremia. Since admission, tx with cholestyramine. Also recommended Lomotil but DC'ed by PCP when pt had episode of bradycardia yesterday. 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 2. Dysphagia: pt describes a 2 month hx of intermittent regurgitation of liquids. Seen as an outpatient. UGI series with severe dysmotility in July and EGD deferred based on pt with increased cardiac risks and low likelihood of an EGD finding that would change the plan which is slow eating including slow/thorough chewing of foods and following each swallow with a sip of liquid. Review of Systems Constitutional: No fever Respiratory: + wheezing (Chronic mild), + shortness of breath, No cough Abdomen: + see HPI, No pain Male : No dysuria Neuro: No memory loss Psych: No depression symptoms Heme: No abnormal bleeding/bruising Endo: No fatigue Skin: No rash Medications Current Inpatient Medications Medications (Trade) Dose Ordered Sig/Shonda Route Start Time Stop Time Status Last Admin Dose Admin Nitroglycerin (Nitrostat Tab) 0.4 mg UD PRN SL 08/03/17 00:30 09/02/17 00:29 Insulin Aspart (novoLOG ASPART) SLIDING SCALE If C... ACHS SC 08/03/17 06:30 09/02/17 06:59 Glucose (Glucose 40% Gel) 15-30 GRAMS 15 GRAMS... UD PRN PO 08/03/17 00:30 09/02/17 00:29 Glucose (Glucose Chew Tab) 4-8 Tablets 4 Tabl... UD PRN PO 08/03/17 00:30 09/02/17 00:29 Dextrose (Dextrose 50% 50ML Syringe) 25-50ML 25ML FOR ... UD PRN IV 08/03/17 00:30 09/02/17 00:29 Glucagon (Glucagon Inj) 1 mg UD PRN SQ 08/03/17 00:30 09/02/17 00:29 Carbohydrates (Carbohydrates For Hypoglycemia) 15-30 GRAMS 15 grams if BSG 54-69... UD PRN PO 08/03/17 00:30 09/02/17 00:29 Hydromorphone HCl (Dilaudid Inj) 0.5 mg Q3H PRN IV 08/03/17 00:30 08/17/17 00:29 Prochlorperazine Edisylate 5 mg/ Syringe 5 ml @ 5 mls/min Q6H PRN IV 08/03/17 00:30 09/02/17 00:29 Aspirin (Ecotrin Tab) 81 mg BID PO 08/03/17 09:00 09/02/17 08:59 08/06/17 07:17 81 MG Finasteride (Proscar Tab) 5 mg DAILY PO 08/03/17 09:00 09/02/17 08:59 08/06/17 07:16 5 MG Gabapentin (Neurontin Cap) 100 mg BID PO 08/03/17 09:00 09/02/17 08:59 08/06/17 07:17 100 MG Levothyroxine Sodium (Synthroid Tab) 75 mcg DAILYBB PO 08/03/17 06:30 09/02/17 06:29 08/06/17 06:02 75 MCG Multivitamins (Multivitamin Tab) 1 tab QAM PO 08/03/17 09:00 09/02/17 08:59 08/06/17 07:16 1 TAB Simvastatin (Zocor Tab) 20 mg HS PO 08/03/17 21:00 09/02/17 20:59 08/05/17 20:56 20 MG Timolol Maleate (Timoptic 0.5% Oph Soln) 1 drops BID OPB 08/03/17 09:00 09/02/17 08:59 08/06/17 07:18 1 DROPS Miscellaneous Information (Order Awaiting Action) 1 ea QS N/A 08/03/17 08:00 09/02/17 07:59 Pantoprazole Sodium (Protonix Tab) 40 mg BID PO 08/03/17 09:00 09/02/17 08:59 08/06/17 07:16 40 MG Oxycodone/ Acetaminophen (Percocet 5-325mg Tab) 1 tab Q6H PRN PO 08/03/17 00:30 08/17/17 00:29 08/06/17 07:16 1 TAB Albuterol/ Ipratropium (Duoneb) 3 ml Q2H PRN INH 08/03/17 00:30 09/02/17 00:29 Lidocaine (Lidoderm Patch 5%) 1 patch QAM TD 08/04/17 09:00 09/03/17 08:59 08/06/17 07:17 1 PATCH Miscellaneous (Remove Lidoderm Patch) 1 ea DAILY@21 N/A 08/03/17 21:00 09/02/17 20:59 08/05/17 21:00 1 EA Brimonidine Tartrate (Alphagan 0.2% Soln) 1 drops BID OPB 08/04/17 09:00 09/03/17 08:59 08/06/17 07:17 1 DROPS Brimonidine Tartrate (Alphagan 0.2% Soln) 1 drops TODAY@2200 OPB 08/03/17 22:00 09/02/17 21:59 08/03/17 21:56 1 DROPS Acetaminophen (Tylenol Tab) 650 mg Q8H PO 08/04/17 10:00 09/02/17 09:59 08/04/17 19:10 650 MG Cyclobenzaprine HCl (Flexeril Tab) 5 mg BID PRN PO 08/04/17 09:15 09/03/17 09:14 Cholestyramine Resin (Questran Powder Light) 4 gm BID@10,22 PO 08/04/17 22:00 09/03/17 21:59 08/05/17 22:21 4 GM Atenolol (Tenormin Tab) 12.5 mg QAM PO 08/06/17 09:00 09/02/17 08:59 08/06/17 07:17 12.5 MG Ampicillin Sodium/ Sulbactam Sodium (Consult) 1 ea UD PRN N/A 08/05/17 18:00 09/04/17 17:59 Ampicillin Sodium/ Sulbactam Sodium 3000 mg/Sodium Chloride 108 ml @ 216 mls/hr Q12H IV 08/05/17 18:00 08/12/17 17:59 08/06/17 06:02 216 MLS/HR Sodium Bicarbonate 100 meq/Sodium Chloride 1,100 ml @ 75 mls/hr [id number] IV 08/06/17 06:45 09/05/17 06:44 08/06/17 07:15 75 MLS/HR Objective Vital Signs Date Time Temp Pulse Resp B/P (MAP) Pulse Ox O2 Delivery O2 Flow Rate FiO2 08/06/17 07:15 65 08/06/17 07:02 36.3 57 18 106/57 (73) 95 Room Air 08/06/17 04:17 36.5 56 18 109/71 (84) 93 Room Air 08/06/17 04:00 Room Air 08/06/17 00:00 Room Air 08/05/17 23:32 36.5 62 20 117/66 (83) 93 Room Air 08/05/17 20:00 95 Room Air 08/05/17 19:12 36.5 57 20 105/61 (76) 95 Room Air 08/05/17 16:00 95 Room Air 08/05/17 15:37 36.4 56 18 110/68 (82) 95 Room Air 08/05/17 11:58 36.5 54 18 103/58 (73) 93 Room Air Physical Exam General Appearance: no apparent distress Neck: supple, thyroid normal, no JVD Respiratory/Chest: + wheezing Cardiovascular: regular rate, rhythm, no JVD, no murmur Abdomen: non tender, soft Extremities: + pedal edema (1+) Neurologic/Psych: alert, normal mood/affect, oriented x 3 Skin: no jaundice Laboratory Results Last 24 Hours Test 08/05/17 10:04 08/05/17 11:48 08/05/17 13:13 08/05/17 16:43 Urine Color YELLOW Urine Appearance CLEAR Urine pH 5.0 Urine Specific [place] 1.019 Urine Protein TRACE Urine Glucose (UA) NEG Urine Ketones NEG Urine Occult Blood NEG Urine Nitrite NEG Urine Bilirubin NEG Urine Urobilinogen NEG Urine Leukocyte Esterase NEG Urine WBC (Auto) 1-5 /hpf Urine RBC (Auto) 0-4 /hpf Urine Hyaline Casts (Auto) 1-5 /lpf Urine Epithelial Cells (Auto) 5-10 /lpf Urine Bacteria (Auto) NEG Urine Osmolality 397 mOms/kg Urine Random Creatinine 148.0 mg/dl Urine Random Total Protein 34.7 mg/dl Urine Random Sodium < 5 mEq/L Urine Protein/Creatinine Ratio 0.2 Bedside Glucose 176 mg/dl 127 mg/dl Sodium Level 120 mmol/L Potassium Level 4.8 mmol/L Chloride Level 92 mmol/L Carbon Dioxide Level 19 mmol/L Anion Gap 9.0 mmol/L Blood Urea Nitrogen 81 mg/dl Creatinine 4.80 mg/dl Est Creatinine Clear Calc Drug Dose 14.7 ml/min Estimated GFR () 12.3 Estimated GFR (Non- 10.6 BUN/Creatinine Ratio 17.1 Random Glucose 162 mg/dl Calcium Level 7.6 mg/dl Test 08/05/17 17:00 08/05/17 20:21 08/06/17 05:39 08/06/17 07:38 Sodium Level 123 mmol/L 121 mmol/L Potassium Level 4.9 mmol/L 4.4 mmol/L Chloride Level 91 mmol/L 90 mmol/L Carbon Dioxide Level 23 mmol/L 19 mmol/L Anion Gap 9.0 mmol/L 12.0 mmol/L Blood Urea Nitrogen 83 mg/dl 79 mg/dl Creatinine 4.68 mg/dl 4.28 mg/dl Est Creatinine Clear Calc Drug Dose 15.1 ml/min 16.5 ml/min Estimated GFR () 12.7 14.1 Estimated GFR (Non- 11.0 12.2 BUN/Creatinine Ratio 17.8 18.6 Random Glucose 108 mg/dl 99 mg/dl Calcium Level 7.6 mg/dl 7.5 mg/dl Bedside Glucose 107 mg/dl 123 mg/dl Prothrombin Time 13.9 SECONDS Prothromb Time International Ratio 1.3 Magnesium Level 1.6 mg/dl Assessment and Plan Mr. Omero Tomlin is a 81-year-old male with: 1. Increased ostomy output, admitted for hyponatremia. Outputs amounts have decreased to his baseline and thick texture on cholestyramine twice daily. Would continue this medication. 2. Regarding dysphagia agree with speech eval. EGD was deferred as an OP. Would consider EGD as an inpatient after hyponatremia is further corrected, if EGD is recommended by speech pathology and the pt is cleared by cardiology. However, esophagram has suggested esophageal dysmotility and has ruled out mass and stricture. Additionally considered is candidiasis which could be found on upper endoscopy. Could possibly consider empiric treatment of candidiasis if pt is considered too high risk vs. benefits of endoscopy. I have seen and examined the patient with KANU Roy whose note reflects our findings and plan. Output has improved significantly. Would continue with colestid as well as lomotil. Agree wtih conservative eval of the complaint of dysphagia.
[2017-08-06] MEDS: CHOLESTYRAMINE LIGHT 4 GM PKT PO SCH ×2 (10:16→21:58)
[2017-08-06 12:47] LABS: CREATININE 4.24 mg/dl (0.60-1.40); POTASSIUM 4.5 mmol/L (3.5-5.1)
[2017-08-06] MEDS ORDERED: NURSING VERBAL MED ORDER ONE (14:00)
[2017-08-06] MEDS ORDERED: WARFARIN SOD 2 MG TAB PO ONE (18:00)
--- NOTE | 2017-08-06 18:06 | Progress Note ---
Medicine Progress Note Date & Time of Visit: August 06, 2017 at 17:42. Subjective sitting up in bedside chair, comfortable states he feels ok except that he was dizzy with standing up today denies chest pain, dyspnea, palpitations no abdominal pain ileostomy output decreasing no other symptoms Objective Last 8 Hrs Date Time Temp Pulse Resp B/P (MAP) Pulse Ox O2 Delivery O2 Flow Rate FiO2 08/06/17 16:03 92 Room Air 08/06/17 15:16 36.4 57 18 114/63 (80) 92 Room Air 08/06/17 12:00 Room Air 08/06/17 11:53 36.7 51 20 129/64 (85) 94 Room Air Physical Exam: General- oriented x 3, not in distress, speaks in sentences Eyes- anicteric Neck- no JVD Lungs- clear breath sounds bilaterally, no rales/wheezes Heart- regular rhythm; no murmur, normal rate Abdomen- normal bowel sounds, soft, nontender, non distended ileostomy site benign: with brown formed output Extremities- no pretibial edema, no calf tenderness Neuro- alert, oriented x 3; no gross focal deficits Skin- warm & dry Laboratory Results: Last 24 Hours Test 08/05/17 20:21 08/06/17 05:39 08/06/17 07:38 08/06/17 11:28 Bedside Glucose 107 mg/dl 123 mg/dl 155 mg/dl Prothrombin Time 13.9 SECONDS Prothromb Time International Ratio 1.3 Sodium Level 121 mmol/L Potassium Level 4.4 mmol/L Chloride Level 90 mmol/L Carbon Dioxide Level 19 mmol/L Anion Gap 12.0 mmol/L Blood Urea Nitrogen 79 mg/dl Creatinine 4.28 mg/dl Est Creatinine Clear Calc Drug Dose 16.5 ml/min Estimated GFR () 14.1 Estimated GFR (Non- 12.2 BUN/Creatinine Ratio 18.6 Random Glucose 99 mg/dl Calcium Level 7.5 mg/dl Magnesium Level 1.6 mg/dl Test 08/06/17 12:12 08/06/17 16:17 Sodium Level 120 mmol/L Potassium Level 4.5 mmol/L Chloride Level 90 mmol/L Carbon Dioxide Level 20 mmol/L Anion Gap 10.0 mmol/L Blood Urea Nitrogen 76 mg/dl Creatinine 4.24 mg/dl Est Creatinine Clear Calc Drug Dose 16.7 ml/min Estimated GFR () 14.3 Estimated GFR (Non- 12.3 BUN/Creatinine Ratio 17.9 Random Glucose 133 mg/dl Calcium Level 8.0 mg/dl Ionized Calcium 1.04 mmol/l Bedside Glucose 138 mg/dl Assessment & Plan Pt is 81 y/o M with PMH CAD S/P stent 1 and CABG 5, atrial fibrillation on Coumadin, DM II, HTN, HLD, hypothyroidism, CVA, CKD 4, BPH, GERD, history DVT, ileostomy presented to ER with complaint of N/V/D dizziness 3 days. NAUSEA, VOMITING, DIARRHEA LIKELY GASTROENTERITIS, VIRAL VS. BACTERIAL INFECTION HISTORY OF ILEOSTOMY PLACEMENT -- C diff negative stool cultures negative -- GI consulted Lomotil BID started, but discontinued due to bradycardia on Unasyn was given IV fluids -- 08/06 diarrhea slowing down continue Cholestyramine BID, Cipro to complete 7 days at least IV fluids per Nephrology ACUTE KIDNEY INJURY ON CKD 4 METABOLIC ACIDOSIS baseline~2. -- given NSS , Bicarbonate drip Crea only slightly improved from 5.8 to 4.2 HCO3 improved from 12 to 20 -- IV NSS/HCO3 drip as per Nephro appreciate Dr. Wood's input HYPONATREMIA, HYPOVOLEMIC NA: 122. Probable secondary to dehydration from vomiting and diarrhea -- Na 120 Nephro consulted, appreciate the recommendations HISTORY OF PAROXYSMAL ATRIAL FIBRILLATION ON ANTICOAGULATION SUPRATHERAPEUTIC INR - 5/6: patient noted to be bradycardic in the 50s, occasionally in the 30s Lomotil that was started by GI HELD usual Cardizem HELD continued on usual Atenolol 5/7 HR improving continue usual Atenolol resume Cardizem accordingly NO Lomotil SUPRATHERAPEUTIC INR INR: 4.9--> 5.2--> 6 - given Vit K 5mg po 08/06 - INR 1.3 resume coumadin monitor INR and order coumadin tomorrow accordingly DYSPHAGIA POSSIBLE ASPIRATION PNEUMONITIS secondary to Esophageal Dysmotility GI following, no EGD/intervention recommended at this point Speech Therapy following On Unasyn RIGHT SIDED SCIATICA PAIN - pain medication regimen limited by acute renal failure avoid NSAIDs and Narcotics - trial of Prednisone 40mg daily monitor BSGs 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 H A1c: 6.2 on 07/2017. In ER Glucose 161. -- ISS -- order Pharm consult as patient will be on Prednisone HX CAD S/P stent 1 and CABG 5 no cardiac symptoms On aspirin, atenolol, statin BPH On Proscar DVT Prophylaxis HISTORY OF DVT - INR 1.3 coumadin + heparin SC ordered DISPOSITION Full code as per discussion with pt Follows with Dr Marrufo for routine care Disposition lives at home management of acute renal failure and diarrhea in progress Current Inpatient Medications: Current Inpatient Medications Medications (Trade) Dose Ordered Sig/Shonda Route Start Time Stop Time Status Last Admin Dose Admin Nitroglycerin (Nitrostat Tab) 0.4 mg UD PRN SL 08/03/17 00:30 09/02/17 00:29 Insulin Aspart (novoLOG ASPART) SLIDING SCALE If C... ACHS SC 08/03/17 06:30 09/02/17 06:59 Glucose (Glucose 40% Gel) 15-30 GRAMS 15 GRAMS... UD PRN PO 08/03/17 00:30 09/02/17 00:29 Glucose (Glucose Chew Tab) 4-8 Tablets 4 Tabl... UD PRN PO 08/03/17 00:30 09/02/17 00:29 Dextrose (Dextrose 50% 50ML Syringe) 25-50ML 25ML FOR ... UD PRN IV 08/03/17 00:30 09/02/17 00:29 Glucagon (Glucagon Inj) 1 mg UD PRN SQ 08/03/17 00:30 09/02/17 00:29 Carbohydrates (Carbohydrates For Hypoglycemia) 15-30 GRAMS 15 grams if BSG 54-69... UD PRN PO 08/03/17 00:30 09/02/17 00:29 Hydromorphone HCl (Dilaudid Inj) 0.5 mg Q3H PRN IV 08/03/17 00:30 08/17/17 00:29 Prochlorperazine Edisylate 5 mg/ Syringe 5 ml @ 5 mls/min Q6H PRN IV 08/03/17 00:30 09/02/17 00:29 Aspirin (Ecotrin Tab) 81 mg BID PO 08/03/17 09:00 09/02/17 08:59 08/06/17 07:17 81 MG Finasteride (Proscar Tab) 5 mg DAILY PO 08/03/17 09:00 09/02/17 08:59 08/06/17 07:16 5 MG Gabapentin (Neurontin Cap) 100 mg BID PO 08/03/17 09:00 09/02/17 08:59 08/06/17 07:17 100 MG Levothyroxine Sodium (Synthroid Tab) 75 mcg DAILYBB PO 08/03/17 06:30 09/02/17 06:29 08/06/17 06:02 75 MCG Multivitamins (Multivitamin Tab) 1 tab QAM PO 08/03/17 09:00 09/02/17 08:59 08/06/17 07:16 1 TAB Simvastatin (Zocor Tab) 20 mg HS PO 08/03/17 21:00 09/02/17 20:59 08/05/17 20:56 20 MG Timolol Maleate (Timoptic 0.5% Oph Soln) 1 drops BID OPB 08/03/17 09:00 09/02/17 08:59 08/06/17 07:18 1 DROPS Miscellaneous Information (Order Awaiting Action) 1 ea QS N/A 08/03/17 08:00 09/02/17 07:59 Pantoprazole Sodium (Protonix Tab) 40 mg BID PO 08/03/17 09:00 09/02/17 08:59 08/06/17 07:16 40 MG Oxycodone/ Acetaminophen (Percocet 5-325mg Tab) 1 tab Q6H PRN PO 08/03/17 00:30 08/17/17 00:29 08/06/17 16:20 1 TAB Albuterol/ Ipratropium (Duoneb) 3 ml Q2H PRN INH 08/03/17 00:30 09/02/17 00:29 Lidocaine (Lidoderm Patch 5%) 1 patch QAM TD 08/04/17 09:00 09/03/17 08:59 08/06/17 07:17 1 PATCH Miscellaneous (Remove Lidoderm Patch) 1 ea DAILY@21 N/A 08/03/17 21:00 09/02/17 20:59 08/05/17 21:00 1 EA Brimonidine Tartrate (Alphagan 0.2% Soln) 1 drops BID OPB 08/04/17 09:00 09/03/17 08:59 08/06/17 07:17 1 DROPS Brimonidine Tartrate (Alphagan 0.2% Soln) 1 drops TODAY@2200 OPB 08/03/17 22:00 09/02/17 21:59 08/03/17 21:56 1 DROPS Acetaminophen (Tylenol Tab) 650 mg Q8H PO 08/04/17 10:00 09/02/17 09:59 08/06/17 16:22 650 MG Cyclobenzaprine HCl (Flexeril Tab) 5 mg BID PRN PO 08/04/17 09:15 09/03/17 09:14 Cholestyramine Resin (Questran Powder Light) 4 gm BID@, PO 08/04/17 22:00 09/03/17 21:59 08/06/17 10:16 4 GM Atenolol (Tenormin Tab) 12.5 mg QAM PO 08/06/17 09:00 09/02/17 08:59 08/06/17 07:17 12.5 MG Ampicillin Sodium/ Sulbactam Sodium (Consult) 1 ea UD PRN N/A 08/05/17 18:00 09/04/17 17:59 Ampicillin Sodium/ Sulbactam Sodium 3000 mg/Sodium Chloride 108 ml @ 216 mls/hr Q12H IV 08/05/17 18:00 08/12/17 17:59 08/06/17 16:20 216 MLS/HR
[2017-08-06 19:02] LABS: CALCIUM 7.9 mg/dl (8.5-10.1); CREATININE 4.2 mg/dl (0.60-1.40); POTASSIUM 4.7 mmol/L (3.5-5.1)
[2017-08-06] MEDS: SIMVASTATIN 20 MG TAB PO SCH (20:57)
[2017-08-06] MEDS: HEPARIN SOD 5000 UNIT/0.5 ML CARP SQ SCH (21:08)
[2017-08-06] MEDS: FENOFIBRATE 134 MG PO SCH (21:10)
[2017-08-07] VITALS (9 sets, daily range): BP systolic 103–119; BP diastolic 58–71; PULSE 63–91; TEMP 36.3–36.7; O2SAT 94–98
[2017-08-07] MEDS: ACETAMINOPHEN 325 MG TAB PO SCH ×3 (02:00→17:54)
[2017-08-07] MEDS: LEVOTHYROXINE 75 MCG TAB PO SCH (06:08)
[2017-08-07] MEDS: AMPICILLIN/SULBACTAM SOD INJ 3,000 MG in SODIUM CHLORIDE 0.9% 100ML 100 ML IV SCH ×2 (06:08→17:53)
[2017-08-07 06:19] LABS: BASO % 0.1 %; BASO ABS # 0.01 K/uL (0-0.2); HEMATOCRIT 31.2 % (42-52); HEMOGLOBIN 11.1 g/dL (14.0-18.0); IG# 0.13 K/uL (0.00-0.02); LYMPH % 5.1 %; LYMPH ABS # 0.43 K/uL (1.2-3.4); MEAN CORPUSCULAR HEMOGLOBIN 28.5 pg (25-34); MEAN CORPUSCULAR HGB CONC 35.6 g/dl (32-36); MEAN PLATELET VOLUME 9.9 fL (7.4-10.4); MONO % 2.9 %; MONO ABS # 0.24 K/uL (0.11-0.59); NEUT % 90.4 %; NEUT ABS # 7.59 K/uL (1.4-6.5); PLATELET COUNT 180 K/uL (130-400); RED CELL DISTRIBUTION WIDTH CV 14.9 % (11.5-14.5); RED CELL DISTRIBUTION WIDTH SD 43.3 fL (36.4-46.3)
[2017-08-07 06:30] LABS: INR 1.2 (0.9-1.1)
[2017-08-07 06:53] LABS: CALCIUM 8.1 mg/dl (8.5-10.1); CREATININE 3.53 mg/dl (0.60-1.40); POTASSIUM 4.7 mmol/L (3.5-5.1)
[2017-08-07] MEDS: INSULIN ASPART 100 UNITS/ML 3 ML PEN SC SCH ×4 (07:54→21:01)
[2017-08-07] MEDS: TIMOLOL MALEATE 0.5% OP SOLN 5 ML BTL OPB SCH ×2 (07:56→20:42)
[2017-08-07] MEDS: BRIMONIDINE TARTRATE 0.2% 5ML OPB SCH ×3 (07:56→22:00)
[2017-08-07] MEDS: FINASTERIDE 5 MG TAB PO SCH (07:57)
[2017-08-07] MEDS: ASPIRIN 81 MG ECTAB PO SCH ×2 (07:58→20:33)
[2017-08-07] MEDS: PANTOprazole SOD 40 MG TAB PO SCH ×2 (07:58→20:33)
[2017-08-07] MEDS: GABAPENTIN 100 MG CAP PO SCH ×2 (07:58→20:33)
[2017-08-07] MEDS: MULTIVITAMIN TAB PO SCH (07:59)
[2017-08-07] MEDS: LIDODERM (LIDOCAINE) PATCH 5% TD SCH (08:00)
[2017-08-07] MEDS: HEPARIN SOD 5000 UNIT/0.5 ML CARP SQ SCH ×2 (08:01→20:44)
[2017-08-07] MEDS: CHOLESTYRAMINE LIGHT 4 GM PKT PO SCH ×2 (10:00→22:00)
[2017-08-07] MEDS ORDERED: ALBUTEROL 0.5% NEB SOLN 2.5 MG/0.5 ML VIAL INH STA (10:16)
[2017-08-07] MEDS ORDERED: IPRATROPIUM BROMIDE NEB SOLN 0.02% 2.5 ML VIAL INH STA (10:16)
--- NOTE | 2017-08-07 10:27 | Nephrology Progress Note ---
Nephrology Progress Note Date of Service: August 07, 2017. Subjective 81 yo male with chronic right sided weakness and esophageal motility issues who presented with hyponatremia, metabolic acidosis, and caryn. bicarb has improved and creatinine is slowly improving. sodium levels have been difficult to correct. pt having more difficulty breathing. and daughter in law in the room. also noted to have more thick stools from his ostomy. Objective Date Time Temp Pulse Resp B/P (MAP) Pulse Ox O2 Delivery O2 Flow Rate FiO2 08/07/17 08:00 95 Room Air 2.0 08/07/17 07:43 36.4 74 18 109/62 (78) 95 Room Air 08/07/17 04:00 Room Air 08/07/17 00:00 Room Air 08/06/17 23:53 36.4 70 18 130/76 (94) 94 Room Air 08/06/17 20:10 36.3 61 20 115/73 (87) 95 08/06/17 20:09 92 Room Air 08/06/17 16:03 92 Room Air 08/06/17 15:16 36.4 57 18 114/63 (80) 92 Room Air 08/06/17 12:00 Room Air 08/06/17 11:53 36.7 51 20 129/64 (85) 94 Room Air Physical Exam: General-aaox3 Eyes-no scleral icterus ENT-mmm Neck-supple Lungs-+wheezing Heart-regular Abdomen-bs+, +ostomy Extremities-no c/c/e Neuro-chronic right sided weakness Current Inpatient Medications Medications (Trade) Dose Ordered Sig/Shonda Route Start Time Stop Time Status Last Admin Dose Admin Nitroglycerin (Nitrostat Tab) 0.4 mg UD PRN SL 08/03/17 00:30 09/02/17 00:29 Insulin Aspart (novoLOG ASPART) SLIDING SCALE If C... ACHS SC 08/03/17 06:30 09/02/17 06:59 Glucose (Glucose 40% Gel) 15-30 GRAMS 15 GRAMS... UD PRN PO 08/03/17 00:30 09/02/17 00:29 Glucose (Glucose Chew Tab) 4-8 Tablets 4 Tabl... UD PRN PO 08/03/17 00:30 09/02/17 00:29 Dextrose (Dextrose 50% 50ML Syringe) 25-50ML 25ML FOR ... UD PRN IV 08/03/17 00:30 09/02/17 00:29 Glucagon (Glucagon Inj) 1 mg UD PRN SQ 08/03/17 00:30 09/02/17 00:29 Carbohydrates (Carbohydrates For Hypoglycemia) 15-30 GRAMS 15 grams if BSG 54-69... UD PRN PO 08/03/17 00:30 09/02/17 00:29 Hydromorphone HCl (Dilaudid Inj) 0.5 mg Q3H PRN IV 08/03/17 00:30 08/17/17 00:29 Prochlorperazine Edisylate 5 mg/ Syringe 5 ml @ 5 mls/min Q6H PRN IV 08/03/17 00:30 09/02/17 00:29 Aspirin (Ecotrin Tab) 81 mg BID PO 08/03/17 09:00 09/02/17 08:59 08/07/17 07:58 81 MG Finasteride (Proscar Tab) 5 mg DAILY PO 08/03/17 09:00 09/02/17 08:59 08/07/17 07:57 5 MG Gabapentin (Neurontin Cap) 100 mg BID PO 08/03/17 09:00 09/02/17 08:59 08/07/17 07:58 100 MG Levothyroxine Sodium (Synthroid Tab) 75 mcg DAILYBB PO 08/03/17 06:30 09/02/17 06:29 08/07/17 06:08 75 MCG Multivitamins (Multivitamin Tab) 1 tab QAM PO 08/03/17 09:00 09/02/17 08:59 08/07/17 07:59 1 TAB Simvastatin (Zocor Tab) 20 mg HS PO 08/03/17 21:00 09/02/17 20:59 08/06/17 20:57 20 MG Timolol Maleate (Timoptic 0.5% Oph Soln) 1 drops BID OPB 08/03/17 09:00 09/02/17 08:59 08/07/17 07:56 1 DROPS Pantoprazole Sodium (Protonix Tab) 40 mg BID PO 08/03/17 09:00 09/02/17 08:59 08/07/17 07:58 40 MG Oxycodone/ Acetaminophen (Percocet 5-325mg Tab) 1 tab Q6H PRN PO 08/03/17 00:30 08/17/17 00:29 08/06/17 16:20 1 TAB Albuterol/ Ipratropium (Duoneb) 3 ml Q2H PRN INH 08/03/17 00:30 09/02/17 00:29 Lidocaine (Lidoderm Patch 5%) 1 patch QAM TD 08/04/17 09:00 09/03/17 08:59 08/07/17 08:00 1 PATCH Miscellaneous (Remove Lidoderm Patch) 1 ea DAILY@21 N/A 08/03/17 21:00 09/02/17 20:59 08/06/17 20:55 1 EA Brimonidine Tartrate (Alphagan 0.2% Soln) 1 drops BID OPB 08/04/17 09:00 09/03/17 08:59 08/07/17 07:56 1 DROPS Brimonidine Tartrate (Alphagan 0.2% Soln) 1 drops TODAY@2200 OPB 08/03/17 22:00 09/02/17 21:59 08/03/17 21:56 1 DROPS Acetaminophen (Tylenol Tab) 650 mg Q8H PO 08/04/17 10:00 09/02/17 09:59 08/06/17 16:22 650 MG Cyclobenzaprine HCl (Flexeril Tab) 5 mg BID PRN PO 08/04/17 09:15 09/03/17 09:14 Cholestyramine Resin (Questran Powder Light) 4 gm BID@10,22 PO 08/04/17 22:00 09/03/17 21:59 08/06/17 10:16 4 GM Atenolol (Tenormin Tab) 12.5 mg QAM PO 08/06/17 09:00 09/02/17 08:59 08/07/17 07:57 12.5 MG Ampicillin Sodium/ Sulbactam Sodium (Consult) 1 ea UD PRN N/A 08/05/17 18:00 09/04/17 17:59 Ampicillin Sodium/ Sulbactam Sodium 3000 mg/Sodium Chloride 108 ml @ 216 mls/hr Q12H IV 08/05/17 18:00 08/12/17 17:59 5/8/18 06:08 216 MLS/HR Prednisone (PredniSONE TAB) 40 mg DAILY PO 08/07/17 09:00 09/06/17 08:59 08/07/17 07:57 40 MG Heparin Sodium (Porcine) (Heparin Sq 5000 Unit/0.5ml) 5,000 unit Q12 SQ 08/06/17 21:00 09/05/17 20:59 08/07/17 08:01 5,000 UNIT Fenofibrate (Tricor Tab) 134 mg QPM PO 08/06/17 21:00 09/05/17 20:59 08/06/17 21:10 134 MG Albuterol Sulfate (Ventolin 0.5% 2.5MG/0.5ML Neb) 2.5 mg NOW STAT INH 08/07/17 10:16 08/07/17 10:17 UNV Albuterol Sulfate (Ventolin 0.5% 2.5MG/0.5ML Neb) 2.5 mg Q6R INH 08/07/17 15:00 09/06/17 14:59 UNV Ipratropium Hoffman (Atrovent 0.02% 0.5MG/2.5ML Neb) 0.5 mg Q8R INH 08/07/17 16:00 09/06/17 15:59 UNV Ipratropium Hoffman (Atrovent 0.02% 0.5MG/2.5ML Neb) 0.5 mg NOW STAT INH 08/07/17 10:16 08/07/17 10:17 UNV Furosemide 20 mg/ Syringe 2 ml @ 4 mls/min ONE IV 08/07/17 10:30 09/06/17 10:29 UNV Last 24 Hours Test 08/06/17 11:28 08/06/17 12:12 08/06/17 16:17 08/06/17 17:48 Bedside Glucose 155 mg/dl 138 mg/dl Sodium Level 120 mmol/L 121 mmol/L Potassium Level 4.5 mmol/L 4.7 mmol/L Chloride Level 90 mmol/L 89 mmol/L Carbon Dioxide Level 20 mmol/L 21 mmol/L Anion Gap 10.0 mmol/L 11.0 mmol/L Blood Urea Nitrogen 76 mg/dl 74 mg/dl Creatinine 4.24 mg/dl 4.20 mg/dl Est Creatinine Clear Calc Drug Dose 16.7 ml/min 16.9 ml/min Estimated GFR () 14.3 14.5 Estimated GFR (Non- 12.3 12.5 BUN/Creatinine Ratio 17.9 17.6 Random Glucose 133 mg/dl 120 mg/dl Calcium Level 8.0 mg/dl 7.9 mg/dl Ionized Calcium 1.04 mmol/l Test 08/06/17 20:33 08/07/17 05:53 08/07/17 07:47 Bedside Glucose 144 mg/dl 190 mg/dl White Blood Count 8.40 K/uL Red Blood Count 3.90 M/uL Hemoglobin 11.1 g/dL Hematocrit 31.2 % Mean Corpuscular Volume 80.0 fL Mean Corpuscular Hemoglobin 28.5 pg Mean Corpuscular Hemoglobin Concent 35.6 g/dl Platelet Count 180 K/uL Mean Platelet Volume 9.9 fL Neutrophils (%) (Auto) 90.4 % Lymphocytes (%) (Auto) 5.1 % Monocytes (%) (Auto) 2.9 % Eosinophils (%) (Auto) 0.0 % Basophils (%) (Auto) 0.1 % Neutrophils # (Auto) 7.59 K/uL Lymphocytes # (Auto) 0.43 K/uL Monocytes # (Auto) 0.24 K/uL Eosinophils # (Auto) 0.00 K/uL Basophils # (Auto) 0.01 K/uL RDW Standard Deviation 43.3 fL RDW Coefficient of Variation 14.9 % Immature Granulocyte % (Auto) 1.5 % Immature Granulocyte # (Auto) 0.13 K/uL Prothrombin Time 12.2 SECONDS Prothromb Time International Ratio 1.2 Sodium Level 122 mmol/L Potassium Level 4.7 mmol/L Chloride Level 90 mmol/L Carbon Dioxide Level 20 mmol/L Anion Gap 11.0 mmol/L Blood Urea Nitrogen 67 mg/dl Creatinine 3.53 mg/dl Est Creatinine Clear Calc Drug Dose 20.1 ml/min Estimated GFR () 17.9 Estimated GFR (Non- 15.4 BUN/Creatinine Ratio 18.9 Random Glucose 165 mg/dl Calcium Level 8.1 mg/dl Assessment & Plan hyponatremia-serum osm has been close to normal. spep does show two m spikes. to do serum immunofixation to be thorough. pt showing signs of possible volume overload with worsening wheezing. to check chest xray and give nebs and a dose of lasix 20 iv,. continue on fluid restriction. pt though is thirsty. perhaps was drinking more than he should. hopefully with continued fluid restriction and intermittent doses of lasix, sodium will eventually improve. although with normal serum osm, may not correct. will continue to investigate causes of hyponatremia.
[2017-08-07] MEDS ORDERED: FUROSEMIDE INJ 20 MG in SYRINGE 0 ML IV ONE (10:30)
--- NOTE | 2017-08-07 11:04 | DIAGNOSTIC IMAGING REPORT ---
CHEST 2 VIEWS ROUTINE HISTORY: wheezing COMPARISON: Chest CT 08/05/2017. FINDINGS: No pneumothorax. There are low lung volumes. Postoperative changes. The heart remains enlarged. No pleural effusions. Mild central pulmonary vascular congestion without overt edema. Left basilar linear densities are again noted. IMPRESSION: 1. Cardiomegaly with mild central pulmonary vascular congestion. This remains unchanged. 2. Linear densities at the left lung base persist. This may represent atelectasis. A pneumonia could also have a similar appearance. Electronically signed by: Kaden Plaza M.D. 08/07/2017 11:03 AM Dictated Date/Time: 08/07/2017 11:00 AM
--- NOTE | 2017-08-07 14:01 | Progress Note ---
Internal Med Progress Note Date of Service: August 07, 2017. Provider Documentation: SUBJECTIVE: Seen and examined at bedside Reports cough, SOB, wheezing and dizziness earlier today Stools have thickened Denies abdominal pain, nausea, chest pain Family at bedside IV fluids discontinued Received a dose of Lasix OBJECTIVE: Vital Signs-as noted below Physical Exam: General Appearance:Moderately built and nourished, no apparent distress Head: normocephalic, Atraumatic Eyes: normal inspection, EOMI, PERRL Neck: supple, Trachea midline Respiratory/Chest: Normal breath sounds, B/L wheezing Cardiovascular: S1, S2, No murmur Abdomen/GI:Soft, Non tender, Bowel sounds present, +Ileostomy Extremities/Musculoskelatal:normal inspection, Trace edema Neurologic/Psych:AAOX3, grossly no focal neurological deficits Skin: normal color, warm Lab data as noted below. ASSESSMENT & PLAN: Patient is an 81 yr male with PMH CAD S/P stent and CABG 5, atrial fibrillation on Coumadin, DM II, HTN, HLD, hypothyroidism, CVA, CKD 4, BPH, GERD , H/O DVT, Ileostomy presented to ER with complaint of N/V/D dizziness 3 days. Nausea, Vomiting, Diarrhea: Likely Gastroenteritis H/O Ileostomy Stool studies negative Appreciate GI Input Lomotil BID started, but discontinued due to bradycardia Continue Unasyn received IV fluids Continue Cholestyramine BID Diarrhea improving MIAH on CKD IV Metabolic acidosis Baseline Cr~2. Bicarb levels improved Cr slowly improving Cr:3.53 today monitor renal function Appreciate Nephrology Input Received IV fluids with bicarbonate Hyponatremia Serum Osmolality near normal IV fluids discontinued as patient developing volume overload SPEP:Two M spikes Serum Immunofixation pending Continue fluid restriction Nephrology following Possible fluid Overload: Likely 2/2 IV fluids CXR:Cardiomegaly with mild central pulmonary vascular congestion. This remains unchanged. Linear densities at the left lung base persist. This may represent atelectasis. A pneumonia could also have a similar appearance. IV Fluids discontinued Lasix PRN Continue Nebs H/O P.afib: Serotherapeutic INR:S/P Vit K: resolved Bradycardia: Intermittently Lomotil discontinued Cardizem Held Continue Atenolol Continue Coumadin Monitor INR:1.2 H/O DVT: continue Coumadin monitor INR Dysphagia: Possible Aspiration Pneumonitis: secondary to Esophageal Dysmotility GI following No EGD/intervention recommended at this point Speech Therapy evaluated Continue Unasyn Day # 3 Right sided Sciatic Pain: pain medication regimen limited by acute renal failure avoid NSAIDs and Narcotics Continue trial of Prednisone 40mg daily monitor BSGs Right Adrenal Nodule: found on CT scan:unchanged from prior exam monitor Further work up as outpatient DM II Has been diet-controlled. Hb A1c: 6.2 on 07/2017. continue ISS HX CAD S/P stent 1 and CABG 5 no cardiac symptoms On aspirin, atenolol, statin BPH On Proscar DVT Px: continue Coumadin Heparin SQ till INR in therapeutic range Code Status: Full Code Disposition: To be determined Follows with Dr Marrufo for routine care Vital Signs: Date Time Temp Pulse Resp B/P (MAP) Pulse Ox O2 Delivery O2 Flow Rate FiO2 08/07/17 12:00 95 2.0 08/07/17 11:51 36.7 64 18 103/58 (73) 97 32.0 08/07/17 08:00 95 Room Air 2.0 08/07/17 07:43 36.4 74 18 109/62 (78) 95 Room Air 08/07/17 04:00 Room Air 08/07/17 00:00 Room Air 08/06/17 23:53 36.4 70 18 130/76 (94) 94 Room Air 08/06/17 20:10 36.3 61 20 115/73 (87) 95 08/06/17 20:09 92 Room Air 08/06/17 16:03 92 Room Air 08/06/17 15:16 36.4 57 18 114/63 (80) 92 Room Air Lab Results: Results Past 24 Hours Test 08/06/17 16:17 08/06/17 17:48 08/06/17 20:33 08/07/17 05:53 Range/Units Bedside Glucose 138 144 70-99 mg/dl Sodium Level 121 122 136-145 mmol/L Potassium Level 4.7 4.7 3.5-5.1 mmol/L Chloride Level 89 90 98-107 mmol/L Carbon Dioxide Level 21 20 21-32 mmol/L Anion Gap 11.0 11.0 3-11 mmol/L Blood Urea Nitrogen 74 67 7-18 mg/dl Creatinine 4.20 3.53 0.60-1.40 mg/dl Est Creatinine Clear Calc Drug Dose 16.9 20.1 ml/min Estimated GFR () 14.5 17.9 Estimated GFR (Non- 12.5 15.4 BUN/Creatinine Ratio 17.6 18.9 10-20 Random Glucose 120 165 70-99 mg/dl Calcium Level 7.9 8.1 8.5-10.1 mg/dl White Blood Count 8.40 4.8-10.8 K/uL Red Blood Count 3.90 4.7-6.1 M/uL Hemoglobin 11.1 14.0-18.0 g/dL Hematocrit 31.2 42-52 % Mean Corpuscular Volume 80.0 80-100 fL Mean Corpuscular Hemoglobin 28.5 25-34 pg Mean Corpuscular Hemoglobin Concent 35.6 32-36 g/dl Platelet Count 180 130-400 K/uL Mean Platelet Volume 9.9 7.4-10.4 fL Neutrophils (%) (Auto) 90.4 % Lymphocytes (%) (Auto) 5.1 % Monocytes (%) (Auto) 2.9 % Eosinophils (%) (Auto) 0.0 % Basophils (%) (Auto) 0.1 % Neutrophils # (Auto) 7.59 1.4-6.5 K/uL Lymphocytes # (Auto) 0.43 1.2-3.4 K/uL Monocytes # (Auto) 0.24 0.11-0.59 K/uL Eosinophils # (Auto) 0.00 0-0.5 K/uL Basophils # (Auto) 0.01 0-0.2 K/uL RDW Standard Deviation 43.3 36.4-46.3 fL RDW Coefficient of Variation 14.9 11.5-14.5 % Immature Granulocyte % (Auto) 1.5 % Immature Granulocyte # (Auto) 0.13 0.00-0.02 K/uL Prothrombin Time 12.2 9.0-12.0 SECONDS Prothromb Time International Ratio 1.2 0.9-1.1 Test 08/07/17 07:47 08/07/17 11:37 Range/Units Bedside Glucose 190 170 70-99 mg/dl
[2017-08-07] MEDS ORDERED: ALBUTEROL 0.083% NEBU SOLN 3 ML VIAL INH PRN (15:00)
[2017-08-07] MEDS ORDERED: ALBUTEROL 0.5% NEB SOLN 2.5 MG/0.5 ML VIAL INH SCH (15:00)
[2017-08-07] MEDS ORDERED: IPRATROPIUM BROMIDE NEB SOLN 0.02% 2.5 ML VIAL INH SCH (15:00)
[2017-08-07] MEDS: WARFARIN SOD 2 MG TAB PO SCH (16:32)
[2017-08-07] MEDS: ALBUT/IPRATROP 3MG/0.5MG NEB 3 ML VIAL INH SCH (18:57)
[2017-08-07] MEDS: SIMVASTATIN 20 MG TAB PO SCH (20:33)
[2017-08-07] MEDS: FENOFIBRATE 134 MG PO SCH (20:34)
[2017-08-08] VITALS (13 sets, daily range): BP systolic 112–148; BP diastolic 52–79; PULSE 75–104; TEMP 36.3–36.5; O2SAT 92–99
[2017-08-08] MEDS: ACETAMINOPHEN 325 MG TAB PO SCH ×3 (02:00→18:00)
[2017-08-08 05:51] LABS: HEMOGLOBIN 10.8 g/dL (14.0-18.0); MEAN CORPUSCULAR HEMOGLOBIN 28.8 pg (25-34); MEAN PLATELET VOLUME 9.3 fL (7.4-10.4); PLATELET COUNT 191 K/uL (130-400); RED CELL DISTRIBUTION WIDTH CV 14.7 % (11.5-14.5); RED CELL DISTRIBUTION WIDTH SD 42.7 fL (36.4-46.3); WHITE BLOOD COUNT 11.37 K/uL (4.8-10.8)
[2017-08-08 06:16] LABS: INR 1.2 (0.9-1.1)
[2017-08-08] MEDS: AMPICILLIN/SULBACTAM SOD INJ 3,000 MG in SODIUM CHLORIDE 0.9% 100ML 100 ML IV SCH ×2 (06:17→18:00)
[2017-08-08 06:19] LABS: CALCIUM 8.2 mg/dl (8.5-10.1); CREATININE 3.42 mg/dl (0.60-1.40); POTASSIUM 4.3 mmol/L (3.5-5.1)
[2017-08-08] MEDS: LEVOTHYROXINE 75 MCG TAB PO SCH (06:59)
[2017-08-08] MEDS: ALBUT/IPRATROP 3MG/0.5MG NEB 3 ML VIAL INH SCH ×5 (07:09→19:38)
[2017-08-08] MEDS: INSULIN ASPART 100 UNITS/ML 3 ML PEN SC SCH ×4 (08:08→20:38)
[2017-08-08] MEDS: ASPIRIN 81 MG ECTAB PO SCH ×2 (08:09→20:35)
[2017-08-08] MEDS: PANTOprazole SOD 40 MG TAB PO SCH ×2 (08:09→20:35)
[2017-08-08] MEDS: MULTIVITAMIN TAB PO SCH (08:10)
[2017-08-08] MEDS: GABAPENTIN 100 MG CAP PO SCH ×2 (08:10→20:35)
[2017-08-08] MEDS: FINASTERIDE 5 MG TAB PO SCH (08:10)
[2017-08-08] MEDS: LIDODERM (LIDOCAINE) PATCH 5% TD SCH (08:11)
[2017-08-08] MEDS: TIMOLOL MALEATE 0.5% OP SOLN 5 ML BTL OPB SCH ×2 (08:12→20:32)
[2017-08-08] MEDS: BRIMONIDINE TARTRATE 0.2% 5ML OPB SCH ×3 (08:12→20:57)
[2017-08-08] MEDS: HEPARIN SOD 5000 UNIT/0.5 ML CARP SQ SCH ×2 (08:15→20:38)
--- NOTE | 2017-08-08 09:08 | Nephrology Progress Note ---
Nephrology Progress Note Date of Service: August 08, 2017. Subjective 81 yo male with chronic right sided weakness and esophageal motility issues who presented with hyponatremia, metabolic acidosis, and caryn. patient currently improving. although pt is concerned about his fluid restriction and is thirsty. also concerned about his output from colostomy being very firm. Objective Date Time Temp Pulse Resp B/P (MAP) Pulse Ox O2 Delivery O2 Flow Rate FiO2 08/08/17 08:04 36.3 78 18 148/79 (102) 95 08/08/17 07:09 83 16 96 Room Air 08/08/17 04:00 Nasal Cannula 2.0 08/08/17 04:00 36.3 75 16 121/52 (75) 96 Room Air 08/08/17 00:00 Nasal Cannula 2.0 08/07/17 23:48 36.3 63 16 119/71 (87) 94 Room Air 08/07/17 20:01 Nasal Cannula 2.0 08/07/17 18:58 36.5 71 20 108/58 (75) 96 08/07/17 18:57 81 16 98 Nasal Cannula 2.0 08/07/17 16:00 Nasal Cannula 2.0 08/07/17 15:12 36.4 91 20 113/58 (76) 95 08/07/17 14:15 80 16 95 Nasal Cannula 2.0 08/07/17 12:00 95 2.0 08/07/17 11:51 36.7 64 18 103/58 (73) 97 32.0 Physical Exam: General-aaox3 Eyes-no scleral icterus ENT-mmm Neck-supple Lungs-cta Heart-irregularly irregular Abdomen-bs+, +ostomy Extremities-no c/c/e Neuro-chronic right sided weakness Current Inpatient Medications Medications (Trade) Dose Ordered Sig/Shonda Route Start Time Stop Time Status Last Admin Dose Admin Nitroglycerin (Nitrostat Tab) 0.4 mg UD PRN SL 08/03/17 00:30 09/02/17 00:29 Insulin Aspart (novoLOG ASPART) SLIDING SCALE If C... ACHS SC 08/03/17 06:30 09/02/17 06:59 08/07/17 21:01 4 UNITS Glucose (Glucose 40% Gel) 15-30 GRAMS 15 GRAMS... UD PRN PO 08/03/17 00:30 09/02/17 00:29 Glucose (Glucose Chew Tab) 4-8 Tablets 4 Tabl... UD PRN PO 08/03/17 00:30 09/02/17 00:29 Dextrose (Dextrose 50% 50ML Syringe) 25-50ML 25ML FOR ... UD PRN IV 08/03/17 00:30 09/02/17 00:29 Glucagon (Glucagon Inj) 1 mg UD PRN SQ 08/03/17 00:30 09/02/17 00:29 Carbohydrates (Carbohydrates For Hypoglycemia) 15-30 GRAMS 15 grams if BSG 54-69... UD PRN PO 08/03/17 00:30 09/02/17 00:29 Hydromorphone HCl (Dilaudid Inj) 0.5 mg Q3H PRN IV 08/03/17 00:30 08/17/17 00:29 Prochlorperazine Edisylate 5 mg/ Syringe 5 ml @ 5 mls/min Q6H PRN IV 08/03/17 00:30 09/02/17 00:29 Aspirin (Ecotrin Tab) 81 mg BID PO 08/03/17 09:00 09/02/17 08:59 08/08/17 08:09 81 MG Finasteride (Proscar Tab) 5 mg DAILY PO 08/03/17 09:00 09/02/17 08:59 08/08/17 08:10 5 MG Gabapentin (Neurontin Cap) 100 mg BID PO 08/03/17 09:00 09/02/17 08:59 08/08/17 08:10 100 MG Levothyroxine Sodium (Synthroid Tab) 75 mcg DAILYBB PO 08/03/17 06:30 09/02/17 06:29 08/08/17 06:59 75 MCG Multivitamins (Multivitamin Tab) 1 tab QAM PO 08/03/17 09:00 09/02/17 08:59 08/08/17 08:10 1 TAB Simvastatin (Zocor Tab) 20 mg HS PO 08/03/17 21:00 09/02/17 20:59 08/07/17 20:33 20 MG Timolol Maleate (Timoptic 0.5% Oph Soln) 1 drops BID OPB 08/03/17 09:00 09/02/17 08:59 08/08/17 08:12 1 DROPS Pantoprazole Sodium (Protonix Tab) 40 mg BID PO 08/03/17 09:00 09/02/17 08:59 08/08/17 08:09 40 MG Oxycodone/ Acetaminophen (Percocet 5-325mg Tab) 1 tab Q6H PRN PO 08/03/17 00:30 08/17/17 00:29 08/06/17 16:20 1 TAB Lidocaine (Lidoderm Patch 5%) 1 patch QAM TD 08/04/17 09:00 09/03/17 08:59 08/08/17 08:11 1 PATCH Miscellaneous (Remove Lidoderm Patch) 1 ea DAILY@21 N/A 08/03/17 21:00 09/02/17 20:59 08/07/17 20:34 1 EA Brimonidine Tartrate (Alphagan 0.2% Soln) 1 drops BID OPB 08/04/17 09:00 09/03/17 08:59 08/08/17 08:12 1 DROPS Brimonidine Tartrate (Alphagan 0.2% Soln) 1 drops TODAY@2200 OPB 08/03/17 22:00 09/02/17 21:59 08/03/17 21:56 1 DROPS Acetaminophen (Tylenol Tab) 650 mg Q8H PO 08/04/17 10:00 09/02/17 09:59 08/06/17 16:22 650 MG Cyclobenzaprine HCl (Flexeril Tab) 5 mg BID PRN PO 08/04/17 09:15 09/03/17 09:14 Cholestyramine Resin (Questran Powder Light) 4 gm BID@10,22 PO 08/04/17 22:00 09/03/17 21:59 08/06/17 10:16 4 GM Atenolol (Tenormin Tab) 12.5 mg QAM PO 08/06/17 09:00 09/02/17 08:59 08/08/17 08:10 12.5 MG Ampicillin Sodium/ Sulbactam Sodium (Consult) 1 ea UD PRN N/A 08/05/17 18:00 09/04/17 17:59 Ampicillin Sodium/ Sulbactam Sodium 3000 mg/Sodium Chloride 108 ml @ 216 mls/hr Q12H IV 08/05/17 18:00 5/13/18 17:59 08/08/17 06:17 216 MLS/HR Prednisone (PredniSONE TAB) 40 mg DAILY PO 08/07/17 09:00 09/06/17 08:59 08/08/17 08:11 40 MG Heparin Sodium (Porcine) (Heparin Sq 5000 Unit/0.5ml) 5,000 unit Q12 SQ 08/06/17 21:00 09/05/17 20:59 08/08/17 08:15 5,000 UNIT Fenofibrate (Tricor Tab) 134 mg QPM PO 08/06/17 21:00 09/05/17 20:59 08/07/17 20:34 134 MG Warfarin Sodium (Coumadin Tab) 2 mg DAILY@16 PO 08/07/17 16:00 09/06/17 15:59 08/07/17 16:32 2 MG Albuterol/ Ipratropium (Duoneb) 3 ml QIDR INH 08/07/17 20:00 09/06/17 19:59 08/08/17 07:09 3 ML Albuterol Sulfate (Ventolin 0.083% 2.5MG/3ML Neb) 2.5 mg Q2H PRN INH 08/07/17 15:00 09/06/17 14:59 Last 24 Hours Test 08/07/17 11:37 08/07/17 16:28 08/07/17 16:29 08/07/17 20:48 Bedside Glucose 170 mg/dl 225 mg/dl 205 mg/dl 272 mg/dl Test 08/08/17 05:38 White Blood Count 11.37 K/uL Red Blood Count 3.75 M/uL Hemoglobin 10.8 g/dL Hematocrit 30.0 % Mean Corpuscular Volume 80.0 fL Mean Corpuscular Hemoglobin 28.8 pg Mean Corpuscular Hemoglobin Concent 36.0 g/dl RDW Standard Deviation 42.7 fL RDW Coefficient of Variation 14.7 % Platelet Count 191 K/uL Mean Platelet Volume 9.3 fL Prothrombin Time 12.7 SECONDS Prothromb Time International Ratio 1.2 Sodium Level 124 mmol/L Potassium Level 4.3 mmol/L Chloride Level 94 mmol/L Carbon Dioxide Level 21 mmol/L Anion Gap 9.0 mmol/L Blood Urea Nitrogen 64 mg/dl Creatinine 3.42 mg/dl Est Creatinine Clear Calc Drug Dose 20.7 ml/min Estimated GFR () 18.5 Estimated GFR (Non- 16.0 BUN/Creatinine Ratio 18.6 Random Glucose 180 mg/dl Calcium Level 8.2 mg/dl Magnesium Level 1.9 mg/dl Assessment & Plan hyponatremia-serum osm has been close to normal. spep does show two m spikes. to do serum immunofixation to be thorough. sodium level up to 124 now. continue the fluid restriction although difficult for patient. will also continue intermittent doses of lasix. pulmonary exam much improved. GI-pt concerned about constipation and requiring an ng tube. initially presented with high output from ostomy. will stop the questran which he has been refusing till he starts to loosen up with his bowels again.
[2017-08-08] MEDS: FUROSEMIDE INJ 20 MG in SYRINGE 0 ML IV SCH (10:10)
[2017-08-08] MEDS: WARFARIN SOD 2 MG TAB PO SCH (16:08)
--- NOTE | 2017-08-08 16:56 | Progress Note ---
Internal Med Progress Note Date of Service: August 08, 2017. Provider Documentation: SUBJECTIVE: Seen and examined at bedside Feels lot better today SOB, wheezing much improved Stools have thickened per patient and is concerned about developing constipation Denies abdominal pain, nausea, chest pain Leukocytosis likely secondary to prednisone OBJECTIVE: Vital Signs-as noted below Physical Exam: General Appearance:Moderately built and nourished, no apparent distress Head: normocephalic, Atraumatic Eyes: normal inspection, EOMI, PERRL Neck: supple, Trachea midline Respiratory/Chest: Normal breath sounds, CTA Cardiovascular: S1, S2, No murmur Abdomen/GI:Soft, Non tender, Bowel sounds present, +Ileostomy Extremities/Musculoskelatal:normal inspection, Trace edema Neurologic/Psych:AAOX3, grossly no focal neurological deficits Skin: normal color, warm Lab data as noted below. ASSESSMENT & PLAN: Patient is an 81 yr male with PMH CAD S/P stent and CABG 5, atrial fibrillation on Coumadin, DM II, HTN, HLD, hypothyroidism, CVA, CKD 4, BPH, GERD , H/O DVT, Ileostomy presented to ER with complaint of N/V/D dizziness 3 days. Nausea, Vomiting, Diarrhea: Likely Gastroenteritis H/O Ileostomy Stool studies negative Appreciate GI Input Lomotil BID started, but discontinued due to bradycardia Continue Unasyn,, Plan to change to Augmentin as able received IV fluids Cholestyramine BID discontinued as patient refusing secondary to concern for developing constipation MIAH on CKD IV Metabolic acidosis Baseline Cr~2. Bicarb levels improved Cr slowly improving Cr:3.53>>>3.42 monitor renal function Appreciate Nephrology Input IV fluids with bicarbonate discontinued Hyponatremia Serum Osmolality near normal IV fluids discontinued as patient developing volume overload SPEP:Two M spikes Serum Immunofixation pending Nephrology following Sodium levels improved to 124 Continue fluid restriction Possible fluid Overload: Likely 2/2 IV fluids CXR:Cardiomegaly with mild central pulmonary vascular congestion. This remains unchanged. Linear densities at the left lung base persist. This may represent atelectasis. A pneumonia could also have a similar appearance. IV Fluids discontinued Lasix PRN Continue Nebs H/O P.afib: Serotherapeutic INR:S/P Vit K: resolved Bradycardia: Intermittently Lomotil discontinued Cardizem Held Continue Atenolol Continue Coumadin Monitor INR:1.2 H/O DVT: continue Coumadin monitor INR Dysphagia: Possible Aspiration Pneumonitis: secondary to Esophageal Dysmotility GI following No EGD/intervention recommended at this point Speech Therapy evaluated Continue Unasyn Day # 4 Right sided Sciatic Pain: pain medication regimen limited by acute renal failure avoid NSAIDs and Narcotics Continue trial of Prednisone 40mg daily>>>Start taper tomorrow monitor BSGs Right Adrenal Nodule: found on CT scan:unchanged from prior exam monitor Further work up as outpatient DM II Has been diet-controlled. Hb A1c: 6.2 on 07/2017. continue ISS HX CAD S/P stent 1 and CABG 5 no cardiac symptoms On aspirin, atenolol, statin BPH On Proscar DVT Px: continue Coumadin Heparin SQ till INR in therapeutic range Code Status: Full Code Disposition: To be determined Follows with Dr Marrufo for routine care Vital Signs: Date Time Temp Pulse Resp B/P (MAP) Pulse Ox O2 Delivery O2 Flow Rate FiO2 08/08/17 15:39 36.3 89 18 119/70 (86) 94 08/08/17 14:58 99 16 92 Room Air 08/08/17 12:00 96 Room Air 08/08/17 11:28 36.5 77 20 112/63 (79) 99 Room Air 08/08/17 11:07 86 16 98 Room Air 08/08/17 08:04 36.3 78 18 148/79 (102) 95 08/08/17 08:00 96 Room Air 08/08/17 07:09 83 16 96 Room Air 08/08/17 04:00 Nasal Cannula 2.0 08/08/17 04:00 36.3 75 16 121/52 (75) 96 Room Air 08/08/17 00:00 Nasal Cannula 2.0 08/07/17 23:48 36.3 63 16 119/71 (87) 94 Room Air 08/07/17 20:01 Nasal Cannula 2.0 08/07/17 18:58 36.5 71 20 108/58 (75) 96 08/07/17 18:57 81 16 98 Nasal Cannula 2.0 Lab Results: Results Past 24 Hours Test 08/07/17 20:48 08/08/17 05:38 08/08/17 07:38 08/08/17 11:42 Range/Units Bedside Glucose 272 161 186 70-99 mg/dl White Blood Count 11.37 4.8-10.8 K/uL Red Blood Count 3.75 4.7-6.1 M/uL Hemoglobin 10.8 14.0-18.0 g/dL Hematocrit 30.0 42-52 % Mean Corpuscular Volume 80.0 80-100 fL Mean Corpuscular Hemoglobin 28.8 25-34 pg Mean Corpuscular Hemoglobin Concent 36.0 32-36 g/dl RDW Standard Deviation 42.7 36.4-46.3 fL RDW Coefficient of Variation 14.7 11.5-14.5 % Platelet Count 191 130-400 K/uL Mean Platelet Volume 9.3 7.4-10.4 fL Prothrombin Time 12.7 9.0-12.0 SECONDS Prothromb Time International Ratio 1.2 0.9-1.1 Sodium Level 124 136-145 mmol/L Potassium Level 4.3 3.5-5.1 mmol/L Chloride Level 94 98-107 mmol/L Carbon Dioxide Level 21 21-32 mmol/L Anion Gap 9.0 3-11 mmol/L Blood Urea Nitrogen 64 7-18 mg/dl Creatinine 3.42 0.60-1.40 mg/dl Est Creatinine Clear Calc Drug Dose 20.7 ml/min Estimated GFR () 18.5 Estimated GFR (Non- 16.0 BUN/Creatinine Ratio 18.6 10-20 Random Glucose 180 70-99 mg/dl Calcium Level 8.2 8.5-10.1 mg/dl Magnesium Level 1.9 1.8-2.4 mg/dl Test 08/08/17 16:44 Range/Units Bedside Glucose 235 70-99 mg/dl
[2017-08-08] MEDS ORDERED: WARFARIN SOD 1 MG TAB PO ONE (17:30)
[2017-08-08] MEDS: FENOFIBRATE 134 MG PO SCH (20:35)
[2017-08-08] MEDS: SIMVASTATIN 20 MG TAB PO SCH (20:35)
[2017-08-09] VITALS (14 sets, daily range): BP systolic 111–146; BP diastolic 67–90; PULSE 65–98; TEMP 36.3–36.5; O2SAT 93–98
[2017-08-09] MEDS: ACETAMINOPHEN 325 MG TAB PO SCH ×3 (02:00→17:27)
[2017-08-09] MEDS: AMPICILLIN/SULBACTAM SOD INJ 3,000 MG in SODIUM CHLORIDE 0.9% 100ML 100 ML IV SCH (06:10)
[2017-08-09] MEDS: LEVOTHYROXINE 75 MCG TAB PO SCH (06:11)
[2017-08-09 06:12] LABS: HEMATOCRIT 31.4 % (42-52); HEMOGLOBIN 11.1 g/dL (14.0-18.0); MEAN CELL VOLUME 80.9 fL (80-100); MEAN CORPUSCULAR HEMOGLOBIN 28.6 pg (25-34); MEAN CORPUSCULAR HGB CONC 35.4 g/dl (32-36); MEAN PLATELET VOLUME 10.1 fL (7.4-10.4); PLATELET COUNT 213 K/uL (130-400); RED CELL DISTRIBUTION WIDTH SD 43.9 fL (36.4-46.3); WHITE BLOOD COUNT 10.73 K/uL (4.8-10.8)
[2017-08-09 06:35] LABS: INR 1.4 (0.9-1.1)
[2017-08-09 06:43] LABS: CALCIUM 8.5 mg/dl (8.5-10.1); CREATININE 3.18 mg/dl (0.60-1.40); POTASSIUM 4.6 mmol/L (3.5-5.1)
[2017-08-09] MEDS: ALBUT/IPRATROP 3MG/0.5MG NEB 3 ML VIAL INH SCH ×4 (07:01→19:20)
[2017-08-09] MEDS: INSULIN ASPART 100 UNITS/ML 3 ML PEN SC SCH ×4 (08:12→20:47)
[2017-08-09] MEDS: MULTIVITAMIN TAB PO SCH (08:21)
[2017-08-09] MEDS: PANTOprazole SOD 40 MG TAB PO SCH ×2 (08:22→20:41)
[2017-08-09] MEDS: GABAPENTIN 100 MG CAP PO SCH ×2 (08:23→20:43)
[2017-08-09] MEDS: FINASTERIDE 5 MG TAB PO SCH (08:24)
[2017-08-09] MEDS: BRIMONIDINE TARTRATE 0.2% 5ML OPB SCH ×3 (08:25→20:49)
[2017-08-09] MEDS: ASPIRIN 81 MG ECTAB PO SCH ×2 (08:25→20:43)
[2017-08-09] MEDS: TIMOLOL MALEATE 0.5% OP SOLN 5 ML BTL OPB SCH ×2 (08:25→20:43)
[2017-08-09] MEDS: FUROSEMIDE INJ 20 MG in SYRINGE 0 ML IV SCH (08:26)
[2017-08-09] MEDS: LIDODERM (LIDOCAINE) PATCH 5% TD SCH (08:27)
[2017-08-09] MEDS: HEPARIN SOD 5000 UNIT/0.5 ML CARP SQ SCH ×2 (08:30→20:48)
--- NOTE | 2017-08-09 15:55 | Nephrology Progress Note ---
Nephrology Progress Note Date of Service: August 09, 2017. Subjective 81 yo male with chronic right sided weakness and esophageal motility issues who presented with hyponatremia, metabolic acidosis, and caryn. pt was concerned about constipation from his colostomy and stopped questran and starting to loosen up again. breathing is stable on prednisone and nebulizers. on fluid restriction and lasix to help with his hyponatremia. Objective Date Time Temp Pulse Resp B/P (MAP) Pulse Ox O2 Delivery O2 Flow Rate FiO2 08/09/17 15:38 36.3 81 16 126/84 (98) 97 08/09/17 15:09 92 16 96 Room Air 08/09/17 12:05 36.3 74 18 111/67 (82) 98 08/09/17 12:00 94 Room Air 08/09/17 11:41 87 16 97 Room Air 08/09/17 08:08 36.3 82 18 145/89 (107) 94 Room Air 08/09/17 08:00 94 Room Air 08/09/17 07:01 82 16 97 Room Air 08/09/17 04:00 36.3 74 16 135/76 (95) 95 Room Air 08/09/17 04:00 Room Air 08/09/17 00:00 Room Air 08/08/17 23:43 36.3 78 18 124/71 (88) 96 Room Air 08/08/17 20:00 Room Air 08/08/17 19:54 36.3 104 18 114/61 (78) 95 Room Air 08/08/17 19:39 86 16 96 Room Air 08/08/17 19:09 77 119/65 (83) 08/08/17 16:00 Room Air Physical Exam: General-aaox3 Eyes-no scleral icterus ENT-mmm Neck-supple Lungs-slight wheeze anteriorly Heart-irregularly irregular Abdomen-bs+, +ostomy Extremities-no c/c/e Neuro-chronic right sided weakness Current Inpatient Medications Medications (Trade) Dose Ordered Sig/Shonda Route Start Time Stop Time Status Last Admin Dose Admin Nitroglycerin (Nitrostat Tab) 0.4 mg UD PRN SL 08/03/17 00:30 09/02/17 00:29 Insulin Aspart (novoLOG ASPART) SLIDING SCALE If C... ACHS SC 08/03/17 06:30 09/02/17 06:59 08/08/17 20:38 5 UNITS Glucose (Glucose 40% Gel) 15-30 GRAMS 15 GRAMS... UD PRN PO 08/03/17 00:30 09/02/17 00:29 Glucose (Glucose Chew Tab) 4-8 Tablets 4 Tabl... UD PRN PO 08/03/17 00:30 09/02/17 00:29 Dextrose (Dextrose 50% 50ML Syringe) 25-50ML 25ML FOR ... UD PRN IV 08/03/17 00:30 09/02/17 00:29 Glucagon (Glucagon Inj) 1 mg UD PRN SQ 08/03/17 00:30 09/02/17 00:29 Carbohydrates (Carbohydrates For Hypoglycemia) 15-30 GRAMS 15 grams if BSG 54-69... UD PRN PO 08/03/17 00:30 09/02/17 00:29 Hydromorphone HCl (Dilaudid Inj) 0.5 mg Q3H PRN IV 08/03/17 00:30 08/17/17 00:29 Prochlorperazine Edisylate 5 mg/ Syringe 5 ml @ 5 mls/min Q6H PRN IV 08/03/17 00:30 09/02/17 00:29 Aspirin (Ecotrin Tab) 81 mg BID PO 08/03/17 09:00 09/02/17 08:59 08/09/17 08:25 81 MG Finasteride (Proscar Tab) 5 mg DAILY PO 08/03/17 09:00 09/02/17 08:59 08/09/17 08:24 5 MG Gabapentin (Neurontin Cap) 100 mg BID PO 08/03/17 09:00 09/02/17 08:59 08/09/17 08:23 100 MG Levothyroxine Sodium (Synthroid Tab) 75 mcg DAILYBB PO 08/03/17 06:30 09/02/17 06:29 08/09/17 06:11 75 MCG Multivitamins (Multivitamin Tab) 1 tab QAM PO 08/03/17 09:00 09/02/17 08:59 08/09/17 08:21 1 TAB Simvastatin (Zocor Tab) 20 mg HS PO 08/03/17 21:00 09/02/17 20:59 08/08/17 20:35 20 MG Timolol Maleate (Timoptic 0.5% Oph Soln) 1 drops BID OPB 08/03/17 09:00 09/02/17 08:59 08/09/17 08:25 1 DROPS Pantoprazole Sodium (Protonix Tab) 40 mg BID PO 08/03/17 09:00 09/02/17 08:59 08/09/17 08:22 40 MG Oxycodone/ Acetaminophen (Percocet 5-325mg Tab) 1 tab Q6H PRN PO 08/03/17 00:30 08/17/17 00:29 08/06/17 16:20 1 TAB Lidocaine (Lidoderm Patch 5%) 1 patch QAM TD 08/04/17 09:00 09/03/17 08:59 08/09/17 08:27 1 PATCH Miscellaneous (Remove Lidoderm Patch) 1 ea DAILY@21 N/A 08/03/17 21:00 09/02/17 20:59 08/08/17 20:32 1 EA Brimonidine Tartrate (Alphagan 0.2% Soln) 1 drops BID OPB 08/04/17 09:00 09/03/17 08:59 08/09/17 08:25 1 DROPS Brimonidine Tartrate (Alphagan 0.2% Soln) 1 drops TODAY@2200 OPB 08/03/17 22:00 09/02/17 21:59 08/03/17 21:56 1 DROPS Acetaminophen (Tylenol Tab) 650 mg Q8H PO 08/04/17 10:00 09/02/17 09:59 08/08/17 18:00 650 MG Cyclobenzaprine HCl (Flexeril Tab) 5 mg BID PRN PO 08/04/17 09:15 09/03/17 09:14 Ampicillin Sodium/ Sulbactam Sodium (Consult) 1 ea UD PRN N/A 08/05/17 18:00 09/04/17 17:59 Ampicillin Sodium/ Sulbactam Sodium 3000 mg/Sodium Chloride 108 ml @ 216 mls/hr Q12H IV 08/05/17 18:00 08/12/17 17:59 08/09/17 06:10 216 MLS/HR Heparin Sodium (Porcine) (Heparin Sq 5000 Unit/0.5ml) 5,000 unit Q12 SQ 08/06/17 21:00 6/6/18 20:59 08/09/17 08:30 5,000 UNIT Fenofibrate (Tricor Tab) 134 mg QPM PO 08/06/17 21:00 09/05/17 20:59 08/08/17 20:35 134 MG Warfarin Sodium (Coumadin Tab) 2 mg DAILY@16 PO 08/07/17 16:00 09/06/17 15:59 08/08/17 16:08 2 MG Albuterol/ Ipratropium (Duoneb) 3 ml QIDR INH 08/07/17 20:00 09/06/17 19:59 08/09/17 15:09 3 ML Albuterol Sulfate (Ventolin 0.083% 2.5MG/3ML Neb) 2.5 mg Q2H PRN INH 08/07/17 15:00 09/06/17 14:59 Furosemide 20 mg/ Syringe 2 ml @ 4 mls/min DAILY IV 08/08/17 09:30 09/07/17 09:29 08/09/17 08:26 4 MLS/MIN Prednisone (PredniSONE TAB) 30 mg DAILY PO 08/09/17 09:00 09/06/17 08:59 08/09/17 08:22 30 MG Atenolol (Tenormin Tab) 25 mg QAM PO 08/09/17 09:00 09/02/17 08:59 08/09/17 08:24 25 MG Last 24 Hours Test 08/08/17 16:44 08/08/17 20:05 08/09/17 05:38 08/09/17 07:44 Bedside Glucose 235 mg/dl 304 mg/dl 172 mg/dl White Blood Count 10.73 K/uL Red Blood Count 3.88 M/uL Hemoglobin 11.1 g/dL Hematocrit 31.4 % Mean Corpuscular Volume 80.9 fL Mean Corpuscular Hemoglobin 28.6 pg Mean Corpuscular Hemoglobin Concent 35.4 g/dl RDW Standard Deviation 43.9 fL RDW Coefficient of Variation 15.0 % Platelet Count 213 K/uL Mean Platelet Volume 10.1 fL Prothrombin Time 14.7 SECONDS Prothromb Time International Ratio 1.4 Sodium Level 129 mmol/L Potassium Level 4.6 mmol/L Chloride Level 97 mmol/L Carbon Dioxide Level 22 mmol/L Anion Gap 10.0 mmol/L Blood Urea Nitrogen 65 mg/dl Creatinine 3.18 mg/dl Est Creatinine Clear Calc Drug Dose 22.3 ml/min Estimated GFR () 20.3 Estimated GFR (Non- 17.5 BUN/Creatinine Ratio 20.5 Random Glucose 178 mg/dl Calcium Level 8.5 mg/dl Magnesium Level 1.9 mg/dl Test 08/09/17 11:50 Bedside Glucose 162 mg/dl Assessment & Plan hyponatremia-serum osm has been close to normal. spep does show two m spikes. to do serum immunofixation to be thorough. sodium level up to 129 now. treating like an siadh picture on fluid restriction and lasix.
[2017-08-09] MEDS: WARFARIN SOD 2 MG TAB PO SCH (15:59)
--- NOTE | 2017-08-09 17:14 | Progress Note ---
Internal Med Progress Note Date of Service: August 09, 2017. Provider Documentation: SUBJECTIVE: Seen and examined at bedside States feeling well today in general Reports intermittent palpitations Also reports mild heartburn No complaints Denies chest pain, SOB, abdominal pain, nausea OBJECTIVE: Vital Signs-as noted below Physical Exam: General Appearance:Moderately built and nourished, no apparent distress Head: normocephalic, Atraumatic Eyes: normal inspection, EOMI, PERRL Neck: supple, Trachea midline Respiratory/Chest: Coarse breath sounds, No wheezes Cardiovascular: S1, S2, No murmur Abdomen/GI:Soft, Non tender, Bowel sounds present, +Ileostomy Extremities/Musculoskelatal:normal inspection, Trace edema Neurologic/Psych:AAOX3, grossly no focal neurological deficits Skin: normal color, warm Lab data as noted below. ASSESSMENT & PLAN: Patient is an 81 yr male with PMH CAD S/P stent and CABG 5, atrial fibrillation on Coumadin, DM II, HTN, HLD, hypothyroidism, CVA, CKD 4, BPH, GERD , H/O DVT, Ileostomy presented to ER with complaint of N/V/D dizziness 3 days. Nausea, Vomiting, Diarrhea: Likely Gastroenteritis H/O Ileostomy Stool studies negative Appreciate GI Input Lomotil BID started, but discontinued due to bradycardia Continue Unasyn>>>changed to Augmentin IV fluids discontinued Cholestyramine BID discontinued as patient refusing secondary to concern for developing constipation MIAH on CKD IV Metabolic acidosis: resolved Baseline Cr~2. 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 This remains unchanged. Linear densities at the left lung base persist. This may represent atelectasis. A pneumonia could also have a similar appearance. IV Fluids discontinued Lasix PRN Continue Nebs H/O P.afib: Serotherapeutic INR:S/P Vit K: resolved Bradycardia: Intermittently Lomotil discontinued Cardizem resumed at lower dose Continue Atenolol Continue Coumadin Monitor INR:1.4 H/O DVT: continue Coumadin monitor INR Dysphagia: Possible Aspiration Pneumonitis: secondary to Esophageal Dysmotility GI following No EGD/intervention recommended at this point Speech Therapy evaluated Continue Unasyn Day # 4>>Augmentin Day # 1 Right sided Sciatic Pain: pain medication regimen limited by acute renal failure avoid NSAIDs and Narcotics Continue trial of Prednisone 40mg daily>>>continue to taper down monitor BSGs Right Adrenal Nodule: found on CT scan:unchanged from prior exam monitor Further work up as outpatient DM II Has been diet-controlled. Hb A1c: 6.2 on 07/2017. continue ISS HX CAD S/P stent 1 and CABG 5 no cardiac symptoms On aspirin, atenolol, statin BPH On Proscar DVT Px: continue Coumadin Heparin SQ till INR in therapeutic range Code Status: Full Code Disposition: To be determined Follows with Dr Marrufo for routine care Vital Signs: Date Time Temp Pulse Resp B/P (MAP) Pulse Ox O2 Delivery O2 Flow Rate FiO2 08/09/17 15:38 36.3 81 16 126/84 (98) 97 08/09/17 15:09 92 16 96 Room Air 08/09/17 12:05 36.3 74 18 111/67 (82) 98 08/09/17 12:00 94 Room Air 08/09/17 11:41 87 16 97 Room Air 08/09/17 08:08 36.3 82 18 145/89 (107) 94 Room Air 08/09/17 08:00 94 Room Air 08/09/17 07:01 82 16 97 Room Air 08/09/17 04:00 36.3 74 16 135/76 (95) 95 Room Air 08/09/17 04:00 Room Air 08/09/17 00:00 Room Air 08/08/17 23:43 36.3 78 18 124/71 (88) 96 Room Air 08/08/17 20:00 Room Air 08/08/17 19:54 36.3 104 18 114/61 (78) 95 Room Air 08/08/17 19:39 86 16 96 Room Air 08/08/17 19:09 77 119/65 (83) Lab Results: Results Past 24 Hours Test 08/08/17 20:05 08/09/17 05:38 08/09/17 07:44 08/09/17 11:50 Range/Units Bedside Glucose 304 172 162 70-99 mg/dl White Blood Count 10.73 4.8-10.8 K/uL Red Blood Count 3.88 4.7-6.1 M/uL Hemoglobin 11.1 14.0-18.0 g/dL Hematocrit 31.4 42-52 % Mean Corpuscular Volume 80.9 80-100 fL Mean Corpuscular Hemoglobin 28.6 25-34 pg Mean Corpuscular Hemoglobin Concent 35.4 32-36 g/dl RDW Standard Deviation 43.9 36.4-46.3 fL RDW Coefficient of Variation 15.0 11.5-14.5 % Platelet Count 213 130-400 K/uL Mean Platelet Volume 10.1 7.4-10.4 fL Prothrombin Time 14.7 9.0-12.0 SECONDS Prothromb Time International Ratio 1.4 0.9-1.1 Sodium Level 129 136-145 mmol/L Potassium Level 4.6 3.5-5.1 mmol/L Chloride Level 97 98-107 mmol/L Carbon Dioxide Level 22 21-32 mmol/L Anion Gap 10.0 3-11 mmol/L Blood Urea Nitrogen 65 7-18 mg/dl Creatinine 3.18 0.60-1.40 mg/dl Est Creatinine Clear Calc Drug Dose 22.3 ml/min Estimated GFR () 20.3 Estimated GFR (Non- 17.5 BUN/Creatinine Ratio 20.5 10-20 Random Glucose 178 70-99 mg/dl Calcium Level 8.5 8.5-10.1 mg/dl Magnesium Level 1.9 1.8-2.4 mg/dl Test 08/09/17 16:34 Range/Units Bedside Glucose 188 70-99 mg/dl
[2017-08-09] MEDS ORDERED: FAMOTIDINE 20 MG TAB PO ONE (17:30)
[2017-08-09] MEDS ORDERED: WARFARIN SOD 2 MG TAB PO ONE (17:30)
[2017-08-09] MEDS: SIMVASTATIN 20 MG TAB PO SCH (20:41)
[2017-08-09] MEDS: FENOFIBRATE 134 MG PO SCH (20:42)
[2017-08-10] VITALS (9 sets, daily range): BP systolic 101–127; BP diastolic 63–97; PULSE 60–88; TEMP 36.3–36.7; O2SAT 92–99
[2017-08-10] MEDS: ACETAMINOPHEN 325 MG TAB PO SCH ×2 (01:38→08:30)
[2017-08-10] MEDS: LEVOTHYROXINE 75 MCG TAB PO SCH (05:45)
[2017-08-10 06:01] LABS: INR 2.1 (0.9-1.1)
[2017-08-10 06:02] LABS: IG# 0.07 K/uL (0.00-0.02); LYMPH % 6.6 %; LYMPH ABS # 0.68 K/uL (1.2-3.4); MEAN CELL VOLUME 82.1 fL (80-100); MEAN CORPUSCULAR HEMOGLOBIN 28.2 pg (25-34); MEAN CORPUSCULAR HGB CONC 34.4 g/dl (32-36); MEAN PLATELET VOLUME 10.2 fL (7.4-10.4); MONO % 7.1 %; MONO ABS # 0.74 K/uL (0.11-0.59); NEUT % 85.6 %; NEUT ABS # 8.89 K/uL (1.4-6.5); PLATELET COUNT 229 K/uL (130-400); RED CELL DISTRIBUTION WIDTH CV 15.5 % (11.5-14.5); RED CELL DISTRIBUTION WIDTH SD 46.2 fL (36.4-46.3); WHITE BLOOD COUNT 10.38 K/uL (4.8-10.8)
[2017-08-10 06:07] LABS: CALCIUM 8.5 mg/dl (8.5-10.1); CREATININE 2.97 mg/dl (0.60-1.40); POTASSIUM 4.5 mmol/L (3.5-5.1)
--- NOTE | 2017-08-10 06:44 | Nephrology Progress Note ---
Nephrology Progress Note Date of Service: August 10, 2017. Subjective 81 yo male with chronic right sided weakness and esophageal motility issues who presented with hyponatremia, metabolic acidosis, and miah. output from ostomy is better. breathing is good. Objective Date Time Temp Pulse Resp B/P (MAP) Pulse Ox O2 Delivery O2 Flow Rate FiO2 08/10/17 04:54 36.3 80 18 127/76 (93) 95 Room Air 08/10/17 04:00 Room Air 08/10/17 00:01 Room Air 08/09/17 23:37 36.5 98 20 138/90 (106) 98 Room Air 08/09/17 20:00 93 Room Air 08/09/17 19:20 87 16 98 Room Air 08/09/17 19:08 36.4 65 20 146/86 (106) 93 Room Air 08/09/17 16:00 97 Room Air 08/09/17 15:38 36.3 81 16 126/84 (98) 97 08/09/17 15:09 92 16 96 Room Air 08/09/17 12:05 36.3 74 18 111/67 (82) 98 08/09/17 12:00 94 Room Air 08/09/17 11:41 87 16 97 Room Air 08/09/17 08:08 36.3 82 18 145/89 (107) 94 Room Air 08/09/17 08:00 94 Room Air 08/09/17 07:01 82 16 97 Room Air Physical Exam: General-aaox3 Eyes-no scleral icterus ENT-mmm Neck-supple Lungs-cta Heart-irregularly irregular Abdomen-bs+, +ostomy Extremities-no c/c/e Neuro-chronic right sided weakness Current Inpatient Medications Medications (Trade) Dose Ordered Sig/Shonda Route Start Time Stop Time Status Last Admin Dose Admin Nitroglycerin (Nitrostat Tab) 0.4 mg UD PRN SL 08/03/17 00:30 09/02/17 00:29 Insulin Aspart (novoLOG ASPART) SLIDING SCALE If C... ACHS SC 08/03/17 06:30 09/02/17 06:59 08/09/17 20:47 3 UNITS Glucose (Glucose 40% Gel) 15-30 GRAMS 15 GRAMS... UD PRN PO 08/03/17 00:30 09/02/17 00:29 Glucose (Glucose Chew Tab) 4-8 Tablets 4 Tabl... UD PRN PO 08/03/17 00:30 09/02/17 00:29 Dextrose (Dextrose 50% 50ML Syringe) 25-50ML 25ML FOR ... UD PRN IV 08/03/17 00:30 09/02/17 00:29 Glucagon (Glucagon Inj) 1 mg UD PRN SQ 08/03/17 00:30 09/02/17 00:29 Carbohydrates (Carbohydrates For Hypoglycemia) 15-30 GRAMS 15 grams if BSG 54-69... UD PRN PO 08/03/17 00:30 09/02/17 00:29 Hydromorphone HCl (Dilaudid Inj) 0.5 mg Q3H PRN IV 08/03/17 00:30 08/17/17 00:29 Prochlorperazine Edisylate 5 mg/ Syringe 5 ml @ 5 mls/min Q6H PRN IV 08/03/17 00:30 09/02/17 00:29 Aspirin (Ecotrin Tab) 81 mg BID PO 08/03/17 09:00 09/02/17 08:59 08/09/17 20:43 81 MG Finasteride (Proscar Tab) 5 mg DAILY PO 08/03/17 09:00 09/02/17 08:59 08/09/17 08:24 5 MG Gabapentin (Neurontin Cap) 100 mg BID PO 08/03/17 09:00 09/02/17 08:59 08/09/17 20:43 100 MG Levothyroxine Sodium (Synthroid Tab) 75 mcg DAILYBB PO 08/03/17 06:30 09/02/17 06:29 08/10/17 05:45 75 MCG Multivitamins (Multivitamin Tab) 1 tab QAM PO 08/03/17 09:00 09/02/17 08:59 08/09/17 08:21 1 TAB Simvastatin (Zocor Tab) 20 mg HS PO 08/03/17 21:00 09/02/17 20:59 08/09/17 20:41 20 MG Timolol Maleate (Timoptic 0.5% Oph Soln) 1 drops BID OPB 08/03/17 09:00 09/02/17 08:59 08/09/17 20:43 1 DROPS Pantoprazole Sodium (Protonix Tab) 40 mg BID PO 08/03/17 09:00 09/02/17 08:59 08/09/17 20:41 40 MG Oxycodone/ Acetaminophen (Percocet 5-325mg Tab) 1 tab Q6H PRN PO 08/03/17 00:30 08/17/17 00:29 08/06/17 16:20 1 TAB Lidocaine (Lidoderm Patch 5%) 1 patch QAM TD 08/04/17 09:00 09/03/17 08:59 08/09/17 08:27 1 PATCH Miscellaneous (Remove Lidoderm Patch) 1 ea DAILY@21 N/A 08/03/17 21:00 09/02/17 20:59 08/09/17 20:49 1 EA Brimonidine Tartrate (Alphagan 0.2% Soln) 1 drops BID OPB 08/04/17 09:00 09/03/17 08:59 08/09/17 20:43 1 DROPS Brimonidine Tartrate (Alphagan 0.2% Soln) 1 drops TODAY@2200 OPB 08/03/17 22:00 09/02/17 21:59 08/03/17 21:56 1 DROPS Acetaminophen (Tylenol Tab) 650 mg Q8H PO 08/04/17 10:00 09/02/17 09:59 08/08/17 18:00 650 MG Cyclobenzaprine HCl (Flexeril Tab) 5 mg BID PRN PO 08/04/17 09:15 09/03/17 09:14 Heparin Sodium (Porcine) (Heparin Sq 5000 Unit/0.5ml) 5,000 unit Q12 SQ 08/06/17 21:00 09/05/17 20:59 08/09/17 20:48 5,000 UNIT Fenofibrate (Tricor Tab) 134 mg QPM PO 08/06/17 21:00 09/05/17 20:59 08/09/17 20:42 134 MG Warfarin Sodium (Coumadin Tab) 2 mg DAILY@16 PO 08/07/17 16:00 09/06/17 15:59 08/09/17 15:59 2 MG Albuterol/ Ipratropium (Duoneb) 3 ml QIDR INH 08/07/17 20:00 09/06/17 19:59 08/09/17 19:20 3 ML Albuterol Sulfate (Ventolin 0.083% 2.5MG/3ML Neb) 2.5 mg Q2H PRN INH 08/07/17 15:00 09/06/17 14:59 Furosemide 20 mg/ Syringe 2 ml @ 4 mls/min DAILY IV 08/08/17 09:30 09/07/17 09:29 08/09/17 08:26 4 MLS/MIN Atenolol (Tenormin Tab) 25 mg QAM PO 08/09/17 09:00 09/02/17 08:59 08/09/17 08:24 25 MG Amoxicillin/ Clavulanate Potassium (Augmentin Tab) 500 mg BIDM PO 08/10/17 08:00 08/20/17 07:59 Prednisone (PredniSONE TAB) 20 mg DAILY PO 08/10/17 09:00 09/06/17 08:59 Diltiazem HCl (Cardizem Cd Cap) 120 mg QAM PO 08/10/17 09:00 09/09/17 08:59 Last 24 Hours Test 08/09/17 07:44 08/09/17 11:50 08/09/17 16:34 08/09/17 20:44 Bedside Glucose 172 mg/dl 162 mg/dl 188 mg/dl 241 mg/dl Test 08/10/17 05:16 White Blood Count 10.38 K/uL Red Blood Count 3.90 M/uL Hemoglobin 11.0 g/dL Hematocrit 32.0 % Mean Corpuscular Volume 82.1 fL Mean Corpuscular Hemoglobin 28.2 pg Mean Corpuscular Hemoglobin Concent 34.4 g/dl Platelet Count 229 K/uL Mean Platelet Volume 10.2 fL Neutrophils (%) (Auto) 85.6 % Lymphocytes (%) (Auto) 6.6 % Monocytes (%) (Auto) 7.1 % Eosinophils (%) (Auto) 0.0 % Basophils (%) (Auto) 0.0 % Neutrophils # (Auto) 8.89 K/uL Lymphocytes # (Auto) 0.68 K/uL Monocytes # (Auto) 0.74 K/uL Eosinophils # (Auto) 0.00 K/uL Basophils # (Auto) 0.00 K/uL RDW Standard Deviation 46.2 fL RDW Coefficient of Variation 15.5 % Immature Granulocyte % (Auto) 0.7 % Immature Granulocyte # (Auto) 0.07 K/uL Prothrombin Time 21.9 SECONDS Prothromb Time International Ratio 2.1 Sodium Level 131 mmol/L Potassium Level 4.5 mmol/L Chloride Level 101 mmol/L Carbon Dioxide Level 22 mmol/L Anion Gap 8.0 mmol/L Blood Urea Nitrogen 62 mg/dl Creatinine 2.97 mg/dl Est Creatinine Clear Calc Drug Dose 23.8 ml/min Estimated GFR () 22.0 Estimated GFR (Non- 19.0 BUN/Creatinine Ratio 20.7 Random Glucose 162 mg/dl Calcium Level 8.5 mg/dl Magnesium Level 1.9 mg/dl Assessment & Plan hyponatremia-sodium levels up to 131. continue fluid restriction and switching to oral lasix 20mg a day. MIAH-slowly improving, not yet back to baseline. hopefully continues to slowly improve. ok from renal perspective to go home today. would repeat bmp and inr again on sunday and discharge on fluid restriction and oral lasix. may need to restart questran at lower dose if output worsens again.
[2017-08-10] MEDS: ALBUT/IPRATROP 3MG/0.5MG NEB 3 ML VIAL INH SCH ×3 (06:55→15:09)
[2017-08-10] MEDS: AMOXICILLIN/CLAVULANATE TAB 500 MG TAB PO SCH ×2 (07:37→17:34)
[2017-08-10] MEDS: INSULIN ASPART 100 UNITS/ML 3 ML PEN SC SCH ×3 (07:48→17:36)
[2017-08-10] MEDS: TIMOLOL MALEATE 0.5% OP SOLN 5 ML BTL OPB SCH (08:28)
[2017-08-10] MEDS: BRIMONIDINE TARTRATE 0.2% 5ML OPB SCH (08:28)
[2017-08-10] MEDS: GABAPENTIN 100 MG CAP PO SCH (08:31)
[2017-08-10] MEDS: ASPIRIN 81 MG ECTAB PO SCH (08:32)
[2017-08-10] MEDS: LIDODERM (LIDOCAINE) PATCH 5% TD SCH (08:32)
[2017-08-10] MEDS: MULTIVITAMIN TAB PO SCH (08:32)
[2017-08-10] MEDS: FINASTERIDE 5 MG TAB PO SCH (08:33)
[2017-08-10] MEDS: PANTOprazole SOD 40 MG TAB PO SCH (08:33)
[2017-08-10] MEDS: HEPARIN SOD 5000 UNIT/0.5 ML CARP SQ SCH (08:39)
[2017-08-10] MEDS ORDERED: FUROSEMIDE 20 MG TAB PO SCH (09:00)
[2017-08-10] MEDS ORDERED: DILTIAZEM HCL 120 MG CAPCR PO SCH (09:00)
[2017-08-10] MEDS ORDERED: NURSING DECISION MEDICATION ORDER SCH (15:45)
[2017-08-10] MEDS: WARFARIN SOD 2 MG TAB PO SCH (15:50)
--- NOTE | 2017-08-10 16:36 | Progress Note ---
Internal Med Progress Note Date of Service: August 10, 2017. Provider Documentation: SUBJECTIVE: Seen and examined at bedside Doing well today No complaints Denies chest pain, SOB, abdominal pain, nausea Eager to get discharged OBJECTIVE: Vital Signs-as noted below Physical Exam: General Appearance:Moderately built and nourished, no apparent distress Head: normocephalic, Atraumatic Eyes: normal inspection, EOMI, PERRL Neck: supple, Trachea midline Respiratory/Chest: Coarse breath sounds, No wheezes Cardiovascular: S1, S2, No murmur Abdomen/GI:Soft, Non tender, Bowel sounds present, +Ileostomy Extremities/Musculoskelatal:normal inspection, Trace edema Neurologic/Psych:AAOX3, grossly no focal neurological deficits Skin: normal color, warm Lab data as noted below. ASSESSMENT & PLAN: Patient is an 81 yr male with PMH CAD S/P stent and CABG 5, atrial fibrillation on Coumadin, DM II, HTN, HLD, hypothyroidism, CVA, CKD 4, BPH, GERD , H/O DVT, Ileostomy presented to ER with complaint of N/V/D dizziness 3 days. Nausea, Vomiting, Diarrhea: Likely Gastroenteritis H/O Ileostomy Stool studies negative Appreciate GI Input Lomotil BID started, but discontinued due to bradycardia Continue Unasyn>>>changed to Augmentin IV fluids discontinued Cholestyramine BID discontinued as patient refusing secondary to concern for developing constipation MIAH on CKD IV Metabolic acidosis: resolved Baseline Cr~2. 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 This remains unchanged. Linear densities at the left lung base persist. This may represent atelectasis. A pneumonia could also have a similar appearance. IV Fluids discontinued Lasix PRN Continue Nebs H/O P.afib: Serotherapeutic INR:S/P Vit K: resolved Bradycardia: Intermittently Lomotil discontinued Cardizem resumed at lower dose Continue Atenolol Continue Coumadin Monitor INR:1.4>>2.1 H/O DVT: continue Coumadin monitor INR Dysphagia: Possible Aspiration Pneumonitis: secondary to Esophageal Dysmotility GI following No EGD/intervention recommended at this point Speech Therapy evaluated Continue Unasyn Day # 4>>Augmentin Day # 2 Right sided Sciatic Pain: pain medication regimen limited by acute renal failure avoid NSAIDs and Narcotics Continue trial of Prednisone 40mg daily>>>continue to taper down monitor BSGs Right Adrenal Nodule: found on CT scan:unchanged from prior exam monitor Further work up as outpatient DM II Has been diet-controlled. Hb A1c: 6.2 on 07/2017. continue ISS HX CAD S/P stent 1 and CABG 5 no cardiac symptoms On aspirin, atenolol, statin BPH On Proscar DVT Px: continue Coumadin Code Status: Full Code Disposition: Plan to discharge home today Follow up with your PCP on 08/15/17 at 1:00PM Follow up with your Tube Bender in 1 week as advised Follow up with your School Curriculum Developer as advised Get Blood test (Basic metabolic Panel) on 08/20/17 and follow up with your Tube Bender as advised Your Tube Bender recommended your Oral Fluid Intake to be limited to one litre per day. Follow up with your doctor for further recommendations Complete the antibiotic course as prescribed Seek immediate medical attention if your symptoms reoccur or worsen Follow up with coumadin clinic for coumadin dosing Complete the antibiotic course as prescribed Vital Signs: Date Time Temp Pulse Resp B/P (MAP) Pulse Ox O2 Delivery O2 Flow Rate FiO2 08/10/17 15:35 36.7 69 18 101/63 (76) 99 08/10/17 15:10 69 18 97 Room Air 08/10/17 12:00 95 Room Air 08/10/17 11:47 60 16 127/97 (107) 92 Room Air 08/10/17 11:10 88 18 92 Room Air 08/10/17 08:00 95 Room Air 08/10/17 06:57 84 18 96 Room Air 08/10/17 04:54 36.3 80 18 127/76 (93) 95 Room Air 08/10/17 04:00 Room Air 08/10/17 00:01 Room Air 08/09/17 23:37 36.5 98 20 138/90 (106) 98 Room Air 08/09/17 20:00 93 Room Air 08/09/17 19:20 87 16 98 Room Air 08/09/17 19:08 36.4 65 20 146/86 (106) 93 Room Air Lab Results: Results Past 24 Hours Test 08/09/17 16:34 08/09/17 20:44 08/10/17 05:16 08/10/17 07:39 Range/Units Bedside Glucose 188 241 133 70-99 mg/dl White Blood Count 10.38 4.8-10.8 K/uL Red Blood Count 3.90 4.7-6.1 M/uL Hemoglobin 11.0 14.0-18.0 g/dL Hematocrit 32.0 42-52 % Mean Corpuscular Volume 82.1 80-100 fL Mean Corpuscular Hemoglobin 28.2 25-34 pg Mean Corpuscular Hemoglobin Concent 34.4 32-36 g/dl Platelet Count 229 130-400 K/uL Mean Platelet Volume 10.2 7.4-10.4 fL Neutrophils (%) (Auto) 85.6 % Lymphocytes (%) (Auto) 6.6 % Monocytes (%) (Auto) 7.1 % Eosinophils (%) (Auto) 0.0 % Basophils (%) (Auto) 0.0 % Neutrophils # (Auto) 8.89 1.4-6.5 K/uL Lymphocytes # (Auto) 0.68 1.2-3.4 K/uL Monocytes # (Auto) 0.74 0.11-0.59 K/uL Eosinophils # (Auto) 0.00 0-0.5 K/uL Basophils # (Auto) 0.00 0-0.2 K/uL RDW Standard Deviation 46.2 36.4-46.3 fL RDW Coefficient of Variation 15.5 11.5-14.5 % Immature Granulocyte % (Auto) 0.7 % Immature Granulocyte # (Auto) 0.07 0.00-0.02 K/uL Prothrombin Time 21.9 9.0-12.0 SECONDS Prothromb Time International Ratio 2.1 0.9-1.1 Sodium Level 131 136-145 mmol/L Potassium Level 4.5 3.5-5.1 mmol/L Chloride Level 101 98-107 mmol/L Carbon Dioxide Level 22 21-32 mmol/L Anion Gap 8.0 3-11 mmol/L Blood Urea Nitrogen 62 7-18 mg/dl Creatinine 2.97 0.60-1.40 mg/dl Est Creatinine Clear Calc Drug Dose 23.8 ml/min Estimated GFR () 22.0 Estimated GFR (Non- 19.0 BUN/Creatinine Ratio 20.7 10-20 Random Glucose 162 70-99 mg/dl Calcium Level 8.5 8.5-10.1 mg/dl Magnesium Level 1.9 1.8-2.4 mg/dl Test 08/10/17 11:35 Range/Units Bedside Glucose 152 70-99 mg/dl
[2017-08-10] MEDS ORDERED: LSX20 PO (16:40)
[2017-08-10] MEDS ORDERED: AMOX1TAB42 PO (16:40)
[2017-08-10] MEDS ORDERED: LDDP5 TD (16:40)
--- NOTE | 2017-08-10 16:43 | Discharge Summary ---
Discharge Summary Date of Service August 10, 2017. Discharge Summary Admission Date: August 03, 2017 at 00:07 Discharge Date: August 10, 2017 Discharge Disposition: Home Principal Diagnosis: Hyponatremia, MIAH, Gastroenteritis Procedures: CT ABD: 1. No acute process within the abdomen or pelvis on unenhanced exam. 2. 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 No bowel obstruction. 3. No hydronephrosis. 4. Possible sludge or stones within the gallbladder. No evidence for acute cholecystitis. 5. Moderate enlargement of the prostate. Head CT: No acute intracranial abnormality. Age-related atrophy and chronic small vessel change. CT chest: 1. Subsegmental groundglass and consolidative opacities favor atelectasis. There is mild bilateral bronchial wall thickening, notably within the lung bases suggesting bronchitis with bronchial secretions. 2. Mildly enlarged subcarinal lymph node is likely reactive. 3. Cardiomegaly with prior median sternotomy and CABG. 4. Dilation of the main pulmonary artery may reflect pulmonary arterial hypertension within the appropriate clinical setting. 5. Additional findings as above. Consultations: Nephrology, GI Pending Studies/Follow-Up: Follow up with your PCP on 08/15/17 at 1:00PM Follow up with your Rod Hanger in 1 week as advised Follow up with your Retail Assistant as advised Get Blood test (Basic metabolic Panel) on 08/20/17 and follow up with your Rod Hanger as advised Your Rod Hanger recommended your Oral Fluid Intake to be limited to one litre per day. Follow up with your doctor for further recommendations Complete the antibiotic course as prescribed Seek immediate medical attention if your symptoms reoccur or worsen Follow up with Coumadin clinic for Coumadin dosing Complete the antibiotic course as prescribed Medication Reconciliation New Medications: Amoxicillin & Pot Clavulanate (Amoxicillin/Clavulanate P) 1 Tab Tab 500 MG PO BIDM for 2 Days, #4 TAB Furosemide (Furosemide) 20 Mg Tab 20 MG PO QAM for 30 Days, #30 TAB Lidocaine (Lidocaine) 1 Patch Tdsy 1 PATCH TD QAM for 5 Days, #5 EA Continued Medications: Aspirin (Aspirin 81) 81 Mg Tab 81 MG PO BID Atenolol (Atenolol) 25 Mg Tab 25 MG PO QAM Brimonidine Tartrate (Brimonidine Tartrate) 0.2 % Angeli 1 DROP OPB BID Cholecalciferol (Vitamin D3) 1,000 Unit Cap 1000 UNITS PO QPM Diltiazem Hcl Coated Beads (Diltiazem Cd) 240 Mg Cap 240 MG PO QAM Fenofibrate Micronized (Tricor) 134 Mg Cap 134 MG PO QPM, CAP Finasteride (Proscar) 5 Mg Tab 5 MG PO DAILY AT NOON, TAB Gabapentin (Gabapentin) 100 Mg Cap 1 CAP PO BID Levothyroxine Sodium (Synthroid) 75 Mcg Tab 75 MCG PO QAM, TAB Magnesium Oxide (Mag-Ox) 400 Mg Tab 400 MG PO HS, TAB Multivitamin (Multivitamin) Tab 1 TAB PO QAM, TAB Omeprazole (Omeprazole) 20 Mg Tab 1 TAB PO BID for 90 Days, #180 TAB 1 Refill Simvastatin (Zocor) 20 Mg Tab 20 MG PO HS, TAB Timolol Maleate (Timolol 0.5% Oph Soln 15 Ml) 15 Ml Soln 1 DROP OPB BID Warfarin Sod (Jantoven) 1 Mg Tab 1 MG PO 6XWK, TAB TAKES EVERY DAY EXCEPT WEDNESDAYS Warfarin Sod (Coumadin) 1 Mg Tab 2 MG PO WK TAKES ON WEDNESDAYS ONLY Discontinued Medications: Furosemide (Lasix) 20 Mg Tab 20 MG PO UD sat, sun, sun Admission Information HPI (per Admitting provider): Pt is 81 y/o M with PMH CAD S/P stent 1 and CABG 5, atrial fibrillation on Coumadin, DM II, HTN, HLD, hypothyroidism, CVA, CKD 4, BPH, GERD, history DVT, ileostomy presented to ER with complaint of N/V/D dizziness 3 days. States couple episodes of vomiting past 3 days. Patient states no vomiting since noon today. A piece of pizza for dinner and retained. Having to change ileostomy bag every hour and has watery stool. Usually changes 3-4 times a day. Denies any blood or melena. Denies any abdominal pain. Patient reports lightheadedness and dizziness "things are going around" when he leans forward. Denies syncope. States when he has these dizziness episodes gets a pain to right side of his neck. Denies neck stiffness. Unsure if had fever. Increased weakness the past 3 days. Decreased urination past 3 days. Denies dysuria or hematuria. Treated for sciatica last week with prednisone. Patient states symptoms resolved. Patient with history of esophageal dysmotility. Has been seen by GI for regurgitation and water. 07/27/17 had barium swallow revealing severe esophageal dysmotility. Patient supposed be on slippery diet. Patient reports cough past 3 days is nonproductive. Reports increased exertional shortness of breath and was placed on Lasix 3 days a week. Patient did not take yesterday secondary to symptoms. Uses 2 pillows to sleep. Denies hematochezia, melena, hematochezia, [place], syncope, vision changes, CP, palpitations, moderate assist, sore throat, otalgia, rhinorrhea, increased extremity edema, rashes. Physical Exam (per Admitting): General Appearance: WD/WN, no apparent distress Head: normocephalic, atraumatic Eyes: normal inspection, sclerae normal ENT: pharynx normal, + pertinent finding (Heart of hearing. Mucous membranes dry.) Neck: supple, trachea midline, + pertinent finding (Nontender to palpation range of motion intact) Respiratory/Chest: no respiratory distress, no accessory muscle use, + wheezing (Scattered expiratory wheezing, no rales noted) Cardiovascular: regular rate, rhythm Abdomen/GI: non tender, soft, + pertinent finding (+ Ostomy bag filled with watery brown liquid stool) Back: no CVA tenderness, + pertinent finding (Nontender to palpation) Neurologic/Psych: alert, normal mood/affect, oriented x 3 Skin: normal color, warm/dry Hospital Course Patient is an 81 yr male with PMH CAD S/P stent and CABG 5, atrial fibrillation on Coumadin, DM II, HTN, HLD, hypothyroidism, CVA, CKD 4, BPH, GERD , H/O DVT, Ileostomy presented to ER with complaint of N/V/D dizziness 3 days. Nausea, Vomiting, Diarrhea: Likely Gastroenteritis H/O Ileostomy Stool studies negative Appreciate GI Input Lomotil BID started, but discontinued due to bradycardia Continue Unasyn>>>changed to Augmentin IV fluids discontinued Cholestyramine BID discontinued as patient refusing secondary to concern for developing constipation MIAH on CKD IV Metabolic acidosis: resolved Baseline Cr~2. 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 This remains unchanged. Linear densities at the left lung base persist. This may represent atelectasis. A pneumonia could also have a similar appearance. IV Fluids discontinued Lasix PRN Continue Nebs H/O P.afib: Serotherapeutic INR:S/P Vit K: resolved Bradycardia: Intermittently Lomotil discontinued Cardizem resumed at lower dose Continue Atenolol Continue Coumadin Monitor INR:1.4>>2.1 H/O DVT: continue Coumadin monitor INR Dysphagia: Possible Aspiration Pneumonitis: secondary to Esophageal Dysmotility GI following No EGD/intervention recommended at this point Speech Therapy evaluated Continue Unasyn Day # 4>>Augmentin Day # 2 Right sided Sciatic Pain: pain medication regimen limited by acute renal failure avoid NSAIDs and Narcotics Continue trial of Prednisone 40mg daily>>>continue to taper down monitor BSGs Right Adrenal Nodule: found on CT scan:unchanged from prior exam monitor Further work up as outpatient DM II Has been diet-controlled. Hb A1c: 6.2 on 07/2017. continue ISS HX CAD S/P stent 1 and CABG 5 no cardiac symptoms On aspirin, atenolol, statin BPH On Proscar DVT Px: continue Coumadin Code Status: Full Code Disposition: Plan to discharge home today Follow up with your PCP on 08/15/17 at 1:00PM Follow up with your Rod Hanger in 1 week as advised Follow up with your Retail Assistant as advised Get Blood test (Basic metabolic Panel) on 08/20/17 and follow up with your Rod Hanger as advised Your Rod Hanger recommended your Oral Fluid Intake to be limited to one litre per day. Follow up with your doctor for further recommendations Complete the antibiotic course as prescribed Seek immediate medical attention if your symptoms reoccur or worsen Follow up with coumadin clinic for coumadin dosing Complete the antibiotic course as prescribed Total time spent on discharge = 36 minutes This includes examination of the patient, discharge planning, medication reconciliation, and communication with other providers. Discharge Instructions Discharge Instructions Date of Service August 10, 2017. Admission Reason for Admission: Hyponatremia Discharge Discharge Diagnosis / Problem: Hyponatremia, MIHA, Gastroenteritis Discharge Goals Goal(s): Decrease discomfort, Improve function Activity Recommendations Activity Limitations: resume your previous activity Exercise/Sports Limitations: as tolerated . Instructions / Follow-Up Instructions / Follow-Up Follow up with your PCP on 08/15/17 at 1:00PM Follow up with your Rod Hanger in 1 week as advised Follow up with your Retail Assistant as advised Get Blood test (Basic metabolic Panel) on 08/20/17 and follow up with your Rod Hanger as advised Your Rod Hanger recommended your Oral Fluid Intake to be limited to one litre per day. Follow up with your doctor for further recommendations Complete the antibiotic course as prescribed Seek immediate medical attention if your symptoms reoccur or worsen Follow up with Coumadin clinic for Coumadin dosing Complete the antibiotic course as prescribed Current Hospital Diet Patient's current hospital diet: Renal Diet, Diabetes Type 2 Diet Discharge Diet Recommended Diet: Diabetes Type 2 Diet, Renal Diet Pending Studies Studies pending at discharge: no Laboratory Results Lipid Panel Test 08/04/17 07:32 Range/Units Triglycerides Level 296 H 0-150 mg/dl Cholesterol Level 110 0-200 mg/dl HDL Cholesterol 30 mg/dl Cholesterol/HDL Ratio 3.7 LDL Cholesterol, Calculated 21 mg/dl Medical Emergencies . Who to Call and When: Medical Emergencies: If at any time you feel your situation is an emergency, please call 911 immediately. . Non-Emergent Contact Non-Emergency issues call your: Primary Care Provider, Retail Assistant, Rod Hanger Call Non-Emergent contact if: you have a fever, your pain is not controlled, your pain is worsening, your pain is unusual for you, your pain is concerning you, you have any medication questions Seek immediate medical attention if your symptoms reoccur or worsen . . "Provider Documentation" section prepared by Rui Del Cid. .
--- NOTE | 2017-08-22 10:03 | EDITING REQUIRED CODING QUERY ---
CODING QUERY To promote full compliance with coding requirements relating to patient care, provider participation is requested in all cases of development analyst uncertainty. Please assist us with the question(s) below: Coding Question(s): Patient admitted with aspiration pneumonia and MIAH. Per your 08/06 progress note " MIAH appears to be volume depletion significant to cause ATN- slowly improving, not uremic. May take several months to return to baseline". Please check below the diagnosis you treated during this Inpatient stay. Thank you! ESTEFANY Vora [facility] Physician's Response(s): ____x ATN x____ Acute Renal Failure Cannot Clinically Correlate Other/ Please Document: Principal Diagnosis: "_that condition established after study, to be chiefly responsible for occasioning the admission of the patient to the hospital for care." Co-Existing Principal Diagnosis: "_when two or more diagnoses equally meet the criteria for principal diagnosis as determined by the circumstances of admission, diagnostic work up, and/or therapy provided, and the Alphabetic Index, Tabular List, or another coding guideline does not provide sequencing direction, any one of the diagnoses may be sequenced first." "When the physician has documented what appears to be a current diagnosis in the body of the record, but has not included the diagnosis in the final diagnostic statement, the physician should be asked whether the diagnosis should be added." (Source Coding [facility] 2 QTR90. p3-4)
== END 2017-08-10 17:55 | disposition home or self-care (01) | DRG 177 ==
LOC: C.EDB 19:31 → C.MED 08-03 00:07 → ENRESERV 08-03 00:17
PROVIDERS: ADMIT Internal Medicine; ATTEND Internal Medicine
DX: J69.0 Pneumonitis due to inhalation of food and vomit (principal); N17.0 Acute kidney failure with tubular necrosis; E87.1 Hypo-osmolality and hyponatremia; N18.4 Chronic kidney disease, stage 4 (severe); E87.2 Acidosis; A08.4 Viral intestinal infection, unspecified; Z93.2 Ileostomy status; N40.0 Benign prostatic hyperplasia without lower urinary tract symptoms; I25.10 Atherosclerotic heart disease of native coronary artery without angina pectoris; I65.23 Occlusion and stenosis of bilateral carotid arteries; E87.6 Hypokalemia; K21.9 Gastro-esophageal reflux disease without esophagitis; I48.91 Unspecified atrial fibrillation; E78.5 Hyperlipidemia, unspecified; I12.9 Hypertensive chronic kidney disease with stage 1 through stage 4 chronic kidney disease, or unspecified chronic kidney disease; Z95.5 Presence of coronary angioplasty implant and graft; Z79.01 Long term (current) use of anticoagulants; Z88.5 Allergy status to narcotic agent; Z95.1 Presence of aortocoronary bypass graft; Z86.73 Personal history of transient ischemic attack (TIA), and cerebral infarction without residual deficits; Z87.891 Personal history of nicotine dependence; E87.70 Fluid overload, unspecified; R13.10 Dysphagia, unspecified; K22.4 Dyskinesia of esophagus; E27.9 Disorder of adrenal gland, unspecified; E11.21 Type 2 diabetes mellitus with diabetic nephropathy

== ENCOUNTER 2019-08-15 12:21 | Inpatient (IN) ==
[2019-08-15] MEDS ORDERED: ONDANSETRON INJ 2 MG/ML 2 ML VIAL IV STA (12:47)
[2019-08-15] MEDS ORDERED: ACETAMINOPHEN 1,000 MG/100 ML VIAL IV STA (12:47)
[2019-08-15] MEDS ORDERED: FAMOTIDINE 20MG IV PUSH 20 MG/5 ML SYR IV STA (12:47)
[2019-08-15 13:04] LABS: Hematocrit (blood only) 46.8 % (42-52); Hemoglobin 15.7 g/dL (14.0-18.0); Mean Corpuscular Hemoglobin 29.7 pg (25-34); Mean Corpuscular Hgb Conc 33.5 g/dL (32-36); Mean Corpuscular Volume 88.5 fL (80-100); Platelet Count 288 K/uL (130-400); RDW Coefficient of Variation 15.5 % (11.5-14.5); RDW Standard Deviation 49.8 fL (36.4-46.3); Red Blood Count 5.29 M/uL (4.7-6.1); White Blood Count 12.93 K/uL (4.8-10.8)
--- NOTE | 2019-08-15 13:14 | Emergency Department Note ---
Impression & Plan Partial small bowel obstruction, Colostomy in place, CKD (chronic kidney disease), Nausea and vomiting, Supratherapeutic INR ED Provider Note NAME: LEE LIND AGE: 83 SEX: M ARRIVES VIA: Ambulance INFORMANT: Patient, ED PROVIDER(S): Dg Conway MD CHIEF COMPLAINT: Abdominal pain, nausea/vomiting. PLAN: Disposition: Admit. MEDICAL DECISION MAKING: The patient is a pleasant 83-year-old gentleman with a past medical history of CKD, history of colostomy A. fib on Coumadin, COPD hypertension, hyperlipidemia, CAD, history of GI bleed, CABG x5 who presents emergency department with right lower quadrant pain around the area of his ileostostomy site with associated nausea and vomiting earlier today. Patient denies any fevers, chills, cough, congestion, urinary symptoms. On arrival the patient is in no acute distress, afebrile with stable vital signs. On exam patient has mild tenderness of the right lower quadrant with ileostomy site clean dry and intact. The patient appears clinically dry. WBC 12.9, nonspecific. H/H and platelets within normal limits. INR is 4.3 but without evidence of bleeding. Chemistry without acidosis. Agap wnl. Creatinine is 2.2 within prior range of values in the setting of history of CKD. Phosphorus 2.4 and electrolytes otherwise unremarkable. LFTs unremarkable. Lipase within normal limits. C. difficile negative. CT the abdomen pelvis demonstrates increased size of the parastomal hernia at the right lower quadrant ileostomy site. There is also a small bowel obstruction leading up to the ostomy or hernia sac which is suggestive of low- grade partial small bowel obstruction. On reevaluation the patient was feeling improved after IV fluid hydration, APAP, Zofran. Abdomen was subsequently with only mild discomfort. Patient reported his nausea had resolved and had regained his appetite and was requesting to eat. However, I did review the findings on CT with the patient and he agreed with plan for admission for further monitoring to ensure resolution of his partial small bowel obstruction. Patient was agreeable with this. Case was discussed with Angelique Vick, Cecilia PAC, with Dr. Boris Brooks hospitalist, who will evaluate the patient for admission . Triage Nursing notes reviewed and agree them. Prior medical records reviewed Vital Signs: reviewed and remarkable for no significant abnormalities Differential diagnosis: Appendicitis, testicular torsion, infections, diverticulitis, UTI, obstruction, mesenteric ischemia, aortic pathology, inflammatory bowel disease, renal colic, PUD, pancreatitis, biliary pathology, hernia, volvulus, constipation, as well as other pathologies. ER treatment provided: See below. Diagnostics interpreted by me: Cardiac Monitoring: An order for continuous cardiac monitoring was placed and demonstrated atrial fibrillation, 98 bpm, frequent PVCs Laboratory studies: See below Imaging studies: CT abd pelvis wo con CLINICAL HISTORY: 83 years-old Male presenting with RLQ pain around ostomy site. TECHNIQUE: Multidetector CT of the abdomen and pelvis was performed without the use of intravenous contrast. IV contrast: None. One or more dose lowering techniques were used consistent with the principles of ALARA (as low as reasonably achievable), including automatic exposure control, mA or kV adjustment to individual patient size, and/or use of iterative reconstruction. COMPARISON: 08/02/2017. CT DOSE (mGy.cm): The estimated cumulative dose is 898.19 mGy.cm. FINDINGS: Ceramic Chemist topogram: Unremarkable. Lung bases: Multichamber enlargement of the heart. Coronary artery and aortic valve calcification. No pericardial or pleural effusion. Minimal dependent changes likely atelectasis. Liver: Normal morphology. Density consistent with mild hepatic steatosis. Biliary: No gross biliary ductal dilatation allowing for noncontrast technique. Normal gallbladder. Pancreas: Moderate parenchymal atrophy. Spleen: Normal noncontrast appearance. Adrenal glands: 1.5 cm nodule in the right adrenal gland with an indeterminate density the unchanged from prior suggesting lipid poor benign adenoma. Normal noncontrast appearance of the left adrenal gland. Kidneys and ureters: Normal noncontrast appearance. No nephrolithiasis. No hydronephrosis. Normal ureters. Renovascular calcification evident. Bladder: Circumferential bladder wall thickening. Pelvic organs: Prostate enlargement likely secondary to benign prostatic hyperplasia. Bowel: Franklin's pouch at the upper rectum. Subtotal colectomy evident. Right lower quadrant ileostomy. Significant interval increase in size of the right parastomal hernia containing small bowel. Small bowel within the hernia sac is unobstructed. However, dilated small bowel is noted leading up to the hernia sac. It is difficult to tell if this is the loop of bowel leading up to the exiting ostomy or if this is loop of bowel leading up to the hernia sac. Peritoneal cavity: No free fluid or intraperitoneal gas. Lymph nodes: No gross lymphadenopathy allowing for noncontrast technique. Vasculature: Extensive calcified atherosclerosis of the abdominal aorta, which is tortuous though without aneurysmal dilatation. Abdominal wall: Increased size of the now moderate parastomal hernia at the right lower quadrant ostomy site. The peritoneal defect measures 3.7 cm in comparison to the maximal sac diameter of 10.3 cm. No infiltration of the mesenteric fat or fluid in the hernia sac. Post surgical changes of the ventral abdominal wall. Small umbilical hernia. Musculoskeletal: Extensive severe degenerative changes of the spine. Scoliotic curvature of the spine. IMPRESSION: 1. Increased size of the parastomal hernia at the right lower quadrant ileostomy site. There is also small bowel distention leading up to the ostomy or hernia sac. Findings suggest a partial low-grade small bowel obstruction. 2. Subtotal colectomy with Franklin's pouch. 3. 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 4. Mild hepatic steatosis. 5. Prostatomegaly with chronic bladder outlet obstruction. ACT 112: Negative or not required by law. Consultation(s): Case was discussed with Angelique Vick, [facility], with Dr. Boris Brooks hospitalist, who will evaluate the patient for admission. HPI: The patient is a pleasant 83-year-old gentleman with a past medical history of CKD, history of colostomy A. fib on Coumadin, COPD hypertension, hyperlipidemia, CAD, history of GI bleed, CABG x5 who presents emergency de partment with right lower quadrant pain around the area of his ileostostomy site with associated nausea and vomiting earlier today. Patient denies any fevers, chills, cough, congestion, urinary symptoms. ROS: See above HPI for pertinent positives & negatives. A total of 10 systems reviewed and were otherwise negative. PAST MEDICAL HISTORY:See Below PAST SURGICAL HISTORY:See Below FAMILY HISTORY:See Below SOCIAL HISTORY:See Below HOME MEDICATIONS:See Below ALLERGIES:See Below VITALS:See Below PHYSICAL EXAMINATION: GENERAL: Awake, alert, fatigued appearing, in no distress HENT: Normocephalic, atraumatic. Oropharynx with dry mucous membranes and otherwise unremarkable. . EYES: Normal conjunctiva. Sclera non-icteric. NECK: Supple. No nuchal rigidity. FROM. No JVD. RESPIRATORY: Clear to auscultation. CARDIAC: Regular rate, normal rhythm. Extremities warm and well perfused. Pulses equal. ABDOMEN: Soft, non-distended. Mild tenderness of the right lower quadrant around the region of the patient's ileostomy site. The ostomy site itself is clean dry and intact. No rebound or guarding. No masses. RECTAL: Deferred. MUSCULOSKELETAL: Chest examination reveals no tenderness. The back is symmetrical on inspection without obvious abnormality. There is no CVA tenderness to palpation. No joint edema. LOWER EXTREMITIES: Calves are equal size bilaterally and non-tender. No edema. No discoloration. NEURO: Normal sensorium. No sensory or motor deficits noted. SKIN: No rash or jaundice noted. Dg Conway MD Past Med/Surg History Medical History A-fib (Chronic) BPH (benign prostatic hyperplasia) (Chronic) Cancer (Chronic) SKIN (BCC) Chronic anticoagulation (Chronic) Chronic obstructive pulmonary disease (Chronic) STABLE CKD (chronic kidney disease), stage IV (Chronic) Colostomy in place (Chronic) Glaucoma (Chronic) LEFT Hearing deficit (Chronic) High cholesterol (Chronic) History of kidney stones (Resolved) Hypothyroid (Chronic) IgG lambda monoclonal gammopathy Obesity (Chronic) Osteoarthritis (Chronic) Right-sided ischial pain Stroke ~2012; RIGHT SIDED RESIDUAL WEAKNESS T2DM (type 2 diabetes mellitus) Valvular disease (Chronic) 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, MILD TR Surgical History History of back surgery (Resolved) History of bladder stone (Resolved) EXCISION History of cataract surgery (Resolved) History of cystoscopy (Resolved) X2 History of intestinal surgery (Resolved) COLOSTOMY 2/2 COLON HEMORRHAGE History of tooth extraction (Resolved) Hx of arthroscopic knee surgery (Resolved) RIGHT Hx of cardiac cath (Chronic) S/P CABG X5 (1997), STENT (2003) MOST RECENT= 2011= NO STENTS Hx of colonoscopy (Resolved) Hx of eye surgery (Resolved) RETINAL PUCKER REPAIR (RIGHT) Hx of heart bypass surgery (Chronic) CABG X 5 (~1997) Hx of hernia repair (Resolved) X2 Family History Mother Family history of diabetes mellitus CHF (congestive heart failure) Brother Cancer Esophageal Social History Preferred Language: Icelandic Communication Ability: Effective Visual Impairment: Limited Hearing Ability: Hard of Hearing Digester Hand Required: No Beliefs That Will Affect Care: None marital status: Current Living Situation: Spouse current occupational status: retired Other Information That Helps Us Care for You: No Feels Safe at Home: Yes Safety Concerns: Feels Safe At This Time Smoking Status: Former smoker packs per day: 2 ; Years Smoked: 30 ; Smoking End Date: 1991 ; Hx Alcohol Use: No Hx Substance Use: No Allergies Allergies Allergy/AdvReac Type Severity Reaction Status Date / Time codeine Allergy Intermediate ITCHING Verified 08/15/19 13:13 tramadol Allergy Intermediate ITCHING Verified 08/15/19 13:13 phenytoin [From Dilantin] Allergy Unknown can't Verified 08/15/19 13:13 remember hydrocodone AdvReac Intermediate NAUSEA Verified 08/15/19 13:13 Home Meds Home Medications Medication Instructions Recorded Confirmed aspirin [Aspirin Low Dose] 81 mg PO BID 02/13/18 08/15/19 brimonidine 1 drp OPB BID 02/13/18 08/15/19 cholecalciferol (vitamin D3) 1,000 tab PO QAM 02/13/18 08/15/19 [Vitamin D3] diltiazem HCl 240 mg PO QAM 02/13/18 08/15/19 fenofibrate micronized 134 mg PO PM 02/13/18 08/15/19 finasteride 5 mg PO QAM 02/13/18 08/15/19 gabapentin 100 mg PO BID 02/13/18 08/15/19 ipratropium-albuterol 3 ml INHALATION Q8H PRN 02/13/18 08/15/19 magnesium oxide 400 mg PO HS 02/13/18 08/15/19 multivitamin 1 tab PO QAM 02/13/18 08/15/19 omeprazole 20 mg PO BID 02/13/18 08/15/19 simvastatin 20 mg PO HS 02/13/18 08/15/19 timolol 1 drp OPB BID 02/13/18 08/15/19 zinc 50 mg PO QAM 02/13/18 08/15/19 warfarin 1 mg tablet 1 mg PO SUMOTUTHFR tab 03/28/18 08/15/19 ascorbic acid (vitamin C) [Vitamin 500 mg PO QAM 08/15/19 08/15/19 C] cyanocobalamin (vitamin B-12) 1,000 mcg PO DAILY 08/15/19 08/15/19 [Vitamin B-12] furosemide 40 mg PO QAM 08/15/19 08/15/19 lactobacillus combination no.4 3,000 mmu cells PO DAILY 08/15/19 08/15/19 [Probiotic] levothyroxine 88 mcg PO QAM 08/15/19 08/15/19 metoprolol succinate 100 mg PO QAM 08/15/19 08/15/19 oxycodone 10 mg PO DAILY PRN 08/15/19 08/15/19 tiotropium bromide [Spiriva with 1 cap INHALATION DAILY 08/15/19 08/15/19 HandiHaler] triamcinolone acetonide 1 applic TOPICAL BID PRN 08/15/19 08/15/19 warfarin 2 mg PO WESA 08/15/19 08/15/19 Results & Data (ED) Vital Signs Vital Signs - 24 hr 08/15/19 12:19 08/15/19 12:22 08/15/19 12:43 Temperature 36.9 C Temperature Source Oral Pulse Rate 79 105 H Pulse Rate from SpO2 Sensor 99 H Pulse Rhythm Regular Pulse Strength Normal Respiratory Rate 22 21 Respiratory Effort / Characteristics Non-Labored Spontaneous Respiratory Depth Normal Respiratory Pattern Regular Blood Pressure 133/77 133/77 Blood Pressure Mean 95 89 Blood Pressure Position Lying Pulse Oximetry 94 95 93 Oxygen Delivery Method Room Air Room Air Sepsis Recent Fever Within 48 Hours No Sepsis New/Unexplained Change in Mental Status No Sepsis Action Taken by Nursing No Action Required 08/15/19 13:26 08/15/19 14:30 08/15/19 15:00 Temperature Temperature Source Pulse Rate 95 H 100 H 98 H Pulse Rate from SpO2 Sensor 82 98 H 94 H Pulse Rhythm Pulse Strength Respiratory Rate 18 18 19 Respiratory Effort / Characteristics Respiratory Depth Respiratory Pattern Blood Pressure 127/93 144/93 H 155/100 H Blood Pressure Mean 98 103 117 Blood Pressure Position Pulse Oximetry 96 97 97 Oxygen Delivery Method Room Air Sepsis Recent Fever Within 48 Hours Sepsis New/Unexplained Change in Mental Status Sepsis Action Taken by Nursing 08/15/19 15:30 08/15/19 16:00 Temperature Temperature Source Pulse Rate 116 H 118 H Pulse Rate from SpO2 Sensor 97 H 108 H Pulse Rhythm Pulse Strength Respiratory Rate 20 23 Respiratory Effort / Characteristics Respiratory Depth Respiratory Pattern Blood Pressure 170/90 H 192/119 H Blood Pressure Mean 109 146 Blood Pressure Position Pulse Oximetry 97 97 Oxygen Delivery Method Sepsis Recent Fever Within 48 Hours Sepsis New/Unexplained Change in Mental Status Sepsis Action Taken by Nursing Laboratory Data Attestation: I reviewed the patient's lab results. Result diagrams: 08/15/19 11:44 08/15/19 11:44 Lab Results 08/15/19 08/15/19 08/15/19 Range/Units 11:44 11:44 11:44 WBC 12.93 H (4.8-10.8) K/uL RBC 5.29 (4.7-6.1) M/uL Hgb 15.7 (14.0-18.0) g/dL Hct 46.8 (42-52) % MCV 88.5 (80-100) fL MCH 29.7 (25-34) pg MCHC 33.5 (32-36) g/dL RDW Std Deviation 49.8 H (36.4-46.3) fL RDW Coeff of Saul 15.5 H (11.5-14.5) % Plt Count 288 (130-400) K/uL MPV 11.0 H (7.4-10.4) fL Immature Gran % (Auto) 0.5 % Neut % (Auto) 85.6 % Lymph % (Auto) 6.7 % Archer % (Auto) 7.0 % Eos % (Auto) 0.1 % Baso % (Auto) 0.1 % Immature Gran # (Auto) 0.06 H (0.00-0.02) K/uL Neut # (Auto) 11.09 H (1.4-6.5) K/uL Lymph # (Auto) 0.86 L (1.2-3.4) K/uL Archer # (Auto) 0.90 H (0.11-0.59) K/uL Eos # (Auto) 0.01 (0-0.5) K/uL Baso # (Auto) 0.01 (0-0.2) K/uL PT 41.6 H (9.0-12.0) Seconds INR 4.3 H (0.9-1.1) Sodium 137 (136-145) mmol/L Potassium 3.9 (3.5-5.1) mmol/L Chloride 105 (98-107) mmol/L Carbon Dioxide 22 (21-32) mmol/L Anion Gap 10.0 (3-11) BUN 32 H (7-18) mg/dl Creatinine 2.27 H (0.6-1.4) mg/dl Est Cr Clr Drug Dosing 30.5 ml/min Est GFR ( Amer) 30.0 Est GFR (Non-Af Amer) 25.9 BUN/Creatinine Ratio 13.9 (10-20) Glucose 180 H (70-99) mg/dl Calcium 9.9 (8.5-10.1) mg/dl Phosphorus 2.4 L (2.5-4.9) mg/dl Magnesium 2.2 (1.8-2.4) mg/dl Total Bilirubin 1.1 H (0.2-1) mg/dl Direct Bilirubin 0.3 H (0-0.2) mg/dl AST 17 (15-37) U/L ALT 20 (12-78) U/L Alkaline Phosphatase 55 (45-117) U/L Total Protein 8.4 H (6.4-8.2) gm/dl Albumin 3.7 (3.4-5.0) gm/dl Globulin 4.7 H (2.5-4.0) gm/dl Albumin/Globulin Ratio 0.8 L (0.9-2) Lipase 87 (73-393) U/L Stl C. diff Tox B Gene (Neg) 08/15/19 Range/Units 12:50 WBC (4.8-10.8) K/uL RBC (4.7-6.1) M/uL Hgb (14.0-18.0) g/dL Hct (42-52) % MCV (80-100) fL MCH (25-34) pg MCHC (32-36) g/dL RDW Std Deviation (36.4-46.3) fL RDW Coeff of Saul (11.5-14.5) % Plt Count (130-400) K/uL MPV (7.4-10.4) fL Immature Gran % (Auto) % Neut % (Auto) % Lymph % (Auto) % Archer % (Auto) % Eos % (Auto) % Baso % (Auto) % Immature Gran # (Auto) (0.00-0.02) K/uL Neut # (Auto) (1.4-6.5) K/uL Lymph # (Auto) (1.2-3.4) K/uL Archer # (Auto) (0.11-0.59) K/uL Eos # (Auto) (0-0.5) K/uL Baso # (Auto) (0-0.2) K/uL PT (9.0-12.0) Seconds INR (0.9-1.1) Sodium (136-145) mmol/L Potassium (3.5-5.1) mmol/L Chloride (98-107) mmol/L Carbon Dioxide (21-32) mmol/L Anion Gap (3-11) BUN (7-18) mg/dl Creatinine (0.6-1.4) mg/dl Est Cr Clr Drug Dosing ml/min Est GFR ( Amer) Est GFR (Non-Af Amer) BUN/Creatinine Ratio (10-20) Glucose (70-99) mg/dl Calcium (8.5-10.1) mg/dl Phosphorus (2.5-4.9) mg/dl Magnesium (1.8-2.4) mg/dl Total Bilirubin (0.2-1) mg/dl Direct Bilirubin (0-0.2) mg/dl AST (15-37) U/L ALT (12-78) U/L Alkaline Phosphatase (45-117) U/L Total Protein (6.4-8.2) gm/dl Albumin (3.4-5.0) gm/dl Globulin (2.5-4.0) gm/dl Albumin/Globulin Ratio (0.9-2) Lipase (73-393) U/L Stl C. diff Tox B Gene Negative Cdiff Gene (Neg) Administered Medications Sodium Chloride (Nss 1000ml) 1,000 mls @ 80 mls/hr IV .[id number] BERNIE Stop: 08/16/19 17:14 Last Infusion: 08/15/19 18:49 Dose: 80 mls/hr Documented by: [id number] Infusion: 08/15/19 18:17 Dose: 0 mls/hr Documented by: [id number] Admin: 08/15/19 17:38 Dose: 80 mls/hr Documented by: [id number] Insulin Aspart (Novolog Flexpen) 0 units SC ACHS BERNIE Stop: 09/14/19 17:18 Last Admin: 08/15/19 18:51 Dose: 3 units Documented by: [id number] Cosigned by: [id number] Metoprolol Succinate (Toprol Xl) 100 mg PO QAM BERNIE Stop: 09/14/19 16:44 Last Admin: 08/15/19 18:20 Dose: 100 mg Documented by: [id number] Discontinued Medications Acetaminophen (Ofirmev) 1,000 mg in 100 mls @ 400 mls/hr IV NOW STA Stop: 08/15/19 13:01 Last Infusion: 08/15/19 13:24 Dose: 0 mls/hr Documented by: [id number] Admin: 08/15/19 13:10 Dose: 400 mls/hr Documented by: [id number] Famotidine (Pepcid 20mg Iv Push) 20 mg in 5 mls @ 2.5 mls/min IV NOW STA Stop: 08/15/19 12:48 Last Admin: 08/15/19 13:08 Dose: 2.5 mls/min Documented by: [id number] Sodium Chloride (Nss 1000ml) 500 mls @ 999 mls/hr IV .Q31M ONE Stop: 08/15/19 18:34 Last Infusion: 08/15/19 18:50 Dose: 0 mls/hr Documented by: [id number] Admin: 08/15/19 18:16 Dose: 999 mls/hr Documented by: [id number] Ondansetron HCl (Zofran) 4 mg IV NOW STA Stop: 08/15/19 12:48 Last Admin: 08/15/19 13:05 Dose: 4 mg Documented by: [id number] Blood Pressure Blood Pressure Findings: Elevated blood pressure Blood Pressure Disposition: elevated BP felt to be situational Discharge Plan Visit Data *Final* Discharge Date/Time: 08/15/19 16:33 Chief Complaint: Skin Problem Stated Complaint: Increased watery stool from Stoma with burning ED Provider: Dg Conway Discharge Problem: Partial small bowel obstruction, Colostomy in place, CKD (chronic kidney disease), Nausea and vomiting, Supratherapeutic INR Patient Disposition: Admitted As Inpatient Discharge Instructions Interventions: ED Discharge Assessment Last Done: 08/15/19 16:33
[2019-08-15 13:20] LABS: Albumin Level 3.7 gm/dl (3.4-5.0); BUN Creatinine Ratio 13.9 (10-20); Calcium 9.9 mg/dl (8.5-10.1); Creatinine Clr Calc Pharmacy 30.5 ml/min; Est GFR (Non-African American) 25.9; Magnesium 2.2 mg/dl (1.8-2.4); Potassium 3.9 mmol/L (3.5-5.1)
[2019-08-15 13:22] LABS: INR 4.3 (0.9-1.1); Prothrombin Time 41.6 Seconds (9.0-12.0)
[2019-08-15 13:23] LABS: Albumin Globulin Ratio 0.8 (0.9-2); Bilirubin Direct 0.3 mg/dl (0-0.2); Bilirubin,Total 1.1 mg/dl (0.2-1); Globulin 4.7 gm/dl (2.5-4.0); Phosphorus 2.4 mg/dl (2.5-4.9); Total Protein 8.4 gm/dl (6.4-8.2)
[2019-08-15 13:29] LABS: Basophils # (auto) 0.01 K/uL (0-0.2); Basophils % (auto) 0.1 %; Eosinophils # (auto) 0.01 K/uL (0-0.5); Eosinophils % (auto) 0.1 %; Immature Granulocytes # (auto) 0.06 K/uL (0.00-0.02); Immature Granulocytes % (auto) 0.5 %; Lymphocytes # (auto) 0.86 K/uL (1.2-3.4); Lymphocytes % (auto) 6.7 %; Neutrophils # (auto) 11.09 K/uL (1.4-6.5); Neutrophils % (auto) 85.6 %
--- NOTE | 2019-08-15 13:36 | CT Scan Report ---
CT abd pelvis wo con CLINICAL HISTORY: 83 years-old Male presenting with RLQ pain around ostomy site. TECHNIQUE: Multidetector CT of the abdomen and pelvis was performed without the use of intravenous co ntrast. IV contrast: None. One or more dose lowering techniques were used consistent with the princip les of ALARA (as low as reasonably achievable), including automatic exposure control, mA or kV adjust ment to individual patient size, and/or use of iterative reconstruction. COMPARISON: 08/02/2017. CT DOSE (mGy.cm): The estimated cumulative dose is 898.19 mGy.cm. FINDINGS: Machine Coremaker topogram: Unremarkable. Lung bases: Multichamber enlargement of the heart. Coronary artery and aortic valve calcification. No pericardial or pleural effusion. Minimal dependent changes likely atelectasis. Liver: Normal morphology. Density consistent with mild hepatic steatosis. Biliary: No gross biliary ductal dilatation allowing for noncontrast technique. Normal gallbladder. Pancreas: Moderate parenchymal atrophy. Spleen: Normal noncontrast appearance. Adrenal glands: 1.5 cm nodule in the right adrenal gland with an indeterminate density the unchanged from prior suggesting lipid poor benign adenoma. Normal noncontrast appearance of the left adrenal gl and. Kidneys and ureters: Normal noncontrast appearance. No nephrolithiasis. No hydronephrosis. Normal ure ters. Renovascular calcification evident. Bladder: Circumferential bladder wall thickening. Pelvic organs: Prostate enlargement likely secondary to benign prostatic hyperplasia. Bowel: Franklin's pouch at the upper rectum. Subtotal colectomy evident. Right lower quadrant ileostom y. Significant interval increase in size of the right parastomal hernia containing small bowel. Small bowel within the hernia sac is unobstructed. However, dilated small bowel is noted leading up to the hernia sac. It is difficult to tell if this is the loop of bowel leading up to the exiting ostomy or if this is loop of bowel leading up to the hernia sac. Peritoneal cavity: No free fluid or intraperitoneal gas. Lymph nodes: No gross lymphadenopathy allowing for noncontrast technique. Vasculature: Extensive calcified atherosclerosis of the abdominal aorta, which is tortuous though wit hout aneurysmal dilatation. Abdominal wall: Increased size of the now moderate parastomal hernia at the right lower quadrant osto my site. The peritoneal defect measures 3.7 cm in comparison to the maximal sac diameter of 10.3 cm. No infiltration of the mesenteric fat or fluid in the hernia sac. Post surgical changes of the ventra l abdominal wall. Small umbilical hernia. Musculoskeletal: Extensive severe degenerative changes of the spine. Scoliotic curvature of the spine . IMPRESSION: 1. Increased size of the parastomal hernia at the right lower quadrant ileostomy site. There is also small bowel distention leading up to the ostomy or hernia sac. Findings suggest a partial low-grade small bowel obstruction. 2. Subtotal colectomy with Franklin's pouch. 3. 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 4. Mild hepatic steatosis. 5. Prostatomegaly with chronic bladder outlet obstruction. ACT 112: Negative or not required by law. Electronically signed by: Chapo Turcios M.D. 08/15/2019 1:35 PM
--- NOTE | 2019-08-15 16:50 | History & Physical Report ---
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 Patient presented with nausea, vomiting, burning right lower quadrant abdominal pain since [address] A/P: 1. Increased size of the parastomal hernia at the right lower quadrant ileostomy site. There is also small bowel distention leading up to the ostomy or hernia sac. Findings suggest a partial low-grade small bowel obstruction. 2. Subtotal colectomy with Franklin's pouch. 3. 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 4. Mild hepatic steatosis. 5. Prostatomegaly with chronic bladder outlet obstruction. C-diff negative. Patient does meet criteria for SIRS secondary to leukocytosis and tachycardia; however, I suspect this is likely reactive secondary to partial SBO and tachycardia secondary to missed dose of metoprolol, pain and volume depletion. There is no signs or symptoms of active infection. Admit to medical His symptoms have resolved including abdominal pain -which may indicate resolution of partial SBO Placed on clear liquid diet for now and monitor N.p.o. after midnight Consult general surgery IVF 80 cc/h KUB in a.m. (4) A-fib: Chronic atrial fibrillation On warfarin for thrombotic control, INR currently supratherapeutic (Home regimen is 2 mg Wednesdays and Saturdays, 1 mg all other days) Hold warfarin this evening, repeat INR in a.m. No signs or symptoms of bleeding He is on metoprolol and diltiazem for rate control He did not take any medications today - we will order metoprolol dose now (5) CAD (coronary artery disease): hx of CABG x 5 1997 and stent placement in 2003 continue ASA, Statin, Metoprolol EBONY intolerant/CKD no chest pain (6) DM type 2 (diabetes mellitus, type 2): A1c 7.7 07/24/2019 He does not take any oral hypoglycemics or insulin, manages with diet Given age this is acceptable control Will place on low-dose Lantus/NovoLog per protocol while hospitalized for hyperglycemia (7) Hypertension: Blood pressure mildly elevated in ED, likely in setting of pain Continue metoprolol, diltiazem Hold Lasix in setting of volume depletion due to nausea and vomiting Reassess in a.m. to resume (8) Dyslipidemia: continue statin therapy (9) Hypothyroidism: Continue levothyroxine last TSH was 12 in 03/2019 repeat TSH (10) History of CVA (cerebrovascular accident): Continue ASA, warfarin and statin therapy With residual RHP ambulates with walker consider PT/OT eval prior to DC (11) Chronic kidney disease: Chronic kidney disease stage IV, baseline creatinine 2.2 BUN/creatinine 32 and 2.27 today Avoid nephrotoxic agent Monitor renal function (12) BPH (benign prostatic hyperplasia): Continue finasteride (13) GERD (gastroesophageal reflux disease): Continue PPI (14) Chronic obstructive pulmonary disease: No acute exacerbation Continue Spiriva, DuoNeb as needed (15) Osteoarthritis: Patient takes oxycodone 10 mg once daily as needed, this was confirmed with PDMP (16) Adrenal adenoma: noted incidentally on CT scan recommend follow up as outpt with PCP to determine need for any additional imaging (17) DVT prophylaxis: Warfarin, INR supratherapeutic at 4.4 Hold warfarin and repeat INR in a.m. (home regiment 2 mg Sunday and Sunday, 1 mg all other days) Disposition: Admit to med/surg Follow-up: PCP Dr. Marrufo upon discharge, patient is a [facility] at home patient Patient was seen and examined in collaboration with Dr. Escalante, please see addendum History of Present Illness Chief Complaint: Abdominal pain, nausea, vomiting since 1 AM. 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 Patient last had something to eat around 5 PM last evening. He was abruptly woken with right lower quadrant abdominal pain that started at approximately 1 AM. Pain was nonradiating and he described as, "burning, like a blowtorch to my abdomen." Nothing seems to make the pain better or worse. It was associated with nausea and 5-6 episodes of emesis. Described as white emesis with partially undigested food. He does have an ileostomy and has been making stool output but it has been mostly dark brown liquid. He was seen today by [facility] RN who advised ED evaluation secondary to symptoms, temp 99.8. He denies feeling feverish, chills or sweats, lightheadedness, dizziness, chest pain, shortness of breath, cough, hemoptysis, dysuria, increased urgency or frequency with urination, melena, hematochezia. He did not take any medications this morning and he has not had anything to eat. He is only had a small cup of tea which she was able to keep down. His symptoms actually dissipated early this afternoon and currently he is asymptomatic. His abdominal pain has resolved and he is no longer nauseated or having episodes of emesis. In ED he did receive IV acetaminophen, famotidine and Zofran. He currently has an appetite and is requesting something to eat. He does recall having episodes similar in the past but was worse. He describes an episode of obstruction which required NG tube placement. He does not recall how long ago this was. He denies any known exposure to contacts with COVID-19. He further denies any fever, respiratory symptoms, loss of taste or smell or recent travel within the past 14 days. He lives at home with his and has not been leaving the house. Does ambulate with a walker. In ED patient remained hemodynamically stable although he was intermittently tachycardic. Lab work notable for WBC 12.93, H&H 15.7 and 46.8, platelet 288, INR 4.3, BUN 32, creatinine 2.27, glucose 180, [place] 2.4, mag 2.2, total bili 1.1, direct bili 0.3, LFTs WNL, lipase 87, stool negative for C. difficile. CT A/P: 1. Increased size of the parastomal hernia at the right lower quadrant ileostomy site. There is also small bowel distention leading up to the ostomy or hernia sac. Findings suggest a partial low-grade small bowel obstruction. 2. Subtotal colectomy with Franklin's pouch. 3. 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 4. Mild hepatic steatosis. 5. Prostatomegaly with chronic bladder outlet obstruction. Allergies Allergy/AdvReac Type Severity Reaction Status Date / Time codeine Allergy Intermediate ITCHING Verified 08/15/19 13:13 tramadol Allergy Intermediate ITCHING Verified 08/15/19 13:13 phenytoin [From Dilantin] Allergy Unknown can't Verified 08/15/19 13:13 remember hydrocodone AdvReac Intermediate NAUSEA Verified 08/15/19 13:13 Home Medications Home Medications Medication Instructions Recorded Confirmed Type aspirin [Aspirin Low Dose] 81 mg PO BID 02/13/18 08/15/19 History brimonidine 1 drp OPB BID 02/13/18 08/15/19 History cholecalciferol (vitamin D3) 1,000 tab PO QAM 02/13/18 08/15/19 History [Vitamin D3] diltiazem HCl 240 mg PO QAM 02/13/18 08/15/19 History fenofibrate micronized 134 mg PO PM 02/13/18 08/15/19 History finasteride 5 mg PO QAM 02/13/18 08/15/19 History gabapentin 100 mg PO BID 02/13/18 08/15/19 History ipratropium-albuterol 3 ml INHALATION Q8H PRN 02/13/18 08/15/19 History magnesium oxide 400 mg PO HS 02/13/18 08/15/19 History multivitamin 1 tab PO QAM 02/13/18 08/15/19 History omeprazole 20 mg PO BID 02/13/18 08/15/19 History simvastatin 20 mg PO HS 02/13/18 08/15/19 History timolol 1 drp OPB BID 02/13/18 08/15/19 History zinc 50 mg PO QAM 02/13/18 08/15/19 History warfarin 1 mg tablet 1 mg PO SUMOTUTHFR tab 03/28/18 08/15/19 History ascorbic acid (vitamin C) [Vitamin 500 mg PO QAM 08/15/19 08/15/19 History C] cyanocobalamin (vitamin B-12) 1,000 mcg PO DAILY 08/15/19 08/15/19 History [Vitamin B-12] furosemide 40 mg PO QAM 08/15/19 08/15/19 History lactobacillus combination no.4 3,000 mmu cells PO DAILY 08/15/19 08/15/19 History [Probiotic] levothyroxine 88 mcg PO QAM 08/15/19 08/15/19 History metoprolol succinate 100 mg PO QAM 08/15/19 08/15/19 History oxycodone 10 mg PO DAILY PRN 08/15/19 08/15/19 History tiotropium bromide [Spiriva with 1 cap INHALATION DAILY 08/15/19 08/15/19 Histo ry HandiHaler] triamcinolone acetonide 1 applic TOPICAL BID PRN 08/15/19 08/15/19 History warfarin 2 mg PO WESA 08/15/19 08/15/19 History Past Med/Surg History Medical History A-fib (Chronic) BPH (benign prostatic hyperplasia) (Chronic) Cancer (Chronic) SKIN (BCC) Chronic anticoagulation (Chronic) Chronic obstructive pulmonary disease (Chronic) STABLE CKD (chronic kidney disease), stage IV (Chronic) Colostomy in place (Chronic) Glaucoma (Chronic) LEFT Hearing deficit (Chronic) High cholesterol (Chronic) History of kidney stones (Resolved) Hypothyroid (Chronic) IgG lambda monoclonal gammopathy Obesity (Chronic) Osteoarthritis (Chronic) Right-sided ischial pain Stroke ~2012; RIGHT SIDED RESIDUAL WEAKNESS T2DM (type 2 diabetes mellitus) Valvular disease (Chronic) 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, MILD TR Surgical History History of back surgery (Resolved) History of bladder stone (Resolved) EXCISION History of cataract surgery (Resolved) History of cystoscopy (Resolved) X2 History of intestinal surgery (Resolved) COLOSTOMY 2/2 COLON HEMORRHAGE History of tooth extraction (Resolved) Hx of arthroscopic knee surgery (Resolved) RIGHT Hx of cardiac cath (Chronic) S/P CABG X5 (1997), STENT (2003) MOST RECENT= 2011= NO STENTS Hx of colonoscopy (Resolved) Hx of eye surgery (Resolved) RETINAL PUCKER REPAIR (RIGHT) Hx of heart bypass surgery (Chronic) CABG X 5 (~1997) Hx of hernia repair (Resolved) X2 Family History Mother Family history of diabetes mellitus CHF (congestive heart failure) Brother Cancer Esophageal Social History Preferred Language: Trinid[place] Communication Ability: Effective Visual Impairment: Limited Hearing Ability: Hard of Hearing Beliefs That Will Affect Care: None marital status: Current Living Situation: Spouse current occupational status: retired Feels Safe at Home: Yes Smoking Status: Former smoker packs per day: 2 ; Years Smoked: 30 ; Smoking End Date: 1991 ; Hx Alcohol Use: Yes Alcohol type: beer and hard liquor Alcohol Intake Frequency Comment: Former history of alcohol abuse Hx Substance Use: No Review of Systems Review of Systems: All systems reviewed & are unremarkable except as noted in HPI & below Physical Exam Physical Exam: Constitutional: WD/WN, elderly, male, vitals as above, NAD, sitting up in bed, pleasant, conversing easily Head: Normocephalic, Atraumatic Eyes: PERRL, conjunctivae normal, anicteric sclerae ENMT: external ear and nose normal, oropharynx normal Neck: trachea midline, no thyromegaly normal visual inspection Respiratory: normal respiratory effort, lungs clear to auscultation with decreased at bilateral bases,, no wheeze, rales, rhonchi. Normal insp/exp effort, no accessory muscle use Cardiovascular: Irregular rate, irregular rhythm, no murmur, no edema Vessels: no JVD or carotid bruit Chest: normal inspection of chest Abdomen: + RLQ ileostomy with brown liquid stool, normal bowel sounds, soft, nontender, no hepatosplenomegaly Musculoskeletal: no cyanosis or clubbing, Skin: no rashes, warm and dry normal turgor Neurologic: PERRL, EOMI, accommodation nl, no face palsy, no dysarthria CN's II-XI intact bilaterally and moves all extremities Psychiatric: A+Ox3, euthymic affect Lymphatic: no cervical or axillary lymphadenopathy : deferred Results & Data Results & Data ([facility]) Vital Signs (Past 12 Hours) Vital Signs Temp Pulse Resp BP Pulse Ox 08/15/19 16:38 143/91 H 08/15/19 16:31 97 H 19 151/113 H 99 08/15/19 16:00 118 H 23 192/119 H 97 08/15/19 15:30 116 H 20 170/90 H 97 08/15/19 15:00 98 H 19 155/100 H 97 08/15/19 14:30 100 H 18 144/93 H 97 08/15/19 13:26 95 H 18 127/93 96 08/15/19 12:43 93 08/15/19 12:22 105 H 21 133/77 95 08/15/19 12:19 36.9 C 79 22 133/77 94 Laboratory Results Short CBC 08/15/19 Range/Units 11:44 WBC 12.93 H (4.8-10.8) K/uL Hgb 15.7 (14.0-18.0) g/dL Hct 46.8 (42-52) % Plt Count 288 (130-400) K/uL BMP 08/15/19 11:44 Sodium 137 Potassium 3.9 Chloride 105 Carbon Dioxide 22 BUN 32 H Creatinine 2.27 H Glucose 180 H Calcium 9.9 Liver Function 08/15/19 Range/Units 11:44 Total Bilirubin 1.1 H (0.2-1) mg/dl Direct Bilirubin 0.3 H (0-0.2) mg/dl AST 17 (15-37) U/L ALT 20 (12-78) U/L Alkaline Phosphatase 55 (45-117) U/L Albumin 3.7 (3.4-5.0) gm/dl Diagnostic Findings CT Scan Abd/Pelvis: 1. Increased size of the parastomal hernia at the right lower quadrant ileostomy site. There is also small bowel distention leading up to the ostomy or hernia sac. Findings suggest a partial low-grade small bowel obstruction. 2. Subtotal colectomy with Franklin's pouch. 3. 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 4. Mild hepatic steatosis. 5. Prostatomegaly with chronic bladder outlet obstruction. Medications Administered Discontinued Medications Acetaminophen (Ofirmev) 1,000 mg in 100 mls @ 400 mls/hr IV NOW STA Stop: 08/15/19 13:01 Last Infusion: 08/15/19 13:24 Dose: 0 mls/hr Documented by: [id number] Admin: 08/15/19 13:10 Dose: 400 mls/hr Documented by: [id number] Famotidine (Pepcid 20mg Iv Push) 20 mg in 5 mls @ 2.5 mls/min IV NOW STA Stop: 08/15/19 12:48 Last Admin: 08/15/19 13:08 Dose: 2.5 mls/min Documented by: [id number] Ondansetron HCl (Zofran) 4 mg IV NOW STA Stop: 08/15/19 12:48 Last Admin: 08/15/19 13:05 Dose: 4 mg Documented by: [id number] Code Status & VTE Plan Code Status Full Code VTE Prophylaxis Plan VTE Prophylaxis will be ordered: Yes Supervising Physician Co-Signing Physician Notes I, Dr. Luis E Escalante, have seen and examined the patient Omero Tomlin with physician oral surgery assistant and would like to comment that On Physical Exam General: no acute distress Heart: regular rate Lungs: clear to auscultation, no wheezing Abdomen: there is colectomy bag that is draining brown stool, no acute tenderness on palpation Extremities: moves the extremities ASSESSMENT AND PLAN POSSIBLE PARTIAL SMALL BOWEL OBSTRUCTION SUPRATHERAPEUTIC INR CHRONIC ATRIAL FIBRILLATION TYPE 2 DIABETES MELLITUS WITH DIABETIC NEUROPATHY WITHOUT LONG-TERM CURRENT USE OF INSULIN CORONARY ARTERY DISEASE WITHOUT ANGINA PECTORIS HYPERTENSION CHRONIC KIDNEY DISEASE STAGE 4 -This is a 83 year old male with colostomy bag. He reported 1 day of abdominal pain that was like a generalized burning sensation. Also pain was associated with vomiting at home. Presented to the ED with CT abdomen concerning for partial small bowel obstruction ( Increased size of the parastomal hernia at the right lower quadrant ileostomy site. There is also small bowel distention leading up to the ostomy or hernia sac. Findings suggest a partial low-grade small bowel obstruction as per radiology impression of CT abdomen.). however patient making colostomy output regularly and no acute pain during exam by hospitalist team. Because of imaging concerns and changes of the GI anatomy, will place patient under observation and request general surgery consult to re view imaging and assess the patient. Check creatinine kinase level. Give IV fluids and allow liquid diet for not but is NPO after midnight while awaiting surgical team assessment -patient also supratherapeutic INR of 4.4, hold Coumadin for atrial fibrillation and monitor the INR -agree with other assessment and plans as per physician oral surgery assistant -My colleague Dr. Dela Cruz will be taking over the care of the patient as hospitalist starting on 08/16/2019
[2019-08-15] MEDS ORDERED: ACETAMINOPHEN 325 MG TAB PO PRN ×2 (17:19→18:06)
[2019-08-15] MEDS ORDERED: ALBUT/IPRATROP 3MG/0.5MG NEB 3 ML VIAL NEB PRN (17:19)
[2019-08-15] MEDS ORDERED: ONDANSETRON INJ 2 MG/ML 2 ML VIAL IV PRN (17:19)
[2019-08-15] MEDS ORDERED: ALUMINUM/MAGNESIUM SUSP 30 ML UDC PO PRN (17:19)
[2019-08-15] MEDS ORDERED: GLUCAGON FOR INJ 1 MG VIAL SQ PRN (17:19)
[2019-08-15] MEDS ORDERED: OXYCODONE HCL IR 5 MG TAB (IMMEDIATE RELEASE) PO PRN (17:19)
[2019-08-15] MEDS ORDERED: GLUCOSE 10 TABS/TUBE PO PRN (17:19)
[2019-08-15] MEDS ORDERED: CARBOHYDRATES FOR HYPOGLYCEMIA PO PRN (17:19)
[2019-08-15] MEDS ORDERED: GLUCOSE 40% GEL 15 GM TUBE PO PRN (17:19)
[2019-08-15] MEDS ORDERED: DEXTROSE 50% 50 ML SYRINGE IV PRN (17:19)
--- NOTE | 2019-08-15 17:19 | Surgery Consultation ---
Date of Consultation August 15, 2019 Assessment & Plan (1) Partial small bowel obstruction: Parastomal hernia, minimal small bowel dilation. Symptoms have improved, but keep NPO for tonight. Can hold on NG unless N/V recur. No plans for surgical intervention. History of Present Illness Attending Physician: Luis E Escalante MD History of Present Illness 83 y/o male approx 5 years s/p subtotal colectomy at [facility] with N/V, pain and around RLQ ostomy that began overnight. Area around ostomy was more "puffy" than usual. No previous SBO, has not been seen by surgery for his hernia. No other illness of unusual food intake. His N/V has improved, his burning pain improved and has since filled ostomy bag noting it was "pouring out." Allergies Allergy/AdvReac Type Severity Reaction Status Date / Time codeine Allergy Intermediate ITCHING Verified 08/15/19 13:13 tramadol Allergy Intermediate ITCHING Verified 08/15/19 13:13 phenytoin [From Dilantin] Allergy Unknown can't Verified 08/15/19 13:13 remember hydrocodone AdvReac Intermediate NAUSEA Verified 08/15/19 13:13 Home Medications Home Medications Medication Instructions Recorded Confirmed Type aspirin [Aspirin Low Dose] 81 mg PO BID 02/13/18 08/15/19 History brimonidine 1 drp OPB BID 02/13/18 08/15/19 History cholecalciferol (vitamin D3) 1,000 tab PO QAM 02/13/18 08/15/19 History [Vitamin D3] diltiazem HCl 240 mg PO QAM 02/13/18 08/15/19 History fenofibrate micronized 134 mg PO PM 02/13/18 08/15/19 History finasteride 5 mg PO QAM 02/13/18 08/15/19 History gabapentin 100 mg PO BID 02/13/18 08/15/19 History ipratropium-albuterol 3 ml INHALATION Q8H PRN 02/13/18 08/15/19 History magnesium oxide 400 mg PO HS 02/13/18 08/15/19 History multivitamin 1 tab PO QAM 02/13/18 08/15/19 History omeprazole 20 mg PO BID 02/13/18 08/15/19 History simvastatin 20 mg PO HS 02/13/18 08/15/19 History timolol 1 drp OPB BID 02/13/18 08/15/19 History zinc 50 mg PO QAM 02/13/18 08/15/19 History warfarin 1 mg tablet 1 mg PO SUMOTUTHFR tab 03/28/18 08/15/19 History ascorbic acid (vitamin C) [Vitamin 500 mg PO QAM 08/15/19 08/15/19 History C] cyanocobalamin (vitamin B-12) 1,000 mcg PO DAILY 08/15/19 08/15/19 History [Vitamin B-12] furosemide 40 mg PO QAM 08/15/19 08/15/19 History lactobacillus combination no.4 3,000 mmu cells PO DAILY 08/15/19 08/15/19 History [Probiotic] levothyroxine 88 mcg PO QAM 08/15/19 08/15/19 History metoprolol succinate 100 mg PO QAM 08/15/19 08/15/19 History oxycodone 10 mg PO DAILY PRN 08/15/19 08/15/19 History tiotropium bromide [Spiriva with 1 cap INHALATION DAILY 08/15/19 08/15/19 History HandiHaler] triamcinolone acetonide 1 applic TOPICAL BID PRN 08/15/19 08/15/19 History warfarin 2 mg PO WESA 08/15/19 08/15/19 History Patient History Medical History A-fib (Chronic) BPH (benign prostatic hyperplasia) (Chronic) Cancer (Chronic) SKIN (BCC) Chronic anticoagulation (Chronic) Chronic obstructive pulmonary disease (Chronic) STABLE CKD (chronic kidney disease), stage IV (Chronic) Colostomy in place (Chronic) Glaucoma (Chronic) LEFT Hearing deficit (Chronic) High cholesterol (Chronic) History of kidney stones (Resolved) Hypothyroid (Chronic) IgG lambda monoclonal gammopathy Obesity (Chronic) Osteoarthritis (Chronic) Right-sided ischial pain Stroke ~2012; RIGHT SIDED RESIDUAL WEAKNESS T2DM (type 2 diabetes mellitus) Valvular disease (Chronic) 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, MILD TR Surgical History History of back surgery (Resolved) History of bladder stone (Resolved) EXCISION History of cataract surgery (Resolved) History of cystoscopy (Resolved) X2 History of intestinal surgery (Resolved) COLOSTOMY 2/2 COLON HEMORRHAGE History of tooth extraction (Resolved) Hx of arthroscopic knee surgery (Resolved) RIGHT Hx of cardiac cath (Chronic) S/P CABG X5 (1997), STENT (2003) MOST RECENT= 2012= NO STENTS Hx of colonoscopy (Resolved) Hx of eye surgery (Resolved) RETINAL PUCKER REPAIR (RIGHT) Hx of heart bypass surgery (Chronic) CABG X 5 (~1997) Hx of hernia repair (Resolved) X2 Family History Mother Family history of diabetes mellitus CHF (congestive heart failure) Brother Cancer Esophageal Social History Preferred Language: [place] Communication Ability: Effective Visual Impairment: Limited Hearing Ability: Hard of Hearing Beliefs That Will Affect Care: None marital status: Current Living Situation: Spouse current occupational status: retired Feels Safe at Home: Yes Smoking Status: Former smoker packs per day: 2 ; Years Smoked: 30 ; Smoking End Date: 1991 ; Hx Alcohol Use: Yes Alcohol type: beer and hard liquor Alcohol Intake Frequency Comment: Former history of alcohol abuse Hx Substance Use: No Review of Systems Constitutional: no fever and no chills Gastrointestinal: + abdominal pain, + nausea and + vomiting Physical Exam Constitutional: WD/WN, vitals as above Respiratory: normal respiratory effort Cardiovascular: Rate/Rhythm: + tachycardic (mild) Gastrointestinal (Abdomen): Inspection/Auscultation: + abdomen distended (minimal ) and + visible herniation (parastomal, soft, some liquid ostomy output in pouch) Percussion/Palpation: abdomen soft; abdomen nontender Results & Data Vital Signs (Past 12 Hours) Vital Signs Temp Pulse Resp BP Pulse Ox 08/15/19 16:38 143/91 H 08/15/19 16:31 97 H 19 151/113 H 99 08/15/19 16:00 118 H 23 192/119 H 97 08/15/19 15:30 116 H 20 170/90 H 97 08/15/19 15:00 98 H 19 155/100 H 97 08/15/19 14:30 100 H 18 144/93 H 97 08/15/19 13:26 95 H 18 127/93 96 08/15/19 12:43 93 08/15/19 12:22 105 H 21 133/77 95 08/15/19 12:19 36.9 C 79 22 133/77 94 PG Care Time/CCT Total # of Minutes Spent Total Time Spent with Patient: Total time spent is greater than 50% in coordination of care (as documented) at patient's floor/unit and/or counseling patient: Coding Level of Care Code 01858 Initial Inpt Care Lvl 1 Diagnoses Partial small bowel obstruction K56.600
[2019-08-15] MEDS: SODIUM CHLORIDE 0.9% 1000ML 1,000 ML IV SCH ×2 (17:38→22:49)
[2019-08-15 17:59] LABS: Thyroid Stimulating Hormone 2.63 uIu/ml (0.300-4.500)
[2019-08-15] MEDS ORDERED: SODIUM CHLORIDE 0.9% 1000ML 500 ML IV ONE (18:04)
[2019-08-15] MEDS: METOPROLOL SUCC 50MG EXT REL TAB PO SCH (18:20)
[2019-08-15] MEDS: INSULIN ASPART 100 UNITS/ML 3 ML PEN SC SCH ×2 (18:51→21:06)
[2019-08-15 20:57] LABS: Appearance Urine Clear (Clear); Bacteria Urine Automated Negative (Negative); Bilirubin Urine Negative (Negative); Blood Urine Negative (Negative); Color Urine Dark Yellow; Epithelial Cell Urine Auto 20-30 /lpf (0-5); Glucose Urine UA Negative (Negative); Ketones Urine Trace (Negative); Leukocyte Esterase Urine Negative (Negative); Nitrite Urine Positive (Negative); Protein Urine 2+ (Negative); RBC Urine Automated 0-4 /hpf (0-4); Specific Gravity Urine 1.033 (1.000-1.030); Urobilinogen Urine Negative (Negative)
[2019-08-15] MEDS ORDERED: BRIMONIDINE TART 0.2% OP SOLN PER DROP CHARGE OPB SCH (21:00)
[2019-08-15] MEDS: ASPIRIN 81 MG ECTAB PO SCH (21:02)
[2019-08-15] MEDS: BRIMONIDINE TARTRATE 0.2% 5ML OPB SCH (21:02)
[2019-08-15] MEDS: GABAPENTIN 100 MG CAP PO SCH (21:03)
[2019-08-15] MEDS: MAGNESIUM OXIDE 400 MG TAB PO SCH (21:03)
[2019-08-15] MEDS: SIMVASTATIN 20 MG TAB PO SCH (21:04)
[2019-08-15] MEDS: INSULIN GLARGINE SOLOSTAR 100 UNITS/ML 3 ML PEN SC SCH (21:04)
[2019-08-15] MEDS: PANTOprazole 40 MG TAB PO SCH (21:04)
[2019-08-15] MEDS: TIMOLOL MALEATE 0.5% OP SOLN 5 ML BTL OPB SCH (21:04)
[2019-08-16] MEDS ORDERED: Nursing to Pharmacy Communication ONE (02:43)
[2019-08-16] MEDS: LEVOTHYROXINE SODIUM 88 MCG TABLET PO SCH (05:52)
[2019-08-16] MEDS: INSULIN ASPART 100 UNITS/ML 3 ML PEN SC SCH ×5 (06:01→20:55)
[2019-08-16 06:45] LABS: Basophils # (auto) 0.03 K/uL (0-0.2); Basophils % (auto) 0.5 %; Eosinophils # (auto) 0.08 K/uL (0-0.5); Eosinophils % (auto) 1.4 %; Hematocrit (blood only) 42.3 % (42-52); Hemoglobin 13.8 g/dL (14.0-18.0); Immature Granulocytes # (auto) 0.01 K/uL (0.00-0.02); Immature Granulocytes % (auto) 0.2 %; Lymphocytes # (auto) 1.28 K/uL (1.2-3.4); Lymphocytes % (auto) 22.7 %; Mean Corpuscular Hemoglobin 28.9 pg (25-34); Mean Corpuscular Hgb Conc 32.6 g/dL (32-36); Mean Corpuscular Volume 88.5 fL (80-100); Mean Platelet Volume 10.7 fL (7.4-10.4); Monocytes # (auto) 0.79 K/uL (0.11-0.59); Neutrophils # (auto) 3.44 K/uL (1.4-6.5); Neutrophils % (auto) 61.2 %; Platelet Count 229 K/uL (130-400); RDW Coefficient of Variation 15.5 % (11.5-14.5); RDW Standard Deviation 50.2 fL (36.4-46.3); Red Blood Count 4.78 M/uL (4.7-6.1); White Blood Count 5.63 K/uL (4.8-10.8)
[2019-08-16 06:54] LABS: Prothrombin Time 29.7 Seconds (9.0-12.0)
[2019-08-16] MEDS: SODIUM CHLORIDE 0.9% 1000ML 1,000 ML IV SCH ×2 (07:01→18:53)
[2019-08-16 07:15] LABS: Albumin Level 3.1 gm/dl (3.4-5.0); Calcium 8.6 mg/dl (8.5-10.1); Creatinine Clr Calc Pharmacy 30.7 ml/min; Est GFR (African American) 30.2; Potassium 3.9 mmol/L (3.5-5.1)
[2019-08-16 07:26] LABS: Albumin Globulin Ratio 0.8 (0.9-2); Globulin 3.9 gm/dl (2.5-4.0)
--- NOTE | 2019-08-16 08:12 | XRay Report ---
XR KUB/Abdomen 1 view CLINICAL HISTORY: 83 years-old Male presenting with repeat partial SBO. TECHNIQUE: Single supine view of the abdomen was obtained. COMPARISON: CT from 08/15/2019 and plain radiograph from 05/25/2015. FINDINGS: Loops of small bowel in the right lower quadrant correspond to the parastomal hernia evident on CT. S mall bowel loop measures nearly 3 cm in this region though this may be affected by magnification. Non obstructive bowel gas pattern. Paucity of small bowel gas. No gross pneumoperitoneum. Allowing for bowel gas and stool, no calcifications to suggest nephrolithiasis. Atherosclerotic calci fications. Scattered pelvic phleboliths. Degenerative changes of the spine. Lung bases clear. Median sternotomy wires noted. IMPRESSION: 1. Paucity of small bowel gas, nonspecific. No gross evidence of bowel obstruction by radiograph. ACT 112: Negative or not required by law. Electronically signed by: Chapo Turcios M.D. 08/16/2019 8:11 AM
[2019-08-16] MEDS: dilTIAZem HCL 240 MG CAPCR PO SCH (09:07)
[2019-08-16] MEDS: BRIMONIDINE TARTRATE 0.2% 5ML OPB SCH ×2 (09:07→21:05)
[2019-08-16] MEDS: PANTOprazole 40 MG TAB PO SCH ×2 (09:07→21:05)
[2019-08-16] MEDS: FINASTERIDE 5 MG TAB PO SCH (09:07)
[2019-08-16] MEDS: ASPIRIN 81 MG ECTAB PO SCH ×2 (09:07→21:05)
[2019-08-16] MEDS: GABAPENTIN 100 MG CAP PO SCH ×2 (09:07→21:04)
[2019-08-16] MEDS: MULTIVITAMIN TAB PO SCH (09:07)
[2019-08-16] MEDS: TIMOLOL MALEATE 0.5% OP SOLN 5 ML BTL OPB SCH ×2 (09:07→21:05)
[2019-08-16] MEDS: LACTOBACILLUS ACIDOPHILUS 1 GM PACK PO SCH (09:07)
[2019-08-16] MEDS: UMECLIDINIUM BROMIDE 62.5MCG/BLISTER 7 PUFFS/INHALER INH SCH (09:07)
[2019-08-16] MEDS: INSULIN GLARGINE SOLOSTAR 100 UNITS/ML 3 ML PEN SC SCH ×2 (09:11→20:55)
[2019-08-16] MEDS: METOPROLOL SUCC 50MG EXT REL TAB PO SCH (09:19)
--- NOTE | 2019-08-16 09:44 | Surgery Progress Note ---
Date of Service August 16, 2019 Assessment & Plan (1) Partial small bowel obstruction: improving can start diet, he doesn't want clears, would keep on full liquids for today if he has frequent flare-ups he can be evaluated at [facility] for elective hernia repair, however this is only his second obstruction Supervising Physician Co-Signing Physician Notes Patient seen and examined, labs and imaging reviewed, agree with above. 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 Since admission his ostomy started functioning again and the pain and bloating he was having prior to surgery are gone. On exam he has some fullness around his ostomy but nontender. Plan to advance diet, no indication for emergent surgical repair at this time. Consideration of outpatient evaluation for parastomal hernia, preferably by colorectal surgery. Subjective feeling better, having ostomy output, hungry Physical Exam Gastrointestinal (Abdomen): Inspection/Auscultation: + visible herniation (parastomal soft, NT); abdomen not distended Percussion/Palpation: abdomen soft; abdomen nontender Results & Data Vital Signs (Past 12 Hours) Vital Signs Temp Pulse Resp BP Pulse Ox 08/16/19 07:40 36.4 C L 97 H 18 126/74 96 08/15/19 23:25 36.5 C 90 20 123/78 98 PG Care Time/CCT Total # of Minutes Spent Total Time Spent with Patient: Total time spent is greater than 50% in coordination of care (as documented) at patient's floor/unit and/or counseling patient: Coding Level of Care Code 30488 Subseq Hosp Care Lvl 1 Diagnoses Partial small bowel obstruction K56.600
[2019-08-16] MEDS ORDERED: SODIUM CHLORIDE 0.9% 1000ML 500 ML IV ONE (14:05)
--- NOTE | 2019-08-16 18:00 | Hospitalist Progress Note ---
Date of Service August 16, 2019 Assessment & Plan (1) Abdominal pain: due to partial small bowel obstruction symptom has improved (2) Nausea and vomiting: improved tolerating full liquid diet (3) Partial small bowel obstruction: presents to ED secondary to right lower quadrant abdominal pain, nausea and vomiting CT abdomen/pelvis 1. Increased size of the parastomal hernia at the right lower quadrant ileostomy site. There is also small bowel distention leading up to the ostomy or hernia sac. Findings suggest a partial low-grade small bowel obstruction. 2. Subtotal colectomy with Franklin's pouch. 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 surgery consulted , appreciate input no indication for surgery abdominal pain has resolved , no vomiting , tolerating full liquid diet Xray of KUB : no evidence of bowel obstruction Parastomal hernia noted around colostomy site, non obstructing -recommends out patient follow up with colorectal surgery at [facility] (4) A-fib: Chronic atrial fibrillation on beta meño and Cardizem coumadin on hold for INR > 4 (5) CAD (coronary artery disease): hx of CABG x 5 1997 and stent placement in 2003 continue ASA, Statin, Metoprolol EBONY intolerant/CKD no chest pain (6) DM type 2 (diabetes mellitus, type 2): A1c 7.7 07/24/2019 He does not take any oral hypoglycemics or insulin, manages with diet Given age this is acceptable control Will place on low-dose Lantus/NovoLog per protocol while hospitalized for hyperglycemia (7) Hypertension: Continue metoprolol, diltiazem Hold Lasix in setting of partial small bowel obstruction CHRONIC KIDNEY DISEASE STAGE 3 baseline cr 2-2.3 cont IV fluid Lasix on hold repeat BMP in AM INCREASED OUTPUT FROM COLOSTOMY : possible due to post obstruction diarrhea ? stool C diff negative (8) Dyslipidemia: (9) Hypothyroidism: Continue levothyroxine (10) History of CVA (cerebrovascular accident): Continue ASA, and statin therapy resumed coumadin when INR < 3 ambulates with walker (11) BPH (benign prostatic hyperplasia): Continue finasteride (12) GERD (gastroesophageal reflux disease): Continue PPI (13) Chronic obstructive pulmonary disease: No acute exacerbation Continue Spiriva, DuoNeb as needed (14) Osteoarthritis: Patient takes oxycodone 10 mg once daily as needed, this was confirmed with PDMP (15) Adrenal adenoma: noted incidentally on CT scan recommend follow up as outpt with PCP to determine need for any additional imaging (16) DVT prophylaxis: INR theraputic Follow-up: PCP Dr. Marrufo upon discharge, patient is a [facility] at home patient FULL CODE update given over phone to , all questions answered Admission and Anticipated Discharge Date Admission Date: August 15, 2019 Subjective abdominal pain has improved no nausea tolerating full liquid diet large amount of liquid colostomy output > 1 L in past 24 hrs no fever or chills Review of Systems Review of Systems: All systems reviewed & are unremarkable except as noted in HPI & below Gastrointestinal: + diarrhea/loose stools (increased colostomy output ); no nausea and no vomiting Physical Exam Constitutional: WD/WN, vitals as above no acute distress Eyes: PERRL, conjunctivae normal, anicteric sclerae ENMT: external ear and nose normal, oropharynx normal Neck: trachea midline, no thyromegaly Respiratory: normal respiratory effort, lungs clear to auscultation Cardiovascular: RRR, no murmur, no edema Gastrointestinal (Abdomen): Percussion/Palpation: abdomen soft colostomy present /with liquid stool in bag Musculoskeletal: no cyanosis or clubbing, extremities motor strength 5/5 Skin: no rashes, warm and dry Neurologic: PERRL, EOMI, accommodation nl, no face palsy, no dysarthria Psychiatric: A+Ox3, euthymic affect Results & Data Results & Data ([place]) Vital Signs (Past 12 Hours) Vital Signs Temp Pulse Resp BP BP Pulse Ox 08/16/19 15:37 36.3 C L 68 14 119/77 95 08/16/19 07:40 36.4 C L 97 H 18 126/74 96
[2019-08-16] MEDS: MAGNESIUM OXIDE 400 MG TAB PO SCH (21:04)
[2019-08-16] MEDS: SIMVASTATIN 20 MG TAB PO SCH (21:04)
[2019-08-17] MEDS: SODIUM CHLORIDE 0.9% 1000ML 1,000 ML IV SCH (01:32)
[2019-08-17] MEDS: LEVOTHYROXINE SODIUM 88 MCG TABLET PO SCH (05:42)
[2019-08-17 06:21] LABS: BUN Creatinine Ratio 12.6 (10-20); Calcium 8.4 mg/dl (8.5-10.1); Creatinine Clr Calc Pharmacy 35.6 ml/min; Est GFR (African American) 36.1; Est GFR (Non-African American) 31.1; Potassium 3.7 mmol/L (3.5-5.1)
[2019-08-17 09:04] LABS: INR 2.6 (0.9-1.1); Prothrombin Time 26.4 Seconds (9.0-12.0)
[2019-08-17] MEDS: TIMOLOL MALEATE 0.5% OP SOLN 5 ML BTL OPB SCH ×2 (09:09→20:53)
[2019-08-17] MEDS: BRIMONIDINE TARTRATE 0.2% 5ML OPB SCH ×2 (09:09→20:52)
[2019-08-17] MEDS: PANTOprazole 40 MG TAB PO SCH ×2 (09:10→20:52)
[2019-08-17] MEDS: UMECLIDINIUM BROMIDE 62.5MCG/BLISTER 7 PUFFS/INHALER INH SCH (09:10)
[2019-08-17] MEDS: LACTOBACILLUS ACIDOPHILUS 1 GM PACK PO SCH (09:11)
[2019-08-17] MEDS: GABAPENTIN 100 MG CAP PO SCH ×2 (09:11→20:52)
[2019-08-17] MEDS: MULTIVITAMIN TAB PO SCH (09:11)
[2019-08-17] MEDS: dilTIAZem HCL 240 MG CAPCR PO SCH (09:12)
[2019-08-17] MEDS: ASPIRIN 81 MG ECTAB PO SCH ×2 (09:12→20:52)
[2019-08-17] MEDS: METOPROLOL SUCC 50MG EXT REL TAB PO SCH (09:12)
[2019-08-17] MEDS: FINASTERIDE 5 MG TAB PO SCH (09:12)
[2019-08-17] MEDS: INSULIN GLARGINE SOLOSTAR 100 UNITS/ML 3 ML PEN SC SCH ×2 (09:13→20:57)
[2019-08-17] MEDS: INSULIN ASPART 100 UNITS/ML 3 ML PEN SC SCH ×4 (09:15→20:57)
--- NOTE | 2019-08-17 11:49 | Surgery Progress Note ---
Date of Service August 17, 2019 Assessment & Plan (1) Parastomal hernia: 83-year-old male admitted with possible partial small bowel obstruction from parastomal hernia. He has significant output from his ileostomy. His symptoms may have been related to the hernia, or may have been related to a nonspecific enteritis. At this point there is no acute surgical indication for repair of the parastomal hernia. The patient is quite high risk given his multiple medical comorbidities. He would benefit from outpatient evaluation by colorectal surgeon for elective parastomal hernia repair at a tertiary center. As he is tolerating a diet and his electrolytes are normal, he can be discharged from surgery standpoint once cleared by medicine No acute surgical intervention indicated Okay for discharge from surgery standpoint, recommend continue with low fiber diet for the next few weeks Outpatient follow-up with colorectal surgeon at a tertiary center to discuss elective repair Educated on signs and symptoms of obstruction and told return to the emergency department these develop Subjective 83-year-old male with history of total abdominal colectomy and end ileostomy for GI bleed admitted with possible partial small bowel obstruction from parastomal hernia. Yesterday his ostomy started having copious liquid output and his pain and burning at the ostomy site have stopped. He is tolerating diet. Physical Exam Constitutional: WD/WN, vitals as above Gastrointestinal (Abdomen): normal bowel sounds, soft, nontender, no hep atosplenomegaly (Ostomy pink and productive of succus. Parastomal hernia present, nontender.) Inspection/Auscultation: abdomen not distended Results & Data Vital Signs (Past 12 Hours) Vital Signs Temp Pulse Resp BP BP Pulse Ox 08/17/19 07:03 36.3 C L 84 18 124/74 96 08/17/19 00:01 36.3 C L 78 14 113/57 L 95 PG Care Time/CCT Total # of Minutes Spent Total Time Spent with Patient: Total time spent is greater than 50% in coordination of care (as documented) at patient's floor/unit and/or counseling patient: Coding Level of Care Code 54829 Inpt Consult Level 2 Diagnoses Parastomal hernia K43.5
--- NOTE | 2019-08-17 18:43 | Hospitalist Progress Note ---
Date of Service August 17, 2019 Assessment & Plan (1) Abdominal pain: due to partial small bowel obstruction resolved xray KUB shows no evidence of obstruction diet advanced to solid tolerating well appreciate input from surgery (2) Nausea and vomiting: resolved tolerating solid diet (3) Partial small bowel obstruction: resolved presents to ED secondary to right lower quadrant abdominal pain, nausea and vomiting CT abdomen/pelvis 1. Increased size of the parastomal hernia at the right lower quadrant ileostomy site. There is also small bowel distention leading up to the ostomy or hernia sac. Findings suggest a partial low-grade small bowel obstruction. 2. Subtotal colectomy with Franklin's pouch. 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 surgery consulted , appreciate input no indication for surgery abdominal pain has resolved , no vomiting , tolerating full liquid diet Xray of KUB : no evidence of bowel obstruction Parastomal hernia noted around colostomy site, non obstructing -recommends out patient follow up with colorectal surgery at [place] (4) A-fib: Chronic atrial fibrillation on beta meño and Cardizem coumdin (5) CAD (coronary artery disease): hx of CABG x 5 1997 and stent placement in 2003 continue ASA, Statin, Metoprolol EBONY intolerant/CKD no chest pain (6) DM type 2 (diabetes mellitus, type 2): A1c 7.7 07/24/2019 He does not take any oral hypoglycemics or insulin, manages with diet Given age this is acceptable control Will place on low-dose Lantus/NovoLog per protocol while hospitalized for hyperglycemia (7) Hypertension: Continue metoprolol, diltiazem Hold Lasix in setting of partial small bowel obstruction CHRONIC KIDNEY DISEASE STAGE 3 baseline cr 2-2.3 given IV fluid cr improved to baseline IVF/dced INCREASED OUTPUT FROM COLOSTOMY : possible due to post obstruction diarrhea resolved stool C diff negative (8) Dyslipidemia: continue statin therapy (9) Hypothyroidism: Continue levothyroxine (10) History of CVA (cerebrovascular accident): Continue ASA, and statin therapy resumed coumadin when INR < 3 ambulates with walker (11) BPH (benign prostatic hyperplasia): Continue finasteride (12) GERD (gastroesophageal reflux disease): Continue PPI (13) Chronic obstructive pulmonary disease: No acute exacerbation Continue Spiriva, DuoNeb as needed (14) Osteoarthritis: Patient takes oxycodone 10 mg once daily as needed, this was confirmed with PDMP (15) Adrenal adenoma: noted incidentally on CT scan recommend follow up as outpt with PCP to determine need for any additional imaging (16) DVT prophylaxis: INR theraputic Follow-up: PCP Dr. Marrufo upon discharge, patient is a [facility] at home patient FULL CODE discharge home tomorrow Admission and Anticipated Discharge Date Admission Date: August 17, 2019 Subjective doing much better today tolerating diet well no nausea /vomiting colostomy out put reduced .improved to baseline no fever or chills Physical Exam Constitutional: WD/WN, vitals as above no acute distress Eyes: PERRL, conjunctivae normal, anicteric sclerae ENMT: external ear and nose normal, oropharynx normal Neck: trachea midline, no thyromegaly Respiratory: normal respiratory effort, lungs clear to auscultation Cardiovascular: RRR, no murmur, no edema Gastrointestinal (Abdomen): Percussion/Palpation: abdomen soft Musculoskeletal: no cyanosis or clubbing, extremities motor strength 5/5 Skin: no rashes, warm and dry Neurologic: PERRL, EOMI, accommodation nl, no face palsy, no dysarthria Psychiatric: A+Ox3, euthymic affect Results & Data Results & Data ([facility]) Vital Signs (Past 12 Hours) Vital Signs Temp Pulse Resp BP BP Pulse Ox 08/17/19 15:39 36.7 C 78 16 137/74 96 08/17/19 07:03 36.3 C L 84 18 124/74 96
[2019-08-17] MEDS: SIMVASTATIN 20 MG TAB PO SCH (20:52)
[2019-08-17] MEDS: MAGNESIUM OXIDE 400 MG TAB PO SCH (20:52)
[2019-08-18] MEDS: LEVOTHYROXINE SODIUM 88 MCG TABLET PO SCH (05:44)
[2019-08-18 07:31] LABS: INR 2.1 (0.9-1.1); Prothrombin Time 21.7 Seconds (9.0-12.0)
[2019-08-18 08:08] LABS: BUN Creatinine Ratio 10.4 (10-20); Calcium 8.9 mg/dl (8.5-10.1); Est GFR (African American) 34.2; Est GFR (Non-African American) 29.5
[2019-08-18] MEDS: UMECLIDINIUM BROMIDE 62.5MCG/BLISTER 7 PUFFS/INHALER INH SCH (08:39)
[2019-08-18] MEDS: TIMOLOL MALEATE 0.5% OP SOLN 5 ML BTL OPB SCH (08:40)
[2019-08-18] MEDS: LACTOBACILLUS ACIDOPHILUS 1 GM PACK PO SCH (08:40)
[2019-08-18] MEDS: BRIMONIDINE TARTRATE 0.2% 5ML OPB SCH (08:40)
[2019-08-18] MEDS: METOPROLOL SUCC 50MG EXT REL TAB PO SCH (08:41)
[2019-08-18] MEDS: MULTIVITAMIN TAB PO SCH (08:41)
[2019-08-18] MEDS: ASPIRIN 81 MG ECTAB PO SCH (08:41)
[2019-08-18] MEDS: FINASTERIDE 5 MG TAB PO SCH (08:41)
[2019-08-18] MEDS: GABAPENTIN 100 MG CAP PO SCH (08:41)
[2019-08-18] MEDS: dilTIAZem HCL 240 MG CAPCR PO SCH (08:41)
[2019-08-18] MEDS: PANTOprazole 40 MG TAB PO SCH (08:42)
[2019-08-18] MEDS: INSULIN GLARGINE SOLOSTAR 100 UNITS/ML 3 ML PEN SC SCH (08:46)
[2019-08-18] MEDS: INSULIN ASPART 100 UNITS/ML 3 ML PEN SC SCH ×2 (08:47→12:38)
--- NOTE | 2019-08-18 12:42 | Discharge Summary ---
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 Patient last had something to eat around 5 PM last evening. He was abruptly woken with right lower quadrant abdominal pain that started at approximately 1 AM. Pain was nonradiating and he described as, "burning, like a blowtorch to my abdomen." Nothing seems to make the pain better or worse. It was associated with nausea and 5-6 episodes of emesis. Described as white emesis with partially undigested food. He does have an ileostomy and has been making stool output but it has been mostly dark brown liquid. He was seen today by [facility] RN who advised ED evaluation secondary to symptoms, temp 99.8. He denies feeling feverish, chills or sweats, lightheadedness, dizziness, chest pain, shortness of breath, cough, hemoptysis, dysuria, increased urgency or frequency with urination, melena, hematochezia. He did not take any medications this morning and he has not had anything to eat. He is only had a small cup of tea which she was able to keep down. His symptoms actually dissipated early this afternoon and currently he is asymptomatic. His abdominal pain has resolved and he is no longer nauseated or having episodes of emesis. In ED he did receive IV acetaminophen, famotidine and Zofran. He currently has an appetite and is requesting something to eat. He does recall having episodes similar in the past but was worse. He describes an episode of obstruction which required NG tube placement. He does not recall how long ago this was. He denies any known exposure to contacts with COVID-19. He further denies any fever, respiratory symptoms, loss of taste or smell or recent travel within the past 14 days. He lives at home with his and has not been leaving the house. Does ambulate with a walker. In ED patient remained hemodynamically stable although he was intermittently tachycardic. Lab work notable for WBC 12.93, H&H 15.7 and 46.8, platelet 288, INR 4.3, BUN 32, creatinine 2.27, glucose 180, [place] 2.4, mag 2.2, total bili 1.1, direct bili 0.3, LFTs WNL, lipase 87, stool negative for C. difficile. CT A/P: 1. Increased size of the parastomal hernia at the right lower quadrant ileostomy site. There is also small bowel distention leading up to the ostomy or hernia sac. Findings suggest a partial low-grade small bowel obstruction. 2. Subtotal colectomy with Franklin's pouch. 3. 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 4. Mild hepatic steatosis. 5. Prostatomegaly with chronic bladder outlet obstruction. Principal Diagnosis PARTIAL SMALL BOWEL OBSTRUCTION -RESOLVED PARASTOMAL HERNIA Discharge Exam Constitutional WD/WN, vitals as above no acute distress Eyes PERRL, conjunctivae normal, anicteric sclerae ENMT external ear and nose normal, oropharynx normal Neck trachea midline, no thyromegaly Respiratory normal respiratory effort, lungs clear to auscultation Cardiovascular RRR, no murmur, no edema Gastrointestinal (Abdomen) Percussion/Palpation: abdomen soft Musculoskeletal no cyanosis or clubbing, extremities motor strength 5/5 Skin no rashes, warm and dry Neurologic PERRL, EOMI, accommodation nl, no face palsy, no dysarthria Psychiatric A+Ox3, euthymic affect Discharge Data Allergies Allergy/AdvReac Type Severity Reaction Status Date / Time codeine Allergy Intermediate ITCHING Verified 08/15/19 13:13 tramadol Allergy Intermediate ITCHING Verified 08/15/19 13:13 phenytoin [From Dilantin] Allergy Unknown can't Verified 08/15/19 13:13 remember hydrocodone AdvReac Intermediate NAUSEA Verified 08/15/19 13:13 Consultations 08/15/19 15:39 ED Decision to Admit Stat 08/15/19 17:19 Consult Case Management - Discharge Planning Routine Consult General Surgery Routine Ordered Studies 08/15/19 12:46 CT abd pelvis wo con Stat Hospital Course (1) Abdominal pain: due to partial small bowel obstruction resolved xray KUB shows no evidence of obstruction diet advanced to solid tolerating well appreciate input from surgery stable to be discharged home today (2) Nausea and vomiting: resolved tolerating solid diet no further GI complain Discharged home today (3) Partial small bowel obstruction: resolved/tolerating solid diet presents to ED secondary to right lower quadrant abdominal pain, nausea and vomiting CT abdomen/pelvis 1. Increased size of the parastomal hernia at the right lower quadrant ileostomy site. There is also small bowel distention leading up to the ostomy or hernia sac. Findings suggest a partial low-grade small bowel obstruction. 2. Subtotal colectomy with Franklin's pouch. 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 surgery consulted , appreciate input no indication for surgery abdominal pain has resolved , no vomiting , tolerating full liquid diet Xray of KUB : no evidence of bowel obstruction Parastomal hernia noted around colostomy site, non obstructing -patient will follow up with colorectal surgery at [facility] (4) A-fib: Chronic atrial fibrillation on beta meño and Cardizem Coumadin for stroke prophylaxis (5) CAD (coronary artery disease): hx of CABG x 5 1997 and stent placement in 2003 continue ASA, Statin, Metoprolol EBONY intolerant/CKD no chest pain (6) DM type 2 (diabetes mellitus, type 2): A1c 7.7 07/24/2019 on dietary management Given age this is acceptable control treated with low-dose Lantus/NovoLog per protocol while hospitalized for hyperglycemia (7) Hypertension: Continue metoprolol, diltiazem, lasix CHRONIC KIDNEY DISEASE STAGE 3 baseline cr 2-2.3 given IV fluid cr improved to baseline IVF/dced Lasix resolved INCREASED OUTPUT FROM COLOSTOMY : resolved normal out put now stool C diff negative (8) Dyslipidemia: continue statin therapy (9) Hypothyroidism: Continue levothyroxine (10) History of CVA (cerebrovascular accident): Continue ASA, and statin therapy on Coumadin ambulates with walker-functional status back to baseline (11) BPH (benign prostatic hyperplasia): Continue finasteride (12) GERD (gastroesophageal reflux disease): Continue PPI (13) Chronic obstructive pulmonary disease: No acute exacerbation Continue Spiriva, DuoNeb as needed (14) Osteoarthritis: Patient takes oxycodone 10 mg once daily as needed, this was confirmed with PDMP (15) Adrenal adenoma: today noted incidentally on CT scan out patient follow up and surveillance CT abdomen per guideline to determine need for any additional imaging (16) DVT prophylaxis: INR theraputic Follow-up: PCP Dr. Marrufo upon discharge, patient is a [facility] home patient FULL CODE discharge home tomorrow Total Time Total Time Spent Total Time Spent (In Minutes): 35 mins Total Time Includes: Examination of the Patient, Discharge Planning and Medication Reconciliation Discharge Plan Discharge Items Patient Disposition: Home - Self-Care Reason For Visit: PARTIAL SBO Discharge Diagnosis: PARTIAL SMALL BOWEL OBSTRUCTION -RESOLVED PARASTOMAL HERNIA Activity: Resume your previous activity Non-emergency contact: Primary Care Provider Call non-emergency contact if: you have any medication questions Follow-up/Referrals: Everett Marrufo MD [Primary Care Provider] - 08/26/19 11:20 am (08/26/2019 11:20 AM lAo Kang MD Internal Medicine [facility] ) Diet: Low Fiber Addtl Attending Provider Instructions: FOLLOW UP WITH COLORECTAL SURGERY AT [facility] FOR HERNIA AROUND THE COLOSTOMY SITE INCIDENTAL FINDING OF 1.5 CM ADRENAL NODULE ON RIGHT ADRENAL GLAND NEEDS OUT PATIENT FOLLOW UP Pending Studies at Discharge: Yes Studies:: Adrenal adenoma: 1.5 cm Nodule noted on Rt adrenal gland -incidental finding in CT abdomen/pelvis on 08/15/19 will need out patient survillance CT abdomen /pelvis Stand-Alone Forms: My [employer], Smoking Cessation Medications and DC Order Prescriptions: Continued furosemide 40 mg tablet 40 mg PO QAM RF: 0 metoprolol succinate 100 mg tablet extended release 24 hr 100 mg PO QAM RF: 0 cyanocobalamin (vitamin B-12) [Vitamin B-12] 1,000 mcg Tablet 1,000 mcg PO DAILY RF: 0 levothyroxine 88 mcg tablet 88 mcg PO QAM RF: 0 ascorbic acid (vitamin C) [Vitamin C] 500 mg Tablet 500 mg PO QAM RF: 0 triamcinolone acetonide 0.1 % ointment 1 applic TOPICAL BID PRN (Reason: Itching) RF: 0 warfarin 1 mg tablet 2 mg PO WESA RF: 0 Spiriva with HandiHaler 18 mcg Capsule, W/Inhalation Device 1 cap INHALATION DAILY RF: 0 Probiotic 3 billion cell Capsule 3,000 mmu cells PO DAILY RF: 0 oxycodone 10 mg tablet 10 mg PO DAILY PRN (Reason: pain) RF: 0 multivitamin Tablet 1 tab PO QAM RF: 0 diltiazem HCl 240 mg Capsule,Extended Release 24 Hr 240 mg PO QAM RF: 0 aspirin [Aspirin Low Dose] 81 mg Tablet,Delayed Release (Dr/Ec) 81 mg PO BID RF: 0 fenofibrate micronized 134 mg Capsule 134 mg PO PM RF: 0 magnesium oxide 400 mg (241.3 mg magnesium) Tablet 400 mg PO HS RF: 0 simvastatin 20 mg Tablet 20 mg PO HS RF: 0 zinc 50 mg Tablet 50 mg PO QAM RF: 0 finasteride 5 mg Tablet 5 mg PO QAM RF: 0 omeprazole 20 mg Tablet,Delayed Release (Dr/Ec) 20 mg PO BID RF: 0 cholecalciferol (vitamin D3) [Vitamin D3] 1,000 unit Tablet 1,000 tab PO QAM RF: 0 timolol 0.5 % Drops 1 drp OPB BID RF: 0 brimonidine 0.2 % Drops 1 drp OPB BID RF: 0 gabapentin 100 mg Capsule 100 mg PO BID RF: 0 ipratropium-albuterol 0.5 mg-3 mg(2.5 mg base)/3 mL Solution For Nebulization 3 ml INHALATION Q8H PRN (Reason: Wheezing) RF: 0 warfarin 1 mg tablet 1 mg PO SUMOTUTHFR RF: 0 Discharge Orders: Discharge Order (Routine); Ordered 08/18/19 Ordered By: Janeth Hopkins/Other Patient Handouts: Hyperglycemia, Hypoglycemia, Diabetes Healthy Meals, Diabetes Exercise Benefits Admission Data Admit Date/Time: 08/17/19 08:28 Attending Provider: Janeth Gomez Admit Provider: Luis E Escalante Primary Care Provider: Everett Marrufo Other Providers: Luis E Escalante ; Ramin Enrique Other Interventions: Discharge Summary Assessment (RN) Last Done: 08/18/19 10:24
--- NOTE | 2019-08-18 13:26 | Surgery Progress Note ---
Date of Service August 18, 2019 Assessment & Plan (1) Parastomal hernia: 83-year-old male admitted with possible partial small bowel obstruction from parastomal hernia. He has significant output from his ileostomy. His symptoms may have been related to the hernia, or may have been related to a nonspecific enteritis. At this point there is no acute surgical indication for repair of the parastomal hernia. The patient is quite high risk given his multiple medical comorbidities. He would benefit from outpatient evaluation by colorectal surgeon for elective parastomal hernia repair at a tertiary center. As he is tolerating a diet and his electrolytes are normal, he can be discharged from surgery standpoint once cleared by medicine No acute surgical intervention indicated Okay for discharge from surgery standpoint, recommend continue with low fiber diet for the next few weeks Outpatient follow-up with colorectal surgeon at a tertiary center to discuss elective repair Educated on signs and symptoms of obstruction and told return to the emergency department these develop Subjective Tolerating diet, ostomy productive, no pain. Physical Exam Constitutional: WD/WN, vitals as above Gastrointestinal (Abdomen): normal bowel sounds, soft, nontender, no hepatosplenomegaly (Ostomy pink and productive of succus. Parastomal hernia present, nontender.) Inspection/Auscultation: abdomen not distended Results & Data Vital Signs (Past 12 Hours) Vital Signs Temp Pulse Pulse Resp BP BP Pulse Ox 08/18/19 10:24 36.5 C 78 85 18 146/92 H 145/82 H 95 08/18/19 07:33 36.5 C 85 18 146/92 H 95 PG Care Time/CCT Total # of Minutes Spent Total Time Spent with Patient: Total time spent is greater than 50% in coordination of care (as documented) at patient's floor/unit and/or counseling patient: Coding Level of Care Code 11156 Inpt Consult Level 2 Diagnoses Parastomal hernia K43.5
== END 2019-08-18 13:40 | disposition home or self-care (01) | DRG 394 ==
LOC: ED 12:21 → 3E 12:21 → SUATTDRO 16:10 → 3E 16:33

== ENCOUNTER 2020-04-13 16:17 | Inpatient (IN) ==
[2020-04-13] MEDS ORDERED: dilTIAZem HCl 5 MG/ML 5 ML VIAL IV ONE (17:11)
[2020-04-13] MEDS ORDERED: STAT IV Infusion **Titration per Protocol STA (17:12)
[2020-04-13] MEDS ORDERED: dilTIAZem HCl 5 MG/ML 5 ML VIAL IV STA (17:12)
[2020-04-13] MEDS: SODIUM CHLORIDE 0.9% 1000ML 1,000 ML IV SCH ×2 (17:14→20:02)
[2020-04-13 17:26] LABS: Hematocrit (blood only) 40.7 % (42-52); Hemoglobin 13.8 g/dL (14.0-18.0); Mean Corpuscular Hemoglobin 30.5 pg (25-34); Mean Corpuscular Hgb Conc 33.9 g/dL (32-36); Mean Corpuscular Volume 89.8 fL (80-100); Mean Platelet Volume 10.6 fL (7.4-10.4); Platelet Count 230 K/uL (130-400); RDW Coefficient of Variation 15.8 % (11.5-14.5); RDW Standard Deviation 52.3 fL (36.4-46.3); Red Blood Count 4.53 M/uL (4.7-6.1)
[2020-04-13 17:34] LABS: INR 1.5 (0.9-1.1); Partial Thromboplastin Time 29.1 Seconds (21.0-31.0); Prothrombin Time 15.5 Seconds (9.0-12.0)
[2020-04-13 17:41] LABS: Basophils # (auto) 0.02 K/uL (0-0.2); Basophils % (auto) 0.2 %; Eosinophils # (auto) 0.05 K/uL (0-0.5); Eosinophils % (auto) 0.5 %; Immature Granulocytes # (auto) 0.53 K/uL (0.00-0.02); Immature Granulocytes % (auto) 5.2 %; Lymphocytes # (auto) 0.53 K/uL (1.2-3.4); Lymphocytes % (auto) 5.2 %; Monocytes # (auto) 0.73 K/uL (0.11-0.59); Monocytes % (auto) 7.2 %; Neutrophils # (auto) 8.34 K/uL (1.4-6.5); Neutrophils % (auto) 81.7 %
--- NOTE | 2020-04-13 17:44 | Emergency Department Note ---
History of Present Illness General Chief complaint: TIA Symptoms Stated complaint: POSSIBLE MINI STROKE Time Seen by Provider: 04/13/20 17:00 History of Present Illness Provider complaint: Left leg weakness Onset (ago): day(s) 4 Location: lower extremity and left Radiation: non-radiation Maximum Pain Intensity: 0 Associated symptoms: + weakness; no cough, no fever/chills, no headaches, no nausea/vomiting, no seizure and no shortness of breath 84-year-old male presents emergency department with his for left leg weakness. Patient reports he fell on Sunday and since then has not been able to move his left lower extremity. He states that he went to go see his primary care doctor at [facility] and they sent him to the emergency department for evaluation of "mini stroke". Patient denies any headache. He is on Coumadin. Patient states he felt similar the last time he had a stroke which resulted in his right lower extremity weakness. No fevers, chills, difficulty breathing, urinary incontinence, or back pain. Home Medications Medication Instructions Recorded Confirmed Type aspirin [Aspirin Low Dose] 81 mg PO DAILY 02/13/18 04/13/20 History brimonidine 1 drp OPB BID 02/13/18 04/13/20 History cholecalciferol (vitamin D3) 1,000 tab PO QPM 02/13/18 04/13/20 History [Vitamin D3] diltiazem HCl 240 mg PO QAM 02/13/18 04/13/20 History gabapentin 100 mg PO TID 02/13/18 04/13/20 History omeprazole 20 mg PO BID 02/13/18 04/13/20 History timolol 1 drp OPB BID 02/13/18 04/13/20 History zinc 50 mg PO QAM 02/13/18 04/13/20 History warfarin 1 mg tablet 1 mg PO [id number] tab 03/28/18 04/13/20 History Probiotic 3,000 mmu cells PO DAILY 08/15/19 04/13/20 History ascorbic acid (vitamin C) [Vitamin 500 mg PO QAM 08/15/19 04/13/20 History C] cyanocobalamin (vitamin B-12) 1,000 mcg PO DAILY 08/15/19 04/13/20 History [Vitamin B-12] furosemide 40 mg PO QAM 08/15/19 04/13/20 History levothyroxine 88 mcg PO QAM 08/15/19 04/13/20 History metoprolol succinate 100 mg PO QAM 08/15/19 04/13/20 History triamcinolone acetonide 1 applic TOPICAL BID PRN 08/15/19 04/13/20 History warfarin 1.5 mg PO .Sunday08/15/19 04/13/20 History cefuroxime axetil 250 mg tablet 250 mg PO BID 7 Days #14 tab 04/12/20 04/13/20 Rx dorzolamide 1 drp OPB BID 04/13/20 04/13/20 History glipizide 5 mg PO DAILY 04/13/20 04/13/20 History latanoprost 1 drp OPL HS 04/13/20 04/13/20 History magnesium oxide 400 mg PO DAILY 04/13/20 04/13/20 History oxycodone 10 mg PO Q12 PRN 04/13/20 04/13/20 History prednisone 20 mg PO DAILY 04/13/20 04/13/20 History ropinirole 0.25 mg PO HS 04/13/20 04/13/20 History tiotropium-olodaterol [Stiolto 2 puff INHALATION DAILY 04/13/20 04/13/20 History Respimat] Allergies Allergy/AdvReac Type Severity Reaction Status Date / Time codeine Allergy Intermediate ITCHING Verified 04/13/20 19:59 tramadol Allergy Intermediate ITCHING Verified 04/13/20 19:59 phenytoin [From Dilantin] Allergy Unknown can't Verified 04/13/20 19:59 remember clindamycin Allergy BURNING Verified 04/13/20 20:03 SENSATION IN THROAT hydrocodone AdvReac Intermediate NAUSEA Verified 04/13/20 19:59 Past Med/Surg History Medical History (Updated 04/14/20 @ 00:38 by Reno Nair) A-fib EBONY inhibitor intolerance "hyperkalemia and MIAH" Cancer SKIN (BCC) Chronic anticoagulation Chronic obstructive pulmonary disease STABLE CKD (chronic kidney disease), 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 Dysuria Glaucoma LEFT Hearing deficit High cholesterol History of renal calculi Hypothyroid IgG lambda monoclonal gammopathy Obesity Opioid dependence Osteoarthritis Parastomal hernia Piriformis syndrome of left side Right-sided ischial pain Stroke ~2012; RIGHT SIDED RESIDUAL WEAKNESS T2DM (type 2 diabetes mellitus) Valvular disease 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, MILD TR Surgical History (Updated 04/13/20 @ 21:44 by Liza Burton PA-C) H/O colectomy "08/12/13-total abdominal prostatectomy ileoanal anastamosis creation, ileal reservoir including loop ileostomy" On 08/17/14 20:31 Jocelyne Torres wrote "total abdominal prostatectomy ileoanal anastamosis creation, ileal reservoir including loop ileostomy" History of back surgery History of bladder stone EXCISION History of cataract surgery History of intestinal surgery COLOSTOMY 2/2 COLON HEMORRHAGE History of lumbar surgery History of prostate surgery History of tooth extraction Hx of arthroscopic knee surgery RIGHT Hx of cardiac cath S/P CABG X5 (1997), STENT (2003) MOST RECENT= 2011= NO STENTS Hx of eye surgery RETINAL PUCKER REPAIR (RIGHT) Hx of heart bypass surgery CABG X 5 (~1997) Hx of hernia repair X2 S/P CABG x 5 "1997" S/P cataract surgery S/P coronary artery stent placement "2008" S/P exploratory laparotomy "08/12/[address] Amie Thompson" S/P hernia repair Family History Mother Family history of diabetes mellitus CHF (congestive heart failure) Brother Cancer Esophageal Social History Smoking Status: Former smoker packs per day: 2; Years Smoked: 30; Hx Alcohol Use: No Hx Substance Use: No Preferred Language: Syriac Communication Ability: Effective Visual Impairment: Limited Hearing Ability: Hard of Hearing Freight Car Inspector Required: No Beliefs That Will Affect Care: None marital status: Current Living Situation: Spouse current occupational status: retired Other Information That Helps Us Care for You: No Feels Safe at Home: Yes Safety Concerns: Feels Safe At This Time Assistive Devices: None Review of Systems A total of 10 systems reviewed and were otherwise negative Physical Exam Vital Signs Vital Signs - 24 hr 04/13/20 16:22 04/13/20 17:19 04/13/20 17:30 Temperature 36.4 C L Temperature Source Oral Pulse Rate 87 114 H 102 H Pulse Rate from SpO2 Sensor 123 H 113 H Pulse Rhythm Regular Pulse Strength Normal Respiratory Rate 16 16 15 Respiratory Effort / Characteristics Non-Labored Respiratory Depth Normal Respiratory Pattern Regular Blood Pressure 162/106 H 145/99 H Blood Pressure Mean 124 127 Blood Pressure Position Sitting Pulse Oximetry 96 95 96 Oxygen Delivery Method Room Air Sepsis Recent Fever Within 48 Hours No Sepsis New/Unexplained Change in Mental Status N/A Sepsis Action Taken by Nursing No Action Required 04/13/20 17:31 04/13/20 17:51 04/13/20 18:00 Temperature Temperature Source Pulse Rate 97 H 124 H 99 H Pulse Rate from SpO2 Sensor 108 H 115 H 108 H Pulse Rhythm Pulse Strength Respiratory Rate 19 20 Respiratory Effort / Characteristics Respiratory Depth Respiratory Pattern Blood Pressure 160/112 H 142/92 H 135/98 Blood Pressure Mean 119 102 111 Blood Pressure Position Pulse Oximetry 97 95 96 Oxygen Delivery Method Sepsis Recent Fever Within 48 Hours Sepsis New/Unexplained Change in Mental Status Sepsis Action Taken by Nursing 04/13/20 18:15 Temperature Temperature Source Pulse Rate 102 H Pulse Rate from SpO2 Sensor 107 H Pulse Rhythm Pulse Strength Respiratory Rate Respiratory Effort / Characteristics Respiratory Depth Respiratory Pattern Blood Pressure 135/87 Blood Pressure Mean 104 Blood Pressure Position Pulse Oximetry 97 Oxygen Delivery Method Sepsis Recent Fever Within 48 Hours Sepsis New/Unexplained Change in Mental Status Sepsis Action Taken by Nursing Physical Exam GENERAL: He is oriented to person, place, and time. He appears well-developed and well-nourished. He does not appear distressed. HENT: Exam performed. - Head: Normocephalic and atraumatic. - Right Ear: External ear normal. No mastoid tenderness. - Left Ear: External ear normal. No mastoid tenderness. - Mouth/Throat: The oropharynx is clear and moist. No trismus in the jaw. No dental abscesses or uvula swelling. No oropharyngeal exudate or tonsillar abscesses. EYES: Conjunctivae and EOM are normal. Pupils are equal, round, and reactive to light. Right eye exhibits no discharge. Left eye exhibits no discharge. No scleral icterus. NECK: Normal range of motion. Neck supple. No JVD present. No spinous process tenderness present. No carotid bruit present. No rigidity. No tracheal deviation and normal range of motion present. No Brudzinski's sign and no Kernig's sign noted. CV: Normal rate, regular rhythm, normal heart sounds and intact distal pulses. There is no peripheral edema. Palpable radial pulses bue. PULM/CHEST: Effort normal and breath sounds normal. No respiratory distress. No stridor. He has no wheezes. He has no rales. - Chest Wall: He exhibits no tenderness. ABD: The abdomen is soft. Bowel sounds are normal. He has no distension. No mass is present. There is no tenderness. There is no rebound, no guarding, no Wasserman's sign and no tenderness at McBurney's point. Rovsig negative. MUSC/SKEL: Normal range of motion. There is no peripheral edema, tenderness or deformity. LYMPH: No cervical adenopathy. NEURO: He is alert and oriented to person, place, and time. GCS eye subscore is 4. GCS verbal subscore is 5. GCS motor subscore is 6. NIHSS:9 [6a:3, 6b:4 (baseline after previous stroke), 7:2] SKIN: Bruising all over his bilateral upper and lower extremities. PSYCH: He has a normal mood and affect. Behavior is normal. Judgment and thought content normal. Course Course 1700: The patient was evaluated in room A3. A complete history and physical exam was performed. Patient was placed on project builder. For IV access was obtained. painter and body mechanic apprentice showed A. fib with rate of 04/22/1948. Large-bore IV access was obtained. Cardizem 10 mg bolus was given. Patient's heart rate improved. Patient was then the patient was started on Cardizem drip. Cardiac monitoring: An order was placed for continuous cardiac monitoring. The monitor shows a rate of 120-150 with atrial fibrillation rhythm No code stroke was called as the patient's symptoms began on Sunday, 4 days ago and patient is not a TPA candidate given the timing of onset of his symptoms. CTAs were not ordered as the patient has a history of CKD per the EMR. 1800: Vital signs stable on Cardizem drip. Potassium, magnesium, and AST have hemolyzed there repeat labs are pending. CT of the brain shows no ICH. Is thought that the patient suffering from TIA versus CVA. Patient will be admitted to the hospital service spoke [facility] who stated to admit to Dr. Snow. Administered Medications Sodium Chloride (Nss 1000ml) 1,000 mls @ 50 mls/hr IV .Q20H BERNIE Stop: 05/13/20 16:59 Last Admin: 04/13/20 20:02 Dose: 50 mls/hr Documented by: [id number] Infusion: 04/13/20 20:02 Dose: 50 mls/hr Documented by: [id number] Admin: 04/13/20 17:14 Dose: 50 mls/hr Documented by: [id number] Diltiazem HCl 125 mg/ Dextrose 125 mls @ 10 mls/hr IV .[id number] BERNIE; Protocol Stop: 05/13/20 17:14 Last Admin: 04/13/20 23:31 Dose: 10 mg/hr, 10 mls/hr Documented by: [id number] Cosigned by: [id number] Titration: 04/13/20 23:31 Dose: 10 mg/hr, 10 mls/hr Documented by: [id number] Cosigned by: [id number] Titration: 04/13/20 18:40 Dose: 10 mg/hr, 10 mls/hr Documented by: [id number] Cosigned by: [id number] Admin: 04/13/20 17:55 Dose: 5 mg/hr, 5 mls/hr Documented by: [id number] Cosigned by: [id number] Ceftriaxone Sodium 2,000 mg/ (Dextrose) 70 mls @ 100 mls/hr IV Q24H [facility]; Protocol Stop: 04/23/20 21:59 Last Admin: 04/13/20 23:26 Dose: 100 mls/hr Documented by: [id number] Discontinued Medications Diltiazem HCl (Diltiazem Hcl 5 Mg/Ml 5 Ml Vial) Confirm Administered Dose 25 mg IV .STK-MED ONE Stop: 04/13/20 17:12 Last Admin: 04/13/20 17:14 Dose: Not Given Documented by: [id number] Diltiazem HCl (Diltiazem Hcl 5 Mg/Ml 5 Ml Vial) 10 mg IV NOW STA Stop: 04/13/20 17:13 Last Admin: 04/13/20 17:13 Dose: 10 mg Documented by: [id number] Cosigned by: [id number] Gadobutrol (Gadobutrol 65ml Vial) 9.7 ml IV ONCE ONE Stop: 04/13/20 23:13 Last Admin: 04/13/20 23:13 Dose: 9.7 ml Documented by: [id number] Insulin Human Regular 8 units/ (Syringe) 8 mls @ 30 mls/min IV ONE ONE Stop: 04/13/20 21:01 Last Admin: 04/13/20 21:10 Dose: 30 mls/min Documented by: [id number] Cosigned by: [id number] Insulin Aspart (Insulin Aspart 100 Units/Ml 3 Ml Pen) 0 units SC ACHS BERNIE Stop: 04/13/20 21:01 Last Admin: 04/13/20 21:08 Dose: 8 units Documented by: [id number] Cosigned by: [id number] Insulin Glargine (Insulin Glargine Solostar 100 Units/Ml 3 Ml Pen) 20 units SC ONE ONE Stop: 04/13/20 21:01 Last Admin: 04/13/20 21:07 Dose: 20 units Documented by: [id number] Cosigned by: [id number] Miscellaneous (Stat Iv Infusion Titration Per Protocol) 1 ea N/A NOW STA Stop: 04/13/20 17:13 Last Admin: 04/13/20 18:40 Dose: 1 ea Documented by: [id number] Critical Care Time Critical Care Time: Yes Total Critical Care Time: 38 I have personally spent greater than 38 minutes of critical care time in the direct management of this patient. This includes bedside care, interpretation of diagnostic studies, and testing, discussion with consultants, patient, and family members, and other required patient management activities. This 38 minutes is in excess of all separately billable procedures. Medical Decision Making Laboratory Data Result diagrams: 04/13/20 23:31 04/13/20 18:29 Lab Results 04/13/20 04/13/20 04/13/20 Range/Units 17:12 17:12 17:12 WBC 10.20 (4.8-10.8) K/uL RBC 4.53 L (4.7-6.1) M/uL Hgb 13.8 L (14.0-18.0) g/dL Hct 40.7 L (42-52) % MCV 89.8 (80-100) fL MCH 30.5 (25-34) pg MCHC 33.9 (32-36) g/dL RDW Std Deviation 52.3 H (36.4-46.3) fL RDW Coeff of Saul 15.8 H (11.5-14.5) % Plt Count 230 (130-400) K/uL MPV 10.6 H (7.4-10.4) fL Immature Gran % (Auto) 5.2 % Neut % (Auto) 81.7 % Lymph % (Auto) 5.2 % Hemphill % (Auto) 7.2 % Eos % (Auto) 0.5 % Baso % (Auto) 0.2 % Neut # (Auto) 8.34 H (1.4-6.5) K/uL Lymph # (Auto) 0.53 L (1.2-3.4) K/uL Hemphill # (Auto) 0.73 H (0.11-0.59) K/uL Eos # (Auto) 0.05 (0-0.5) K/uL Baso # (Auto) 0.02 (0-0.2) K/uL Immature Gran # (Auto) 0.53 H (0.00-0.02) K/uL PT 15.5 H (9.0-12.0) Seconds INR 1.5 H (0.9-1.1) APTT 29.1 (21.0-31.0) Seconds PTT Ratio 1.0 Sodium (136-145) mmol/L Potassium (3.5-5.1) mmol/L Chloride (98-107) mmol/L Carbon Dioxide (21-32) mmol/L Anion Gap (3-11) BUN (7-18) mg/dl Creatinine (0.6-1.4) mg/dl Est Cr Clr Drug Dosing ml/min Est GFR ( Amer) Est GFR (Non-Af Amer) BUN/Creatinine Ratio (10-20) Glucose (70-99) mg/dl Calcium (8.5-10.1) mg/dl Magnesium (1.8-2.4) mg/dl Total Bilirubin (0.2-1) mg/dl AST (15-37) U/L ALT (12-78) U/L Alkaline Phosphatase (45-117) U/L Troponin I (0-0.045) ng/ml Total Protein (6.4-8.2) gm/dl Albumin (3.4-5.0) gm/dl Globulin (2.5-4.0) gm/dl Albumin/Globulin Ratio (0.9-2) Beta-Hydroxybutyric Acd (0.2-2.81) mg/dl Blood Type O Negative Antibody Screen NEGATIVE 04/13/20 Range/Units 17:12 WBC (4.8-10.8) K/uL RBC (4.7-6.1) M/uL Hgb (14.0-18.0) g/dL Hct (42-52) % MCV (80-100) fL MCH (25-34) pg MCHC (32-36) g/dL RDW Std Deviation (36.4-46.3) fL RDW Coeff of Saul (11.5-14.5) % Plt Count (130-400) K/uL MPV (7.4-10.4) fL Immature Gran % (Auto) % Neut % (Auto) % Lymph % (Auto) % Hemphill % (Auto) % Eos % (Auto) % Baso % (Auto) % Neut # (Auto) (1.4-6.5) K/uL Lymph # (Auto) (1.2-3.4) K/uL Hemphill # (Auto) (0.11-0.59) K/uL Eos # (Auto) (0-0.5) K/uL Baso # (Auto) (0-0.2) K/uL Immature Gran # (Auto) (0.00-0.02) K/uL PT (9.0-12.0) Seconds INR (0.9-1.1) APTT (21.0-31.0) Seconds PTT Ratio Sodium 133 L (136-145) mmol/L Potassium (3.5-5.1) mmol/L Chloride 102 (98-107) mmol/L Carbon Dioxide 21 (21-32) mmol/L Anion Gap 11.0 (3-11) BUN 35 H (7-18) mg/dl Creatinine 1.46 H (0.6-1.4) mg/dl Est Cr Clr Drug Dosing 46.6 ml/min Est GFR ( Amer) 50.8 Est GFR (Non-Af Amer) 43.9 BUN/Creatinine Ratio 24.2 H (10-20) Glucose 386 H* (70-99) mg/dl Calcium 9.5 (8.5-10.1) mg/dl Magnesium (1.8-2.4) mg/dl Total Bilirubin 0.7 (0.2-1) mg/dl AST (15-37) U/L ALT 42 (12-78) U/L Alkaline Phosphatase 88 (45-117) U/L Troponin I < 0.015 (0-0.045) ng/ml Total Protein 6.5 (6.4-8.2) gm/dl Albumin 2.7 L (3.4-5.0) gm/dl Globulin 3.8 (2.5-4.0) gm/dl Albumin/Globulin Ratio 0.7 L (0.9-2) Beta-Hydroxybutyric Acd (0.2-2.81) mg/dl Blood Type Antibody Screen Imaging Data Radiologist's Impression: CT head/brain wo con CLINICAL HISTORY: 84 years-old Male with Stroke Like Symptoms. Acute strokelike symptoms TECHNIQUE: Multiple axial CT images of the head were obtained without contrast. A dose lowering technique was utilized adhering to the principles of ALARA. CT DOSE: 614.27 mGy.cm COMPARISON: Head CT 08/02/2017 FINDINGS: No acute intracranial hemorrhage, midline shift, intracranial mass, hydrocephalus, territorial ischemia or abnormal extra-axial collection. Age- related involutional changes with ex vacuo ventriculomegaly. Patchy and confluent white matter hypodensities are suggestive of chronic microvascular ischemic disease. Calcifications of the falx cerebri. Cerebral vascular calcifications also noted. The calvarium is intact. Prior bilateral lens replacement. Right-sided scleral banding. Mastoid air cells are clear. Mild polypoid mucosal thickening of the inferior left maxillary sinus. IMPRESSION: No acute intracranial abnormality. ACT 112: Negative or not required by law. The above report was generated using voice recognition software. It may contain grammatical, syntax or spelling errors. Electronically signed by: Curly Rodríguez M.D. 04/13/2020 5:58 PM Dictated: 04/13/[id number]: 04/13/201753 ECG Data Indication: + weakness Rate (beats per minute): 120 Rhythm: + atrial fibrillation ECG Intervals/blocks: + Normal QRS and + Normal QT-c Additional Comments: 1706: Atrial fibrillation with a rate of 120. QRS and QTc intervals within normal limits. Mild ST elevation in lead III only. 1 previously compared to the EKG done in [address] segments are the same. [facility] Narrative 1700: The patient was evaluated in room A3. A complete history and physical exam was performed. Patient was placed on project builder. For IV access was obtained. painter and body mechanic apprentice showed A. fib with rate of 04/22/1948. Large-bore IV access was obtained. Cardizem 10 mg bolus was given. Patient's heart rate improved. Patient was then the patient was started on Cardizem drip. Cardiac monitoring: An order was placed for continuous cardiac monitoring. The monitor shows a rate of 120-150 with atrial fibrillation rhythm No code stroke was called as the patient's symptoms began on Sunday, 4 days ago and patient is not a TPA candidate given the timing of onset of his symptom s. CTAs were not ordered as the patient has a history of CKD per the EMR. 1800: Vital signs stable on Cardizem drip. Potassium, magnesium, and AST have hemolyzed there repeat labs are pending. CT of the brain shows no ICH. Is thought that the patient suffering from TIA versus CVA. Patient will be admitted to the hospital service spoke with Liza Burton [facility] hospitalist who stated to admit to Dr. Snow. Impression & Plan A-fib Discharge Plan Visit Data Chief Complaint: TIA Symptoms Stated Complaint: POSSIBLE MINI STROKE ED Provider: Reno Nair Discharge Problem: A-fib Patient Disposition: Admitted As Inpatient Discharge Instructions Interventions: ED Discharge Assessment Last Done: 04/13/20 19:26 Discharge Problem: A-fib Qualifiers: Atrial fibrillation type: unspecified Qualified Code(s): I48.91 - Unspecified atrial fibrillation
[2020-04-13 17:55] LABS: Alanine Aminotransferase 42 U/L (12-78); Albumin Globulin Ratio 0.7 (0.9-2); Albumin Level 2.7 gm/dl (3.4-5.0); Alkaline Phosphatase 88 U/L (45-117); BUN Creatinine Ratio 24.2 (10-20); Bilirubin,Total 0.7 mg/dl (0.2-1); Blood Urea Nitrogen 35 mg/dl (7-18); Calcium 9.5 mg/dl (8.5-10.1); Carbon Dioxide 21 mmol/L (21-32); Chloride 102 mmol/L (98-107); Creatinine Clr Calc Pharmacy 46.6 ml/min; Est GFR (African American) 50.8; Est GFR (Non-African American) 43.9; Globulin 3.8 gm/dl (2.5-4.0); Glucose 386 mg/dl (70-99); Sodium 133 mmol/L (136-145); Total Protein 6.5 gm/dl (6.4-8.2); Troponin I < 0.015 ng/ml (0-0.045)
[2020-04-13] MEDS: dilTIAZem HCL 125 MG in DEXTROSE 5% 100 ML IV SCH ×2 (17:55→23:31)
--- NOTE | 2020-04-13 17:59 | CT Scan Report ---
CT head/brain wo con CLINICAL HISTORY: 84 years-old Male with Stroke Like Symptoms. Acute strokelike symptoms TECHNIQUE: Multiple axial CT images of the head were obtained without contrast. A dose lowering tech nique was utilized adhering to the principles of ALARA. CT DOSE: 614.27 mGy.cm COMPARISON: Head CT 08/02/2017 FINDINGS: No acute intracranial hemorrhage, midline shift, intracranial mass, hydrocephalus, territorial ischem ia or abnormal extra-axial collection. Age-related involutional changes with ex vacuo ventriculomegal y. Patchy and confluent white matter hypodensities are suggestive of chronic microvascular ischemic d isease. Calcifications of the falx cerebri. Cerebral vascular calcifications also noted. The calvarium is intact. Prior bilateral lens replacement. Right-sided scleral banding. Mastoid air c ells are clear. Mild polypoid mucosal thickening of the inferior left maxillary sinus. IMPRESSION: No acute intracranial abnormality. ACT 112: Negative or not required by law. The above report was generated using voice recognition software. It may contain grammatical, syntax o r spelling errors. Electronically signed by: Curly Rodríguez M.D. 04/13/2020 5:58 PM
--- NOTE | 2020-04-13 18:28 | History & Physical Report ---
Date of Service April 13, 2020 Assessment & Plan (1) Stroke-like symptoms: This is an 81-year-old male with PMH of history of CVA with residual right HP, chronic atrial fibrillation anticoagulated on warfarin, CAD (s/p CABG in 1997), HTN, HLD, T2DM, CKD stage IV, COPD, bilateral carotid artery stenosis, history of subtotal colectomy with ileostomy in 2013 who presents with left lower extremity weakness for the past 3 days. LLE weakness and slurred speech x [address] head without acute intracranial abn MRI brain, carotid duplex, echo w/ bubble study pending History of CVA in 2013 with residual RLE weakness- requires walker for ambulation Continue aspirin, statin. Coumadin subtherapeutic - bridging with IV heparin until therapeutic Neuro checks, PT, OT Failed dysphagia screen this evening - speech therapy in AM Routine neurology consult (2) Atrial fibrillation with rapid ventricular response: HR 120s-130s initially. H/o chronic atrial fibrillation Started on diltiazem drip in ED with improved HR to 100-105. Continue overnight. Monitor on telemetry On warfarin for thrombotic control, INR currently subtherapeutic at 1.5 (Home regimen is 1.5 mg Fridays, 1 mg all other days) Continue IV heparin until INR therapeutic Continue home dose metoprolol (3) Complicated UTI (urinary tract infection): Urine cx from 04/08/19 with pansensitive E coli Had not yet started Ceftin prescribed by urology Started Rocephin while in-patient and NPO (4) DM type 2 (diabetes mellitus, type 2): A1c 10.4 in 01/19 Patient only taking glipizide, has been on care home steroids BSG initially 386 - repeat 356. Given 5 units of regular IV insulin Glycemic consult placed for mgmt, assistance with optimizing OP regimen BSG ACHS (5) Piriformis syndrome of left side: Follows with ortho for this, also OA. Currently taking prednisone 10mg daily, oxycodone 10mg Q12H PRN (6) CAD (coronary artery disease): Hx of CABG x 5 1997 and stent placement in 2003 Continue ASA, Statin, Metoprolol EBONY intolerant/CKD (7) Hypertension: Continue metoprolol (8) CKD (chronic kidney disease), stage IV: Chronic kidney disease stage IV, baseline creatinine ~2 - 1.46 today Avoid nephrotoxic agents. Monitor renal function (9) BPH (benign prostatic hyperplasia): Continue finasteride, Alfuzosin (10) Chronic obstructive pulmonary disease: No acute exacerbation Continue Spiriva, DuoNeb as needed DVT Ppx: Coumadin subtherapeutic. Code status: FULL PCP: Yaron Dispo: Admitted to PCU. Discharge planning ordered. Patient seen in collaboration with Dr. Snow. Please see addendum. History of Present Illness Chief Complaint: Strokelike symptoms Primary Care Provider: Everett Marrufo MD This is an 81-year-old male with PMH of history of CVA with residual right HP, chronic atrial fibrillation anticoagulated on warfarin, CAD (s/p CABG in 1997), HTN, HLD, T2DM, CKD stage IV, COPD, bilateral carotid artery stenosis, history of subtotal colectomy with ileostomy in 2013 who presents with left lower extremity weakness for the past 3 days. Patient was sitting in armchair on Sunday when he slumped over after becoming weak. Has had difficulty moving left leg since this happened. Has residual right lower extremity weakness from previous stroke in 2013 but has had full strength in left leg and has been able to ambulate with walker. Over the past few days, patient has barely been able to lift up left leg and has had difficulty ambulating. also noted some slurring of speech over the past few days. Denies any swallowing difficulties or sensory deficits. Does seem to have reduced range of motion in upper extremity. Denies any fever, chills, lightheadedness, chest pain, palpitations, shortness of breath, nausea, vomiting, abdominal pain. Was diagnosed with a UTI in clinic earlier this week but has not yet started antibiotic. Has had normal output in colostomy. Allergies Allergy/AdvReac Type Severity Reaction Status Date / Time codeine Allergy Intermediate ITCHING Verified 04/13/20 19:59 tramadol Allergy Intermediate ITCHING Verified 04/13/20 19:59 phenytoin [From Dilantin] Allergy Unknown can't Verified 04/13/20 19:59 remember clindamycin Allergy BURNING Verified 04/13/20 20:03 SENSATION IN THROAT hydrocodone AdvReac Intermediate NAUSEA Verified 04/13/20 19:59 Home Medications Medication Instructions Recorded Confirmed Type aspirin [Aspirin Low Dose] 81 mg PO DAILY 02/13/18 04/13/20 History brimonidine 1 drp OPB BID 02/13/18 04/13/20 History cholecalciferol (vitamin D3) 1,000 tab PO QPM 02/13/18 04/13/20 History [Vitamin D3] diltiazem HCl 240 mg PO QAM 02/13/18 04/13/20 History gabapentin 100 mg PO TID 02/13/18 04/13/20 History omeprazole 20 mg PO BID 02/13/18 04/13/20 History timolol 1 drp OPB BID 02/13/18 04/13/20 History zinc 50 mg PO QAM 02/13/18 04/13/20 History warfarin 1 mg tablet 1 mg PO [id number] tab 03/28/18 04/13/20 History Probiotic 3,000 mmu cells PO DAILY 08/15/19 04/13/20 History ascorbic acid (vitamin C) [Vitamin 500 mg PO QAM 08/15/19 04/13/20 History C] cyanocobalamin (vitamin B-12) 1,000 mcg PO DAILY 08/15/19 04/13/20 History [Vitamin B-12] furosemide 40 mg PO QAM 08/15/19 04/13/20 History levothyroxine 88 mcg PO QAM 08/15/19 04/13/20 History metoprolol succinate 100 mg PO QAM 08/15/19 04/13/20 History triamcinolone acetonide 1 applic TOPICAL BID PRN 08/15/19 04/13/20 History warfarin 1.5 mg PO .Sunday08/15/19 04/13/20 History cefuroxime axetil 250 mg tablet 250 mg PO BID 7 Days #14 tab 04/12/20 04/13/20 Rx dorzolamide 1 drp OPB BID 04/13/20 04/13/20 History glipizide 5 mg PO DAILY 04/13/20 04/13/20 History latanoprost 1 drp OPL HS 04/13/20 04/13/20 History magnesium oxide 400 mg PO DAILY 04/13/20 04/13/20 History oxycodone 10 mg PO Q12 PRN 04/13/20 04/13/20 History prednisone 20 mg PO DAILY 04/13/20 04/13/20 History ropinirole 0.25 mg PO HS 04/13/20 04/13/20 History tiotropium-olodaterol [Stiolto 2 puff INHALATION DAILY 04/13/20 04/13/20 History Respimat] Past Med/Surg History Medical History (Updated 04/14/20 @ 00:38 by Reno Nair) A-fib EBONY inhibitor intolerance "hyperkalemia and MIAH" Cancer SKIN (BCC) Chronic anticoagulation Chronic obstructive pulmonary disease STABLE CKD (chronic kidney disease), 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 Dysuria Glaucoma LEFT Hearing deficit High cholesterol History of renal calculi Hypothyroid IgG lambda monoclonal gammopathy Obesity Opioid dependence Osteoarthritis Parastomal hernia Piriformis syndrome of left side Right-sided ischial pain Stroke ~2012; RIGHT SIDED RESIDUAL WEAKNESS T2DM (type 2 diabetes mellitus) Valvular disease 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, MILD TR Surgical History (Updated 04/13/20 @ 21:44 by Liza Burton PA-C) H/O colectomy "08/12/13-total abdominal prostatectomy ileoanal anastamosis creation, ileal reservoir including loop ileostomy" On 08/17/14 20:31 Jocelyne Torres wrote "total abdominal prostatectomy ileoanal anastamosis creation, ileal reservoir including loop ileostomy" History of back surgery History of bladder stone EXCISION History of cataract surgery History of intestinal surgery COLOSTOMY 2/2 COLON HEMORRHAGE History of lumbar surgery History of prostate surgery History of tooth extraction Hx of arthroscopic knee surgery RIGHT Hx of cardiac cath S/P CABG X5 (1997), STENT (2003) MOST RECENT= 2012= NO STENTS Hx of eye surgery RETINAL PUCKER REPAIR (RIGHT) Hx of heart bypass surgery CABG X 5 (~1997) Hx of hernia repair X2 S/P CABG x 5 "1997" S/P cataract surgery S/P coronary artery stent placement "2008" S/P exploratory laparotomy "08/12/[address] Amie Thompson" S/P hernia repair Family History Mother Family history of diabetes mellitus CHF (congestive heart failure) Brother Cancer Esophageal Social History Smoking Status: Former smoker packs per day: 2; Years Smoked: 30; Hx Alcohol Use: No Hx Substance Use: No Preferred Language: Palestinian Communication Ability: Effective Visual Impairment: Limited Hearing Ability: Hard of Hearing Senior Grants Officer Required: No Beliefs That Will Affect Care: None marital status: Current Living Situation: Spouse current occupational status: retired Other Information That Helps Us Care for You: No Feels Safe at Home: Yes Safety Concerns: Feels Safe At This Time Assistive Devices: None Review of Systems Review of Systems: At least ten systems reviewed and negative except as noted in the HPI. Physical Exam Physical Exam: General Appearance: vitals as above, NAD, sitting up in bed, pleasant, conversing easily Head: normocephalic, atraumatic Eyes: normal inspection, PERRL, conjunctivae normal, anicteric sclerae ENT: hard of hearing, external ear and nose normal, oropharynx normal Neck: normal visual inspection, trachea midline, no thyromegaly Respiratory: normal respiratory effort, lungs clear to auscultation, no wheeze, rales, rhonchi. No accessory muscle use Cardiovascular: irregular rate & rhythm, no murmur appreciated, normal peripheral pulses, no BLE edema. Vessels: no JVD Chest: normal inspection of chest Abdomen/GI: normal bowel sounds, soft, nontender, no hepatosplenomegaly. + Colostomy bag with small amount of brown stool Extremities/Musculoskeletal: no cyanosis or clubbing, LUE and RUE 4/5 MINOO with some reduced ROM. RLE 3/5 (chronic), LLE ( 3/5 hip flexion, 5/5 dorsiflexion of ankle) Neurologic: PERRL, EOMI, accommodation nl, no face palsy, + mild slurring of speech noted, CN's II-XI intact bilaterally and moves all extremities Psychiatric: A+Ox3, euthymic affect Skin: no rashes, normal color, warm/dry Results & Data Results & Data ([facility]) Vital Signs (Past 12 Hours) Vital Signs Temp Pulse Resp BP Pulse Ox 04/13/20 17:51 124 H 20 142/92 H 95 04/13/20 17:31 97 H 19 160/112 H 97 04/13/20 17:30 102 H 15 96 04/13/20 17:19 114 H 16 145/99 H 95 04/13/20 16:22 36.4 C L 87 16 162/106 H 96 Laboratory Results Short CBC 04/13/20 Range/Units 17:12 WBC 10.20 (4.8-10.8) K/uL Hgb 13.8 L (14.0-18.0) g/dL Hct 40.7 L (42-52) % Plt Count 230 (130-400) K/uL BMP 04/13/20 04/13/20 17:12 18:29 Sodium 133 L Potassium 4.3 Chloride 102 Carbon Dioxide 21 BUN 35 H Creatinine 1.46 H Glucose 386 H* Calcium 9.5 Cardiac Enzymes 04/13/20 Range/Units 17:12 Troponin I < 0.015 (0-0.045) ng/ml Liver Function 04/13/20 04/13/20 Range/Units 17:12 18:29 Total Bilirubin 0.7 (0.2-1) mg/dl AST 22 (15-37) U/L ALT 42 (12-78) U/L Alkaline Phosphatase 88 (45-117) U/L Albumin 2.7 L (3.4-5.0) gm/dl Diagnostic Findings CT head: IMPRESSION: No acute intracranial abnormality. ECG Rhythm: atrial fibrillation Findings: + RBBB Code Status & VTE Plan VTE Prophylaxis Plan VTE Prophylaxis will be ordered: Yes Supervising Physician Co-Signing Physician Notes I have seen and examined the patient and have discussed the case with the provider above. I agree with the assessment and plan as stated. The patient is an 84 yo M who presents with changes in his speech and left leg weakness. The patient has atrial fibrillation with a h/o stroke and a subtherapeutic INR. He has residual right sided weakness from his prior stroke and typically ambulates with a walker at baseline. He was also recently diagnosed with a UTI for which symptoms have been ongoing now for about two weeks. New left leg weakness was n oted several days ago and he states the leg was unable to be moved, and then it was better, but then it became weak again. He currently is well appearing and in NAD, he is oriented and doesn't have dysarthria or word-finding difficulty. He has no facial droop with cranial nerves intact grossly. Upper extremity strength is 5/5 throughout, however, he has limited ROM of both shoulders. RLE is more weak than left generally with some ability to perform active flexion/extension of knee. LLE appears to have 5/5 strength throughout with limited ability to bend the leg at the knee joint, also 2/2 pain/discomfort in the knee. Gait was not assessed. There is no left upper extremity weakness. It is possible the patient did not have an acute stroke and has weakness from his underlying piriformis syndrome, weakness related to his urinary tract infection or related to his general physical deconditioned state. Agree with workup and plan as above. Edy,
[2020-04-13 19:01] LABS: Potassium 4.3 mmol/L (3.5-5.1)
[2020-04-13 19:22] LABS: Magnesium 1.7 mg/dl (1.8-2.4)
[2020-04-13] MEDS ORDERED: PHARMACIST DISCHARGE MED REC CONSULT PRN (19:57)
[2020-04-13] MEDS ORDERED: ACETAMINOPHEN 325 MG TAB PO PRN (19:57)
[2020-04-13] MEDS ORDERED: POLYETHYLENE (MIRALAX) 17 GM PACK PO PRN (19:57)
[2020-04-13] MEDS ORDERED: ONDANSETRON INJ 2 MG/ML 2 ML VIAL IV PRN (19:57)
[2020-04-13] MEDS ORDERED: GLUCAGON FOR INJ 1 MG VIAL SQ PRN (20:34)
[2020-04-13] MEDS ORDERED: DEXTROSE 50% 50 ML SYRINGE IV PRN (20:34)
[2020-04-13] MEDS ORDERED: INSULIN HUMAN REGULAR PER UNIT 5 UNITS in SYRINGE 0 ML IV STA (20:34)
[2020-04-13] MEDS ORDERED: GLUCOSE 10 TABS/TUBE PO PRN (20:34)
[2020-04-13] MEDS ORDERED: CARBOHYDRATES FOR HYPOGLYCEMIA PO PRN (20:34)
[2020-04-13] MEDS ORDERED: GLUCOSE 40% GEL 15 GM TUBE PO PRN (20:34)
[2020-04-13] MEDS ORDERED: PHARMACY GLYCEMIC MGMT CONSULT PRN (20:43)
[2020-04-13] MEDS ORDERED: INSULIN ASPART 100 UNITS/ML 3 ML PEN SC SCH (21:00)
[2020-04-13] MEDS ORDERED: INSULIN GLARGINE SOLOSTAR 100 UNITS/ML 3 ML PEN SC ONE (21:00)
[2020-04-13] MEDS ORDERED: INSULIN HUMAN REGULAR PER UNIT 8 UNITS in SYRINGE 7.92 ML IV ONE (21:00)
--- NOTE | 2020-04-13 21:10 | Pharmacy Report ---
Pharmacy Glycemic Short Note 2 - Date of Service April 13, 2020 - Glycemic Short BSG Results (Last 24 hours): 04/13/20 04/13/20 17:12 20:19 Glucose 386 H* POC Glucose 356 H* OUTPATIENT ANTIDIABETIC REGIMEN: * Glipizide 5 mg PO daily * Chronic prednisone 10 mg PO daily * HbA1c ordered for tomorrow ASSESSMENT: * HC is an 84 year old male who presents from PCP for evaluation of possible TIA * BSG in ED of 386 mg/dL - no insulin received * BSG of 356 mg/dL at time of glycemic consult * Will order one-time IV insulin bolus, 0.2 unit/kg Lantus, and Novolog with overnight checks * Per admitting hospitalist - last HbA1c > 10%, recheck ordered for tomorrow PLAN FOR INPATIENT GLYCEMIC CONTROL: * Hold outpatient oral diabetes medications (glipizide) * IV insulin bolus 8 units x 1 now * Basal insulin * Lantus 20 units (0.2 unit/kg) x 1 * Reassess in AM * Bolus insulin * NovoLog per scale ACHS or Q6hrs while NPO * Goal Range: Low 120 mg/dL - High 160 mg/dL * Correction Factor: 20 mg/dL/unit * Nutritional / Prandial insulin per carb ratio of 1 unit per 7 grams CHO consumed PLAN FOR DISCHARGE: * Patient will likely require intensification of outpatient regimen upon discharge * TBD
[2020-04-13] MEDS ORDERED: Heparin IV Standard *NO* Bolus IV ONE (22:54)
[2020-04-13] MEDS ORDERED: GADOBUTROL 65ML VIAL IV ONE (23:12)
[2020-04-13] MEDS: cefTRIAXone SODIUM 2,000 MG in DEXTROSE 5% 50 ML IV SCH (23:26)
[2020-04-13 23:40] LABS: Hematocrit (blood only) 34.8 % (42-52); Mean Corpuscular Hemoglobin 30.8 pg (25-34); Mean Corpuscular Volume 89.2 fL (80-100); Mean Platelet Volume 9.8 fL (7.4-10.4); Nucleated RBC # (auto) 0.02 K/uL (0-0); Nucleated RBC % (auto) 0.2 %; Platelet Count 200 K/uL (130-400); RDW Coefficient of Variation 15.7 % (11.5-14.5); RDW Standard Deviation 50.5 fL (36.4-46.3)
[2020-04-13 23:50] LABS: INR 1.4 (0.9-1.1); Partial Thromboplastin Ratio 1.2; Partial Thromboplastin Time 32.4 Seconds (21.0-31.0); Prothrombin Time 14.9 Seconds (9.0-12.0)
[2020-04-14 00:06] LABS: Mean Corpuscular Hgb Conc 34.5 g/dL (32-36)
[2020-04-14 00:09] LABS: Basophils # (auto) 0.01 K/uL (0-0.2); Basophils % (auto) 0.1 %; Eosinophils # (auto) 0.02 K/uL (0-0.5); Eosinophils % (auto) 0.2 %; Immature Granulocytes # (auto) 0.51 K/uL (0.00-0.02); Immature Granulocytes % (auto) 5.5 %; Lymphocytes # (auto) 0.92 K/uL (1.2-3.4); Monocytes % (auto) 4.3 %; Neutrophils # (auto) 7.34 K/uL (1.4-6.5); Neutrophils % (auto) 79.9 %
[2020-04-14] MEDS: HEPARIN SODIUM/DEXTROSE 25,000 UNITS/500 ML BAG IV SCH ×2 (01:12→20:50)
[2020-04-14] MEDS: INSULIN ASPART 100 UNITS/ML 3 ML PEN SC SCH ×7 (01:17→23:41)
[2020-04-14] MEDS ORDERED: INSULIN ASPART 100 UNITS/ML 3 ML PEN SC SCH ×2 (03:00)
[2020-04-14 05:00] LABS: Hematocrit (blood only) 34.6 % (42-52); Hemoglobin 11.9 g/dL (14.0-18.0); Mean Corpuscular Hemoglobin 30.6 pg (25-34); Mean Corpuscular Hgb Conc 34.4 g/dL (32-36); Mean Corpuscular Volume 88.9 fL (80-100); Mean Platelet Volume 10.6 fL (7.4-10.4); Nucleated RBC # (auto) 0.03 K/uL (0-0); Nucleated RBC % (auto) 0.3 %; Platelet Count 211 K/uL (130-400); RDW Coefficient of Variation 15.6 % (11.5-14.5); RDW Standard Deviation 50.5 fL (36.4-46.3); Red Blood Count 3.89 M/uL (4.7-6.1); White Blood Count 8.21 K/uL (4.8-10.8)
[2020-04-14 05:10] LABS: INR 1.5 (0.9-1.1); Prothrombin Time 15.9 Seconds (9.0-12.0)
[2020-04-14 05:31] LABS: Basophils # (auto) 0.01 K/uL (0-0.2); Basophils % (auto) 0.1 %; Eosinophils # (auto) 0.07 K/uL (0-0.5); Eosinophils % (auto) 0.9 %; Immature Granulocytes # (auto) 0.52 K/uL (0.00-0.02); Immature Granulocytes % (auto) 6.3 %; Lymphocytes # (auto) 0.72 K/uL (1.2-3.4); Lymphocytes % (auto) 8.8 %; Monocytes # (auto) 0.57 K/uL (0.11-0.59); Monocytes % (auto) 6.9 %; Neutrophils # (auto) 6.32 K/uL (1.4-6.5); RBC Morphology Unremarkable
[2020-04-14 05:34] LABS: BUN Creatinine Ratio 27.8 (10-20); Calcium 8.8 mg/dl (8.5-10.1); Creatinine Clr Calc Pharmacy 71.5 ml/min; Est GFR (African American) 85.5; Est GFR (Non-African American) 73.7; Potassium 3.4 mmol/L (3.5-5.1)
[2020-04-14] MEDS: LEVOTHYROXINE SODIUM 88 MCG TABLET PO SCH (06:04)
[2020-04-14 06:15] LABS: Estimated Average Glucose 226 mg/dl; Hemoglobin A1C 9.5 % (4.5-5.6)
--- NOTE | 2020-04-14 06:54 | Ultrasound Report ---
CAROTID ARTERY ULTRASOUND CLINICAL HISTORY: Stroke evaluation. COMPARISON STUDY: MRA of the neck September 04, 2016. Carotid ultrasound September 05, 2016. TECHNIQUE: Real-time, grayscale, and color Doppler sonography of the carotid and vertebral arteries w as performed. Images were viewed in the transverse and longitudinal planes. FINDINGS: There is extensive atherosclerotic plaque present within the distal left common carotid artery and pr oximal left internal carotid artery and moderate plaque within the proximal to mid right internal car otid artery. Velocity measurements are listed below. COMMON CAROTID PEAK SYSTOLIC VELOCITY (CM/S): RIGHT 52 LEFT 44 ICA PEAK SYSTOLIC VELOCITY (CM/S): RIGHT 146 LEFT 228 Systolic ratio between the left internal to common carotid artery is significantly elevated at 5.2. S ystolic ratio between the right internal to common carotid artery is elevated at 2.8. Antegrade flow is seen in the vertebral arteries. The external carotid arteries are patent. Blood pressure could not be obtained in this patient. IMPRESSION: 1. Findings suggestive of 50-69% stenosis of the proximal left internal carotid artery with mild prog ression since exam of September 05, 2016. 2. Findings suggestive of 50-69% stenosis of the proximal to mid right internal carotid artery. ACT 112: Negative or not required by law. Electronically signed by: Sky Root M.D. 04/14/2020 6:52 AM
[2020-04-14 07:54] LABS: Partial Thromboplastin Ratio 4.6
--- NOTE | 2020-04-14 08:01 | Magnetic Resonance Report ---
MR brain wo/w con HISTORY: 84 years-old Male stroke eval acute strokelike symptoms COMPARISON: Head CT 04/13/2020, brain MRI 09/04/2016 TECHNIQUE: Multiplanar multisequence MRI of the brain was obtained both with and without the use of 9 .7 mL Gadavist FINDINGS: Motion degraded exam. There is no restricted diffusion to suggest acute or subacute infarct. No pathologic blooming artifac t on the T2 star series. There is no acute intracranial hemorrhage, midline shift, abnormal extra-axi al collection, hydrocephalus or intracranial mass. Age-related involutional changes with ex vacuo kaitlin triculomegaly. Extensive T2/FLAIR hyperintensities are present throughout the white matter suggestive of advanced chronic microvascular ischemic disease. There is no abnormal intra-axial or extra-axial enhancement. Cerebral venous sinuses and major arterial flow voids at the level of the skull base appear patent. S mall mastoid effusions. Mild polypoid mucosal thickening of the left maxillary sinus. Prior bilateral lens repair with right-sided scleral banding. The skull and soft tissues are unremarkable. IMPRESSION: 1. No acute intracranial abnormality, specifically there is no evidence of acute or subacute infarct. 2. No abnormal enhancement. 3. Age-related involutional changes with advanced chronic microvascular ischemic disease. ACT 112: Negative or not required by law. The above report was generated using voice recognition software. It may contain grammatical, syntax o r spelling errors. Electronically signed by: Curly Rodríguez M.D. 04/14/2020 8:00 AM
[2020-04-14] MEDS ORDERED: POTASSIUM CHLORIDE CRTAB 20 MEQ TABCR PO ONE (08:46)
[2020-04-14] MEDS ORDERED: BRIMONIDINE TART 0.2% OP SOLN PER DROP CHARGE OPB SCH (09:00)
[2020-04-14] MEDS ORDERED: oxyCODONE HCL IR 5 MG TAB (IMMEDIATE RELEASE) PO PRN (09:51)
[2020-04-14] MEDS ORDERED: INSULIN HUMAN NPH SC STA ×2 (10:48→10:50)
--- NOTE | 2020-04-14 12:24 | Pharmacy Report ---
Pharmacy Glycemic Short Note 2 - Date of Service April 14, 2020 - Glycemic Short BSG Results (Last 24 hours): 04/13/20 04/13/20 04/14/20 17:12 20:19 00:30 Glucose 386 H* POC Glucose 356 H* 182 H 04/14/20 04/14/20 04/14/20 03:55 04:19 06:02 Glucose 132 H POC Glucose 151 H 140 H OUTPATIENT ANTIDIABETIC REGIMEN: * Glipizide (since February 2020. Was on glimepiride prior to that) * Chronic prednisone 20 mg PO daily * HbA1c elevated at 9.5% ASSESSMENT: 04/14 * BSG's responded well to interventions yesterday, now within goal for the last two checks * Heparin drip remains on, and currently at 31 mL/hr. Diltiazem drip currently 10 mL/hr, but may transition off now that po started. Cumulative D5W rate therefore 41 mL/hr providing ~50 g IV dextrose per day * T2DM diet ordered starting at lunch today * Home prednisone 20 mg po daily continuing * Will give small dose NPH with prednisone/lunch today. Anticipate will exclusively use NPH in AM as basal insulin for the duration of admission, and potentially on discharge as well 04/13 * HC is an 84 year old male who presents from PCP for evaluation of possible TIA * BSG in ED of 386 mg/dL - no insulin received * BSG of 356 mg/dL at time of glycemic consult * Will order one-time IV insulin bolus, 0.2 unit/kg Lantus, and Novolog with overnight checks * Per admitting hospitalist - last HbA1c > 10%, recheck ordered for tomorrow PLAN FOR INPATIENT GLYCEMIC CONTROL: * Hold outpatient oral diabetes medication * Basal insulin * NPH 10 units SC x1 today * Bolus insulin * NovoLog per scale ACHS or Q6hrs while NPO * Goal Range: Low 120 mg/dL - High 160 mg/dL * Correction Factor: 20 mg/dL/unit * Nutritional / Prandial insulin per carb ratio of 1 unit per 7 grams CHO consumed PLAN FOR DISCHARGE: * Patient may benefit from addition of insulin NPH once daily to be administered with prednisone/breakfast, especially with elevated HbA1c and history of CVA with possible TIA this admission. patient educator consulted.
[2020-04-14] MEDS: GABAPENTIN 100 MG CAP PO SCH ×3 (12:32→20:44)
[2020-04-14] MEDS: PANTOprazole 40 MG TAB PO SCH ×2 (12:32→20:45)
[2020-04-14] MEDS: METOPROLOL SUCC 50MG EXT REL TAB PO SCH (12:32)
[2020-04-14] MEDS: ASPIRIN 81 MG ECTAB PO SCH (12:32)
[2020-04-14] MEDS: TIMOLOL MALEATE 0.5% OP SOLN 5 ML BTL OP SCH ×2 (12:33→20:42)
[2020-04-14] MEDS: MAGNESIUM OXIDE 400 MG TAB PO SCH (12:33)
[2020-04-14] MEDS: DORZOLAMIDE HCL 2% OPH SOLN 10 ML BTL OPB SCH ×2 (12:33→20:43)
[2020-04-14] MEDS: dilTIAZem HCL 120 MG CAPCR PO SCH (12:33)
[2020-04-14] MEDS: predniSONE 20 MG TAB PO SCH (12:34)
[2020-04-14] MEDS: UMECLIDINIUM/VILANTEROL 62.5/25MCG 7 PUFFS/INHALER INH SCH (12:34)
[2020-04-14] MEDS ORDERED: METHYLPREDNISOLONE IV SCH (12:45)
[2020-04-14] MEDS: predniSONE 20 MG TAB PO ONE ×2 (13:26→13:27)
[2020-04-14] MEDS ORDERED: INSULIN HUMAN NPH SC ONE (13:45)
--- NOTE | 2020-04-14 13:58 | Electrocardiogram Report ---
Test Reason : Blood Pressure : / mmHG Vent. Rate : 120 BPM Atrial Rate : 500 BPM P-R Int : 000 ms QRS Dur : 120 ms QT Int : 292 ms P-R-T Axes : 000 081 -01 degrees QTc Int : 412 ms Atrial fibrillation with rapid ventricular response Right bundle branch block Abnormal ECG When compared with ECG of 04-AUG-2017 08:53, Criteria for Inferior infarct are no longer Present Confirmed by Mani Santamaria ([id number]) on 04/14/2020 1:58:14 PM Referred By: Everett Marrufo Confirmed By:Mani Santamaria
[2020-04-14 15:24] LABS: Appearance Urine Clear (Clear); Bacteria Urine Automated Negative (Negative); Bilirubin Urine Negative (Negative); Blood Urine Negative (Negative); Color Urine Dark Yellow; Epithelial Cell Urine Auto 20-30 /lpf (0-5); Glucose Urine UA Negative (Negative); Ketones Urine Negative (Negative); Leukocyte Esterase Urine Trace (Negative); Nitrite Urine Negative (Negative); Protein Urine 1+ (Negative); RBC Urine Automated 0-4 /hpf (0-4); Specific Gravity Urine 1.023 (1.000-1.030); Urobilinogen Urine Negative (Negative)
--- NOTE | 2020-04-14 16:05 | Hospitalist Progress Note ---
Date of Service April 14, 2020 Assessment & Plan (1) Stroke-like symptoms: Patient is an 81 yr male with H/O CVA with residual right hemiparesis, chronic atrial fibrillation anticoagulated on warfarin, CAD (s/p CABG in 1997), HTN, HLD, T2DM, CKD stage IV, COPD, bilateral carotid artery stenosis, history of subtotal colectomy with ileostomy in 2013 who presents with left lower extremity weakness for the past 3 days. Strokelike symptoms Presented with left lower extremity weakness and slurred speech for 3 days H/O CVA in 2013 with residual RLE weakness-- uses walker for ambulation --CT head:No acute intracranial abnormality. --MRI Brain:No acute intracranial abnormality, specifically there is no evidence of acute or subacute infarct. No abnormal enhancement. Age-related involutional changes with advanced chronic microvascular ischemic disease. --Carotid Doppler:Findings suggestive of 50-69% stenosis of the proximal left internal carotid artery with mild progression since exam of September 05, 2016. Findings suggestive of 50-69% stenosis of the proximal to mid right internal car otid artery. --ECHO: No intra-atrial shunt. Continue Aspirin, Lipitor Also on Coumadin, heparin bridge until INR is therapeutic Evaluated by speech therapy Continue PT OT Await for neurology input (2) Atrial fibrillation with rapid ventricular response: H/o chronic atrial fibrillation Subtherapeutic INR Wean off of diltiazem drip as able Continue p.o. Cardizem, metoprolol Continue IV heparin for now until INR is therapeutic Continue Coumadin Monitor INR:1.5 Hypokalemia Hypomagnesemia Replete electrolytes as needed (3) Complicated UTI (urinary tract infection): Urine cx from 04/08/19 with pansensitive E coli Had not yet started Ceftin prescribed by urology Continue Rocephin day 2 (4) DM type 2 (diabetes mellitus, type 2): A1c 10.4 in 01/19 Patient only taking glipizide, has been on ocean transportation intermediary steroids Continue insulin therapy while hospitalized Glycemic consult placed for mgmt BSG ACHS (5) Piriformis syndrome of left side: Follows with ortho for this, also OA. Continue chronic prednisone 20mg daily (6) CAD (coronary artery disease): H/O CABG x 5 1997 and stent placement in 2003 Continue ASA, Statin, Metoprolol (7) Hypertension: Continue metoprolol, Cardizem (8) CKD (chronic kidney disease), stage IV: Chronic kidney disease stage IV, baseline creatinine ~2 Avoid nephrotoxic agents Monitor renal function (9) BPH (benign prostatic hyperplasia): Continue finasteride, Alfuzosin (10) Chronic obstructive pulmonary disease: No acute exacerbation Continue Spiriva, DuoNeb as needed DVT Px: Coumadin Also on IV heparin till INR therapeutic Code status: FULL Disposition: PT/OT prior to discharge Admission and Anticipated Discharge Date Admission Date: April 13, 2020 Subjective Patient is seen and examined at bedside States having left-sided weakness and some slurred speech Also reports blurred vision associated with some double vision. Denies chest pain, shortness of breath, dizziness, nausea, abdominal pain Offers no other complaints Review of Systems Review of Systems: All systems reviewed & are unremarkable except as noted in HPI & below Physical Exam Physical Exam: Physical Exam: Vitals signs as noted above General Appearance:Moderately built and nourished, no apparent distress Head: normocephalic, Atraumatic Eyes: normal inspection, EOMI, + blurred vision, double vision (H/O L eye glaucoma ) Neck: supple, Trachea midline Respiratory/Chest: Normal breath sounds, CTA, No accessory muscle use Cardiovascular: Irregularly irregular, tachycardia, no murmur Abdomen/GI:Soft, Non tender, Bowel sounds present Extremities/Musculoskelatal:normal inspection, no edema Neurologic/Psych:AAOX3, + slurred speech, left-sided weakness--3-4/5; chronic RLE 2/5 Skin: normal color, warm Results & Data Results & Data ([facility]) Vital Signs (Past 12 Hours) Vital Signs Temp Pulse Pulse Resp BP BP Pulse Ox 04/14/20 11:24 36.5 C 101 H 18 135/82 95 04/14/20 08:31 36.7 C 92 H 19 111/68 96 04/14/20 04:00 81 15 131/76 97 Laboratory Results Short CBC 04/13/20 04/13/20 04/14/20 Range/Units 17:12 23:31 04:19 WBC 10.20 9.20 8.21 (4.8-10.8) K/uL Hgb 13.8 L 12.0 L 11.9 L (14.0-18.0) g/dL Hct 40.7 L 34.8 L 34.6 L (42-52) % Plt Count 230 200 211 (130-400) K/uL BMP 04/13/20 04/13/20 04/14/20 17:12 18:29 04:19 Sodium 133 L 139 Potassium 4.3 3.4 L D Chloride 102 109 H Carbon Dioxide 21 24 BUN 35 H 26 H Creatinine 1.46 H 0.95 D Glucose 386 H* 132 H Calcium 9.5 8.8 Cardiac Enzymes 04/13/20 Range/Units 17:12 Troponin I < 0.015 (0-0.045) ng/ml Liver Function 04/13/20 04/13/20 Range/Units 17:12 18:29 Total Bilirubin 0.7 (0.2-1) mg/dl AST 22 (15-37) U/L ALT 42 (12-78) U/L Alkaline Phosphatase 88 (45-117) U/L Albumin 2.7 L (3.4-5.0) gm/dl Urine 04/14/20 Range/Units 14:40 Urine Color Dark Yellow Urine Appearance Clear (Clear) Urine pH 5.0 (4.5-7.5) Ur Specific [place] 1.023 (1.000-1.030) Urine Protein 1+ H (Negative) Urine Glucose (UA) Negative (Negative)
--- NOTE | 2020-04-14 16:14 | Neurology Consultation ---
Date of Consultation April 14, 2020 Assessment & Plan (1) Stroke-like symptoms: 1. optimize INR 2.0-3.0 subtherapeutic at admission 2. possible UTI - treat appropriately 3. optimize HTN, HLD, DM LDL <70 4. TTE- no ASD 5. MRI brain no new stroke 6. would recommend MRI c spine with and without r/o cord involvement due to leg weakness 7. continue aspirin 81 mg 8. heparin until INR is therapeutic. Present on Admission?: Yes (2) Atrial fibrillation with rapid ventricular response: 1. optimize INR 2.0-3.0 Present on Admission?: Yes Supervising Physician Co-Signing Physician Notes I have seen and discussed above patient with Dr Elmer Sanchez, neurology I have reviewed the above note discussed this case with Una Guo PA-C and have also attempted to corroborate the history from the patient but in actuality neither Aurora Guo or myself could confirm the history on the chart i.e. that of a 3-day acute onset of left arm and leg weakness. The patient himself talks vaguely about this progressive weakness perhaps a weeks duration then changes his story claims the weakness is intermittent and demonstrates during the examination intermittent inability to raise the left leg alternating with full ability to raise it. He has had a CVA involving the deep portions of the left hemisphere probably 10 years ago and on MRI has a lacunar infarction in the appropriate area and on exam has a right hemiparesis but the degree of paresis of the left arm and leg is variable he denies any numbness or tingling there is a history of a recent urinary tract infection and indeed a culture was positive for E. coli and he may have been treated but there is no corroboration of this in the chart either All this occurs in the setting of multiple vascular risk factors including hypertension diabetes coronary artery disease bilateral mild carotid stenoses and with an MRI scan that shows in addition to the deep lacunar infarction in the left hemisphere, fair amount of confluent white matter disease which ended up itself could explain some of the weakness of a global nature He does admit to having frequent falls does talk about some neck pain but on exam I am really not impressed that he has a lot of myelopathy I cannot get the left toe to be extensor, the right toe sign is indeterminate, he has generalized hyperreflexia but good strength and has sensory loss in lower extremities I would expect him to diabetic in a man of his age but he does have a clumsiness of the left arm is hard to explain I am not sure we can come up with an answer here but there is no evidence for new infarction, we are going to recommend an MRI of the neck to be done just to be sure he does not have an underlying severe cervical canal stenosis that could have stepped off and we will check a CPK and acetylcholine receptor antibody but frankly I do not think were going to come up with much on the latter laboratory studies We will be back tomorrow to check on some of the results and to reassess him Elmer Sanchez MD History of Present Illness Reason for Consultation: stroke eval Requesting Physician: Rui Del Cid MD Attending Physician: Rui Del Cid MD History of Present Illness Omero is a 84 year old male with PMH - old CVA with residual right HP, chronic AF anticoagulated on warfarin, CAD (s/p CABG in 1997), HTN, HLD, DM2, CKD stage IV, COPD, bilateral carotid artery stenosis, history of subtotal colectomy with ileostomy in 2013 who presents with left lower extremity weakness for the past 3 days. He was sitting in armchair on Sunday when he slumped over after becoming weak. Then had difficulty moving left leg. He has residual right lower extremity weakness from previous stroke in 2013 but has had full strength in left leg and has been able to ambulate with walker. Over the past few days, patient has barely been able to lift up left leg and has had difficulty ambulating. also noted some slurring of speech over the past few days. He was diagnosed with a UTI in clinic earlier this week but has not yet started antibiotic. Has had normal output in colostomy. denies CP, SOB abdominal pain, not a good historian, states he can't lift his left leg but if examiner comes back in 10 minutes he will lift it and he did left it then. Allergies Allergy/AdvReac Type Severity Reaction Status Date / Time codeine Allergy Intermediate ITCHING Verified 04/13/20 19:59 tramadol Allergy Intermediate ITCHING Verified 04/13/20 19:59 phenytoin [From Dilantin] Allergy Unknown can't Verified 04/13/20 19:59 remember clindamycin Allergy BURNING Verified 04/13/20 20:03 SENSATION IN THROAT hydrocodone AdvReac Intermediate NAUSEA Verified 04/13/20 19:59 Home Medications Medication Instructions Recorded Confirmed Type aspirin [Aspirin Low Dose] 81 mg PO DAILY 02/13/18 04/13/20 History brimonidine 1 drp OPB BID 02/13/18 04/13/20 History cholecalciferol (vitamin D3) 1,000 tab PO QPM 02/13/18 04/13/20 History [Vitamin D3] diltiazem HCl 240 mg PO QAM 02/13/18 04/13/20 History gabapentin 100 mg PO TID 02/13/18 04/13/20 History omeprazole 20 mg PO BID 02/13/18 04/13/20 History timolol 1 drp OPB BID 02/13/18 04/13/20 History zinc 50 mg PO QAM 02/13/18 04/13/20 History warfarin 1 mg tablet 1 mg PO [id number] tab 03/28/18 04/13/20 History Probiotic 3,000 mmu cells PO DAILY 08/15/19 04/13/20 History ascorbic acid (vitamin C) [Vitamin 500 mg PO QAM 08/15/19 04/13/20 History C] cyanocobalamin (vitamin B-12) 1,000 mcg PO DAILY 08/15/19 04/13/20 History [Vitamin B-12] furosemide 40 mg PO QAM 08/15/19 04/13/20 History levothyroxine 88 mcg PO QAM 08/15/19 04/13/20 History metoprolol succinate 100 mg PO QAM 08/15/19 04/13/20 History triamcinolone acetonide 1 applic TOPICAL BID PRN 08/15/19 04/13/20 History warfarin 1.5 mg PO .Sunday08/15/19 04/13/20 History cefuroxime axetil 250 mg tablet 250 mg PO BID 7 Days #14 tab 04/12/20 04/13/20 Rx dorzolamide 1 drp OPB BID 04/13/20 04/13/20 History glipizide 5 mg PO DAILY 04/13/20 04/13/20 History latanoprost 1 drp OPL HS 04/13/20 04/13/20 History magnesium oxide 400 mg PO DAILY 04/13/20 04/13/20 History oxycodone 10 mg PO Q12 PRN 04/13/20 04/13/20 History prednisone 20 mg PO DAILY 04/13/20 04/13/20 History ropinirole 0.25 mg PO HS 04/13/20 04/13/20 History tiotropium-olodaterol [Stiolto 2 puff INHALATION DAILY 04/13/20 04/13/20 History Respimat] atorvastatin [Lipitor] 40 mg PO DAILY 04/14/20 04/14/20 History finasteride 5 mg PO DAILY 04/14/20 04/14/20 History Patient History Medical History (Updated 04/14/20 @ 00:38 by Reno Nair) A-fib EBONY inhibitor intolerance "hyperkalemia and MIAH" Cancer SKIN (BCC) Chronic anticoagulation Chronic obstructive pulmonary disease STABLE CKD (chronic kidney disease), 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 Dysuria Glaucoma LEFT Hearing deficit High cholesterol History of renal calculi Hypothyroid IgG lambda monoclonal gammopathy Obesity Opioid dependence Osteoarthritis Parastomal hernia Piriformis syndrome of left side Right-sided ischial pain Stroke ~2012; RIGHT SIDED RESIDUAL WEAKNESS T2DM (type 2 diabetes mellitus) Valvular disease 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, MILD TR Surgical History (Updated 04/13/20 @ 21:44 by Liza Burton PA-C) H/O colectomy "08/12/13-total abdominal prostatectomy ileoanal anastamosis creation, ileal reservoir including loop ileostomy" On 08/17/14 20:31 Jocelyne Torres wrote "total abdominal prostatectomy ileoanal anastamosis creation, ileal reservoir including loop ileostomy" History of back surgery History of bladder stone EXCISION History of cataract surgery History of intestinal surgery COLOSTOMY 2/2 COLON HEMORRHAGE History of lumbar surgery History of prostate surgery History of tooth extraction Hx of arthroscopic knee surgery RIGHT Hx of cardiac cath S/P CABG X5 (1997), STENT (2003) MOST RECENT= 2011= NO STENTS Hx of eye surgery RETINAL PUCKER REPAIR (RIGHT) Hx of heart bypass surgery CABG X 5 (~1997) Hx of hernia repair X2 S/P CABG x 5 "1997" S/P cataract surgery S/P coronary artery stent placement "2008" S/P exploratory laparotomy "08/12/[address] Amie Thompson" S/P hernia repair Family History Mother Family history of diabetes mellitus CHF (congestive heart failure) Brother Cancer Esophageal Social History Smoking Status: Former smoker packs per day: 2; Years Smoked: 30; Hx Alcohol Use: No Hx Substance Use: No Preferred Language: Ecuadorean Communication Ability: Effective Visual Impairment: Limited Hearing Ability: Hard of Hearing Hematology Nurse Educator Required: No Beliefs That Will Affect Care: None marital status: Current Living Situation: Spouse current occupational status: retired Other Information That Helps Us Care for You: No Feels Safe at Home: Yes Safety Concerns: Feels Safe At This Time Assistive Devices: None Review of Systems Review of Systems: All systems reviewed & are unremarkable except as noted in HPI & below and All systems reviewed & are unremarkable except as noted in Subjective Physical Exam Physical Exam: Physical Exam: Constitutional: appearance over nourished, healthy Ears, Nose, Mouth and Throat: mucous membranes moist, no injection and skin normal, eyes normal Cardiovascular: irregular Respiratory: course breath sounds Musculoskeletal: no peripheral edema and distant distal pulses Skin: stigmata of neurocutaneous disease bilateral LE, with scattered bruising on arms and legs Eyes: extraocular muscles intact (EOMI) and pupils equal, round and reactive to light (PERRL) NEUROLOGIC EXAMINATION: Mental status: Alert and interactive Oriented unable to state his medications but identifies button thumb, can not say no ifs ands buts Oriented to person Speech dysphasia with speech Cranial Nerves slight flattening of nasolabial fold on right Reflexes: Deep tendon reflexes were bilaterally Sensory: decreased to light and vibration Coordination: unable to lift right arm for finger to nose Gait/Stance: Posture lying in bed Motor: lift left arm above chest Strength: 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 triceps 4+/5 bilaterally, hip flex right 4/5 plantar flex ext 0/5, left hip flex 4+/5 plantar flex ext 5/5 Results & Data ([facility]) Vital Signs (Past 12 Hours) Vital Signs Temp Pulse Resp BP Pulse Ox 04/14/20 11:24 36.5 C 101 H 18 135/82 95 04/14/20 08:31 36.7 C 92 H 19 111/68 96 Laboratory Results Abnormal lab results 04/13/20 04/13/20 04/13/20 Range/Units 17:12 17:12 17:12 RBC 4.53 L (4.7-6.1) M/uL Hgb 13.8 L (14.0-18.0) g/dL Hct 40.7 L (42-52) % RDW Std Deviation 52.3 H (36.4-46.3) fL RDW Coeff of Saul 15.8 H (11.5-14.5) % MPV 10.6 H (7.4-10.4) fL Neut # (Auto) 8.34 H (1.4-6.5) K/uL Lymph # (Auto) 0.53 L (1.2-3.4) K/uL [place] # (Auto) 0.73 H (0.11-0.59) K/uL Immature Gran # (Auto) 0.53 H (0.00-0.02) K/uL Absolute Nucleated RBC (0-0) K/uL PT 15.5 H (9.0-12.0) Seconds INR 1.5 H (0.9-1.1) APTT (21.0-31.0) Seconds Sodium 133 L (136-145) mmol/L Potassium (3.5-5.1) mmol/L Chloride (98-107) mmol/L BUN 35 H (7-18) mg/dl Creatinine 1.46 H (0.6-1.4) mg/dl BUN/Creatinine Ratio 24.2 H (10-20) Glucose 386 H* (70-99) mg/dl POC Glucose (70-99) mg/dl Hemoglobin A1c (4.5-5.6) % Magnesium (1.8-2.4) mg/dl Albumin 2.7 L (3.4-5.0) gm/dl Albumin/Globulin Ratio 0.7 L (0.9-2) Triglycerides (0-150) mg/dl Urine Protein (Negative) Ur Leukocyte Esterase (Negative) U Epithel Cells (Auto) (0-5) /lpf 04/13/20 04/13/20 04/13/20 Range/Units 18:29 20:19 23:31 RBC 3.90 L (4.7-6.1) M/uL Hgb 12.0 L (14.0-18.0) g/dL Hct 34.8 L (42-52) % RDW Std Deviation 50.5 H (36.4-46.3) fL RDW Coeff of Saul 15.7 H (11.5-14.5) % MPV (7.4-10.4) fL Neut # (Auto) 7.34 H (1.4-6.5) K/uL Lymph # (Auto) 0.92 L (1.2-3.4) K/uL [place] # (Auto) (0.11-0.59) K/uL Immature Gran # (Auto) 0.51 H (0.00-0.02) K/uL Absolute Nucleated RBC 0.02 H (0-0) K/uL PT (9.0-12.0) Seconds INR (0.9-1.1) APTT (21.0-31.0) Seconds Sodium (136-145) mmol/L Potassium (3.5-5.1) mmol/L Chloride (98-107) mmol/L BUN (7-18) mg/dl Creatinine (0.6-1.4) mg/dl BUN/Creatinine Ratio (10-20) Glucose (70-99) mg/dl POC Glucose 356 H* (70-99) mg/dl Hemoglobin A1c (4.5-5.6) % Magnesium 1.7 L (1.8-2.4) mg/dl Albumin (3.4-5.0) gm/dl Albumin/Globulin Ratio (0.9-2) Triglycerides (0-150) mg/dl Urine Protein (Negative) Ur Leukocyte Esterase (Negative) U Epithel Cells (Auto) (0-5) /lpf 04/13/20 04/14/20 04/14/20 Range/Units 23:31 00:30 03:55 RBC (4.7-6.1) M/uL Hgb (14.0-18.0) g/dL Hct (42-52) % RDW Std Deviation (36.4-46.3) fL RDW Coeff of Saul (11.5-14.5) % MPV (7.4-10.4) fL Neut # (Auto) (1.4-6.5) K/uL Lymph # (Auto) (1.2-3.4) K/uL [place] # (Auto) (0.11-0.59) K/uL Immature Gran # (Auto) (0.00-0.02) K/uL Absolute Nucleated RBC (0-0) K/uL PT 14.9 H (9.0-12.0) Seconds INR 1.4 H (0.9-1.1) APTT 32.4 H (21.0-31.0) Seconds Sodium (136-145) mmol/L Potassium (3.5-5.1) mmol/L Chloride (98-107) mmol/L BUN (7-18) mg/dl Creatinine (0.6-1.4) mg/dl BUN/Creatinine Ratio (10-20) Glucose (70-99) mg/dl POC Glucose 182 H 151 H (70-99) mg/dl Hemoglobin A1c (4.5-5.6) % Magnesium (1.8-2.4) mg/dl Albumin (3.4-5.0) gm/dl Albumin/Globulin Ratio (0.9-2) Triglycerides (0-150) mg/dl Urine Protein (Negative) Ur Leukocyte Esterase (Negative) U Epithel Cells (Auto) (0-5) /lpf 04/14/20 04/14/20 04/14/20 Range/Units 04:19 04:19 04:19 RBC 3.89 L (4.7-6.1) M/uL Hgb 11.9 L (14.0-18.0) g/dL Hct 34.6 L (42-52) % RDW Std Deviation 50.5 H (36.4-46.3) fL RDW Coeff of Saul 15.6 H (11.5-14.5) % MPV 10.6 H (7.4-10.4) fL Neut # (Auto) (1.4-6.5) K/uL Lymph # (Auto) 0.72 L (1.2-3.4) K/uL [place] # (Auto) (0.11-0.59) K/uL Immature Gran # (Auto) 0.52 H (0.00-0.02) K/uL Absolute Nucleated RBC 0.03 H (0-0) K/uL PT (9.0-12.0) Seconds INR (0.9-1.1) APTT (21.0-31.0) Seconds Sodium (136-145) mmol/L Potassium 3.4 L D (3.5-5.1) mmol/L Chloride 109 H (98-107) mmol/L BUN 26 H (7-18) mg/dl Creatinine (0.6-1.4) mg/dl BUN/Creatinine Ratio 27.8 H (10-20) Glucose 132 H (70-99) mg/dl POC Glucose (70-99) mg/dl Hemoglobin A1c 9.5 H (4.5-5.6) % Magnesium (1.8-2.4) mg/dl Albumin (3.4-5.0) gm/dl Albumin/Globulin Ratio (0.9-2) Triglycerides 213 H (0-150) mg/dl Urine Protein (Negative) Ur Leukocyte Esterase (Negative) U Epithel Cells (Auto) (0-5) /lpf 04/14/20 04/14/20 04/14/20 Range/Units 04:19 06:02 07:18 RBC (4.7-6.1) M/uL Hgb (14.0-18.0) g/dL Hct (42-52) % RDW Std Deviation (36.4-46.3) fL RDW Coeff of Saul (11.5-14.5) % MPV (7.4-10.4) fL Neut # (Auto) (1.4-6.5) K/uL Lymph # (Auto) (1.2-3.4) K/uL [place] # (Auto) (0.11-0.59) K/uL Immature Gran # (Auto) (0.00-0.02) K/uL Absolute Nucleated RBC (0-0) K/uL PT 15.9 H (9.0-12.0) Seconds INR 1.5 H (0.9-1.1) APTT 129.0 H* (21.0-31.0) Seconds Sodium (136-145) mmol/L Potassium (3.5-5.1) mmol/L Chloride (98-107) mmol/L BUN (7-18) mg/dl Creatinine (0.6-1.4) mg/dl BUN/Creatinine Ratio (10-20) Glucose (70-99) mg/dl POC Glucose 140 H (70-99) mg/dl Hemoglobin A1c (4.5-5.6) % Magnesium (1.8-2.4) mg/dl Albumin (3.4-5.0) gm/dl Albumin/Globulin Ratio (0.9-2) Triglycerides (0-150) mg/dl Urine Protein (Negative) Ur Leukocyte Esterase (Negative) U Epithel Cells (Auto) (0-5) /lpf 04/14/20 04/14/20 Range/Units 13:03 14:40 RBC (4.7-6.1) M/uL Hgb (14.0-18.0) g/dL Hct (42-52) % RDW Std Deviation (36.4-46.3) fL RDW Coeff of Saul (11.5-14.5) % MPV (7.4-10.4) fL Neut # (Auto) (1.4-6.5) K/uL Lymph # (Auto) (1.2-3.4) K/uL [place] # (Auto) (0.11-0.59) K/uL Immature Gran # (Auto) (0.00-0.02) K/uL Absolute Nucleated RBC (0-0) K/uL PT (9.0-12.0) Seconds INR (0.9-1.1) APTT (21.0-31.0) Seconds Sodium (136-145) mmol/L Potassium (3.5-5.1) mmol/L Chloride (98-107) mmol/L BUN (7-18) mg/dl Creatinine (0.6-1.4) mg/dl BUN/Creatinine Ratio (10-20) Glucose (70-99) mg/dl POC Glucose 146 H (70-99) mg/dl Hemoglobin A1c (4.5-5.6) % Magnesium (1.8-2.4) mg/dl Albumin (3.4-5.0) gm/dl Albumin/Globulin Ratio (0.9-2) Triglycerides (0-150) mg/dl Urine Protein 1+ H (Negative) Ur Leukocyte Esterase Trace H (Negative) U Epithel Cells (Auto) 20-30 H (0-5) /lpf Diagnostic Findings MRI brain -No acute intracranial abnormality, specifically there is no evidence of acute or subacute infarct. No abnormal enhancement. Age-related involutional changes with advanced chronic microvascular ischemic disease. Carotid doppler- Findings suggestive of 50-69% stenosis of the proximal left internal carotid artery with mild progression since exam of September 05, 2016. Findings suggestive of 50-69% stenosis of the proximal to mid right internal carotid artery. TTE- 55-60% no ASD
[2020-04-14 16:37] LABS: Partial Thromboplastin Ratio 2.7
[2020-04-14 16:50] LABS: Partial Thromboplastin Time 75.2 Seconds (21.0-31.0)
[2020-04-14] MEDS ORDERED: INSULIN GLARGINE SOLOSTAR 100 UNITS/ML 3 ML PEN SC ONE ×2 (17:15→17:30)
[2020-04-14] MEDS: WARFARIN SOD 5 MG TAB PO SCH (17:19)
[2020-04-14] MEDS: BRIMONIDINE TARTRATE 0.2% 5ML OPB SCH ×2 (17:45→20:54)
[2020-04-14] MEDS ORDERED: GADOBUTROL 65ML VIAL IV ONE (20:03)
--- NOTE | 2020-04-14 20:13 | Magnetic Resonance Report ---
MR cervical spine wo/w con CLINICAL HISTORY: Neck pain radiculopathy. TRAUMA TECHNIQUE: Sagittal and axial T1, T2 and STIR images were obtained. Images were acquired before and a fter the administration of 9.7 cc of Optiray 320. COMPARISON STUDY: CT scan performed 2017 There are no suspicious areas of marrow replacement. No intrinsic cervical cord lesions are visualize d. C2-3: There is a circumferential disc bulge. There is no significant spinal stenosis. There is left-s ided foraminal narrowing. C3-4: There is a circumferential disc bulge with mild spinal canal narrowing. There is bilateral fora giana narrowing C4-5: There is a circumferential disc bulge. There is a small right foraminal disc osteophyte complex . There is mild spinal canal narrowing. There is bilateral foraminal narrowing C5-6 :There is a broad-based central disc protrusion. There is effacement the anterior thecal sac wit h mild to moderate spinal canal narrowing. There is bilateral foraminal narrowing. C6-7: There is circumferential disc bulge with mild spinal canal narrowing. There is bilateral forami nal narrowing C7-T1: There is no evidence of disc bulge or focal herniation. There is no evidence of spinal or fora giana stenosis. Postcontrast images reveal no pathologically enhancing lesions. IMPRESSION: 1. No evidence of occult fracture 2. No spinal cord lesions identified 3. Moderately advanced multilevel spondylytic changes with multilevel spinal canal narrowing most pro nounced at the C5-C6 level. There is significant multilevel bilateral foraminal narrowing. ACT 112: Negative or not required by law. Electronically signed by: Darrel Ewing M.D. 04/14/2020 8:12 PM
[2020-04-14] MEDS: LATANOPROST 0.005% OP SOLN 2.5 ML BTL OPL SCH (20:42)
[2020-04-14] MEDS: rOPINIRole HCL 0.25 MG TABLET PO SCH (20:45)
[2020-04-14] MEDS: BENZOCAINE 20% (ORAJEL) 11.9 GM TUBE MT PRN (20:54)
[2020-04-14] MEDS: cefTRIAXone SODIUM 2,000 MG in DEXTROSE 5% 50 ML IV SCH (22:58)
[2020-04-15 00:09] LABS: Partial Thromboplastin Ratio 3.8
[2020-04-15] MEDS: INSULIN ASPART 100 UNITS/ML 3 ML PEN SC SCH ×5 (04:07→22:05)
[2020-04-15] MEDS: LEVOTHYROXINE SODIUM 88 MCG TABLET PO SCH (04:07)
[2020-04-15] MEDS: dilTIAZem HCL 120 MG CAPCR PO SCH (07:50)
[2020-04-15] MEDS: predniSONE 20 MG TAB PO SCH (07:50)
[2020-04-15] MEDS: ATORVASTATIN 40 MG TAB PO SCH (07:50)
[2020-04-15] MEDS: MAGNESIUM OXIDE 400 MG TAB PO SCH (07:50)
[2020-04-15] MEDS: FINASTERIDE 5 MG TAB PO SCH (07:52)
[2020-04-15] MEDS: BRIMONIDINE TARTRATE 0.2% 5ML OPB SCH ×2 (07:52→22:05)
[2020-04-15] MEDS: METOPROLOL SUCC 50MG EXT REL TAB PO SCH (07:52)
[2020-04-15] MEDS: ASPIRIN 81 MG ECTAB PO SCH (07:54)
[2020-04-15] MEDS: UMECLIDINIUM/VILANTEROL 62.5/25MCG 7 PUFFS/INHALER INH SCH (07:54)
[2020-04-15 07:55] LABS: Basophils # (auto) 0.02 K/uL (0-0.2); Basophils % (auto) 0.2 %; Eosinophils # (auto) 0.03 K/uL (0-0.5); Eosinophils % (auto) 0.3 %; Immature Granulocytes # (auto) 0.47 K/uL (0.00-0.02); Immature Granulocytes % (auto) 4.9 %; Lymphocytes # (auto) 0.77 K/uL (1.2-3.4); Lymphocytes % (auto) 8.1 %; Mean Corpuscular Hemoglobin 30.8 pg (25-34); Mean Corpuscular Hgb Conc 34.3 g/dL (32-36); Mean Corpuscular Volume 89.7 fL (80-100); Mean Platelet Volume 10.1 fL (7.4-10.4); Monocytes # (auto) 0.68 K/uL (0.11-0.59); Monocytes % (auto) 7.1 %; Neutrophils # (auto) 7.55 K/uL (1.4-6.5); Neutrophils % (auto) 79.4 %; Nucleated RBC # (auto) 0.03 K/uL (0-0); Nucleated RBC % (auto) 0.4 %; Platelet Count 213 K/uL (130-400); RDW Coefficient of Variation 16.2 % (11.5-14.5); RDW Standard Deviation 52.1 fL (36.4-46.3); White Blood Count 9.52 K/uL (4.8-10.8)
[2020-04-15] MEDS: TIMOLOL MALEATE 0.5% OP SOLN 5 ML BTL OP SCH ×2 (07:55→22:05)
[2020-04-15] MEDS: PANTOprazole 40 MG TAB PO SCH ×2 (07:55→22:01)
[2020-04-15] MEDS: GABAPENTIN 100 MG CAP PO SCH ×3 (07:55→22:01)
[2020-04-15] MEDS: DORZOLAMIDE HCL 2% OPH SOLN 10 ML BTL OPB SCH ×2 (07:56→22:03)
[2020-04-15] MEDS ORDERED: INSULIN HUMAN NPH SC ONE (08:15)
[2020-04-15 08:17] LABS: INR 1.5 (0.9-1.1); Partial Thromboplastin Ratio 2.7; Prothrombin Time 15.6 Seconds (9.0-12.0)
[2020-04-15 08:19] LABS: Partial Thromboplastin Time 74.9 Seconds (21.0-31.0)
[2020-04-15 08:36] LABS: BUN Creatinine Ratio 23.9 (10-20); Calcium 8.8 mg/dl (8.5-10.1); Est GFR (African American) 83.3; Est GFR (Non-African American) 71.9; Magnesium 1.9 mg/dl (1.8-2.4); Potassium 3.6 mmol/L (3.5-5.1)
--- NOTE | 2020-04-15 11:24 | Pharmacy Report ---
Pharmacy Glycemic Short Note 2 - Date of Service April 15, 2020 - Glycemic Short BSG Results (Last 24 hours): 04/14/20 04/14/20 04/14/20 13:03 17:02 17:04 Glucose POC Glucose 146 H 327 H* 351 H* 04/14/20 04/14/20 04/15/20 20:43 23:38 04:03 Glucose POC Glucose 258 H 154 H 109 H 04/15/20 04/15/20 07:26 07:29 Glucose 94 POC Glucose 93 OUTPATIENT ANTIDIABETIC REGIMEN: * Glipizide (since February 2020. Was on glimepiride prior to that) * Chronic prednisone 20 mg PO daily * HbA1c elevated at 9.5% ASSESSMENT: 04/15 * Post-prandial BSG's with significant elevations yesterday. CHO ratio tightened last night. May require additional tightening today. * AM fasting BSG below goal range but not hypoglycemic. Will reduce overall basal dose (received 20 units total yesterday between Lantus and NPH), but switch to exclusively NPH 04/14 * BSG's responded well to interventions yesterday, now within goal for the last two checks * Heparin drip remains on, and currently at 31 mL/hr. Diltiazem drip currently 10 mL/hr, but may transition off now that po started. Cumulative D5W rate therefore 41 mL/hr providing ~50 g IV dextrose per day * T2DM diet ordered starting at lunch today * Home prednisone 20 mg po daily continuing * Will give small dose NPH with prednisone/lunch today. Anticipate will exclusively use NPH in AM as basal insulin for the duration of admission, and potentially on discharge as well 04/13 * HC is an 84 year old male who presents from PCP for evaluation of possible TIA * BSG in ED of 386 mg/dL - no insulin received * BSG of 356 mg/dL at time of glycemic consult * Will order one-time IV insulin bolus, 0.2 unit/kg Lantus, and Novolog with overnight checks * Per admitting hospitalist - last HbA1c > 10%, recheck ordered for tomorrow PLAN FOR INPATIENT GLYCEMIC CONTROL: * Hold outpatient oral diabetes medication * Basal insulin * Increase NPH 12 units SC x1 today * Discontinue Lantus * Bolus insulin * NovoLog per scale ACHS or Q6hrs while NPO * Goal Range: Low 120 mg/dL - High 160 mg/dL * Correction Factor: 20 mg/dL/unit * Tighten Nutritional / Prandial insulin per carb ratio of 1 unit per 6 grams CHO consumed PLAN FOR DISCHARGE: * Appreciate input from community nutrition educator (Gifty) * helps with diabetes management * Checks AM fasting BSG, which is usually adequate. However, given prednisone at home, elevated HbA1c that would not be explained by AM fasting BSG, and lack of post-prandial checks, post prandial checks were recommended. * Follows with [facility] * Asssessment * Agree that patient should start checking post-prandial BSG's as well. Doubt glipizide monotherapy will be successful in achieving goal HbA1c (even though it has only been two months) since A1c is more heavily weighted towards most recent two weeks of BSG's and it remains significantly elevated at 9.5%. Insulin may be required to achieve goal BSG and once-daily NPH would be a good option due to outpatient prednisone * Recommendations * Increase BSG checks to BID or TID (AM fasting, and then at least one additional check prior to dinner and/or bedtime) * Increase glipizide to 10 mg po daily, given 30 minutes prior to breakfast with prednisone * No NPH for now (patient and not currently ready per Gifty) * Close follow-up with [facility]
[2020-04-15 13:46] LABS: Partial Thromboplastin Ratio 1.7
[2020-04-15 13:55] LABS: Partial Thromboplastin Time 48.2 Seconds (21.0-31.0)
[2020-04-15] MEDS: WARFARIN SOD 5 MG TAB PO SCH (15:35)
--- NOTE | 2020-04-15 16:08 | Communication Note ---
Date of Service: April 15, 2020 I saw Mr. Tomlin again today reviewed his cervical MRI which does show cervical canal stenosis but no cord signal or significant cord compromise and his CPK which is normal. His acetylcholine receptor antibody titer is pending Today he gives me a little better history and admits that he was confused yesterday and had his "days mixed up" he corroborates the story that is recorded on the initial history and physical i.e. that having a sudden onset of left leg and to lesser degree arm weakness about 4 days ago certainly this would be consistent with a small CVA as with his exam but the MRI shows nothing acute on diffusion-weighted imaging done 3 days after the event. There is a lot of confluent white matter changes and the old CVA in the deep left hemisphere nothing in the right hemisphere or brainstem and I can see Up to 7% of clinical strokes can be associated with negative MRI scans for acute lesions and this may be what we are dealing with here He certainly has atrial fibrillation with subtherapeutic on his INR and my recommendation would be to continue to try to get him back into the therapeutic window continue his low-dose aspirin I suspect he will need some rehabilitation efforts but he is adamantly against it today and thinks he can be cared for at home At this point neurology is going to sign off with the presumptive diagnosis of a small MRI negative CVA likely involving deep portions of the right hemisphere possibly embolic as the onset per history was acute rather than progressive but in a man who also has in addition to embolic sources in the atrial fibrillation, a lot of underlying small vessel disease therefore justifying addition of an antiplatelet agent on top of his anticoagulant The stroke algorithm will probably require us to see him in our office We may be able to convert this to a video examination if he would be able to do so in his home I hate to have his have the burden of transportation to our neurology offices in [facility] for what I consider will be a routine very rapid reevaluation post stroke We will try to arrange this through our scheduling service Elmer Sanchez MD
--- NOTE | 2020-04-15 16:20 | Hospitalist Progress Note ---
Date of Service April 15, 2020 Assessment & Plan (1) Stroke-like symptoms: Patient is an 81 yr male with H/O CVA with residual right hemiparesis, chronic atrial fibrillation anticoagulated on warfarin, CAD (s/p CABG in 1997), HTN, HLD, T2DM, CKD stage IV, COPD, bilateral carotid artery stenosis, history of subtotal colectomy with ileostomy in 2013 who presents with left lower extremity weakness for the past 3 days. Strokelike symptoms Presumptive small MRI negative CVA Presented with left lower extremity weakness and slurred speech for 3 days H/O CVA in 2013 with residual RLE weakness-- uses walker for ambulation --CT head:No acute intracranial abnormality. --MRI Brain:No acute intracranial abnormality, specifically there is no evidence of acute or subacute infarct. No abnormal enhancement. Age-related involutional changes with advanced chronic microvascular ischemic disease. --Carotid Doppler:Findings suggestive of 50-69% stenosis of the proximal left internal carotid artery with mild progression since exam of September 05, 2016. Findings suggestive of 50-69% stenosis of the proximal to mid right internal carotid artery. --ECHO: No intra-atrial shunt. Continue Aspirin, Lipitor Also on Coumadin, heparin bridge until INR is therapeutic Evaluated by speech therapy Continue PT OT Appreciate neurology input Patient currently not interested in rehab placement Needs follow-up with neurology upon discharge (2) Atrial fibrillation with rapid ventricular response: H/o chronic atrial fibrillation Subtherapeutic INR Wean off of diltiazem drip as able Continue p.o. Cardizem, metoprolol Continue IV heparin for now until INR is therapeutic Continue Coumadin Monitor INR:1.5 Consulted cardiology for Input Hypokalemia Hypomagnesemia Replete electrolytes as needed (3) Complicated UTI (urinary tract infection): Urine cx from 04/08/19 with pansensitive E coli Had not yet started Ceftin prescribed by urology Continue Rocephin day 2 (4) DM type 2 (diabetes mellitus, type 2): A1c 10.4 in 01/19 Patient only taking glipizide, has been on prison steroids Continue insulin therapy while hospitalized Glycemic consult placed for mgmt BSG ACHS (5) Piriformis syndrome of left side: Follows with ortho for this, also OA. Continue chronic prednisone 20mg daily (6) CAD (coronary artery disease): H/O CABG x 5 1997 and stent placement in 2003 Continue ASA, Statin, Metoprolol (7) Hypertension: Continue metoprolol, Cardizem (8) CKD (chronic kidney disease), stage IV: Chronic kidney disease stage IV, baseline creatinine ~2 Avoid nephrotoxic agents Monitor renal function (9) BPH (benign prostatic hyperplasia): Continue finasteride, Alfuzosin (10) Chronic obstructive pulmonary disease: No acute exacerbation Continue Spiriva, DuoNeb as needed DVT Px: Coumadin Also on IV heparin till INR therapeutic Code status: FULL Disposition: PT/OT May need Rehab placement Admission and Anticipated Discharge Date Admission Date: April 13, 2020 Subjective Patient is seen and examined at bedside Remains tachycardic on monitor No significant change in left-sided weakness Speech better today Adamantly refuses rehab placement Chronic blurred/double vision which he attributes to glaucoma Denies chest pain, shortness of breath, dizziness, nausea, abdominal pain INR subtherapeutic Review of Systems Review of Systems: All systems reviewed & are unremarkable except as noted in HPI & below Physical Exam Physical Exam: Physical Exam: Vitals signs as noted above General Appearance:Moderately built and nourished, no apparent distress Head: normocephalic, Atraumatic Eyes: normal inspection, EOMI, + blurred vision, double vision (H/O L eye glaucoma ) Neck: supple, Trachea midline Respiratory/Chest: Normal breath sounds, CTA, No accessory muscle use Cardiovascular: Irregularly irregular, tachycardia, no murmur Abdomen/GI:Soft, Non tender, Bowel sounds present Extremities/Musculoskelatal:normal inspection, no edema Neurologic/Psych:AAOX3, + slurred speech, left-sided weakness--3-4/5; chronic RLE 2/5 Skin: normal color, warm Results & Data Results & Data ([facility]) Vital Signs (Past 12 Hours) Vital Signs Temp Pulse Pulse Resp BP BP Pulse Ox 04/15/20 15:42 36.5 C 99 H 22 112/69 96 04/15/20 12:07 91 04/15/20 11:48 36.5 C 113 H 18 113/74 95 04/15/20 08:00 110 H 04/15/20 07:53 36.8 C 108 H 18 131/66 92 04/15/20 07:33 110 H Laboratory Results Short CBC 04/15/20 Range/Units 07:26 WBC 9.52 (4.8-10.8) K/uL Hgb 12.0 L (14.0-18.0) g/dL Hct 35.0 L (42-52) % Plt Count 213 (130-400) K/uL BMP 04/15/20 07:26 Sodium 139 Potassium 3.6 Chloride 108 H Carbon Dioxide 22 BUN 23 H Creatinine 0.97 Glucose 94 Calcium 8.8 Cardiac Enzymes 04/15/20 Range/Units 07:26 Total Creatine Kinase 13 L (39-308) U/L
--- NOTE | 2020-04-15 17:48 | Cardiology Consultation ---
Date of Consultation April 15, 2020 Assessment & Plan (1) Atrial fibrillation with rapid ventricular response: (2) Stroke-like symptoms: (3) Piriformis syndrome of left side: (4) CKD (chronic kidney disease): (5) Supratherapeutic INR: (6) IgG lambda monoclonal gammopathy: (7) Valvular disease: (8) Stroke: (9) Hx of heart bypass surgery: (10) Chronic obstructive pulmonary disease: In order to achieve better rate control I will increase his Cardizem CD to 3 and 60 mg daily. I also given extra dose of metoprolol succinate 50 mg p.o. this evening and will follow closely. He is on a heparin bridge until INR is therapeutic. He states he is not interested in rehab placement. Consideration could also be given to the addition of digoxin, however, given his history of chronic kidney disease I would be hesitant to do that at this point. History of Present Illness Reason for Consultation: Atrial fibrillation with rapid ventricular response Requesting Physician: Dr. Del Cid Attending Physician: Rui Del Cid MD History of Present Illness Nabor in cardiac consultation today April 15, 2020. He is a very pleasant 84-year-old gentleman who normally follows with Earnest Dobbins and Dr. Van of our cardiology practice. He presented to [facility] with complaints of strokelike symptoms. He is in permanent atrial fibrillation and his INR was subtherapeutic at that time. He was admitted to telemetry and his heart rates have remained elevated since admission and cardiology was consultative for further treatment. Clinically, he states he feels fine. His only complaint is that of chronic hip pain but he denies any cardiac complaints of chest pain, shortness of breath, palpitations, lightheadedness, dizziness or syncope. Past medical history as per most recent outpatient cardiology note: 1. Chronic ischemic heart disease 1. Status post CABG x 5 2. Status post PCI (drug eluting stent) to a saphenous vein graft. 3. Status post plain old balloon angioplasty in 2005 2. Past paroxysmal and now persistent atrial fibrillation. 1. Amiodarone initiated in August 2016 in an attempt to avoid recurrent atrial fibrillation as he was felt to be high risk for anticoagulation at that time. 2. Anticoagulation resumed in September 2016 secondary to a DVT thus amiodarone was discontinued to avoid future toxicity. 3. Chronic right bundle branch block. 4. Preserved systolic function 5. Right lower extremity DVT, September 2016 6. History of cerebral vascular accident 7. Left lower extremity hemiplegia/foot drop - high risk for recurrent DVT. 8. Chronic coumadin anticoagulation 9. Moderate bilateral internal carotid artery disease. 10. Hypertension 11. Dyslipidemia 12. Chronic kidney disease stage IV 13. History of iron deficiency anemia and probable anemia of chronic disease 14. Reynaldo/Arb intolerance 15. Renal calculi 16. History of GI hemorrhage 17. History of hematuria 18. GERD 19. Type 2 diabetes mellitus with neuropathy 20. BPH 21. Osteoarthritis 22. Hypothyroidism Allergies Allergy/AdvReac Type Severity Reaction Status Date / Time codeine Allergy Intermediate ITCHING Verified 04/13/20 19:59 tramadol Allergy Intermediate ITCHING Verified 04/13/20 19:59 phenytoin [From Dilantin] Allergy Unknown can't Verified 04/13/20 19:59 remember clindamycin Allergy BURNING Verified 04/13/20 20:03 SENSATION IN THROAT hydrocodone AdvReac Intermediate NAUSEA Verified 04/13/20 19:59 Home Medications Medication Instructions Recorded Confirmed Type aspirin [Aspirin Low Dose] 81 mg PO DAILY 02/13/18 04/13/20 History brimonidine 1 drp OPB BID 02/13/18 04/13/20 History cholecalciferol (vitamin D3) 1,000 tab PO QPM 02/13/18 04/13/20 History [Vitamin D3] diltiazem HCl 240 mg PO QAM 02/13/18 04/13/20 History gabapentin 100 mg PO TID 02/13/18 04/13/20 History omeprazole 20 mg PO BID 02/13/18 04/13/20 History timolol 1 drp OPB BID 02/13/18 04/13/20 History zinc 50 mg PO QAM 02/13/18 04/13/20 History warfarin 1 mg tablet 1 mg PO [id number] tab 03/28/18 04/13/20 History Probiotic 3,000 mmu cells PO DAILY 08/15/19 04/13/20 History ascorbic acid (vitamin C) [Vitamin 500 mg PO QAM 08/15/19 04/13/20 History C] cyanocobalamin (vitamin B-12) 1,000 mcg PO DAILY 08/15/19 04/13/20 History [Vitamin B-12] furosemide 40 mg PO QAM 08/15/19 04/13/20 History levothyroxine 88 mcg PO QAM 08/15/19 04/13/20 History metoprolol succinate 100 mg PO QAM 08/15/19 04/13/20 History triamcinolone acetonide 1 applic TOPICAL BID PRN 08/15/19 04/13/20 History warfarin 1.5 mg PO .Sunday08/15/19 04/13/20 History cefuroxime axetil 250 mg tablet 250 mg PO BID 7 Days #14 tab 04/12/20 04/13/20 Rx dorzolamide 1 drp OPB BID 04/13/20 04/13/20 History glipizide 5 mg PO DAILY 04/13/20 04/13/20 History latanoprost 1 drp OPL HS 04/13/20 04/13/20 History magnesium oxide 400 mg PO DAILY 04/13/20 04/13/20 History oxycodone 10 mg PO Q12 PRN 04/13/20 04/13/20 History prednisone 20 mg PO DAILY 04/13/20 04/13/20 History ropinirole 0.25 mg PO HS 04/13/20 04/13/20 History tiotropium-olodaterol [Stiolto 2 puff INHALATION DAILY 04/13/20 04/13/20 History Respimat] atorvastatin [Lipitor] 40 mg PO DAILY 04/14/20 04/14/20 History finasteride 5 mg PO DAILY 04/14/20 04/14/20 History Patient History Medical History A-fib REYNALDO inhibitor intolerance "hyperkalemia and MIAH" Cancer SKIN (BCC) Chronic anticoagulation Chronic obstructive pulmonary disease STABLE CKD (chronic kidney disease), 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 Dysuria Glaucoma LEFT Hearing deficit High cholesterol History of renal calculi Hypothyroid IgG lambda monoclonal gammopathy Obesity Opioid dependence Osteoarthritis Parastomal hernia Piriformis syndrome of left side Right-sided ischial pain Stroke ~2012; RIGHT SIDED RESIDUAL WEAKNESS T2DM (type 2 diabetes mellitus) Valvular disease 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, MILD TR Surgical History H/O colectomy "08/12/13-total abdominal prostatectomy ileoanal anastamosis creation, ileal reservoir including loop ileostomy" On 08/17/14 20:31 Jocelyne Torres wrote "total abdominal prostatectomy ileoanal anastamosis creation, ileal reservoir including loop ileostomy" History of back surgery History of bladder stone EXCISION History of cataract surgery History of intestinal surgery COLOSTOMY 2/2 COLON HEMORRHAGE History of lumbar surgery History of prostate surgery History of tooth extraction Hx of arthroscopic knee surgery RIGHT Hx of cardiac cath S/P CABG X5 (1997), STENT (2003) MOST RECENT= 2011= NO STENTS Hx of eye surgery RETINAL PUCKER REPAIR (RIGHT) Hx of heart bypass surgery CABG X 5 (~1997) Hx of hernia repair X2 S/P CABG x 5 "1997" S/P cataract surgery S/P coronary artery stent placement "2008" S/P exploratory laparotomy "08/12/[address] Amie Thompson" S/P hernia repair Family History Mother Family history of diabetes mellitus CHF (congestive heart failure) Brother Cancer Esophageal Social History Smoking Status: Former smoker packs per day: 2; Years Smoked: 30; Hx Alcohol Use: No Hx Substance Use: No Preferred Language: Tajik Communication Ability: Effective Visual Impairment: Limited Hearing Ability: Hard of Hearing Capability Lead Required: No Beliefs That Will Affect Care: None marital status: Current Living Situation: Spouse current occupational status: retired Other Information That Helps Us Care for You: No Feels Safe at Home: Yes Safety Concerns: Feels Safe At This Time Assistive Devices: None, Denture - Upper, Denture - Lower and Special Shoe Review of Systems Review of Systems: All systems reviewed & are unremarkable except as noted in HPI & below Physical Exam Physical Exam: General: Awake, alert and oriented x 3. No acute distress. Right-sided hemiparesis. HEENT: Normocephalic, atraumatic. Pupils equal, round and reactive to light and accommodation. Extraocular muscles are intact. Anicteric sclera. Moist mucous membranes. Neck: No JVD. No bruit. Cardiovascular: irregularly irregular, unable to appreciate murmur, rub or gallop. Pulmonary: Clear to auscultation bilaterally. No rales, rhonchi, or wheezing. Abdomen: Bowel sounds x 4, soft. No rebound, guarding or tenderness. No organomegaly. Extremities: No clubbing, cyanosis or edema. +2 pedal pulses bilaterally. Skin: Warm and dry. Results & Data ([facility]) Vital Signs (Past 12 Hours) Vital Signs Temp Pulse Pulse Resp BP BP Pulse Ox 04/15/20 16:00 110 H 04/15/20 15:42 36.5 C 99 H 22 112/69 96 04/15/20 12:07 91 04/15/20 11:48 36.5 C 113 H 18 113/74 95 04/15/20 08:00 110 H 04/15/20 07:53 36.8 C 108 H 18 131/66 92 04/15/20 07:33 110 H Laboratory Results Laboratory Results - last 24 hr 04/14/20 04/14/20 04/14/20 20:43 23:15 23:38 WBC RBC Hgb Hct MCV MCH MCHC RDW Std Deviation RDW Coeff of Saul Plt Count MPV Immature Gran % (Auto) Neut % (Auto) Lymph % (Auto) Tift % (Auto) Eos % (Auto) Baso % (Auto) Neut # (Auto) Lymph # (Auto) Tift # (Auto) Eos # (Auto) Baso # (Auto) Immature Gran # (Auto) Absolute Nucleated RBC Nucleated RBC % (auto) PT INR APTT 107.0 H* PTT Ratio 3.8 Sodium Potassium Chloride Carbon Dioxide Anion Gap BUN Creatinine Est Cr Clr Drug Dosing Est GFR ( Amer) Est GFR (Non-Af Amer) BUN/Creatinine Ratio Glucose POC Glucose 258 H 154 H Calcium Magnesium Total Creatine Kinase Acetylchol Rcpt Bind Ab 04/15/20 04/15/20 04/15/20 04:03 07:26 07:26 WBC 9.52 RBC 3.90 L Hgb 12.0 L Hct 35.0 L MCV 89.7 MCH 30.8 MCHC 34.3 RDW Std Deviation 52.1 H RDW Coeff of Saul 16.2 H Plt Count 213 MPV 10.1 Immature Gran % (Auto) 4.9 Neut % (Auto) 79.4 Lymph % (Auto) 8.1 Tift % (Auto) 7.1 Eos % (Auto) 0.3 Baso % (Auto) 0.2 Neut # (Auto) 7.55 H Lymph # (Auto) 0.77 L Tift # (Auto) 0.68 H Eos # (Auto) 0.03 Baso # (Auto) 0.02 Immature Gran # (Auto) 0.47 H Absolute Nucleated RBC 0.03 H Nucleated RBC % (auto) 0.4 PT INR APTT PTT Ratio Sodium 139 Potassium 3.6 Chloride 108 H Carbon Dioxide 22 Anion Gap 9.0 BUN 23 H Creatinine 0.97 Est Cr Clr Drug Dosing 70.0 Est GFR ( Amer) 83.3 Est GFR (Non-Af Amer) 71.9 BUN/Creatinine Ratio 23.9 H Glucose 94 POC Glucose 109 H Calcium 8.8 Magnesium 1.9 Total Creatine Kinase 13 L Acetylchol Rcpt Bind Ab 04/15/20 04/15/20 04/15/20 07:26 07:26 07:26 WBC RBC Hgb Hct MCV MCH MCHC RDW Std Deviation RDW Coeff of Saul Plt Count MPV Immature Gran % (Auto) Neut % (Auto) Lymph % (Auto) Tift % (Auto) Eos % (Auto) Baso % (Auto) Neut # (Auto) Lymph # (Auto) Tift # (Auto) Eos # (Auto) Baso # (Auto) Immature Gran # (Auto) Absolute Nucleated RBC Nucleated RBC % (auto) PT Cancelled 15.6 H INR Cancelled 1.5 H APTT 74.9 H* PTT Ratio 2.7 Sodium Potassium Chloride Carbon Dioxide Anion Gap BUN Creatinine Est Cr Clr Drug Dosing Est GFR ( Amer) Est GFR (Non-Af Amer) BUN/Creatinine Ratio Glucose POC Glucose Calcium Magnesium Total Creatine Kinase Acetylchol Rcpt Bind Ab Pending 04/15/20 04/15/20 04/15/20 07:29 11:31 13:10 WBC RBC Hgb Hct MCV MCH MCHC RDW Std Deviation RDW Coeff of Saul Plt Count MPV Immature Gran % (Auto) Neut % (Auto) Lymph % (Auto) Tift % (Auto) Eos % (Auto) Baso % (Auto) Neut # (Auto) Lymph # (Auto) Tift # (Auto) Eos # (Auto) Baso # (Auto) Immature Gran # (Auto) Absolute Nucleated RBC Nucleated RBC % (auto) PT INR APTT 48.2 H* PTT Ratio 1.7 Sodium Potassium Chloride Carbon Dioxide Anion Gap BUN Creatinine Est Cr Clr Drug Dosing Est GFR ( Amer) Est GFR (Non-Af Amer) BUN/Creatinine Ratio Glucose POC Glucose 93 110 H Calcium Magnesium Total Creatine Kinase Acetylchol Rcpt Bind Ab 04/15/20 16:01 WBC RBC Hgb Hct MCV MCH MCHC RDW Std Deviation RDW Coeff of Saul Plt Count MPV Immature Gran % (Auto) Neut % (Auto) Lymph % (Auto) Tift % (Auto) Eos % (Auto) Baso % (Auto) Neut # (Auto) Lymph # (Auto) Tift # (Auto) Eos # (Auto) Baso # (Auto) Immature Gran # (Auto) Absolute Nucleated RBC Nucleated RBC % (auto) PT INR APTT PTT Ratio Sodium Potassium Chloride Carbon Dioxide Anion Gap BUN Creatinine Est Cr Clr Drug Dosing Est GFR ( Amer) Est GFR (Non-Af Amer) BUN/Creatinine Ratio Glucose POC Glucose 281 H Calcium Magnesium Total Creatine Kinase Acetylchol Rcpt Bind Ab Medications Administered Current Inpatient Medications Acetaminophen (Acetaminophen 325 Mg Tab) 650 mg PO Q4H PRN PRN Reason: Pain or Fever Stop: 05/13/20 19:56 Aspirin (Aspirin 81 Mg Ectab) 81 mg PO DAILY [facility] Stop: 05/14/20 08:59 Last Admin: 04/15/20 07:54 Dose: 81 mg Documented by: Atorvastatin Calcium (Atorvastatin 40 Mg Tab) 40 mg PO DAILY [facility] Stop: 05/15/20 08:59 Last Admin: 04/15/20 07:50 Dose: 40 mg Documented by: Benzocaine (Benzocaine 20% (Orajel) 11.9 Gm Tube) 1 appln MT PRN PRN PRN Reason: Pain Stop: 05/14/20 18:42 Last Admin: 04/14/20 20:54 Dose: 1 appln Documented by: Brimonidine Tartrate (Brimonidine Tartrate 0.2% 5ml) 1 drops OPB BID [facility] Stop: 05/14/20 08:59 Last Admin: 04/15/20 07:52 Dose: 1 drops Documented by: Dextrose (Dextrose 50% 50 Ml Syringe) 25 - 50 ml IV UD PRN; Protocol PRN Reason: Hypoglycemia Protocol Stop: 05/13/20 20:33 Diltiazem HCl (Diltiazem Hcl 120 Mg Capcr) 240 mg PO QAM [facility]ERNIE Stop: 05/14/20 08:59 Last Admin: 04/15/20 07:50 Dose: 240 mg Documented by: Dorzolamide HCl (Dorzolamide Hcl 2% Oph Soln 10 Ml Btl) 1 drops OPB BID [facility]ERNIE Stop: 05/14/20 08:59 Last Admin: 04/15/20 07:56 Dose: 1 drops Documented by: Finasteride (Finasteride 5 Mg Tab) 5 mg PO DAILY [facility] Stop: 05/15/20 08:59 Last Admin: 04/15/20 07:52 Dose: 5 mg Documented by: Gabapentin (Gabapentin 100 Mg Cap) 100 mg PO TID BERNIE Stop: 05/14/20 08:59 Last Admin: 04/15/20 15:35 Dose: 100 mg Documented by: Glucagon (Glucagon For Inj 1 Mg Vial) 1 mg SQ UD PRN; Protocol PRN Reason: Hypoglycemia Protocol Stop: 05/13/20 20:33 Glucose (Glucose 10 Tabs/Tube) 4 - 8 tabs PO UD PRN; Protocol PRN Reason: Hypoglycemia Protocol Stop: 05/13/20 20:33 Glucose (Glucose 40% Gel 15 Gm Tube) 15 - 30 gm PO UD PRN; Protocol PRN Reason: Hypoglycemia Protocol Stop: 05/13/20 20:33 Diltiazem HCl 125 mg/ Dextrose 125 mls @ 10 mls/hr IV .[id number] [facility]; Protocol Stop: 05/13/20 17:14 Last Titration: 04/14/20 13:35 Dose: Infused Documented by: Ceftriaxone Sodium 2,000 mg/ (Dextrose) 70 mls @ 100 mls/hr IV Q24H [facility]; Protocol Stop: 04/23/20 21:59 Last Infusion: 04/14/20 23:43 Dose: Infused Documented by: Heparin Sodium/Dextrose (Heparin Sodium/Dextrose) 25,000 units in 500 mls @ 15 mls/hr IV .Q24H [facility]; Protocol Stop: 05/13/20 22:59 Last Titration: 04/15/20 08:18 Dose: 750 units/hr, 15 mls/hr Documented by: Insulin Aspart (Insulin Aspart 100 Units/Ml 3 Ml Pen) 0 units SC ACHS [facility] Stop: 05/14/20 12:59 Last Admin: 04/15/20 17:08 Dose: 15 units Documented by: Latanoprost (Latanoprost 0.005% Op Soln 2.5 Ml Btl) 1 drops OPL HS [facility] Stop: 05/14/20 20:59 Last Admin: 04/14/20 20:42 Dose: 1 drops Documented by: Levothyroxine Sodium (Levothyroxine Sodium 88 Mcg Tablet) 88 mcg PO DAILYBB [facility] Stop: 05/14/20 06:29 Last Admin: 04/15/20 04:07 Dose: 88 mcg Documented by: Magnesium Oxide (Magnesium Oxide 400 Mg Tab) 400 mg PO DAILY [facility] Stop: 05/14/20 08:59 Last Admin: 04/15/20 07:50 Dose: 400 mg Documented by: Metoprolol Succinate (Metoprolol Succ 50mg Ext Rel Tab) 100 mg PO QAM [facility] Stop: 05/14/20 08:59 Last Admin: 04/15/20 07:52 Dose: 100 mg Documented by: Miscellaneous (Carbohydrates For Hypoglycemia ) 15 - 30 gm PO UD PRN PRN Reason: Hypoglycemia Protocol Stop: 05/13/20 20:33 Miscellaneous Information (Pharmacist Discharge Med Rec Consult) 1 ea N/A UD PRN PRN Reason: Consult Stop: 05/13/20 19:56 Miscellaneous Information (Pharmacy Glycemic Mgmt Consult) 1 ea N/A UD PRN PRN Reason: Consult Stop: 05/13/20 20:42 Ondansetron HCl (Ondansetron Inj 2 Mg/Ml 2 Ml Vial) 4 mg IV Q6H PRN PRN Reason: Nausea Stop: 05/13/20 19:56 Oxycodone HCl (Oxycodone Hcl Ir 5 Mg Tab (Immediate Release)) 10 mg PO Q12 PRN PRN Reason: Pain Stop: 04/28/20 09:50 Last Admin: 04/15/20 00:24 Dose: 10 mg Documented by: Pantoprazole Sodium (Pantoprazole 40 Mg Tab) 40 mg PO BID [facility] Stop: 05/14/20 08:59 Last Admin: 04/15/20 07:55 Dose: 40 mg Documented by: Polyethylene Glycol (Polyethylene (Miralax) 17 Gm Pack) 17 gm PO DAILY PRN PRN Reason: Constipation Stop: 05/13/20 19:56 Prednisone (Prednisone 20 Mg Tab) 20 mg PO DAILY [facility] Stop: 05/14/20 09:59 Last Admin: 04/15/20 07:50 Dose: 20 mg Documented by: Ropinirole HCl (Ropinirole Hcl 0.25 Mg Tablet) 0.25 mg PO HS [facility] Stop: 05/14/20 20:59 Last Admin: 04/14/20 20:45 Dose: 0.25 mg Documented by: Timolol Maleate (Timolol Maleate 0.5% Op Soln 5 Ml Btl) 1 drops OP BID [facility] Stop: 05/14/20 08:59 Last Admin: 04/15/20 07:55 Dose: 1 drops Documented by: Umeclidinium/Vilanterol (Umeclidinium/Vilanterol 62.5/25mcg 7 Puffs/Inhaler) 1 puffs INH DAILY [facility]; Protocol Stop: 05/14/20 09:59 Last Admin: 04/15/20 07:54 Dose: 1 puffs Documented by: Warfarin Sodium (Warfarin Sod 5 Mg Tab) 5 mg PO DAILY@1600 [facility] Stop: 05/14/20 15:59 Last Admin: 04/15/20 15:35 Dose: 5 mg Documented by:
[2020-04-15] MEDS ORDERED: METOPROLOL SUCC 50MG EXT REL TAB PO ONE (18:00)
[2020-04-15] MEDS: HEPARIN SODIUM/DEXTROSE 25,000 UNITS/500 ML BAG IV SCH (18:41)
[2020-04-15] MEDS: rOPINIRole HCL 0.25 MG TABLET PO SCH (22:02)
[2020-04-15] MEDS: LATANOPROST 0.005% OP SOLN 2.5 ML BTL OPL SCH (22:03)
[2020-04-15] MEDS: cefTRIAXone SODIUM 2,000 MG in DEXTROSE 5% 50 ML IV SCH (22:04)
[2020-04-16] MEDS: LEVOTHYROXINE SODIUM 88 MCG TABLET PO SCH (05:33)
[2020-04-16] MEDS: HEPARIN SODIUM/DEXTROSE 25,000 UNITS/500 ML BAG IV SCH ×2 (05:33→10:09)
[2020-04-16] MEDS: BENZOCAINE 20% (ORAJEL) 11.9 GM TUBE MT PRN (05:34)
[2020-04-16 05:40] LABS: INR 2.1 (0.9-1.1); Prothrombin Time 21.4 Seconds (9.0-12.0)
[2020-04-16 05:51] LABS: BUN Creatinine Ratio 27.6 (10-20); Calcium 8.2 mg/dl (8.5-10.1); Creatinine Clr Calc Pharmacy 61.7 ml/min; Est GFR (African American) 71.6; Est GFR (Non-African American) 61.8; Potassium 3.8 mmol/L (3.5-5.1)
[2020-04-16 06:01] LABS: Partial Thromboplastin Time 56.1 Seconds (21.0-31.0)
[2020-04-16] MEDS: BRIMONIDINE TARTRATE 0.2% 5ML OPB SCH (08:14)
[2020-04-16] MEDS: TIMOLOL MALEATE 0.5% OP SOLN 5 ML BTL OP SCH (08:15)
[2020-04-16] MEDS ORDERED: INSULIN HUMAN NPH SC ONE (08:15)
[2020-04-16] MEDS: DORZOLAMIDE HCL 2% OPH SOLN 10 ML BTL OPB SCH (08:15)
[2020-04-16] MEDS: ATORVASTATIN 40 MG TAB PO SCH (08:16)
[2020-04-16] MEDS: METOPROLOL SUCC 50MG EXT REL TAB PO SCH (08:16)
[2020-04-16] MEDS: UMECLIDINIUM/VILANTEROL 62.5/25MCG 7 PUFFS/INHALER INH SCH (08:16)
[2020-04-16] MEDS: predniSONE 20 MG TAB PO SCH (08:17)
[2020-04-16] MEDS: FINASTERIDE 5 MG TAB PO SCH (08:17)
[2020-04-16] MEDS: PANTOprazole 40 MG TAB PO SCH (08:17)
[2020-04-16] MEDS: ASPIRIN 81 MG ECTAB PO SCH (08:17)
[2020-04-16] MEDS: MAGNESIUM OXIDE 400 MG TAB PO SCH (08:18)
[2020-04-16] MEDS: GABAPENTIN 100 MG CAP PO SCH ×2 (08:18→15:49)
[2020-04-16] MEDS: INSULIN ASPART 100 UNITS/ML 3 ML PEN SC SCH ×2 (08:19→12:17)
[2020-04-16] MEDS ORDERED: POTASSIUM CHLORIDE CRTAB 20 MEQ TABCR PO ONE (08:27)
[2020-04-16] MEDS ORDERED: dilTIAZem HCL 120 MG CAPCR PO SCH (09:00)
--- NOTE | 2020-04-16 11:57 | Pharmacy Report ---
Pharmacy Glycemic Short Note 2 - Date of Service April 16, 2020 - Glycemic Short BSG Results (Last 24 hours): 04/15/20 04/15/20 04/16/20 16:01 20:27 04:37 Glucose 141 H POC Glucose 281 H 254 H 04/16/20 04/16/20 07:30 11:18 Glucose POC Glucose 137 H 239 H OUTPATIENT ANTIDIABETIC REGIMEN: * Glipizide (since February 2020. Was on glimepiride prior to that) * Chronic prednisone 20 mg PO daily * HbA1c elevated at 9.5% ASSESSMENT: 04/16 * Stressors stable * Post-prandial BSG's elevated yesterday. Will tighten CHO ratio * AM fasting BSG in goal range. Will keep NPH as-is 04/15 * Post-prandial BSG's with significant elevations yesterday. CHO ratio tightened last night. May require additional tightening today. * AM fasting BSG below goal range but not hypoglycemic. Will reduce overall basal dose (received 20 units total yesterday between Lantus and NPH), but switch to exclusively NPH 04/14 * BSG's responded well to interventions yesterday, now within goal for the last two checks * Heparin drip remains on, and currently at 31 mL/hr. Diltiazem drip currently 10 mL/hr, but may transition off now that po started. Cumulative D5W rate therefore 41 mL/hr providing ~50 g IV dextrose per day * T2DM diet ordered starting at lunch today * Home prednisone 20 mg po daily continuing * Will give small dose NPH with prednisone/lunch today. Anticipate will exclusively use NPH in AM as basal insulin for the duration of admission, and potentially on discharge as well 04/13 * HC is an 84 year old male who presents from PCP for evaluation of possible TIA * BSG in ED of 386 mg/dL - no insulin received * BSG of 356 mg/dL at time of glycemic consult * Will order one-time IV insulin bolus, 0.2 unit/kg Lantus, and Novolog with overnight checks * Per admitting hospitalist - last HbA1c > 10%, recheck ordered for tomorrow PLAN FOR INPATIENT GLYCEMIC CONTROL: * Hold outpatient glipizide * Basal insulin * NPH 12 units SC x1 today * Bolus insulin * NovoLog per scale ACHS or Q6hrs while NPO * Goal Range: Low 120 mg/dL - High 160 mg/dL * Correction Factor: 20 mg/dL/unit * Tighten Nutritional / Prandial insulin per carb ratio of 1 unit per 5 grams CHO consumed PLAN FOR DISCHARGE: * Appreciate input from dimension specification inspector (Gifty) * helps with diabetes management * Checks AM fasting BSG, which is usually adequate. However, given prednisone at home, elevated HbA1c that would not be explained by AM fasting BSG, and lack of post-prandial checks, post prandial checks were recommended. * Follows with [facility] * Asssessment * Agree that patient should start checking post-prandial BSG's as well. Doubt glipizide monotherapy will be successful in achieving goal HbA1c (even though it has only been two months) since A1c is more heavily weighted towards most recent two weeks of BSG's and it remains significantly elevated at 9.5%. Insulin may be required to achieve goal BSG and once-daily NPH would be a good option due to outpatient prednisone. However, patient and are not amenable at this time per Gifty. * Recommendations * Increase BSG checks to BID or TID (AM fasting, and then at least one additional check prior to dinner and/or bedtime) * Increase glipizide to 10 mg po daily, given 30 minutes prior to breakfast with prednisone * Close follow-up with [facility]abetes Clinic
--- NOTE | 2020-04-16 12:54 | Cardiology Progress Note ---
Date of Service April 16, 2020 Assessment & Plan (1) Atrial fibrillation with rapid ventricular response: (2) Stroke-like symptoms: (3) Piriformis syndrome of left side: (4) CKD (chronic kidney disease): (5) Supratherapeutic INR: (6) IgG lambda monoclonal gammopathy: (7) Valvular disease: (8) Stroke: (9) Hx of heart bypass surgery: (10) Chronic obstructive pulmonary disease: Rates still remain elevated today despite additional dose of metoprolol overnight. Just received a.m. medications today and should rates remain elevated this afternoon we will give an additional metoprolol succinate 50 mg. We will also start digoxin 0.125 mg po q48hrs will need to check bmp and dig level in 1 week cont coumadin Admission and Anticipated Discharge Date Admission Date: April 13, 2020 Subjective Patient seen and examined, chart reviewed. States that he feels fine today and is anxious for discharge. Continues to deny cardiac complaints of chest pain, shortness of breath, palpitations, lightheadedness, dizziness or syncope. Telemetry reviewed: Atrial fibrillation with variable rate response Review of Systems Review of Systems: All systems reviewed & are unremarkable except as noted in HPI & below Physical Exam Physical Exam: General: Awake, alert and oriented x 3. No acute distress. Right-sided hemiparesis. HEENT: Normocephalic, atraumatic. Pupils equal, round and reactive to light and accommodation. Extraocular muscles are intact. Anicteric sclera. Moist mucous membranes. Neck: No JVD. No bruit. Cardiovascular: irregularly irregular, unable to appreciate murmur, rub or gallop. Pulmonary: Clear to auscultation bilaterally. No rales, rhonchi, or wheezing. Abdomen: Bowel sounds x 4, soft. No rebound, guarding or tenderness. No organomegaly. Extremities: No clubbing, cyanosis or edema. +2 pedal pulses bilaterally. Skin: Warm and dry. Results & Data ([facility]) Vital Signs (Past 12 Hours) Vital Signs Temp Pulse Pulse Resp BP BP Pulse Ox 04/16/20 11:28 36.4 C L 130 H 20 131/76 95 04/16/20 09:30 138 H 22 04/16/20 09:15 131 H 15 04/16/20 09:00 121 H 14 94 01/15/21 08:45 108 H 17 94 04/16/20 08:30 119 H 18 96 04/16/20 08:27 37.1 C 126 H 20 122/92 95 04/16/20 08:15 140 H 24 94 04/16/20 08:05 139 H 22 122/92 92 04/16/20 08:00 138 H 18 94 04/16/20 07:45 129 H 20 93 04/16/20 07:30 118 H 22 97 04/16/20 07:15 102 H 16 04/16/20 07:00 116 H 13 94 04/16/20 03:47 36.4 C L 107 H 22 117/71 94
--- NOTE | 2020-04-16 14:27 | Hospitalist Progress Note ---
Date of Service April 16, 2020 Assessment & Plan (1) Stroke-like symptoms: Patient is an 81 yr male with H/O CVA with residual right hemiparesis, chronic atrial fibrillation anticoagulated on warfarin, CAD (s/p CABG in 1997), HTN, HLD, T2DM, CKD stage IV, COPD, bilateral carotid artery stenosis, history of subtotal colectomy with ileostomy in 2013 who presents with left lower extremity weakness for the past 3 days. Strokelike symptoms Presumptive small MRI negative CVA Presented with left lower extremity weakness and slurred speech for 3 days H/O CVA in 2013 with residual RLE weakness-- uses walker for ambulation --CT head:No acute intracranial abnormality. --MRI Brain:No acute intracranial abnormality, specifically there is no evidence of acute or subacute infarct. No abnormal enhancement. Age-related involutional changes with advanced chronic microvascular ischemic disease. --Carotid Doppler:Findings suggestive of 50-69% stenosis of the proximal left internal carotid artery with mild progression since exam of September 05, 2016. Findings suggestive of 50-69% stenosis of the proximal to mid right internal carotid artery. --ECHO: No intra-atrial shunt. Continue Aspirin, Lipitor Also on Coumadin Evaluated by speech therapy Continue PT OT Appreciate neurology input Patient currently not interested in rehab placement Needs follow-up with neurology upon discharge (2) Atrial fibrillation with rapid ventricular response: H/o chronic atrial fibrillation Subtherapeutic INR on presentation Weaned off of diltiazem drip Continue p.o. Cardizem, metoprolol Continue Coumadin Monitor INR:1.5> 2.1 Appreciate cardiology Input Cardizem increased to 360 mg p.o. daily Also plan to be started on digoxin as per cardiology Hypokalemia Hypomagnesemia Replete electrolytes as needed (3) Complicated UTI (urinary tract infection): Urine cx from 04/08/19 with pansensitive E coli Had not yet started Ceftin prescribed by urology Continue Rocephin day 3 (4) DM type 2 (diabetes mellitus, type 2): A1c 10.4 in 01/19 Patient only taking glipizide, has been on usp steroids Continue insulin therapy while hospitalized Glycemic consult placed for mgmt BSG ACHS (5) Piriformis syndrome of left side: Follows with ortho for this, also OA. Continue chronic prednisone 20mg daily (6) CAD (coronary artery disease): H/O CABG x 5 1997 and stent placement in 2003 Continue ASA, Statin, Metoprolol (7) Hypertension: Continue metoprolol, Cardizem (8) CKD (chronic kidney disease), stage IV: Chronic kidney disease stage IV, baseline creatinine ~2 Avoid nephrotoxic agents Monitor renal function (9) BPH (benign prostatic hyperplasia): Continue finasteride, Alfuzosin (10) Chronic obstructive pulmonary disease: No acute exacerbation Continue Spiriva, DuoNeb as needed DVT Px: Coumadin Code status: FULL CODE Disposition: PT/OT Patient refuses Rehab placement despite explaining the risks, complications of fall while on anticoagulation and importance of PT/OT Plan to discharge home with home health as able Admission and Anticipated Discharge Date Admission Date: April 13, 2020 Subjective Patient is seen and examined at bedside Heart rate variable this morning No new complaints Speech back to baseline as per patient Chronic blurred/double vision which he attributes to glaucoma Denies chest pain, shortness of breath, dizziness, nausea, abdominal pain INR therapeutic range today IV heparin discontinued Review of Systems Review of Systems: All systems reviewed & are unremarkable except as noted in HPI & below Physical Exam Physical Exam: Physical Exam: Vitals signs as noted above General Appearance:Moderately built and nourished, no apparent distress Head: normocephalic, Atraumatic Eyes: normal inspection, EOMI, + blurred vision, double vision (H/O L eye glaucoma ) Neck: supple, Trachea midline Respiratory/Chest: Normal breath sounds, CTA, No accessory muscle use Cardiovascular: Irregularly irregular, tachycardia, no murmur Abdomen/GI:Soft, Non tender, Bowel sounds present, +Colostomy Extremities/Musculoskelatal:normal inspection, no edema Neurologic/Psych:AAOX3, + slurred speech, left-sided weakness--3-4/5; chronic RLE 2/5 Skin: normal color, warm Results & Data Results & Data ([facility]) Vital Signs (Past 12 Hours) Vital Signs Temp Pulse Pulse Resp BP BP Pulse Ox 04/16/20 11:28 36.4 C L 130 H 20 131/76 95 04/16/20 09:30 138 H 22 04/16/20 09:15 131 H 15 04/16/20 09:00 121 H 14 94 04/16/20 08:45 108 H 17 94 04/16/20 08:30 119 H 18 96 01/15/21 08:27 37.1 C 126 H 20 122/92 95 04/16/20 08:15 140 H 24 94 04/16/20 08:05 139 H 22 122/92 92 04/16/20 08:00 138 H 18 94 04/16/20 07:45 129 H 20 93 04/16/20 07:30 118 H 22 97 04/16/20 07:15 102 H 16 04/16/20 07:00 116 H 13 94 04/16/20 03:47 36.4 C L 107 H 22 117/71 94 Laboratory Results [facility] 04/16/20 04:37 Sodium 139 Potassium 3.8 Chloride 108 H Carbon Dioxide 25 BUN 30 H Creatinine 1.10 Glucose 141 H Calcium 8.2 L
[2020-04-16] MEDS ORDERED: STROKE PATIENT DISCHARGE STA (15:10)
--- NOTE | 2020-04-16 15:11 | Discharge Summary ---
Date of Service April 16, 2020 Admission HPI Per Admitting Provider This is an 81-year-old male with PMH of history of CVA with residual right HP, chronic atrial fibrillation anticoagulated on warfarin, CAD (s/p CABG in 1997), HTN, HLD, T2DM, CKD stage IV, COPD, bilateral carotid artery stenosis, history of subtotal colectomy with ileostomy in 2013 who presents with left lower extremity weakness for the past 3 days. Patient was sitting in armchair on Sunday when he slumped over after becoming weak. Has had difficulty moving left leg since this happened. Has residual right lower extremity weakness from previous stroke in 2014 but has had full strength in left leg and has been able to ambulate with walker. Over the past few days, patient has barely been able to lift up left leg and has had difficulty ambulating. also noted some slurring of speech over the past few days. Denies any swallowing difficulties or sensory deficits. Does seem to have reduced range of motion in upper extremity. Denies any fever, chills, lightheadedness, chest pain, palpitations, shortness of breath, nausea, vomiting, abdominal pain. Was diagnosed with a UTI in clinic earlier this week but has not yet started antibiotic. Has had normal output in colostomy. Admission Exam Per Admitting Provider Physical Exam Physical Exam: General Appearance: vitals as above, NAD, sitting up in bed, pleasant, conversing easily Head: normocephalic, atraumatic Eyes: normal inspection, PERRL, conjunctivae normal, anicteric sclerae ENT: hard of hearing, external ear and nose normal, oropharynx normal Neck: normal visual inspection, trachea midline, no thyromegaly Respiratory: normal respiratory effort, lungs clear to auscultation, no wheeze, rales, rhonchi. No accessory muscle use Cardiovascular: irregular rate & rhythm, no murmur appreciated, normal peripheral pulses, no BLE edema. Vessels: no JVD Chest: normal inspection of chest Abdomen/GI: normal bowel sounds, soft, nontender, no hepatosplenomegaly. + Colostomy bag with small amount of brown stool Extremities/Musculoskeletal: no cyanosis or clubbing, LUE and RUE 4/5 MINOO with some reduced ROM. RLE 3/5 (chronic), LLE ( 3/5 hip flexion, 5/5 dorsiflexion of ankle) Neurologic: PERRL, EOMI, accommodation nl, no face palsy, + mild slurring of speech noted, CN's II-XI intact bilaterally and moves all extremities Psychiatric: A+Ox3, euthymic affect Skin: no rashes, normal color, warm/dry Principal Diagnosis Stroke like symptoms Presumptive small MRI negative CVA Atrial fibrillation with rapid ventricular response Subtherapeutic INR Urinary tract infection Discharge Data Allergies Allergy/AdvReac Type Severity Reaction Status Date / Time codeine Allergy Intermediate ITCHING Verified 04/13/20 19:59 tramadol Allergy Intermediate ITCHING Verified 04/13/20 19:59 phenytoin [From Dilantin] Allergy Unknown can't Verified 04/13/20 19:59 remember clindamycin Allergy BURNING Verified 04/13/20 20:03 SENSATION IN THROAT hydrocodone AdvReac Intermediate NAUSEA Verified 04/13/20 19:59 Consultations 04/13/20 18:09 ED Decision to Admit Stat 04/13/20 19:57 Consult Case Management - Discharge Planning Routine 04/14/20 08:00 Consult Neurology Routine 04/15/20 09:26 Consult Cardiology Routine Procedures Performed --CT head:No acute intracranial abnormality. --MRI Brain:No acute intracranial abnormality, specifically there is no evidence of acute or subacute infarct. No abnormal enhancement. Age-related involutional changes with advanced chronic microvascular ischemic disease. --Carotid Doppler:Findings suggestive of 50-69% stenosis of the proximal left internal carotid artery with mild progression since exam of September 05, 2016. Findings suggestive of 50-69% stenosis of the proximal to mid right internal carotid artery. Ordered Studies 04/13/20 17:01 CT head/brain wo con Stat 04/13/20 19:57 MR brain wo/w con Routine 04/13/20 22:55 US carotid doppler BI Routine 04/14/20 16:43 MR cervical spine wo/w con Urgent Hospital Course (1) Stroke-like symptoms: Patient is an 81 yr male with H/O CVA with residual right hemiparesis, chronic atrial fibrillation anticoagulated on warfarin, CAD (s/p CABG in 1997), HTN, HLD, T2DM, CKD stage IV, COPD, bilateral carotid artery stenosis, history of subtotal colectomy with ileostomy in 2013 who presents with left lower extremity weakness for the past 3 days. Strokelike symptoms Presumptive small MRI negative CVA Presented with left lower extremity weakness and slurred speech for 3 days H/O CVA in 2013 with residual RLE weakness-- uses walker for ambulation --CT head:No acute intracranial abnormality. --MRI Brain:No acute intracranial abnormality, specifically there is no evidence of acute or subacute infarct. No abnormal enhancement. Age-related involutional changes with advanced chronic microvascular ischemic disease. --Carotid Doppler:Findings suggestive of 50-69% stenosis of the proximal left internal carotid artery with mild progression since exam of September 05, 2016. Findings suggestive of 50-69% stenosis of the proximal to mid right internal carotid artery. --ECHO: No intra-atrial shunt. Continue Aspirin, Lipitor Also on Coumadin Evaluated by speech therapy Continue PT OT Appreciate neurology input Patient currently not interested in rehab placement Needs follow-up with neurology upon discharge (2) Atrial fibrillation with rapid ventricular response: H/o chronic atrial fibrillation Subtherapeutic INR on presentation Weaned off of diltiazem drip Continue p.o. Cardizem, metoprolol Continue Coumadin Monitor INR:1.5> 2.1 Appreciate cardiology Input Cardizem increased to 360 mg p.o. 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 Continue chronic prednisone 20mg daily (6) CAD (coronary artery disease): H/O CABG x 5 1997 and stent placement in 2003 Continue ASA, Statin, Metoprolol (7) Hypertension: Continue metoprolol, Cardizem (8) CKD (chronic kidney disease), stage IV: Chronic kidney disease stage IV, baseline creatinine ~2 Avoid nephrotoxic agents Monitor renal function (9) BPH (benign prostatic hyperplasia): Continue finasteride, Alfuzosin (10) Chronic obstructive pulmonary disease: No acute exacerbation Continue Spiriva, DuoNeb as needed DVT Px: Coumadin Code status: FULL CODE Disposition: PT/OT Patient refuses Rehab placement despite explaining the risks, complications of fall while on anticoagulation and importance of PT/OT Plan to discharge home with home health as able Total Time Total Time Spent Total Time Spent (In Minutes): 47 minutes Total Time Includes: Examination of the Patient, Discharge Planning, Medication Reconciliation, Communication With Other Providers and Other Discharge Plan Discharge Items Patient Disposition: Home - Home Health Services Reason For Visit: STROKE EVAL, A FIB WITH RVR Discharge Diagnosis: Stroke like symptoms Presumptive small MRI negative CVA Atrial fibrillation with rapid ventricular response Subtherapeutic INR Urinary tract infection Activity: Per Instructions section Exercise/Sports: Gradually increase as tolerated Non-emergency contact: Primary Care Provider, Insulator Apprentice and Neurologist Call non-emergency contact if: you have any medication questions, your symptoms worsen, your pain is not controlled, your pain is worsening, your pain is unusual for you, your pain is concerning for you and you have a fever Follow-up/Referrals: Everett Marrufo MD [Primary Care Provider] - Dietitian Info: Finger foods Diet: Carb Consistent or DM2 Ambulatory Orders: Basic Metabolic Panel (Routine) Timeframe: 1 Week Location: Determined by Patient Ordered By: Rui Del Cid Digoxin (Routine) Timeframe: 1 Week Location: Determined by Patient Ordered By: Rui Rodriguez Attending Provider Instructions: Follow up with your Primary Care physician on April 232020 at 11 Am Follow up with your Neurologist as advised--office will call you with appointment Follow up with your Insulator Apprentice as advised--office will call you with appointment Follow-up with Coumadin clinic, for adjustment of your Coumadin dose and monitoring your PT/INR. Get Blood Test (Basic Metabolic Panel and Digoxin levels ) in 1 week and follow-up with your prune washer. Complete the antibiotic course--cefuroxime for 4 more days as previously prescribed. Medication changes Your diltiazem is increased to 360 mg daily as recommended by your prune washer You are also started on digoxin 0.125 mg every 48 hours for better control of your heart rate Your glipizide is increased to 10 mg daily for better control of your blood glucose levels. Seek immediate medical attention if your symptoms reoccur or worsen Risk Factors for Stroke: You can reduce your chances of stroke by working with your medical provider to adopt a healthy lifestyle. Some specific ways to lower your chance of stroke are: * If you are a smoker, now is the time to stop smoking cigarettes * If you are diabetic, improve the control of your blood sugars * Avoid excessive amounts of alcohol * Control high blood pressure * Lose weight if you are overweight * Be sure to lead an active lifestyle * Eat a healthy diet low in salt, cholesterol and fat You should know about other risk factors for stroke that you are unable to control. These include: * Age 55 years or older * Male gender * Certain racial groups: , or / * Family History of Stroke, Mini stroke or Heart Attack * Sickle Cell Disease Follow Up: It is important for you to keep your follow up appointments with your medical provider. Who to Call and When: Medical Emergencies: Call 911 immediately if you experience any of the following warning signs and symptoms of Stroke: * Sudden numbness or weakness of the face, arm or leg, especially on one side of the body * Sudden confusion, trouble speaking or understanding * Sudden trouble seeing in one or both eyes * Sudden trouble walking, dizziness, loss of balance or coordination * Sudden severe headache with no cause Do not delay calling 911 if you experience any warning signs or symptoms of a stroke. Delay in seeking medical attention may affect what treatments can be given to you. . Pending Studies at Discharge: No Stand-Alone Forms: My [facility], Smoking Cessation Medications and DC Order Prescriptions: New diltiazem HCl 120 mg Capsule,Extended Release 24hr 360 mg PO QAM Qty: 90 RF: 0 digoxin [Digitek] 125 mcg (0.125 mg) Tablet 0.125 mg PO Q48H Qty: 14 RF: 0 Continued cefuroxime axetil 250 mg tablet 250 mg PO BID 7 Days Qty: 14 RF: 0 furosemide 40 mg tablet 40 mg PO QAM RF: 0 metoprolol succinate 100 mg tablet extended release 24 hr 100 mg PO QAM RF: 0 cyanocobalamin (vitamin B-12) [Vitamin B-12] 1,000 mcg Tablet 1,000 mcg PO DAILY RF: 0 levothyroxine 88 mcg tablet 88 mcg PO QAM RF: 0 ascorbic acid (vitamin C) [Vitamin C] 500 mg Tablet 500 mg PO QAM RF: 0 triamcinolone acetonide 0.1 % ointment 1 applic TOPICAL BID PRN (Reason: Itching) RF: 0 warfarin 1 mg tablet 1.5 mg PO .SUNDAY RF: 0 Probiotic 3 billion cell Capsule 3,000 mmu cells PO DAILY RF: 0 latanoprost 0.005 % drops 1 drp OPL HS RF: 0 prednisone 10 mg tablet 20 mg PO DAILY RF: 0 ropinirole 0.25 mg tablet 0.25 mg PO HS RF: 0 dorzolamide 2 % drops 1 drp OPB BID RF: 0 Stiolto Respimat 2.5-2.5 mcg/actuation mist 2 puff INHALATION DAILY RF: 0 oxycodone 10 mg tablet 10 mg PO Q12 PRN (Reason: Pain) RF: 0 magnesium oxide 400 mg magnesium Tablet 400 mg PO DAILY RF: 0 atorvastatin [Lipitor] 40 mg Tablet 40 mg PO DAILY RF: 0 finasteride 5 mg Tablet 5 mg PO DAILY RF: 0 aspirin [Aspirin Low Dose] 81 mg Tablet,Delayed Release (Dr/Ec) 81 mg PO DAILY RF: 0 zinc 50 mg Tablet 50 mg PO QAM RF: 0 omeprazole 20 mg Tablet,Delayed Release (Dr/Ec) 20 mg PO BID RF: 0 cholecalciferol (vitamin D3) [Vitamin D3] 1,000 unit Tablet 1,000 tab PO QPM RF: 0 timolol 0.5 % Drops 1 drp OPB BID RF: 0 brimonidine 0.2 % Drops 1 drp OPB BID RF: 0 gabapentin 100 mg Capsule 100 mg PO TID RF: 0 warfarin 1 mg tablet 1 mg PO [id number] RF: 0 Changed glipizide 5 mg tablet 10 mg PO DAILY Qty: 0 RF: 0 Discontinued diltiazem HCl 240 mg Capsule,Extended Release 24 Hr 240 mg PO QAM RF: 0 Discharge Orders: Discharge Order (Routine); Ordered 04/16/20 Ordered By: Rui Hopkins/Other Patient Handouts: High Blood Sugar (Hyperglycemia), Hypoglycemia (Low Blood Sugar), Managing Type 2 Diabetes Admission Data Admit Date/Time: 04/13/20 18:24 Attending Provider: Rui Del Cid Admit Provider: Katina Snow Primary Care Provider: Everett Marrufo Other Providers: Katina Snow ; Elmer Sanchezrose,Ramin L Other Interventions: Discharge Summary Assessment (RN) Last Done: 04/16/20 15:26
[2020-04-16] MEDS ORDERED: DIGOXIN 0.125 MG TAB PO SCH (16:00)
[2020-04-16] MEDS ORDERED: WARFARIN SOD 2.5 MG TAB PO SCH (16:00)
[2020-04-17] MEDS ORDERED: INSULIN HUMAN NPH SC SCH (07:30)
== END 2020-04-16 17:00 | disposition home health service (06) | DRG 65 ==
LOC: ED 16:17 → SUATTDRO 18:24 → 1E 18:24